=== PATIENT | female | born 1935 | race Caucasian/White ===

== ENCOUNTER 2018-12-25 14:14 | Emergency (ER) | payer MEDICARE, SELFPAY ==
[2018-12-25 14:16] VITALS: BP 167/70; PULSE 69; RESP 18; TEMP 36.6; O2SAT 95; BMI 28.2
--- NOTE | 2018-12-25 14:28 | ED.VISSUMM ---
- ER Visit Summary Date of Service: 12/25/18 Chief Complaint: [Laceration to left small finger] History of Present Illness: The patient is a 83 F [presents to the emergency department after lacerating her left small finger last evening using a damascener. Patient is right-hand dominant. Patient unsure of her last tetanus shot.] Physical Examination: [Left small finger-patient has superficial avulsion of the skin of the tip of the digit into the nail. Minimal blood oozing. Neurovascular intact.] Test Results: [None indicated] Emergency Department Course and Treatment: [Patient had a wound cleansed and Gelfoam was applied to the skin/nail avulsion. Good hemostasis was obtained and patient had a clean dressing applied.] Treatment Plan: [Patient to follow-up with primary care physician in 5 to 7 days for wound check] Disposition: [Discharged home stable condition] Impression: [Skin/nail avulsion of distal tip of left small finger] This note was generated with [employer] dictation software. It may contain incorrect words, spelling, and punctuation that were not noted in review of the chart prior to signing ED Disposition - Plan for ED Patient: Referrals: James Garcia [Primary Care Provider] -
--- NOTE | 2018-12-25 14:30 | ED.DEP ---
ED Disposition - Plan for ED Patient: Instructions: ED Laceration Small Superf No Sutr, ED Avulsion Dermal Referrals: James Garcia [Primary Care Provider] - 5-7 Days
[2018-12-25] MEDS: Diphth,Pertuss(Acell),Tet Vac 0.5 ML Vial IM (14:35)
== END 2018-12-25 14:57 | disposition home or self-care (01) ==
LOC: ED 14:44
PROVIDERS: Emergency Provider Emergency Medicine; Family Provider Family Medicine; PCP Family Medicine
DX: S61.307A Unspecified open wound of left little finger with damage to nail, initial encounter (principal); W27.4XXA Contact with kitchen utensil, initial encounter; Y93.9 Activity, unspecified; Y92.9 Unspecified place or not applicable; Y99.9 Unspecified external cause status; Z23 Encounter for immunization; I48.91 Unspecified atrial fibrillation; I25.10 Atherosclerotic heart disease of native coronary artery without angina pectoris; I10 Essential (primary) hypertension; Z79.899 Other long term (current) drug therapy; Z95.5 Presence of coronary angioplasty implant and graft
CPT/HCPCS: 90471; 90715; 99282

== ENCOUNTER 2019-11-27 12:31 | Emergency (ER) | payer MEDICARE, SELFPAY ==
[2019-11-27 12:33] VITALS: BP 160/68; PULSE 65; RESP 16; TEMP 36.7; O2SAT 96; BMI 24.4
--- NOTE | 2019-11-27 12:45 | CT_ITS ---
STUDY: CT BRAIN WITHOUT CONTRAST REASON FOR EXAM: Female, 84 years old. PT STATED HTN X 4 DAYS RADIATION DOSAGE (If Supplied By Facility): CTDIvol = ( 60.81 ) mGy, DLP = ( 998.67 ) mGycm TECHNIQUE: Transaxial CT imaging of the brain was performed without administration of intravenous contrast material. Individualized dose optimization techniques were used for this CT. COMPARISON: No relevant priors. FINDINGS: Normal soft tissue structures. Normal calvarium. There is mild cerebral atrophy with widening of the extra-axial spaces and ventricular dilatation. There are areas of decreased attenuation within the white matter tracts of the supratentorial brain, consistent with microvascular disease changes. Findings suggestive of a tiny old lacunar infarcts in the basal ganglia bilaterally. Normal brainstem. Normal cerebellum. There is no intracranial hemorrhage. There are no findings of an acute ischemic infarction. Normal visualized paranasal sinuses. CT/Brain/Head without Contrast IMPRESSION: Chronic involutional changes of the brain. Electronically Signed: Reymundo Mejia, at 13:25 EDT , Service support ,
--- NOTE | 2019-11-27 12:45 | EKG12_ITS ---
Test Reason : HIGH BP Blood Pressure : / mmHG Vent. Rate : 063 BPM Atrial Rate : 063 BPM P-R Int : 236 ms QRS Dur : 088 ms QT Int : 440 ms P-R-T Axes : 049 -25 037 degrees QTc Int : 450 ms Sinus rhythm with 1st degree A-V block consider voltage crieria for LVH (aVL) Abnormal ECG Confirmed by JORGE SALAZAR, GUILLERMO ([id number]), manuscript editor MILAGROS FRANCO ([id number]) on 11/28/2019 1:30:47 PM Referred By: BJORN Confirmed By:GUILLERMO PATEL MD
--- NOTE | 2019-11-27 12:51 | ED.VIS.GEN ---
History of Present Illness Chief Complaint: Hypertension Informant: Patient Onset: Days Context: Gradual Onset Timing: Continuous Current Severity: Moderate Maximum Severity: Moderate Narrative: The patient is an 85-year-old female with medical history significant for hypertension and paroxysmal atrial fibrillation who presents to the emergency department with elevated blood pressure. The patient states that she has been having blood pressures in the 200s systolic for the past few days. She called her primary care. She was restarted on her amlodipine and was referred to the emergency department. She states that she waited until today. She had called back and she was still having blood pressure of 200 systolic. She was told to come to the emergency department. She denies chest pain. She denies orthopnea or shortness of breath. She has had a mild headache, but denies any weakness, numbness, other systemic symptoms. She does follow with cardiology here. She states that she has been compliant with her medications. She is on clonidine and states that she has not missed any of her doses. Prior similar symptoms: Yes Recent Illness/Hospitalization: No Past Medical History - Allergies and Home Meds Allergies/Adverse Reactions: Allergies aspirin Adverse Reaction (Verified 11/27/19 12:33) Unknown clarithromycin [From Biaxin] Adverse Reaction (Verified 11/27/19 12:33) Unknown codeine Adverse Reaction (Verified 11/27/19 12:33) Unknown morphine Adverse Reaction (Verified 11/27/19 12:33) Unknown Penicillins Adverse Reaction (Verified 11/27/19 12:33) Unknown Sulfa (Sulfonamide Antibiotics) Adverse Reaction (Verified 11/27/19 12:33) Unknown Primary Care Physician: James Garcia [Primary Care Provider] - Prior records reviewed: Yes Past Medical History: - - Hypertension, hyperlipidemia, coronary vascular disease Smoking Status: Never smoker Review of Systems General: Denies: Chills, Fever, Sweats Eyes: Denies: Visual changes - bilaterally, Diplopia ENT: Denies: Rhinorrhea, Sore throat Cardiovascular: Denies: Chest pain, Palpitations Respiratory: Denies: Dyspnea, Cough, Dyspnea on exertion Gastrointestinal: Denies: Abdominal pain, Nausea, Vomiting, Diarrhea, Melena, Hematochezia Genitourinary: Denies: Dysuria, Hematuria, Frequency Musculoskeletal: Denies: Back pain, Extremity Pain Skin: Denies: Rash, Wounds Neurological: Denies: Headache, Weakness, Numbness Physical Exam Vital Signs/Narrative: Vital Signs Temp Pulse Resp BP Pulse Ox 11/27/19 12:33 98.0 F 65 16 160/68 H 96 Inital Vital Signs reviewed: Yes General: Well nourished, Well developed, No Acute Distress Head: Normocephalic, Atraumatic Eyes: Perrl, EOMI ENT: Moist mucous membranes, No rhinorrhea Neck: Supple, Nontender Cardiovascular: Regular rate, Regular rhythm, No murmurs Respiratory: No distress, CTA bilaterally, Chest nontender Abdomen: Soft, Nontender, Nondistended, Normal bowel sounds Back: Nontender, Normal Inspection Extremities: Nontender, No edema Skin: Normal color, No rash Neurological: Alert, Oriented x3, Cranial nerves II-XII grossly intact, Normal Strength, Normal Sensation Psychological: Normal affect, Normal Mood Diagnostic/Tx/Re-eval Clinical Impression(s) from Imaging Studies Brain CT 11/27/19 12:45 IMPRESSION: Chronic involutional changes of the brain. Electronically Signed: Reymundo Mejia, at 13:25 EDT , Service support , Abnormal Lab Results 11/27/19 11/27/19 13:00 13:00 WBC 8.0 RBC 4.06 L Hgb 12.6 Hct 37.8 MCV 93.1 MCH 31.0 MCHC 33.3 RDW Std Deviation 42.5 RDW Coeff of Deidra 12.4 Plt Count 277 MPV 9.4 Immature Gran % (Auto) 0.300 Neut % (Auto) 58.7 Lymph % (Auto) 29.8 [place] % (Auto) 7.8 Eos % (Auto) 2.4 Baso % (Auto) 1.0 Absolute Neuts (auto) 4.7 Absolute Lymphs (auto) 2.37 Nucleated RBC % 0 Sodium 134 L Potassium 3.6 Chloride 98 Carbon Dioxide 30.0 Anion Gap 6 BUN 21 H Creatinine 0.95 Estim Creat Clear Calc 37.12 Est GFR (MDRD) Af Amer 72 Est GFR (MDRD) Non-Af 59 L BUN/Creatinine Ratio 22.0 H Glucose 142 H Calcium 9.3 Total Bilirubin 0.50 AST 21 ALT 23 Alkaline Phosphatase 118 H Total Protein 8.1 Albumin 4.2 Globulin 3.9 Albumin/Globulin Ratio 1.1 - Rhythm Strip Rhythm Strip: Sinus Rhythm Rate: 70 Ectopy: None - EKG Initial EKG Interpretation: Sinus Rhythm, No Acute Injury Pattern Prior: Unchanged - Medical Decision Making The patient presents to the emergency department with asymptomatic hypertension. She denies chest pain, orthopnea, or any neurologic symptoms. She states that she is had a mild headache, but has for months. EKG was obtained which demonstrated sinus rhythm with LVH. There is no acute ischemia. Screening labs were obtained were unremarkable. The patient did have some mildly elevated blood pressures in the 160s, but she was never [address] shows no acute or normalities. Screening labs including renal function were unremarkable. The patient was just resumed on her amlodipine and her blood pressure has improved. I am hesitant to start her on more medication as she is had increased blood pressure control with her amlodipine. She is scheduled to follow-up with cardiology tomorrow. I do feel that she is safe for outpatient therapy. Impression 1. Hypertension ED Disposition - Plan for ED Patient: Instructions: ED Hypertension Established Referrals: James Garcia [Primary Care Provider] -
[2019-11-27 13:10] LABS: Absolute Lymphocyte Count 2.37 X10^3/uL (0.83-4.51); Absolute Neutrophil Count 4.7 X10^3/uL (2.0-7.7); Basophil# 0.08 X10^3/uL; Eosinophil# 0.19 X10^3/uL; Eosinophils% 2.4 % (0-5); Hematocrit 37.8 % (37-47); Hemoglobin 12.6 g/dL (12.0-15.0); Lymphocyte # 2.37 X10^3/ul (4.0); Lymphocyte % 29.8 % (19-41); Mean Corp Hgb Conc 33.3 g/dL (32-36); Mean Corpuscular Volume 93.1 fL (81-99); Mean Platelet Vol. 9.4 fl (6.2-12.0); Monocyte# 0.62 X10^3/uL; Monocyte% 7.8 % (0-10); NRBC Flagged by Analyzer 0 % (0-5); Neutrophil # 4.67 X10^3/uL (2.7-7.7); Neutrophil % 58.7 % (47-70); Platelet Count 277 K/mm3 (150-450); RBC Distribution Width CV 12.4 % (11.6-14.6); RBC Distribution Width SD 42.5 fl (35.1-43.9); Red Blood Count 4.06 M/mm3 (4.2-5.4)
--- NOTE | 2019-11-27 13:19 | RAD_ITS ---
STUDY: X-RAY CHEST REASON FOR EXAM: Female, 84 years old. SOB, CHEST DISCOMFORT X 3 DAYS; -- STENTS TECHNIQUE: Single AP portable view of the chest. COMPARISON: Comparison is made with prior examination dated August 06, 2010. FINDINGS: The lungs are clear and expanded. There is no demonstrated pleural abnormality. There is moderate cardiac enlargement. Calcified right hilar lymph nodes. Normal visualized pulmonary arteries. There is atherosclerotic calcification of the aortic arch with tortuosity. There is a dextroscoliosis of the thoracic spine. Normal visualized ribs, clavicles, and shoulders. There is no demonstrated abnormality of the visualized soft tissue structures of the upper abdomen. RAD/Chest 1 View (Portable) IMPRESSION: Cardiomegaly. No acute abnormality is seen. Electronically Signed: Reymundo Mejia, at 14:37 EDT , Service support ,
[2019-11-27 13:25] VITALS: BP 171/66; PULSE 63; RESP 16; O2SAT 97
[2019-11-27 13:25] LABS: ALB/GLOB Ratio 1.1 RATIO (0.9-2.4); AST(SGOT) 21 U/L (15-37); Alanine Aminotransfer ALT/SGPT 23 U/L (13-56); Albumin, Serum 4.2 g/dL (3.2-5.0); Alkaline Phosphatase 118 U/L (45-117); Anion Gap 6 (5-15); BUN 21 mg/dL (7-18); Calcium,Total 9.3 mg/dL (8.5-10.1); Chloride 98 mmol/L (98-107); Creatinine, Serum 0.95 mg/dL (0.55-1.02); EST Glomerular Filtration Rate 59 mL/min (>60); Est Glom Filt Rate - Afr Amer 72 mL/min (>60); Estimated Creatinine Clearance 37.12 ml/min; Globulin 3.9 g/dL (2.2-4.2); Glucose 142 mg/dL (74-106); Potassium 3.6 mmol/L (3.5-5.1); Protein, Total 8.1 g/dL (6.4-8.2); Sodium Level 134 mmol/L (136-145)
[2019-11-27 14:31] VITALS: BP 175/64; PULSE 62; RESP 16; O2SAT 94
== END 2019-11-27 14:52 | disposition home or self-care (01) ==
LOC: ED 12:54
PROVIDERS: Emergency Provider Emergency Medicine; PCP Family Medicine
DX: I10 Essential (primary) hypertension (principal); E78.5 Hyperlipidemia, unspecified; I25.10 Atherosclerotic heart disease of native coronary artery without angina pectoris; I48.0 Paroxysmal atrial fibrillation
CPT/HCPCS: 70450; 71045; 80053; 85025; 93005; 99284

== ENCOUNTER 2020-09-27 14:29 | Outpatient (RCR) | payer MEDICARE, SELFPAY ==
[2019-11-28 14:30] VITALS: BMI 24.4
== END 2020-09-27 23:59 ==
LOC: IMMUN 14:29
PROVIDERS: PCP Family Medicine; Referring Provider Family Medicine; Visit Provider Family Medicine
DX: Z23 Encounter for immunization (principal)
CPT/HCPCS: 0011A; 0012A

== ENCOUNTER 2020-11-28 14:41 | Inpatient (IN) | payer MEDICARE, SELFPAY ==
[2019-11-28 14:30] VITALS: BMI 24.4
[2020-11-28] VITALS (10 sets, daily range): BP systolic 114–154; BP diastolic 44–70; PULSE 58–77; RESP 14–18; TEMP 36.1–36.9; O2SAT 93–97; BMI 25.7; BMI 26.6
--- NOTE | 2020-11-28 14:40 | RAD_ITS ---
STUDY: X-RAY CHEST REASON FOR EXAM: Female, 85 years old. Weakness TECHNIQUE: Single AP portable view of the chest. COMPARISON: 11/27/2019 FINDINGS: The lungs are clear and expanded. There is no demonstrated pleural abnormality. There is moderate cardiac enlargement. Normal mediastinum and ashutosh. Normal visualized pulmonary arteries. Normal visualized aortic arch and descending thoracic aorta. There is a dextroscoliosis of the thoracic spine. Normal visualized ribs, clavicles, and shoulders. There is no demonstrated abnormality of the visualized soft tissue structures of the upper abdomen. RAD/Chest 1 View (Portable) IMPRESSION: No active disease. Electronically Signed: Martínez Flores MD at 15:52 EDT Tel , Service support ,
--- NOTE | 2020-11-28 15:04 | CT_ITS ---
STUDY: CT BRAIN WITHOUT CONTRAST REASON FOR EXAM: Female, 85 years old. Weakness RADIATION DOSAGE (If Supplied By Facility): CTDIvol = ( 38.43 ) mGy, DLP = ( 640.64 ) mGycm TECHNIQUE: Transaxial CT imaging of the brain was performed without administration of intravenous contrast material. Individualized dose optimization techniques were used for this CT. COMPARISON: 11/27/2019 FINDINGS: Normal soft tissue structures. Normal calvarium. There is mild cerebral atrophy with widening of the extra-axial spaces and ventricular dilatation. There are areas of decreased attenuation within the white matter tracts of the supratentorial brain, consistent with microvascular disease changes. Normal basal ganglia and thalami. Normal brainstem. Normal cerebellum. There is no intracranial hemorrhage. There are no findings of an acute ischemic infarction. Normal visualized paranasal sinuses. CT/Brain/Head without Contrast IMPRESSION: Chronic involutional changes of the brain. Electronically Signed: Martínez Flores MD at 15:43 EDT Tel , Service support ,
--- NOTE | 2020-11-28 15:05 | EKG12_ITS ---
Test Reason : DIZZINESS Blood Pressure : / mmHG Vent. Rate : 061 BPM Atrial Rate : 061 BPM P-R Int : 238 ms QRS Dur : 086 ms QT Int : 448 ms P-R-T Axes : 047 -29 035 degrees QTc Int : 450 ms Sinus rhythm with 1st degree A-V block Minimal voltage criteria for LVH, may be normal variant Septal infarct , age undetermined Abnormal ECG Confirmed by GIOVANNA SALAZAR, ALLEY ([id number]), avid editor TAY SCHROEDER ([id number]) on 12/02/2020 2:16:28 PM Referred By: JACQUELYN Confirmed By:ALLEY HEREDIA MD
--- NOTE | 2020-11-28 15:09 | ED.VISSUMM ---
- ER Visit Summary Date of Service: 11/28/20 Chief Complaint: Dizziness History of Present Illness: The patient is a 85 F who presents with dizziness and weakness that has been getting worse over the past week. Patient states she feels weak and lightheaded. Patient states it has been waxing and waning over the past week. Patient states she is actually starting to feel better. Patient saw her primary care physician yesterday who adjusted her blood pressure medications. Patient states she is being scheduled for an outpatient MRI but has not had this done yet. reports that the patient's blood pressure today at home were 103/53 and 113/62. is not sure if the patient is dehydrated so he wanted her evaluated for that. Physical Examination: Vital signs are stable. Patient is afebrile. Patient is in no acute distress. Pupils are equal, round, and reactive to light bilaterally. Extraocular muscles are intact. There is no nystagmus noted. Cranial nerves II through XII are intact. Strength is 5/5 bilateral in the upper and lower extremities. There are no sensory deficits noted. Iqsl-[id number] and [id number] are intact. Heart was regular rate and rhythm. Lungs are clear and equal bilaterally. Abdomen is soft. Bowel sounds are normal. There is no tenderness. Extremities are intact. There is no calf tenderness or edema. Test Results: EKG was obtained. On my interpretation, it showed a sinus rhythm with a first-degree AV block with a rate of 61. QRS interval, and QTc intervals were all normal. There is left axis deviation at -29. There are no acute ST or T wave changes. CBC was essentially within normal limits. Metabolic profile showed an elevated creatinine of 2.18. Troponin was slightly elevated at 0.161. Portable 1 view chest x-ray was obtained. On my interpretation, lung acharya are clear. There is normal cardiac silhouette. Bony thorax is normal. There is no acute process noted. Radiologist also interpreted the x-ray and agrees. CT scan of the brain was obtained. There is no acute intracranial abnormality. This was interpreted by the radiologist and reviewed by myself. Orthostatic vital signs were obtained were within normal limits. Urinalysis does not show any evidence of urinary tract infection. Emergency Department Course and Treatment: Patient was given IV fluids. Patient was not given aspirin due to her allergy. Patient is resting comfortably on reevaluation. Case was discussed with the hospitalist. She will admit the patient to her service. Patient and family understood and were agreeable with the plan. All questions were answered. Disposition: Admit to hospital Impression: 1. Acute kidney injury 2. Elevated troponin This note was generated with [employer] dictation software. It may contain incorrect words, spelling, and punctuation that were not noted in review of the chart prior to signing ED Disposition - Plan for ED Patient: Disposition: Acute Care Hospital [facility] Diagnosis: Acute kidney injury, Elevated troponin Referrals: James Garcia DO [Primary Care Provider] -
[2020-11-28 15:38] LABS: Basophil# 0.07 X10^3/uL; Basophil% 0.8 % (0-1); Eosinophil# 0.26 X10^3/uL; Eosinophils% 3.1 % (0-5); Hematocrit 34.7 % (37-47); Hemoglobin 11.3 g/dL (12.0-15.0); Lymphocyte % 28.3 % (19-41); Mean Corp Hgb Conc 32.6 g/dL (32-36); Mean Corpuscular Hgb 32.5 pg (27.0-32.0); Mean Corpuscular Volume 99.7 fL (81-99); Monocyte# 0.69 X10^3/uL; Monocyte% 8.1 % (0-10); NRBC Flagged by Analyzer 0 % (0-5); Neutrophil # 5.02 X10^3/uL (2.7-7.7); Neutrophil % 59.1 % (47-70); Platelet Count 257 K/mm3 (150-450); RBC Distribution Width CV 12.6 % (11.6-14.6); Red Blood Count 3.48 M/mm3 (4.2-5.4); White Blood Count 8.5 K/mm3 (4.4-11.0)
[2020-11-28 15:59] LABS: AST(SGOT) 28 U/L (15-37); Alanine Aminotransfer ALT/SGPT 21 U/L (13-56); Albumin, Serum 3.5 g/dL (3.2-5.0); Alkaline Phosphatase 92 U/L (45-117); Anion Gap 5 (5-15); BUN 37 mg/dL (7-18); Calcium,Total 8.6 mg/dL (8.5-10.1); Chloride 99 mmol/L (98-107); Creatinine, Serum 2.18 mg/dL (0.55-1.02); EST Glomerular Filtration Rate 23 mL/min (>60); Est Glom Filt Rate - Afr Amer 28 mL/min (>60); Globulin 3.5 g/dL (2.2-4.2); Glucose 96 mg/dL (74-106); Potassium 5.2 mmol/L (3.5-5.1); Sodium Level 133 mmol/L (136-145)
[2020-11-28 16:47] LABS: International Normalized Ratio 1.1; Partial Thromboplast Time 26.7 Seconds (24.1-36.2); Prothrombin Time (Protime)PT. 13.5 SECONDS (11.7-14.9)
[2020-11-28 17:11] LABS: Color, Urine Yellow (Yellow); Glucose, Dipstick Normal (Normal); Ketone-Dipstick Negative (Negative); Leukocyte Esterase-Dipstick 100 /ul (Negative); Nitrite-Dipstick Negative (Negative); Occult Blood-Urine Negative /ul (Negative); Protein-Dipstick Negative (Negative); Specific Gravity, Urine 1.005 (1.002-1.030); Urine Bilirubin Dipstick Negative (Negative); Urine Clarity Clear (Clear); Urine Urobilinogen Normal (Normal)
[2020-11-28 17:12] LABS: Mucous, Urine 0 SEEN /hpf (<or=2+); Red Blood Cells-Urine 0 SEEN /hpf (0-5); Squamous Epithelial Cells - UA 0 SEEN /hpf (5-10)
[2020-11-28 17:18] LABS: Bacteria RARE /hpf (None Seen); White Blood Cells 0-5 SEEN /hpf (0-5)
--- NOTE | 2020-11-28 17:43 | HP.PCM_ITS ---
Problem List (1) Acute kidney injury Status: Acute (2) Elevated troponin Status: Acute (3) Presence of stent in coronary artery Status: Chronic Comment: 11/05/2009 PTCA with stents to LAD and RCA (4) Pure hypercholesterolemia Status: Chronic (5) Essential hypertension Status: Chronic (6) Paroxysmal atrial fibrillation Status: Chronic (7) Atherosclerotic heart disease of [place] coronary artery without angina pectoris Status: Chronic Qualifiers: [place] vs. transplanted heart: [place] heart Qualified Code(s): I25.10 - Atherosclerotic heart disease of [place] coronary artery without angina pectoris Comment: 11/05/2009 PTCA with stents to LAD and RCA History of Present Illness Date of Admission: 11/28/20 Chief Complaint: Fatigue, malaise, lightheadedness and dizziness x 1 week, intermittent. The patient is a 85 y/o F w/ PMHx: HTN, HLD, PAF not anticoagulated chronically, CAD s/p PCI LAD and RCA, Anxiety and Depression, Allergic rhinitis, Chronic constipation who presents to the [facility] ED on 11/28/20 with history of ongoing dizziness, lightheadedness with no spinning sensation associated more so with activity, waxing and waning over the last week although she does feel as though she has slowly been improving. She notes having been very fatigued recently over this past week and occasionally having nausea without emesis. She does admit to poor oral water intake. She denies any recent fever, chills, emesis, abdominal pain, chest pain, dyspnea. She denies any recent ill contacts. She has r eceived both of her maternal vaccinations greater than 2 months prior to current presentation as well as her . In the ED work-up included T 98.4, heart rate 64, BP 133/55, respiratory rate 15, 97% on room air, negative orthostatic vital signs, CBC with WC 8.5, hemoglobin 11.3, platelet 257 that marked shift, unremarkable coags, CMP with sodium 133, potassium 5.2, BUN/creatinine 37/2.18, troponin 0 0.161, urinalysis not marked appearing, happy Covid antigen negative, test x-rays no acute cardiopulmonary findings, CT head with no acute intracranial findings. In the ED patient administered NS. Past Medical History Past Medical History (Chronic Problems): Chronic Problems (Last Reviewed 11/28/19 @ 14:40 by Andra Green) Presence of stent in coronary artery (Chronic ~11/05/09) 11/05/2009 PTCA with stents to LAD and RCA Pure hypercholesterolemia (Chronic) Essential hypertension (Chronic) Paroxysmal atrial fibrillation (Chronic) Edema (Chronic) Atherosclerotic heart disease of [place] coronary artery without angina pectoris (Chronic) 11/05/2009 PTCA with stents to LAD and RCA Medical History: Medical History (Last Reviewed 11/28/19 @ 14:40 by Andra Green) Presence of stent in coronary artery (Chronic) Onset Date: ~11/05/09 Z95.5 11/05/2009 PTCA with stents to LAD and RCA Pure hypercholesterolemia (Chronic) E78.00 Essential hypertension (Chronic) I10 Paroxysmal atrial fibrillation (Chronic) I48.0 Edema (Chronic) R60.9 Atherosclerotic heart disease of [place] coronary artery without angina pectoris (Chronic) I25.10 11/05/2009 PTCA with stents to LAD and RCA Allergies aspirin Adverse Reaction (Verified 11/28/20 14:42) Unknown clarithromycin [From Biaxin] Adverse Reaction (Verified 11/28/20 14:42) Unknown codeine Adverse Reaction (Verified 11/28/20 14:42) Unknown morphine Adverse Reaction (Verified 11/28/20 14:42) Unknown Penicillins Adverse Reaction (Verified 11/28/20 14:42) Unknown Sulfa (Sulfonamide Antibiotics) Adverse Reaction (Verified 11/28/20 14:42) Unknown Home Medications: Ambulatory Orders Medication Instructions Recorded ascorbic acid (vitamin C) 500 mg 500 mg PO QDAY 09/08/17 tablet citalopram 20 mg tablet 20 mg PO QDAY 09/08/17 magnesium oxide 400 mg PO QDAY cap 09/08/17 montelukast 10 mg tablet 10 mg PO QDAY tab 09/08/17 omeprazole 20 mg capsule,delayed 20 mg PO BID 09/08/17 release simvastatin 10 mg tablet 10 mg PO QDAY tab 09/08/17 clonidine HCl 0.2 mg tablet 0.1 mg PO QDAY tab 09/13/17 potassium chloride 20 mEq 20 meq PO QDAY 09/13/17 tablet,extended release albuterol sulfate 2.5 mg INHALATION Q4H PRN 06/13/18 ipratropium bromide 0.02 % 2.5 ml INHALATION Q4H PRN 06/13/18 solution for inhalation nitroglycerin 0.4 mg sublingual 0.4 mg SUBLINGUAL Q5-15M PRN 06/13/18 tablet hydrocodone 5 mg-acetaminophen 325 1 tab PO Q8H PRN tab 11/28/19 mg tablet metoprolol succinate 100 mg 100 mg PO BID tab 11/28/19 tablet,extended release 24 hr triamterene 37.5 1 tab PO DAILY tab 11/28/19 mg-hydrochlorothiazide 25 mg tablet amlodipine 10 mg tablet 2.5 mg PO QDAY tab 12/14/19 isosorbide dinitrate 30 mg tablet 30 mg PO BID tab 12/14/19 losartan 50 mg tablet 50 mg PO BID #180 tab 01/30/20 Fluticasone 0.05% [Flonase Nasal 1 spray NASAL DAILY 11/28/20 M[place]oll] Lactulose 10 gm PO DAILY 11/28/20 Surgical History: Surgical History (Last Updated 11/28/19 @ 14:40 by Andra Green) H/O arthroscopy of left knee Z98.890 H/O oophorectomy History of appendectomy Z98.890, Z90.49 History of partial hysterectomy Z98.890, Z90.711 History of right inguinal hernia repair Z98.890, Z87.19 Presence of coronary angioplasty implant and graft Onset Date: ~11/05/09 Z95.5 11/05/2009 PTCA with stents to LAD and RCA History of hernia repair Z98.890, Z87.19 History of coronary artery stent placement (Inactive) Onset Date: 11/05/09 Z95.5 11/05/2009 PTCA with stents to LAD and RCA Surgical History: - - PCI LAD and RCA, appendectomy, hysterectomy with oophorectomy, hernia repair, knee arthroscopic surgery. 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 Lives: Spouse/ Significant Other Smoking Status: Never smoker Tobacco Use: Non-smoker Alcohol: None Drugs: None - *Family History Maternal Family History: Family History (Last Reviewed 11/28/19 @ 14:40 by Andra Green) Mother Myocardial infarction CVA (cerebral vascular accident) CAD (coronary artery disease) Father Myocardial infarction CAD (coronary artery disease) Brother History of PTCA Hx of CABG Sister Hx of CABG History Items: High Cholesterol, Heart Disease, Hypertension, Stroke Paternal Family History: Family History (Last Reviewed 11/28/19 @ 14:40 by Andra Green) Mother Myocardial infarction CVA (cerebral vascular accident) CAD (coronary artery disease) Father Myocardial infarction CAD (coronary artery disease) Brother History of PTCA Hx of CABG Sister Hx of CABG History Items: High Cholesterol, Heart Disease, Hypertension Review of Systems Constitutional: Reports: Malaise, Weakness, Fatigue. Denies: Anorexia, Chills, Fever, Weight Change HEENT: Denies: Head Aches, Sinus Congestion, Sinus Drainage Cardiovascular: Reports: Light Headedness, - - Dizziness, no vertigo.. Denies: Chest Pain, Chest Pressure, Chest Tightness, Edema, Orthopnea, Palpitations, Syncope Respiratory: Reports: Shortness of breath upon exertion - Patient chronically short of breath if she tries to exert herself a lot but this has been stable for many years.. Denies: Cough, Shortness of Breath, Shortness of breath at rest, Sputum production Gastrointestinal: Reports: Constipation, Nausea. Denies: Abdominal Pain, Diarrhea, Vomiting Genitourinary: Denies: Dysuria Musculoskeletal: Reports: Joint Pain. Denies: Joint Tenderness Skin: Denies: Rash, Wounds Neurological: Denies: Numbness, Tingling, Focal weakness Psychiatric: Reports: Anxiety, Depression. Denies: Homicidal Ideations, Suicidal Ideations Hematologic/ Lymphatic: Reports: Anemia, Easy Bruising, Easy Bleeding VTE Information - Inpt Only VTE Present on Admission: No VTE Mechan Device Prophylaxis: SCD's VTE Pharm Prophylaxis ordered?: Yes Patient Problems: Active and Suspected Problems (Last Reviewed 11/28/19 @ 14:40 by Andra Green) Acute kidney injury (Acute) Elevated troponin (Acute) Subjective: Patient seated upright in ED bed, fatigued appearing otherwise no acute distress, denies any shortness of breath or chest pain. Objective: Physical Examination: General: awake, alert, oriented x 3 and cooperative, seated upright in the ED bed in no apparent distress. Skin: normal color, turgor, no icterus, cyanosis except occasional staged ecchymoses. HEENT: AT/NC, EOMI, PERRLA, moderately dry MM, no carotid bruits or JVD noted. Lungs: Diminished breath sounds, greater bases, appropriate effort, no rales, ronchi or wheezing. Heart: Regular rate and rhythm; no gallop, rub audible. Abdomen: soft, NTTP, ND, normal BS, no HSM. Extremities: no cyanosis, clubbing, or edema. Neurological: patient awake, alert, oriented as noted; cognitive function appears baseline intact; pupils equally reactive to light and accomodation; cranial nerves II-XII grossly normal, moving all 4 extremities, no focal deficits, strength moderately global decrease secondary to acute presentation. Psychiatric: affect appears fatigued, flat, denies any acute depression or anxiety, notes she has been very fatigued over this last week. - Physical Exam Vitals/I&O's: Vital Signs Temp Pulse Resp BP Pulse Ox 98.4 F 64 15 133/55 H 97 11/28/20 17:43 11/28/20 17:43 11/28/20 17:43 11/28/20 17:43 11/28/20 17:43 Oxygen Delivery Method Room Air Weight: 132 lb Body Mass Index (BMI) 25.7 Microbiology Past 72 Hours 11/28/20 16:32 Mucosa - Nose SARS-CoV-2 Antigen (Rapid) - Final Laboratory Results 11/28/20 15:20: WBC 8.5, RBC 3.48 L, Hgb 11.3 L, Hct 34.7 L, MCV 99.7 H, MCH 32.5 H, MCHC 32.6, RDW Std Deviation 46.0 H, RDW Coeff of [place] 12.6, Plt Count 257, MPV 11.0, Immature Gran % (Auto) 0.600, Neut % (Auto) 59.1, Lymph % (Auto) 28.3, [place] % (Auto) 8.1, Eos % (Auto) 3.1, Baso % (Auto) 0.8, Absolute Neuts (auto) 5.0, Absolute Lymphs (auto) 2.40, Nucleated RBC % 0 11/28/20 15:20: PT Cancelled, INR Cancelled, APTT Cancelled 11/28/20 15:20: Sodium 133 L, Potassium 5.2 H, Chloride 99, Carbon Dioxide 29.0, Anion Gap 5, BUN 37 H, Creatinine 2.18 H, Estim Creat Clear Calc 13.80, Est GFR (MDRD) Af Amer 28 L, Est GFR (MDRD) Non-Af 23 L, BUN/Creatinine Ratio 17.0, Glucose 96, Calcium 8.6, Total Bilirubin 0.30, AST 28, ALT 21, Alkaline Phosphatase 92, Troponin I 0.161 H, Total Protein 7.0, Albumin 3.5, Globulin 3.5, Albumin/Globulin Ratio 1.0 11/28/20 16:15: PT 13.5, INR 1.1, APTT 26.7 11/28/20 16:56: Urine Color Yellow, Urine Clarity Clear, Urine pH 7.0, Ur Specific [place] 1.005, Urine Protein Negative, Urine Glucose (UA) Normal, Urine Ketones Negative, Urine Occult Blood Negative, Urine Nitrite Negative, Urine Bilirubin Negative, Urine Urobilinogen Normal, Ur Leukocyte Esterase 100 H, Urine RBC 0 SEEN, Urine WBC 0-5 SEEN, Ur Squamous Epith Cells 0 SEEN, Urine Bacteria RARE, Urine Mucus 0 SEEN Current Medications Sodium Chloride () 1,000 mls @ 1,000 mls/hr IV .Q1H ONE Stop: 11/28/20 18:32 Assessment/Plan All Active Problems (Last Reviewed 11/28/19 @ 14:40 by Andra Green) Acute kidney injury (Acute) Elevated troponin (Acute) The patient is a 85 y/o F w/ PMHx: HTN, HLD, PAF not anticoagulated chronically, CAD s/p PCI LAD and RCA, Anxiety and Depression, Allergic rhinitis, Chronic constipation who presents to the [facility] ED on 11/28/20 with history of ongoing dizziness, lightheadedness with no spinning sensation associated more so with activity, waxing and waning over the last week although she does feel as though she has slowly been improving. 1. Lightheadedness, Dizziness suspected secondary to Indeterminate cardiac enzyme, unclear if trending up or down w/ CAD Hx s/p PCI x 2 and #2: EKG in ED with sinus rhythm with first-degree AV block with no acute evidence of ischemia, CXR w/ cardiopulmonary findings, CT head with no acute intracranial findings, initial trop 0.161. Will admit to PCU, place on a monitored bed to assure no acute myocardial infarction with serial cardiac enzymes and EKGs. Will obtain echocardiogram as not recently performed. Will maintain on chemoprophylactic heparin however if trend upward will transition to heparin drip given acute kidney injury. Magnesium level requested. If significant cardiac enzyme rise and evidence of NSTEMI will consult cardiology. Continue medical therapy with hold parameters on nephrotoxic medications as noted. Get of orthostatic vital signs. FLP in AM. ASA, NG, morphine. 2. Acute kidney injury: Secondary to #1 and poor oral intake per discussions as well as nephrotoxic medications. Admission BUN/Cr 37/2.18, prior baseline creatinine noted to be 0.8-0.9. Will hydrate, hold nephrotoxic medications and repeat chemistry in AM. Will obtain FeNa assessment. 3. Hyponatremia, mild, likely hypovolemic: Admission sodium 133, suspect hypovolemic in concordance with #2 acute kidney injury, will continue hydration, repeat CMP in AM. 4. Hyperkalemia: Admission potassium 5.2, likely secondary to iatrogenic ongoing supplementation, will hold, repeat CMP in a.m. given mild elevation. 5. Anemia, appears macrocytic: Prior hemoglobins 12 range, unclear if chronic component, admission hemoglobin 11.3 with MCV 99.7, iron panel, ferritin, vitamin B12 and folic acid pending. 6. CAD: Status post PCI LAD and RCA, noted allergy to aspirin however this is an adverse reaction therefore clarifying and if able will continue, continue metoprolol, holding losartan, continue statin therapy. 7. Hypertension: We will continue patient home amlodipine, clonidine, isosorbide, metoprolol with hold parameters, holding any nephrotoxic regimen with resumption once appropriate, as needed hydralazine. 8. Hyperlipidemia: Continue home statin regimen. AM FLP. 9. GERD: We will continue patient home PPI. 10. Chronic constipation: We will continue patient home lactulose regimen however if any concern for diarrhea will hold given FRANSISCO and hyponatremia. 11. Anxiety and depression: Clarifying if patient is currently on citalopram, will continue it verified however if worsening renal function would hold. 12. Allergic rhinitis: We will continue patient home Flonase regimen as well as Singulair. 13. PAF: Noted history, currently in sinus rhythm, not anticoagulated, will continue patient home metoprolol regimen. 14. DVT prophylaxis: SCDs, heparin. 15. CODE status: Patient does not have healthcare power of workers compensation attorney nor living will set up. Her is present and amenable to discussion of these items and interested in assistance from case management/social work in setting up. Discussed CODE status at length including difference between FULL code, DNR-CCA and DNR-CC status. Following discussions about the differences in these status, requested DNR-CCA, no intubation status.. Advanced Care Planning Face to Face Time: 16 minutes. Inpatient E&M: 22202 Init Hosp L3 Procedures: 00562 Advncd Care Plan 30 Min
[2020-11-28] MEDS: 0.9% Normal Saline 1,000 ML 1000 ML IV (17:46)
--- NOTE | 2020-11-28 19:20 | ECHOD_ITS ---
Reason For Study: CAD/ASHD Procedure This was a 2D Doppler, Color Flow transthoracic echocardiogram. Exam performed portable in patient room. Left Ventricle Normal LV size. Left ventricular systolic function is normal. The estimated ejection fraction is 70 %. There is evidence of diastolic dysfunction. No regional wall motion abnormalities noted. Right Ventricle Normal RV size. Normal systolic function. Atria The left atrium is moderately enlarged. Normal right atrium. No doppler evidence for ASD. Mitral Valve There is moderate to severe mitral annular calcification. Extension of the mitral annular calcification on the base of the posterior mitral valve leaflet. Mild (1+) mitral valve insufficiency. Tricuspid Valve Normal tricuspid valve. Mild (1+) tricuspid valve insufficiency. Right ventricular systolic pressure estimated to be 37 mmHg. Aortic Valve Trisinus/trileaflet aortic valve. Mild focal aortic valve thickening. Trivial aortic valve insufficiency. Pulmonic Valve The pulmonic valve is not well visualized. Great Vessels Normal sized aortic root. Pericardium/Pleural No pericardial effusion. MMode/2D Measurements & Calculations LVIDd: 4.2 cm IVSd: 0.97 cm Ao root diam: 3.1 cm LVIDs: 2.6 cm LVPWd: 1.00 cm RVDd: 3.4 cm FS: 39.2 % LAV(MOD-bp): 47.9 ml LVAd ap4: 23.5 cm2 SV(MOD-sp4): 52.1 ml LAV(MOD-bp) Indexed: 30.3 ml/m2 EDV(MOD-sp4): 70.9 ml LAV(MOD-sp2): 41.4 ml EDV(sp4-el): 74.8 ml LAV(MOD-sp4): 47.7 ml LVAs ap4: 10.6 cm2 ESV(MOD-sp4): 18.7 ml ESV(sp4-el): 19.3 ml EF(MOD-sp4): 73.6 % EF(sp4-el): 74.2 % SV(sp4-el): 55.5 ml LA A4 area: 18.7 cm2 LA dimension(2D): 3.6 cm RA A4 area: 13.8 cm2 Time Measurements MV dec time: 0.32 sec Doppler Measurements & Calculations MV E max ochoa: 96.7 cm/sec Lat Peak E' Ochoa: 8.7 cm/sec Med Peak E' Ochoa: 5.4 cm/sec MV A max ochoa: 100.1 cm/sec E/E' lat: 11.1 E/E' med: 18.0 MV E/A: 0.97 Ao V2 max: 129.3 cm/sec AI max ochoa: 388.1 cm/sec LV V1 max: 118.6 cm/sec Ao max P.7 mmHg AI max P.5 mmHg LV V1 max P.6 mmHg AI dec slope: 258.9 cm/sec2 AI P1/2t: 439.0 msec PA V2 max: 115.8 cm/sec TR max ochoa: 290.4 cm/sec TR max P.7 mmHg ECHO/Echo Complete Interpretation Summary The estimated ejection fraction is 70 %. Left ventricular systolic function is normal. The left atrium is moderately enlarged. There is moderate to severe mitral annular calcification. Extension of the mitral annular calcification on the base of the posterior mitr al valve leaflet. Mild (1+) mitral valve insufficiency. Mild (1+) tricuspid valve insufficiency. Mild focal aortic valve thickening. Trivial aortic valve insufficiency. Right ventricular systolic pressure estimated to be 37 mmHg. There is evidence of diastolic dysfunction. Ordering Physician: Teresa Platt Referring Physician: JAMES PURCELL Performed By: Ana Islas RDCS
--- NOTE | 2020-11-28 19:20 | EKG12_ITS ---
Test Reason : CHEST PAIN Blood Pressure : / mmHG Vent. Rate : 074 BPM Atrial Rate : 074 BPM P-R Int : 212 ms QRS Dur : 084 ms QT Int : 438 ms P-R-T Axes : 066 -22 079 degrees QTc Int : 486 ms Sinus rhythm with 1st degree A-V block Nonspecific ST and T wave abnormality Prolonged QT Abnormal ECG When compared with ECG of 29-NOV-2020 05:39, MANUAL COMPARISON REQUIRED, DATA IS UNCONFIRMED Confirmed by GIOVANNA SALAZAR, ALLEY ([id number]), technical writer and editor [employer]OLO [employer]LES ([id number]) on 12/04/2020 1:25:08 PM Referred By: DEMI Confirmed By:ALLEY HEREDIA MD
[2020-11-28 20:19] LABS: Urine Sodium 26 mmol/L (Not Establ.)
[2020-11-28 21:07] LABS: Magnesium 2.7 mg/dL (1.6-2.6)
[2020-11-28] MEDS: 0.9% Normal Saline 1,000 ML 100 ML IV (21:20)
[2020-11-28] MEDS: Metoprolol(XL)Succ 100 MG Tablet PO (21:26)
[2020-11-28] MEDS: Heparin Injection (Vial) 5,000 UNIT/ML VIAL 5000 UNIT SC (21:27)
[2020-11-28] MEDS: Isosorbide DN 30 MG Tablet PO (21:28)
[2020-11-28] MEDS: Pantoprazole Sodium 20 MG Tablet PO (21:35)
[2020-11-29] VITALS (16 sets, daily range): BP systolic 159–193; BP diastolic 46–77; PULSE 62–73; RESP 16–18; TEMP 36.3–36.7; O2SAT 90–97; BMI 26.4
--- NOTE | 2020-11-29 01:19 | NURSING ---
DR PANIAGUA WAS NOTIFIED OF ELEVATED TROPONINS, NO NEW ORDERS RECEIVED.
[2020-11-29 02:34] LABS: Absolute Lymphocyte Count 3.09 X10^3/uL (0.83-4.51); Absolute Neutrophil Count 5.8 X10^3/uL (2.0-7.7); Basophil# 0.08 X10^3/uL; Basophil% 0.8 % (0-1); Eosinophil# 0.51 X10^3/uL; Eosinophils% 4.9 % (0-5); Hematocrit 33.3 % (37-47); Hemoglobin 10.7 g/dL (12.0-15.0); Lymphocyte # 3.09 X10^3/ul (4.0); Lymphocyte % 29.9 % (19-41); Mean Corp Hgb Conc 32.1 g/dL (32-36); Mean Corpuscular Hgb 31.8 pg (27.0-32.0); Mean Corpuscular Volume 98.8 fL (81-99); Mean Platelet Vol. 10.6 fl (6.2-12.0); Monocyte# 0.82 X10^3/uL; Monocyte% 7.9 % (0-10); NRBC Flagged by Analyzer 0 % (0-5); Neutrophil # 5.82 X10^3/uL (2.7-7.7); Neutrophil % 56.2 % (47-70); Platelet Count 245 K/mm3 (150-450); RBC Distribution Width CV 12.3 % (11.6-14.6); RBC Distribution Width SD 44.7 fl (35.1-43.9); Red Blood Count 3.37 M/mm3 (4.2-5.4); White Blood Count 10.4 K/mm3 (4.4-11.0)
[2020-11-29 02:42] LABS: International Normalized Ratio 1.1; Prothrombin Time (Protime)PT. 13.3 SECONDS (11.7-14.9)
[2020-11-29 02:43] LABS: Partial Thromboplast Time 48.7 Seconds (24.1-36.2)
[2020-11-29 02:56] LABS: Vitamin B12 818 pg/mL (211-911)
[2020-11-29 03:48] LABS: ALB/GLOB Ratio 0.9 RATIO (0.9-2.4); AST(SGOT) 18 U/L (15-37); Alanine Aminotransfer ALT/SGPT 19 U/L (13-56); Albumin, Serum 3.2 g/dL (3.2-5.0); Alkaline Phosphatase 93 U/L (45-117); Anion Gap 3 (5-15); BUN 31 mg/dL (7-18); BUN/Creat Ratio 20.1 RATIO (10-20); Calcium,Total 8.7 mg/dL (8.5-10.1); Chloride 104 mmol/L (98-107); Cholesterol 128 mg/dL (200); Creatinine, Serum 1.54 mg/dL (0.55-1.02); EST Glomerular Filtration Rate 34 mL/min (>60); Est Glom Filt Rate - Afr Amer 41 mL/min (>60); Estimated Creatinine Clearance 19.53 ml/min; Ferritin 636 ng/mL (8-252); Globulin 3.5 g/dL (2.2-4.2); Glucose 137 mg/dL (74-106); High Density Lipoprotein 42 mg/dL; Iron 43 ug/dL (50-170); Iron Binding Capacity,Total 256 ug/dL (250-450); PERCENT IRON SATURATION 16.8 % (15.0-55.0); Potassium 4.6 mmol/L (3.5-5.1); Protein, Total 6.7 g/dL (6.4-8.2); Sodium Level 136 mmol/L (136-145); Triglycerides 173 mg/dL; Very Low Density Lipoprotein 35 mg/dL (5-40)
--- NOTE | 2020-11-29 05:20 | NURSING ---
Reviewed Aspirin allergy with patient, patient states her lips swell up, and she has wheezing and shortness of breath if she takes it. Pt had refused to take it last night due to the allergy.
--- NOTE | 2020-11-29 05:55 | EKG12_ITS ---
Test Reason : AM EKG Blood Pressure : / mmHG Vent. Rate : 065 BPM Atrial Rate : 065 BPM P-R Int : 220 ms QRS Dur : 086 ms QT Int : 432 ms P-R-T Axes : 052 -31 052 degrees QTc Int : 449 ms Sinus rhythm with 1st degree A-V block Left axis deviation Septal infarct , age undetermined Abnormal ECG When compared with ECG of 28-NOV-2020 20:36, MANUAL COMPARISON REQUIRED, DATA IS UNCONFIRMED Confirmed by GIOVANNA SALAZAR, ALLEY ([id number]), editor & co founder [employer]LES ([id number]) on 12/04/2020 1:10:47 PM Referred By: DR SMALL Confirmed By:ALLEY HEREDIA MD
[2020-11-29] MEDS: 0.9% Normal Saline 1,000 ML 100 ML IV ×2 (06:51→16:27)
[2020-11-29] MEDS: Fluticasone 0.05% 1 SPRAY NASAL.SRY NASAL (08:50)
[2020-11-29] MEDS: cloNIDine HCl 0.1 MG Tablet PO (08:50)
[2020-11-29] MEDS: Lactulose 20 GM/30 ML UDC 10 GM PO (08:50)
[2020-11-29] MEDS: Citalopram 20 MG Tablet PO (08:50)
[2020-11-29] MEDS: Isosorbide DN 30 MG Tablet PO ×2 (08:51→21:59)
[2020-11-29] MEDS: amLODIPine 2.5 MG Tablet PO (08:51)
[2020-11-29] MEDS: Magnesium Chloride 64 MG Delay Rel.Tablet 128 MG PO (08:51)
[2020-11-29] MEDS: Metoprolol(XL)Succ 100 MG Tablet PO ×2 (08:52→21:59)
[2020-11-29] MEDS: Ascorbic Acid 500 MG Tablet PO (08:52)
[2020-11-29] MEDS: Pantoprazole Sodium 20 MG Tablet PO ×2 (08:52→22:01)
[2020-11-29] MEDS: Montelukast 10 MG Tablet PO (08:52)
[2020-11-29] MEDS: Heparin Injection (Vial) 5,000 UNIT/ML VIAL 5000 UNIT SC ×2 (08:58→22:04)
--- NOTE | 2020-11-29 10:15 | CASEMGMT ---
RN MILADIS Face to Face with patient for initial transition planning/care coordination assessment. RN CM introduced self and role at [facility]. Patient lying in bed, alert and oriented. Patient willing to participate in assessment and is able to answer all questions appropriately. Care providers, pharmacy, and demographics verified. Patient wishes to discharge home, denies need for home health at this time. Patient states she has no further needs or concerns at this time. CM to follow for discharge planning needs that may arise. PCP: Jose Specialists: Morgan director of accounting Preferred Pharmacy: [facility] Insurance: [employer] Prescription Benefit: yes Living Will/HPOA: none LNOK: Living Arrangements: Patient lives with in a 1 story house with 4 steps and railing to enter the home. Patient states she is independent at home. Transportation: DME/HHC: Patient states has shower chair, raised toilet, cane, walker, grab bars, lift chair, nebulizer. Patient denies previous HHC. Will monitor therapy Disposition Plan: Patient to discharge home with family support and follow-up plans in place. Nurys VINSON, RN, CM
--- NOTE | 2020-11-29 12:06 | PCM.NTREPORT ---
Nutrition Therapy Report - History Nutrition Services has been consulted to:: Manage nutrient details of diet order Current diet / nutrition support order:: Cardiac diet. 120ml ensure enlive 4 times per day w/ medpass - Anthropometric Measurements Height:: 5 ft Weight:: 61.5 kg Body Mass Index (BMI):: 26.4 - Relevant Labs Relevant Labs:: RBC 3.37 M/mm3 (4.2-5.4) L 11/29/20 02:20 Hgb 10.7 g/dL (12.0-15.0) L 11/29/20 02:20 Hct 33.3 % (37-47) L 11/29/20 02:20 MCV 99.7 fL (81-99) H 11/28/20 15:20 MCH 32.5 pg (27.0-32.0) H 11/28/20 15:20 RDW Std Deviation 44.7 fl (35.1-43.9) H 11/29/20 02:20 APTT 48.7 Seconds (24.1-36.2) H 11/29/20 02:20 Sodium 133 mmol/L (136-145) L 11/28/20 15:20 Potassium 5.2 mmol/L (3.5-5.1) H 11/28/20 15:20 Anion Gap 3 (5-15) L 11/29/20 02:20 BUN 31 mg/dL (7-18) H 11/29/20 02:20 Creatinine 1.54 mg/dL (0.55-1.02) H 11/29/20 02:20 Est GFR (MDRD) Af Amer 41 mL/min (>60) L 11/29/20 02:20 Est GFR (MDRD) Non-Af 34 mL/min (>60) L 11/29/20 02:20 BUN/Creatinine Ratio 20.1 RATIO (10-20) H 11/29/20 02:20 Glucose 137 mg/dL (74-106) H 11/29/20 02:20 Magnesium 2.7 mg/dL (1.6-2.6) H 11/28/20 19:55 Iron 43 ug/dL (50-170) L 11/29/20 02:20 Ferritin 636 ng/mL (8-252) H 11/29/20 02:20 Troponin I 0.168 ng/mL (<0.045) H 11/29/20 02:20 - Assessment Food / Nutrition-Related History:: Pt reports wt loss~5-7 lbs x past 1-2 weeks due to ongoing poor intake and poor appetite; -NFPA. Pt denies difficulty chewing/swallowing but, did not take much for breakfast today just a few bites. Likes chocolate ensure enlive. Calculated wt loss~3-5% x past 1-2 weeks is significant for malnutrition especially in view of ongoing inadequate intake. PO/nan overall poor captain/airline pilot and has been ongoing x past 1-2 weeks. Did not take much of breakfast tray this morning and not too hungry for lunch but, pt did ask this RD to call lunch order to dietary and requested mor chocolate ensure enlive. Pt denies difficulty chewing/swallowing. - Nutrition Diagnosis Problem / Etiology / Signs & Symptoms (PES):: Severe pro/awa malnutrition in the context of acute illness related to ongoing poor appetite and suboptimal oral intake as evidenced by ~3-5% wt loss x past 1-2 weeks and and meeting less than 50% of nutriton needs x past 1-2 weeks. Evidence of Malnutrition Exists:: Yes Severe PCM:: Acute Illness - Nutrition Intervention Nutrition Prescription:: Estimated nutrition needs~1754-4842 kcal (25 kcal/Kg) and ~60-75 gm pro (1-1.2 gm pro/Kg) per day. Estimated fluid needs~0604-5202 ml/day (30 ml/Kg). - Food / Nutrient Delivery Interventions Summary of nutrition intervention:: Will liberalize diet to regular/no added salt to help optimize intake at meals. Will change ensure enlive from medpass to 240ml kalia ensure enlive BID w/ lunch and dinner per pt request. Nutrition education provided?: Yes - MNT Monitoring Further MNT monitoring and evaluation required?: Yes MNT Follow-up in:: 3-5 days
[2020-11-29] MEDS: hydrALAZINE 20 MG/ML Vial 10 MG IV (16:28)
[2020-11-29] MEDS: Ondansetron 4 MG/2 ML Vial IV (17:11)
--- NOTE | 2020-11-29 18:01 | PN_ITS ---
Patient Problems: Active and Suspected Problems (Last Reviewed 11/28/19 @ 14:40 by Andra Green) Acute kidney injury (Acute) Elevated troponin (Acute) Subjective: Patient was seen and examined today, her cardiac enzymes remain in the intermediate range, I do not think these are significant. Patient's echocardiogram today showed an EF of 70% with no significant mitral or aortic valve disease. Patient's creatinine was improved today at 1.54, patient's iron level was low at 43. - Physical Exam Vitals/I&O's: Vital Signs Temp Pulse Resp BP Pulse Ox 98.0 F 71 18 172/60 H 97 11/29/20 14:45 11/29/20 16:28 11/29/20 14:45 11/29/20 16:28 11/29/20 14:45 Oxygen Delivery Method Room Air Weight: 61.5 kg Body Mass Index (BMI) 26.4 Orthostatic Vital Signs Start: 11/29/20 04:45 Freq: Status: Active Protocol: Activity Type Activity Date Activity User E-Sign Co-Sign Detail Recorded Client Recorded Date Recorded By Document 11/29/20 04:45 AF [id number] 11/29/20 04:46 AF 11/29/20 04:45 Orthostatic Vitals Standing -Blood Pressure (90/60-120/80) 159/77 H -Extremity Use Left Arm -Pulse Rate (60-100) 73 Sitting -Blood Pressure (90/60-120/80) 169/77 H -Extremity Use Left Arm -Pulse Rate (60-100) 73 Lying -Blood Pressure (90/60-120/80) 193/72 H -Extremity Use Left Arm -Pulse Rate (60-100) 71 Intake and Output for Last 24 Hours 11/27/20 11/28/20 11/29/20 23:59 23:59 23:59 Intake Total 1300 / 1300 2571.67 / 2571.67 Output Total 400 / 400 Balance 900 / 900 2571.67 / 2571.67 General: Alert, Oriented x3, Cooperative, No apparent distress HEENT: Atraumatic, PERRLA, EOMI, Normocephalic Oral: Moist Mucosa Neck: Supple, No JVD, Trachea Midline, Thyroid Normal Size and Texture Lungs: Clear to auscultation, Normal air movement, No rhonchi, No wheeze, No rales Cardiovascular: Regular rate, Regular Rhythm, Normal S1, Normal S2, No murmurs, PMI Normal, No rub noted, No Gallop Abdomen: Bowel Sounds Present, Soft, Non Tender, Non-Distended Extremities: No clubbing, No cyanosis, No edema, Capillary Refill Less than 3 S econds Skin: No rashes, No breakdown Musculoskeletal: No Tenderness to Palpation of Joints or Extremities Neurological: Cranial nerves II-XII grossly intact, Neuro grossly intact, Sensory exam intact to light touch and pain, Coordination normal Psych/Mental Status: Normal Affect, Appropriate, Alert and oriented to time, place, person, mood and affect Microbiology Past 72 Hours 11/28/20 16:32 Mucosa - Nose SARS-CoV-2 Antigen (Rapid) - Final Laboratory Results 11/28/20 16:56: Ur Random Sodium 26, Urine Creatinine 30.80 11/28/20 19:55: Magnesium 2.7 H, Troponin I 0.172 H 11/28/20 23:02: Troponin I 0.165 H 11/29/20 02:20: WBC 10.4, RBC 3.37 L, Hgb 10.7 L, Hct 33.3 L, MCV 98.8, MCH 31.8, MCHC 32.1, RDW Std Deviation 44.7 H, RDW Coeff of Deidra 12.3, Plt Count 245, MPV 10.6, Immature Gran % (Auto) 0.300, Neut % (Auto) 56.2, Lymph % (Auto) 29.9, Nance % (Auto) 7.9, Eos % (Auto) 4.9, Baso % (Auto) 0.8, Absolute Neuts (auto) 5.8, Absolute Lymphs (auto) 3.09, Nucleated RBC % 0 11/29/20 02:20: Sodium 136, Potassium 4.6, Chloride 104, Carbon Dioxide 29.0, Anion Gap 3 L, BUN 31 H, Creatinine 1.54 H, Estim Creat Clear Calc 19.53, Est GFR (MDRD) Af Amer 41 L, Est GFR (MDRD) Non-Af 34 L, BUN/Creatinine Ratio 20.1 H , Glucose 137 H, Calcium 8.7, Iron 43 L, TIBC 256, Iron Saturation 16.8, Ferritin 636 H, Total Bilirubin 0.40, AST 18, ALT 19, Alkaline Phosphatase 93, Total Protein 6.7, Albumin 3.2, Globulin 3.5, Albumin/Globulin Ratio 0.9, T riglycerides 173, Cholesterol 128, LDL Cholesterol 51, VLDL Cholesterol 35, HDL Cholesterol 42, Folate 51.70 11/29/20 02:20: PT 13.3, INR 1.1, APTT 48.7 H 11/29/20 02:20: Vitamin B12 818 11/29/20 02:20: Troponin I 0.168 H Current Medications Acetaminophen (Acetaminophen 325 Mg Tablet) 650 mg PO Q6H PRN PRN PRN Reason: Pain Score 1-10/Temp > 100.7 F Hydrocodone Bitart/Acetaminophen (Hydrocodone Bitartrate/Apap 5/325 Tablet) 1 tablet PO Q8H PRN PRN Reason: pain, 4-10 Al Hydroxide/Mg Hydroxide (Mag Hydrox/Al Hydrox/Simeth 30 Ml Udc) 30 ml PO Q6H PRN PRN PRN Reason: Gastric Burning Albuterol Sulfate (Albuterol 2.5 Mg/3 Ml Vial.Neb.) 2.5 mg INHALATION Q2H PRN PRN PRN Reason: Dyspnea, wheezing Amlodipine Besylate (Amlodipine 2.5 Mg Tablet) 2.5 mg PO DAILY [facility] Last Admin: 11/29/20 08:51 Dose: 2.5 mg Documented by: Ascorbic Acid (Ascorbic Acid 500 Mg Tablet) 500 mg PO DAILY [facility] Last Admin: 11/29/20 08:52 Dose: 500 mg Documented by: Aspirin (Aspirin E.C. 81 Mg Tablet) 81 mg PO DAILY@0800 [facility] Last Admin: 11/29/20 08:58 Dose: Not Given Documented by: Atorvastatin Calcium (Atorvastatin Calcium 10 Mg Tablet) 5 mg PO QHS [facility] Citalopram Hydrobromide (Citalopram 20 Mg Tablet) 20 mg PO DAILY [facility] Last Admin: 11/29/20 08:50 Dose: 20 mg Documented by: Clonidine (Clonidine Hcl 0.1 Mg Tablet) 0.1 mg PO DAILY [facility] Last Admin: 11/29/20 08:50 Dose: 0.1 mg Documented by: Fluticasone Propionate (Fluticasone 0.05% 1 [place] Nasal.Sry) 1 spray NASAL DAILY [facility] Last Admin: 11/29/20 08:50 Dose: 1 spray Documented by: Guaifenesin (Guaifenesin 10 Ml Udc (200mg/10ml)) 20 ml PO Q4H PRN PRN PRN Reason: COUGH Heparin Sodium (Porcine) (Heparin Injection (Vial) 5,000 Unit/Ml Vial) 5,000 unit SC Q12 [facility] Last Admin: 11/29/20 08:58 Dose: 5,000 unit Documented by: Hydralazine HCl (Hydralazine 20 Mg/Ml Vial) 10 mg IV Q4H PRN PRN PRN Reason: SBP > 160 Last Admin: 11/29/20 16:28 Dose: 10 mg Documented by: Sodium Chloride () 1,000 mls @ 100 mls/hr IV .Q10H [facility] Last Admin: 11/29/20 16:27 Dose: 100 mls/hr Documented by: Isosorbide Dinitrate (Isosorbide Dn 30 Mg Tablet) 30 mg PO BID [facility] Last Admin: 11/29/20 08:51 Dose: 30 mg Documented by: Lactulose (Lactulose 20 Gm/30 Ml Udc) 10 gm PO DAILY [facility] Last Admin: 11/29/20 08:50 Dose: 10 gm Documented by: Magnesium Chloride (Magnesium Chloride 64 Mg Delay Rel.Tablet) 128 mg PO DAILY [facility] Last Admin: 11/29/20 08:51 Dose: 128 mg Documented by: Magnesium Hydroxide (Magnesium Hydroxide 30 Ml Udc) 30 ml PO DAILY PRN PRN PRN Reason: Constipation Melatonin (Melatonin 3 Mg Tablet) 3 mg PO QHS PRN PRN PRN Reason: INSOMNIA Metoprolol Succinate (Metoprolol(Xl)Succ 100 Mg Tablet) 100 mg PO BID [facility] Last Admin: 11/29/20 08:52 Dose: 100 mg Documented by: Montelukast Sodium (Montelukast 10 Mg Tablet) 10 mg PO DAILY [facility] Last Admin: 11/29/20 08:52 Dose: 10 mg Documented by: Nitroglycerin (Nitroglycerin (Inpatient Use) 0.4 Mg Tab.Subl) 0.4 mg SL Q5M PRN PRN Reason: CARDIAC/CHEST PAIN Ondansetron HCl (Ondansetron 4 Mg/2 Ml Vial) 4 mg IV Q8H PRN PRN PRN Reason: NAUSEA/VOMITING Last Admin: 11/29/20 17:11 Dose: 4 mg Documented by: Pantoprazole Sodium (Pantoprazole Sodium 20 Mg Tablet) 20 mg PO BID [facility] Last Admin: 11/29/20 08:52 Dose: 20 mg Documented by: Prochlorperazine Edisylate (Prochlorperazine 10 Mg/2 Ml Vial) 5 mg IV Q4H PRN PRN PRN Reason: Breakthrough Nausea/Vomiting Psyllium Hydrophilic Mucilloid (Psyllium 1 Packet) 1 packet PO DAILY PRN PRN PRN Reason: Constipation Senna/Docusate Sodium (Senna/Docusate Sodium 1 Tablet) 2 tablet PO BID PRN PRN PRN Reason: Constipation Sodium Chloride (0.9% Saline Lock 10 Ml Syringe) 10 - 40 ml IV UD PRN PRN Reason: SALINE FLUSH Throat Lozenges (Benzocaine/Menthol 1 Lozenge) 1 lozenge MUCOUS MEM Q2H PRN PRN PRN Reason: SORE THROAT Medical Necessity - Tobacco Use Smoking Status: Never smoker Tobacco Use: Non-smoker Assessment/Plan All Active Problems (Last Reviewed 11/28/19 @ 14:40 by Andra Green) Acute kidney injury (Acute) Elevated troponin (Acute) #1 acute kidney injury-improved, continue IV fluids #2 elevated troponin in the intermediate range-I do not think this is significant #3 coronary artery disease #4 iron deficiency anemia-I will give the patient an infusion of Venofer #5 essential hypertension #6 hyperlipidemia Inpatient E&M: 30737 Subs Hosp L2
[2020-11-29] MEDS: Atorvastatin Calcium 10 MG Tablet 5 MG PO (22:01)
[2020-11-29] MEDS: Losartan Potassium 100 MG Tablet PO (22:01)
[2020-11-30] VITALS (11 sets, daily range): BP systolic 150–185; BP diastolic 61–82; PULSE 68–77; RESP 16–18; TEMP 36.4–37.1; O2SAT 94–97
[2020-11-30] MEDS: Acetaminophen 325 MG Tablet 650 MG PO (02:23)
[2020-11-30] MEDS: hydrALAZINE 20 MG/ML Vial 10 MG IV (02:32)
[2020-11-30] MEDS: 0.9% Saline Lock 10 ML Syringe IV (02:32)
[2020-11-30] MEDS: HYDROcodone Bitartrate/Apap 5/325 Tablet PO (03:08)
--- NOTE | 2020-11-30 03:12 | EKG12_ITS ---
Test Reason : ELEVATED TROP Blood Pressure : / mmHG Vent. Rate : 064 BPM Atrial Rate : 064 BPM P-R Int : 228 ms QRS Dur : 084 ms QT Int : 446 ms P-R-T Axes : 052 -29 039 degrees QTc Int : 460 ms Sinus rhythm with 1st degree A-V block Septal infarct , age undetermined Abnormal ECG When compared with ECG of 28-NOV-2020 15:06, MANUAL COMPARISON REQUIRED, DATA IS UNCONFIRMED Confirmed by GIOVANNA SALAZAR, ALLEY ([id number]), field map editor BARTOLO STAPLES ([id number]) on 12/04/2020 1:28:08 PM Referred By: DR SMALL Confirmed By:ALLEY HEREDIA MD
[2020-11-30] MEDS: Nitroglycerin (INPATIENT USE) 0.4 MG TAB.SUBL SL ×2 (03:45→04:00)
--- NOTE | 2020-11-30 05:47 | NURSING ---
Nitro SL x2 given around 0345 and 0400 for chest pain 4/10 after EKG was obtained. After the 2nd nitro, CP was down to 2 or less per pt, resting comfortably. DUNG Oakes.
[2020-11-30] MEDS: 0.9% Normal Saline 1,000 ML 75 ML IV (06:49)
[2020-11-30 07:58] LABS: Anion Gap 7 (5-15); BUN 17 mg/dL (7-18); Calcium,Total 8.9 mg/dL (8.5-10.1); Chloride 106 mmol/L (98-107); Creatinine, Serum 1.06 mg/dL (0.55-1.02); EST Glomerular Filtration Rate 52 mL/min (>60); Est Glom Filt Rate - Afr Amer 63 mL/min (>60); Estimated Creatinine Clearance 28.38 ml/min; Glucose 132 mg/dL (74-106); Potassium 3.2 mmol/L (3.5-5.1); Sodium Level 138 mmol/L (136-145)
[2020-11-30] MEDS: Heparin Injection (Vial) 5,000 UNIT/ML VIAL 5000 UNIT SC (09:23)
[2020-11-30] MEDS: amLODIPine 2.5 MG Tablet PO (09:23)
[2020-11-30] MEDS: Pantoprazole Sodium 20 MG Tablet PO (09:23)
[2020-11-30] MEDS: Citalopram 20 MG Tablet PO (09:23)
[2020-11-30] MEDS: cloNIDine HCl 0.1 MG Tablet PO (09:24)
[2020-11-30] MEDS: Fluticasone 0.05% 1 SPRAY NASAL.SRY NASAL (09:24)
[2020-11-30] MEDS: Isosorbide DN 30 MG Tablet PO (09:24)
[2020-11-30] MEDS: Losartan Potassium 100 MG Tablet PO (09:24)
[2020-11-30] MEDS: Metoprolol(XL)Succ 100 MG Tablet PO (09:24)
[2020-11-30] MEDS: Montelukast 10 MG Tablet PO (09:24)
--- NOTE | 2020-11-30 10:34 | PCM.DC ---
- Discharge Diagnoses Current Active Problems: Current Active and Chronic Problems (Last Reviewed 11/28/19 @ 14:40 by Andra Green) Acute kidney injury (Acute) Elevated troponin (Acute) Presence of stent in coronary artery (Chronic ~11/05/09) 11/05/2009 PTCA with stents to LAD and RCA Pure hypercholesterolemia (Chronic) Essential hypertension (Chronic) Paroxysmal atrial fibrillation (Chronic) Atherosclerotic heart disease of [place] coronary artery without angina pectoris (Chronic) 11/05/2009 PTCA with stents to LAD and RCA You will use the following diet at home:: No restrictions Your food should be the consistency of: Regular Your liquids should be the consistency of: Regular/Thin Discharge Activity: Return to Normal Activity Weight Bearing Status: Full weight bearing Allergies/Adverse Reactions: Allergies aspirin Adverse Reaction (Verified 11/28/20 14:42) Unknown clarithromycin [From Biaxin] Adverse Reaction (Verified 11/28/20 14:42) Unknown codeine Adverse Reaction (Verified 11/28/20 14:42) Unknown morphine Adverse Reaction (Verified 11/28/20 14:42) Unknown Penicillins Adverse Reaction (Verified 11/28/20 14:42) Unknown Sulfa (Sulfonamide Antibiotics) Adverse Reaction (Verified 11/28/20 14:42) Unknown Medications to take at Discharge ascorbic acid (vitamin C) 500 mg tablet 500 mg PO QDAY 09/08/17 citalopram 20 mg tablet 20 mg PO QDAY 09/08/17 montelukast 10 mg tablet 10 mg PO QDAY tab 09/08/17 omeprazole 20 mg capsule,delayed release 20 mg PO BID 09/08/17 simvastatin 10 mg tablet 10 mg PO QDAY tab 09/08/17 clonidine HCl 0.2 mg tablet 0.1 mg PO QDAY tab 09/13/17 potassium chloride 20 mEq tablet,extended release 20 meq PO QDAY 09/13/17 albuterol sulfate 2.5 mg INHALATION Q4H PRN 06/13/18 ipratropium bromide 0.02 % solution for inhalation 2.5 ml INHALATION Q4H PRN 06/13/18 nitroglycerin 0.4 mg sublingual tablet 0.4 mg SUBLINGUAL Q5-15M PRN 06/13/18 hydrocodone 5 mg-acetaminophen 325 mg tablet 1 tab PO Q8H PRN tab 11/28/19 metoprolol succinate 100 mg tablet,extended release 24 hr 100 mg PO BID tab 11/28/19 isosorbide dinitrate 30 mg tablet 30 mg PO BID tab 12/14/19 losartan 50 mg tablet 50 mg PO BID #180 tab 01/30/20 Fluticasone 0.05% [Flonase Nasal [place]] 1 spray NASAL DAILY 11/28/20 Lactulose 10 gm PO DAILY 11/28/20 Amlodipine Besylate [Norvasc] 5 mg PO QDAY #1 tablet 11/30/20 The following prescriptions were given: Amlodipine Besylate [Norvasc] 5 mg PO QDAY #1 tablet Primary Care Physician: James Garcia DO [Primary Care Provider] - Please follow up with your Primary Care Physician in: this week get your kidney functions checked (BMP) Test Results: Test results from this visit will be discussed in further detail at your follow-up appointment, if applicable.
[2020-11-30] MEDS: Potassium Chloride Oral Tablet 20 MEQ PO (11:02)
--- NOTE | 2020-11-30 18:29 | DS.PCM_ITS ---
Discharge Date and Diagnosis - Problem List Patient Problems: Active and Suspected Problems (Last Reviewed 11/28/19 @ 14:40 by Andra Green) Acute kidney injury (Acute) Elevated troponin (Acute) Date of Admission: 11/28/20 Date of Discharge: 11/30/20 - Primary Discharge Diagnosis Acute Problems: Active Problems (Last Reviewed 11/28/19 @ 14:40 by Andra Green) #1 acute kidney injury secondary to diuretic usage #2 elevated troponin in the intermediate range-not significant #3 coronary artery disease #4 Chronic iron deficiency anemia-mild #5 essential hypertension #6 hyperlipidemia #7 hypokalemia secondary to diuretic usage #8 chronic anxiety and depression - Secondary Discharge Diagnosis Chronic Problems: Chronic Problems (Last Reviewed 11/28/19 @ 14:40 by Andra Green) Presence of stent in coronary artery (Chronic ~11/05/09) 11/05/2009 PTCA with stents to LAD and RCA Pure hypercholesterolemia (Chronic) Essential hypertension (Chronic) Paroxysmal atrial fibrillation (Chronic) Edema (Chronic) Atherosclerotic heart disease of [place] coronary artery without angina pectoris (Chronic) 11/05/2009 PTCA with stents to LAD and RCA Hospital Course and Treatment Operations: None Procedures: 2-D Echocardiogram Summary of Care Provided: The patient is a 85 year old F who was seen in the emergency room at [facility] with a chief complaint of dizziness and weakness. Work-up in the emergency room revealed an elevated creatinine at 2.18, EKG showed a sinus rhythm with a first-degree AV block, chest x-ray was unremarkable. Patient's troponin was slightly elevated at 0.161. Patient was given fluids in the emergency room and admitted to PCU, cardiac enzymes were cycled and these remained slightly elevated but they were all within the intermediate range. These were not felt to be significant. Patient's creatinine improved during her hospital stay, labs were obtained which showed an iron deficiency anemia. Patient was given an infusion of Venofer, according to the patient's , patient was taking [id number] iron pills at home once a day. On 11/30/2020, patient was seen and examined: On examination she appeared in good health and spirits, she does not appear to be in any distress. Vital signs as documented. Skin warm and dry and without overt rashes. Neck without JVD, thyroid appears normal, trachea is midline, neck is supple. Lungs clear, normal air movement was noted. Heart exam notable for regular rhythm, normal sounds and absence of murmurs, rubs or gallops. Abdomen unremarkable and without evidence of organomegaly, masses, or abdominal aortic enlargement, bowel sounds are present in all 4 quadrants, no abdominal tenderness was noted. Extremities nonedematous, no cyanosis was noted, no clubbing was noted. Neuro: Cranial nerves II through XII are grossly intact, no focal motor deficits were noted, sensation to light touch and pinprick is intact, motor exam 5/5 throughout. Psych: Patient is alert and oriented x3, she does not appear anxious or depressed, she does not appear agitated. Patient's echocardiogram was unremarkable, she was felt to be stable for discharge on 11/30/2020. She was instructed to increase her [id number] iron tablets to 1 twice a day and follow-up with her PCP. Patient Problems: Active and Suspected Problems (Last Reviewed 11/28/19 @ 14:40 by Andra Green) Acute kidney injury (Acute) Elevated troponin (Acute) - Physical Exam Vitals/I&O's: Vital Signs Temp Pulse Resp BP Pulse Ox 97.5 F L 77 18 162/61 H 97 11/30/20 09:21 11/30/20 09:24 11/30/20 09:21 11/30/20 09:21 11/30/20 09:21 Oxygen Delivery Method Room Air Weight: 60.3 kg Body Mass Index (BMI) 26.4 Intake and Output for Last 24 Hours 11/28/20 11/29/20 11/30/20 23:59 23:59 23:59 Intake Total 1300 / 1300 3779.59 / 3779.59 646.25 / 646.25 Output Total 400 / 400 Balance 900 / 900 3779.59 / 3779.59 646.25 / 646.25 Microbiology Past 72 Hours 11/28/20 16:32 Mucosa - Nose SARS-CoV-2 Antigen (Rapid) - Final Laboratory Results 11/30/20 05:33: Sodium 138, Potassium 3.2 L, Chloride 106, Carbon Dioxide 25.0, Anion Gap 7, BUN 17, Creatinine 1.06 H, Estim Creat Clear Calc 28.38, Est GFR (MDRD) Af Amer 63, Est GFR (MDRD) Non-Af 52 L, BUN/Creatinine Ratio 16.0, G lucose 132 H, Calcium 8.9 Discharge Activity: Return to Normal Activity Weight Bearing Status: Full weight bearing Home Medications: Medications to take at Discharge ascorbic acid (vitamin C) 500 mg tablet 500 mg PO QDAY 09/08/17 citalopram 20 mg tablet 20 mg PO QDAY 09/08/17 montelukast 10 mg tablet 10 mg PO QDAY tab 09/08/17 omeprazole 20 mg capsule,delayed release 20 mg PO BID 09/08/17 simvastatin 10 mg tablet 10 mg PO QDAY tab 09/08/17 clonidine HCl 0.2 mg tablet 0.1 mg PO QDAY tab 09/13/17 potassium chloride 20 mEq tablet,extended release 20 meq PO QDAY 09/13/17 albuterol sulfate 2.5 mg INHALATION Q4H PRN 06/13/18 ipratropium bromide 0.02 % solution for inhalation 2.5 ml INHALATION Q4H PRN 06/13/18 nitroglycerin 0.4 mg sublingual tablet 0.4 mg SUBLINGUAL Q5-15M PRN 06/13/18 hydrocodone 5 mg-acetaminophen 325 mg tablet 1 tab PO Q8H PRN tab 11/28/19 metoprolol succinate 100 mg tablet,extended release 24 hr 100 mg PO BID tab 11/28/19 isosorbide dinitrate 30 mg tablet 30 mg PO BID tab 12/14/19 losartan 50 mg tablet 50 mg PO BID #180 tab 01/30/20 Fluticasone 0.05% [Flonase Nasal [place]] 1 spray NASAL DAILY 11/28/20 Lactulose 10 gm PO DAILY 11/28/20 Amlodipine Besylate [Norvasc] 5 mg PO QDAY #1 tablet 11/30/20 Following Prescriptions Were Given to Patient: Amlodipine Besylate [Norvasc] 5 mg PO QDAY #1 tablet Primary Care Physician: James Garcia DO [Primary Care Provider] - Please follow up with your Primary Care Physician in: this week get your kidney functions checked (BMP) Disposition: Home Minutes spent on discharge:: 31 Patient Condition:: Stable Medical Necessity - Tobacco Use Smoking Status: Never smoker Tobacco Use: Non-smoker Meaningful Use Info Meaningful Use Diagnoses (Choose all that apply): None applicable Inpatient E&M: 82872 [facility] Hosp
--- NOTE | 2020-12-02 16:10 | CASEMGMT ---
DUNG REDDING Discharge F/U Phone Call LACE: 10 Strata: 3 Discharge date: 11/30/20 Call date: 12/02/20 Call time: [id number] Admission dx: FRANSISCO, indeterminate troponin Pt states has been 'feeling tired and weak' since home. Pt states no questions regarding discharge instructions/medications. Pt states saw [facility] at PCP office today. Pt states no suggestions for [facility]. Pt states has been eating/drinking. Pt voices no further questions/concerns/needs. [place] DUNG REDDING
== END 2020-11-30 11:31 | disposition home or self-care (01) | DRG 683 ==
LOC: ED 17:33 → PCU 17:52
PROVIDERS: Admitting Provider Family Medicine; Emergency Provider Emergency Medicine; PCP Family Medicine; Visit Provider Internal Medicine
DX: N17.9 Acute kidney failure, unspecified (principal); E87.1 Hypo-osmolality and hyponatremia; E87.6 Hypokalemia; T50.2X5A Adverse effect of carbonic-anhydrase inhibitors, benzothiadiazides and other diuretics, initial encounter; R74.8 Abnormal levels of other serum enzymes; D50.9 Iron deficiency anemia, unspecified; I25.10 Atherosclerotic heart disease of native coronary artery without angina pectoris; I10 Essential (primary) hypertension; I44.0 Atrioventricular block, first degree; E87.5 Hyperkalemia; F32.9 Major depressive disorder, single episode, unspecified; F41.9 Anxiety disorder, unspecified; E78.00 Pure hypercholesterolemia, unspecified; I48.0 Paroxysmal atrial fibrillation; K21.9 Gastro-esophageal reflux disease without esophagitis; K59.09 Other constipation; J30.9 Allergic rhinitis, unspecified; Z66 Do not resuscitate; Z95.5 Presence of coronary angioplasty implant and graft; Z79.899 Other long term (current) drug therapy
CPT/HCPCS: 36415; 70450; 71045; 80048; 80053; 80061; 81001; 82570; 82607; 82728; 82746; 83540; 83550; 83735; 84300; 84484; 85025; 85610; 85730; 87426; 93005; 93306; 97110; 97162; 97165; 97530; 97802; 99251; 99285; J7030; J7050; A4216; G0463; J2405; J2916

== ENCOUNTER 2021-12-03 09:50 | Inpatient (IN) | payer MEDICARE, SELFPAY ==
[2021-12-03] VITALS (16 sets, daily range): BP systolic 162–196; BP diastolic 56–70; PULSE 60–74; RESP 16–18; TEMP 36.5–36.9; O2SAT 88–100; BMI 29.2; BMI 27.9
--- NOTE | 2021-12-03 10:04 | EKG12_ITS ---
Test Reason : SOB Blood Pressure : / mmHG Vent. Rate : 061 BPM Atrial Rate : 061 BPM P-R Int : 230 ms QRS Dur : 090 ms QT Int : 448 ms P-R-T Axes : 088 -31 054 degrees QTc Int : 450 ms Sinus rhythm with 1st degree A-V block Left axis deviation Septal infarct , age undetermined Abnormal ECG Confirmed by DERRICK SALAZAR, KIRBY ([id number]), science editor BARTOLO STAPLES ([id number]) on 12/05/2021 12:55:33 P M Referred By: BENJAMÍN/JOANNA Confirmed By:MARCIO MZEA MD
--- NOTE | 2021-12-03 10:04 | RAD_ITS ---
STUDY: X-RAY CHEST REASON FOR EXAM: Female, 86 years old. Sob TECHNIQUE: Single AP portable view of the chest. COMPARISON: Comparison is made with prior study 11/28/2020. FINDINGS: EKG electrodes are seen. The lungs are clear and expanded. There is no demonstrated pleural abnormality. There is mild cardiac enlargement. Normal mediastinum and [place]. Normal visualized pulmonary arteries. There is atherosclerotic calcification of the aortic arch with tortuosity. There are diffuse degenerative changes of the visualized thoracic spine. Dextroscoliosis. Normal visualized ribs, clavicles, and shoulders. There is no demonstrated abnormality of the visualized soft tissue structures of the upper abdomen. RAD/Chest 1 View (Portable) IMPRESSION: Mild cardiomegaly. The lungs are clear. Electronically Signed: Reymundo Mejia MD at 11:03 EDT ,
--- NOTE | 2021-12-03 10:08 | EDS_ITS ---
HPI History of Present Illness Chief Complaint: Shortness of Breath Informant: patient Narrative Narrative: Patient brought in by EMS for progressive dyspnea over the past 2 days. Reports history of asthma. Denies cough or wheeze. Denies COPD history. She does admit to CHF history states increasing leg swelling recently and worsening symptoms when she lies flat. Denies chest pains. Reports history of coronary disease with stents. She is followed by Dr. Mora. She is not on a diuretic. Denies recent travel, surgeries, or immobilizations. No history of PE or DVT. No home oxygen. EMS had patient pulse ox in the high 90s throughout transport. However during my evaluation at rest she was 85 to 86% on room air with good waveforms. Patient does note have a history of paroxysmal atrial fibrillation on her records, she states she is currently not on an anticoagulant. Later evaluation records no had an echocardiogram November 2020 EF was 70% there was reported diastolic dysfunction 1+ mitral valve and tricuspid valve regurgitation. Prior similar symptoms: Yes PFSH PFSH Medical History (Reviewed 12/03/21 @ 13:47 by Amanda Ulloa ASSISTANT MANAGER OF OPERATIONS, ASSISTANT MANAGER OF OPERATIONS-C) Atherosclerotic heart disease of [place] coronary artery without angina pectoris Edema Essential hypertension Paroxysmal atrial fibrillation Presence of stent in coronary artery (~11/05/09) Pure hypercholesterolemia Home Medications ascorbic acid (vitamin C) 500 mg tablet 500 mg PO QDAY 09/08/17 [History Last Taken Unknown] citalopram 20 mg tablet 20 mg PO QDAY 09/08/17 [History Last Taken Unknown] montelukast 10 mg tablet 10 mg PO QDAY tab 09/08/17 [History Last Taken Unknown] omeprazole 20 mg capsule,delayed release 20 mg PO BID 09/08/17 [History Last Taken Unknown] simvastatin 10 mg tablet 10 mg PO QDAY tab 09/08/17 [History Last Taken Unknown] clonidine HCl 0.2 mg tablet 0.1 mg PO QDAY tab 09/13/17 [History Last Taken Unknown] potassium chloride 20 mEq tablet,extended release 20 meq PO QDAY 09/13/17 [History Last Taken Unknown] albuterol sulfate 2.5 mg INHALATION Q4H PRN 06/13/18 [History Last Taken Unknown] ipratropium bromide 0.02 % solution for inhalation 2.5 ml INHALATION Q4H PRN 06/13/18 [History Last Taken Unknown] nitroglycerin 0.4 mg sublingual tablet 0.4 mg SUBLINGUAL Q5-15M PRN 06/13/18 [History Last Taken Unknown] hydrocodone-acetaminophen 5-325mg 5mg-325mg 1 tab PO Q8H PRN tab 11/28/19 [History Last Taken Unknown] metoprolol succinate 100 mg tablet,extended release 24 hr 100 mg PO BID tab 11/28/19 [History Last Taken Unknown] isosorbide dinitrate 30 mg tablet 30 mg PO BID tab 12/14/19 [History Last Taken Unknown] losartan 50 mg tablet 50 mg PO BID #180 tab 01/30/20 [Rx Last Taken Unknown] fluticasone propionate 1 spray NASAL DAILY 11/28/20 [History Last Taken Unknown] lactulose 10 gm PO DAILY 11/28/20 [History Last Taken Unknown] amlodipine 5 mg PO QDAY #1 tablet 11/30/20 [Rx Last Taken Unknown] Allergy/AdvReac Type Severity Reaction Status Date / Time aspirin AdvReac Unknown Verified 12/03/21 10:12 clarithromycin [From Biaxin] AdvReac Unknown Verified 12/03/21 10:12 codeine AdvReac Unknown Verified 12/03/21 10:12 morphine AdvReac Unknown Verified 12/03/21 10:12 Penicillins AdvReac Unknown Verified 12/03/21 10:12 Sulfa (Sulfonamide AdvReac Unknown Verified 12/03/21 10:12 Antibiotics) Family History Mother Myocardial infarction CVA (cerebral vascular accident) CAD (coronary artery disease) Father Myocardial infarction CAD (coronary artery disease) Brother History of PTCA Hx of CABG Sister Hx of CABG Surgical History H/O arthroscopy of left knee H/O oophorectomy History of appendectomy History of coronary artery stent placement (11/05/09) History of hernia repair History of partial hysterectomy History of right inguinal hernia repair Presence of coronary angioplasty implant and graft (~11/05/09) Social History Smoking Status: Never smoker alcohol intake: never substance use type: does not use caffeine: Yes Type: carbonated beverages what type of physical activity do you participate in: none seatbelt use: always do you feel safe at home: Yes ROS ROS ED Constitutional Constitutional ED: Denies chills, fever(s) or sweats Eyes Eyes: Denies change in vision ENT ENT ED: Denies dysphagia or sore throat Cardiovascular Cardiovascular: Denies chest pain, leg edema, palpitations or racing heartbeat Respiratory/Chest Respiratory/Chest: Reports dyspnea; Denies cough or dyspnea on exertion Gastrointestinal Gastrointestinal: Denies abdominal pain, diarrhea, nausea or vomiting Genitourinary Genitourinary ED: Denies dysuria, hematuria or urinary frequency Musculoskeletal Musculoskeletal: Denies back pain, extremity pain or neck pain Integumentary Denies rash or wounds Neurologic Neurologic: Denies headache(s), paresthesias or weakness EXAM Physical Exam Const Vital Signs: 12/03/21 09:53 12/03/21 09:55 12/03/21 10:09 Temperature 98.4 F 98.4 F Temperature Source Oral Oral Pulse Rate 69 69 Respiratory Rate 18 18 Respiratory Effort Blood Pressure 185/57 H 185/57 H Blood Pressure Mean 99 99 Pulse Ox 97 88 88 Oxygen Delivery Method Room Air Nasal Cannula Nasal Cannula Oxygen Flow Rate (L/min) 2 2 12/03/21 10:13 12/03/21 11:52 12/03/21 13:31 Temperature 97.9 F Temperature Source Temporal Pulse Rate 60 60 Respiratory Rate 18 16 Respiratory Effort Normal Blood Pressure 165/70 H 172/60 H Blood Pressure Mean 101 97 Pulse Ox 96 96 Oxygen Delivery Method Room Air Nasal Cannula Nasal Cannula Oxygen Flow Rate (L/min) 2 12/03/21 13:34 Temperature Temperature Source Pulse Rate 60 Respiratory Rate 16 Respiratory Effort Blood Pressure 172/60 H Blood Pressure Mean 97 Pulse Ox 96 Oxygen Delivery Method Nasal Cannula Oxygen Flow Rate (L/min) Positive well nourished and well developed General Appearance ED: well developed and NAD HEENT Reports moist mucous membranes normocephalic and atraumatic Eyes PERRL, EOMs intact bilaterally and conjunctivae normal General Eye ED: Yes normal appearance of both eyes Neck no lymphadenopathy and supple General: Negative for tenderness Chest Wall Chest: Negative for tenderness Resp normal respiratory effort and normal air movement Effort and Inspection: symmetric chest movement; Negative for respiratory distress Cardio regular rate, regular rhythm and no murmurs Peripheral Pulses: pulses 2+ throughout GI normal to inspection, nondistended, normoactive bowel sounds and non-tender Palpation: Negative for guarding or rebound tenderness present Back/Spine no CVA tenderness and no thoracic nor lumbar tenderness Extremity normal to inspection Extremity Narrative: 1+ bilateral lower extremity edema. General Extremety ED: Yes edema; Negative for tenderness General Extremity: edema Neuro oriented x3 and no sensory deficits noted Sensorium / Orientation: awake and alert Skin no rashes or lesions noted and no wounds MDM MDM MDM Narrative Medical decision making narrative: Patient hypoxic 85 to 86% with good waveforms on my evaluation. She is placed on 2 L of oxygen. O2 improved with this. Work-up initiated. EKG sinus rhythm. Chest x-ray 1 view reviewed myself read by radiology normal lungs with no edema. Mild cardiomegaly. Labs white count 7.2 hemoglobin 12.2 creatinine 0.99. Troponin however did return at 252. She was reporting exertional dyspnea however no chest tightness with this. With her hypoxemia and elevated troponin, discussed with patient sent for CT scan to rule out PE. She was given Lovenox prior to this. CT scan negative for PE negative for effusions. She is allergic to aspirin. Discussed with patient finding concerns. She states she did not want cardiac cathing as intervention this point she prefer medical management. I did review records there was copied cardiac cath from 2010 noting patent stents at that time of the proximal LAD and the mid right coronary. She had mid LAD lesion of 30%, circumflex lesion of 25 to 30%, ostial RCA lesion of 50%. I did discuss with toe stapler Dr. Haney who will be on consult. I spoke with hospitalist, Dr. Cantrell for admission to PCU. Lab Data Attestation: I reviewed the patient's lab results. Labs: Laboratory Results - last 24 hr 12/03/21 12/03/21 12/03/21 10:30 10:30 10:30 WBC 7.2 RBC 3.90 L Hgb 12.2 Hct 35.7 L MCV 91.5 MCH 31.3 MCHC 34.2 RDW Std Deviation 42.9 RDW Coeff of Deidra 12.8 Plt Count 302 MPV 10.4 Immature Gran % (Auto) 0.300 Neut % (Auto) 48.9 Lymph % (Auto) 36.1 [place] % (Auto) 7.3 Eos % (Auto) 6.3 H Baso % (Auto) 1.1 H Absolute Neuts (auto) 3.5 Absolute Lymphs (auto) 2.58 Nucleated RBC % 0 PT 13.2 INR 1.0 APTT 29.4 Sodium 136 Potassium 3.8 Chloride 101 Carbon Dioxide 28.0 Anion Gap 7 BUN 19 H Creatinine 0.99 Estim Creat Clear Calc 41.71 Est GFR (MDRD) Af Amer 68 Est GFR (MDRD) Non-Af 56 L BUN/Creatinine Ratio 19.1 Glucose 145 H Calcium 10.0 Total Bilirubin 0.90 AST 20 ALT 20 Alkaline Phosphatase 134 H Troponin I High Sens 252 H* B-Natriuretic Peptide Total Protein 8.2 Albumin 4.0 Globulin 4.2 Albumin/Globulin Ratio 1.0 12/03/21 12/03/21 10:30 12:50 WBC RBC Hgb Hct MCV MCH MCHC RDW Std Deviation RDW Coeff of Deidra Plt Count MPV Immature Gran % (Auto) Neut % (Auto) Lymph % (Auto) [place] % (Auto) Eos % (Auto) Baso % (Auto) Absolute Neuts (auto) Absolute Lymphs (auto) Nucleated RBC % PT INR APTT Sodium Potassium Chloride Carbon Dioxide Anion Gap BUN Creatinine Estim Creat Clear Calc Est GFR (MDRD) Af Amer Est GFR (MDRD) Non-Af BUN/Creatinine Ratio Glucose Calcium Total Bilirubin AST ALT Alkaline Phosphatase Troponin I High Sens 214 H* B-Natriuretic Peptide 174.0 H Total Protein Albumin Globulin Albumin/Globulin Ratio Radiography Chest X-Ray - ED: 1 View, Read by ED Physician and Read by Radiologist Diagnostic Testing: Clinical Impression(s) from Imaging Studies Chest X-Ray 12/03/21 10:04 IMPRESSION: Mild cardiomegaly. The lungs are clear. Electronically Signed: Reymundo Mejia MD at 11:03 EDT , Chest CTA 12/03/21 11:34 IMPRESSION: Scattered calcified granulomas. No evidence of pulmonary embolism. Findings suggestive of mild scarring or atelectasis at the lung bases. Electronically Signed: Reymundo Mejia MD at 12:24 EDT , EKG Initial EKG: Attestation: I personally reviewed and interpreted this EKG as follows: Comments: Sinus rate of 61, no ST or T wave changes. First-degree AV block. Similar to November 2020. Critical Care Time Critical Care Time: Yes Critical care time (excluding procedures): 30-74 minutes, Discussing w/Patient &/or Family/[employer] Solder Stripper, Discussing w/Consultants, Arranging Admission or Transfer, Performing Direct Patient Care at Bedside and - (45 minutes) Discharge Plan Dx/Rx/DC Orders Clinical Impression: Non-ST elevation [place] (NSTEMI), Hypoxemia, Shortness of breath Disposition Disposition: Acute Care Hospital [facility] Discharge Date/Time: 12/03/21 13:41
[2021-12-03 10:50] LABS: Absolute Lymphocyte Count 2.58 X10^3/uL (0.83-4.51); Absolute Neutrophil Count 3.5 X10^3/uL (2.0-7.7); Basophil# 0.08 X10^3/uL; Basophil% 1.1 % (0-1); Eosinophil# 0.45 X10^3/uL; Eosinophils% 6.3 % (0-5); Hematocrit 35.7 % (37-47); Hemoglobin 12.2 g/dL (12.0-15.0); Lymphocyte # 2.58 X10^3/ul (0.83-4.51); Lymphocyte % 36.1 % (19-41); Mean Corp Hgb Conc 34.2 g/dL (32-36); Mean Corpuscular Hgb 31.3 pg (27.0-32.0); Mean Corpuscular Volume 91.5 fL (81-99); Mean Platelet Vol. 10.4 fl (6.2-12.0); Monocyte# 0.52 X10^3/uL; Monocyte% 7.3 % (0-10); NRBC Flagged by Analyzer 0 % (0-5); Neutrophil % 48.9 % (47-70); Platelet Count 302 K/mm3 (150-450); RBC Distribution Width CV 12.8 % (11.6-14.6); RBC Distribution Width SD 42.9 fl (35.1-43.9); White Blood Count 7.2 K/mm3 (4.4-11.0)
[2021-12-03 10:56] LABS: Prothrombin Time (Protime)PT. 13.2 SECONDS (11.7-14.9)
[2021-12-03 10:57] LABS: Partial Thromboplast Time 29.4 Seconds (24.1-36.2)
[2021-12-03 11:23] LABS: AST(SGOT) 20 U/L (15-37); Alanine Aminotransfer ALT/SGPT 20 U/L (13-56); Alkaline Phosphatase 134 U/L (45-117); Anion Gap 7 (5-15); BUN 19 mg/dL (7-18); BUN/Creat Ratio 19.1 RATIO (10-20); Chloride 101 mmol/L (98-107); Creatinine, Serum 0.99 mg/dL (0.55-1.02); EST Glomerular Filtration Rate 56 mL/min (>60); Est Glom Filt Rate - Afr Amer 68 mL/min (>60); Estimated Creatinine Clearance 41.71 ml/min; Globulin 4.2 g/dL (2.2-4.2); Glucose 145 mg/dL (74-106); Potassium 3.8 mmol/L (3.5-5.1); Protein, Total 8.2 g/dL (6.4-8.2); Sodium Level 136 mmol/L (136-145); Troponin-I HS 252 pg/mL (3.0-54.0)
--- NOTE | 2021-12-03 11:34 | CT_ITS ---
STUDY: CTA CHEST REASON FOR EXAM: Female, 86 years old. Hypoxia RADIATION DOSAGE (If Supplied By Facility): CTDIvol = ( 7.32 ) mGy, DLP = ( 238.61 ) mGycm TECHNIQUE: The examination was performed with the intravenous administration of IV 100mL [id number]-370. Post-processing of the angiographic images was performed, with multiplanar reformation and 3D reconstruction. Individualized dose optimization techniques were used for this CT. COMPARISON: Comparison is made with prior chest radiograph done earlier today. FINDINGS: Normal enhancement of the main pulmonary artery and right and left pulmonary arteries. Normal enhancement of the bilateral peripheral pulmonary arteries. There is no demonstrated pulmonary embolism. There is atherosclerotic calcification of the aortic arch with tortuosity. There is no demonstrated aortic dissection. There are calcifications of the coronary arteries. Calcified subcarinal lymph nodes. Calcified right hilar lymph nodes. Normal visualized trachea and bronchi. The lungs are well expanded. Scattered calcified granulomas in the lower lobes. Mild degree of increased linear markings at the lung bases suggestive of a mild scarring. Normal pleura. Normal chest wall structures. There are degenerative changes of thoracic spine. Dextroscoliosis. Calcified splenic granulomas. CT/CTA Chest W/WO Contrast IMPRESSION: Scattered calcified granulomas. No evidence of pulmonary embolism. Findings suggestive of mild scarring or atelectasis at the lung bases. Electronically Signed: Reymundo Mejia MD at 12:24 EDT ,
[2021-12-03] MEDS: Enoxaparin 80 MG/0.8 ML Syringe 70 MG SC (12:53)
[2021-12-03 13:19] LABS: Troponin-I HS 214 pg/mL (3.0-54.0)
--- NOTE | 2021-12-03 13:38 | NURSING ---
114 nstemi, hypoxia sebas
--- NOTE | 2021-12-03 13:42 | PCM.HP.STD ---
Documented by User: Amanda Ulloa NP, [employer] 12/03/21 14:12 HPI - General HPI Narrative ANIYA AGUILAR, is a 86 F who presents to the emergency room due to shortness of breath. Patient states she has had shortness of breath for the past few days. Denies cough, fever, chills. Denies chest pressure or chest pain. Denies aggravating or alleviating factors. She does note some mild increased swelling of her lower extremities. Denies notable weight gain. Patient reports a history of asthma. She went to use her inhaler and found that it was . She states not having an inhaler to use made her anxious and breathing worse. She is not on home oxygen. She reports a past medical history of CAD with history of stents, hypertension, hyperlipidemia, paroxysmal atrial fibrillation, asthma, anxiety, depression. [facility] Medical History Atherosclerotic heart disease of [place] coronary artery without angina pectoris Edema Essential hypertension Paroxysmal atrial fibrillation Presence of stent in coronary artery (~11/05/09) Pure hypercholesterolemia Home Medications ascorbic acid (vitamin C) 500 mg tablet 500 mg PO QDAY 09/08/17 [History Last Taken Unknown] citalopram 20 mg tablet 20 mg PO QDAY 09/08/17 [History Last Taken Unknown] montelukast 10 mg tablet 10 mg PO QDAY tab 09/08/17 [History Last Taken Unknown] omeprazole 20 mg capsule,delayed release 20 mg PO BID 09/08/17 [History Last Taken Unknown] simvastatin 10 mg tablet 10 mg PO QDAY tab 09/08/17 [History Last Taken Unknown] clonidine HCl 0.2 mg tablet 0.1 mg PO QDAY tab 09/13/17 [History Last Taken Unknown] potassium chloride 20 mEq tablet,extended release 20 meq PO QDAY 09/13/17 [History Last Taken Unknown] albuterol sulfate 2.5 mg INHALATION Q4H PRN 06/13/18 [History Last Taken Unknown] ipratropium bromide 0.02 % solution for inhalation 2.5 ml INHALATION Q4H PRN 06/13/18 [History Last Taken Unknown] nitroglycerin 0.4 mg sublingual tablet 0.4 mg SUBLINGUAL Q5-15M PRN 06/13/18 [History Last Taken Unknown] hydrocodone-acetaminophen 5-325mg 5mg-325mg 1 tab PO Q8H PRN tab 11/28/19 [History Last Taken Unknown] metoprolol succinate 100 mg tablet,extended release 24 hr 100 mg PO BID tab 11/28/19 [History Last Taken Unknown] isosorbide dinitrate 30 mg tablet 30 mg PO BID tab 12/14/19 [History Last Taken Unknown] losartan 50 mg tablet 50 mg PO BID #180 tab 01/30/20 [Rx Last Taken Unknown] fluticasone propionate 1 spray NASAL DAILY 11/28/20 [History Last Taken Unknown] lactulose 10 gm PO DAILY 11/28/20 [History Last Taken Unknown] amlodipine 5 mg PO QDAY #1 tablet 11/30/20 [Rx Last Taken Unknown] Allergy/AdvReac Type Severity Reaction Status Date / Time aspirin AdvReac Unknown Verified 12/03/21 10:12 clarithromycin [From Biaxin] AdvReac Unknown Verified 12/03/21 10:12 codeine AdvReac Unknown Verified 12/03/21 10:12 morphine AdvReac Unknown Verified 12/03/21 10:12 Penicillins AdvReac Unknown Verified 12/03/21 10:12 Sulfa (Sulfonamide AdvReac Unknown Verified 12/03/21 10:12 Antibiotics) Family History Mother Myocardial infarction CVA (cerebral vascular accident) CAD (coronary artery disease) Father Myocardial infarction CAD (coronary artery disease) Brother History of PTCA Hx of CABG Sister Hx of CABG Surgical History H/O arthroscopy of left knee H/O oophorectomy History of appendectomy History of coronary artery stent placement (11/05/09) History of hernia repair History of partial hysterectomy History of right inguinal hernia repair Presence of coronary angioplasty implant and graft (~11/05/09) Social History Smoking Status: Never smoker alcohol intake: never substance use type: does not use caffeine: Yes Type: carbonated beverages what type of physical activity do you participate in: none seatbelt use: always do you feel safe at home: Yes ROS Constitutional Constitutional: Denies change in weight, chills, fatigue, fever(s) or weakness Cardiovascular Cardiovascular: Reports edema; Denies chest pain, lightheadedness, palpitations or syncope Respiratory/Chest Respiratory/Chest: Reports dyspnea; Denies cough, productive cough or wheezing Gastrointestinal Gastrointestinal: Denies abdominal pain, constipation, diarrhea, nausea or vomiting Genitourinary Genitourinary: Denies burning urination, difficulty urinating, dysuria, hematuria, urinary frequency, urinary incontinence or urinary urgency Musculoskeletal Musculoskeletal: Denies back pain, joint pain or muscle weakness Integumentary Integumentary: Denies erythema, lesions, rash or wounds Neurologic Neurologic: Denies abnormal speech, confusion, dizziness, focal weakness, numbness, paresthesias, seizure-like activity or syncope Psychiatric Psychiatric: Denies anxiety or depression Hematologic/Lymphatic Hematologic/Lymphatic: Denies anemia, easy bleeding or easy bruising Allergic/Immunologic Allergic/Immunologic: Denies hives or asthma Vital Signs Vital Signs Vital Signs: 12/03/21 09:53 12/03/21 09:55 12/03/21 10:09 Temperature 98.4 F 98.4 F Temperature Source Oral Oral Pulse Rate 69 69 Respiratory Rate 18 18 Respiratory Effort Blood Pressure 185/57 H 185/57 H Blood Pressure Mean 99 99 Pulse Ox 97 88 88 Oxygen Delivery Method Room Air Nasal Cannula Nasal Cannula Oxygen Flow Rate (L/min) 2 2 12/03/21 10:13 12/03/21 11:52 12/03/21 13:31 Temperature 97.9 F Temperature Source Temporal Pulse Rate 60 60 Respiratory Rate 18 16 Respiratory Effort Normal Blood Pressure 165/70 H 172/60 H Blood Pressure Mean 101 97 Pulse Ox 96 96 Oxygen Delivery Method Room Air Nasal Cannula Nasal Cannula Oxygen Flow Rate (L/min) 2 12/03/21 13:34 Temperature Temperature Source Pulse Rate 60 Respiratory Rate 16 Respiratory Effort Blood Pressure 172/60 H Blood Pressure Mean 97 Pulse Ox 96 Oxygen Delivery Method Nasal Cannula Oxygen Flow Rate (L/min) Weight Weight: 140 lb 3.424 oz Body Mass Index (BMI) 29.2 Physical Exam Const alert and oriented x3 Orientation / Consciousness: awake, oriented to person, oriented to place and oriented to time HEENT normocephalic and moist oral mucous membranes Eyes PERRL, EOMs intact bilaterally and conjunctivae normal Neck no lymphadenopathy Resp clear to auscultation bilaterally Cardio regular rate, regular rhythm and no murmurs Peripheral Pulses: pulses 2+ throughout GI normal to inspection, nondistended, normoactive bowel sounds, non-tender and non-distended Extremity normal to inspection General Extremity: edema bilateral lower extremity Details: mild Skin no rashes or lesions noted Lesions: no lesions Rashes: no rashes Trauma: no lacerations or abrasions Neuro CN's II-XII intact bilaterally, no focal motor deficits, no sensory deficits noted and deep tendon reflexes 2+ bilaterally Psych mental status grossly normal and affect normal Results Lab / Micro Data Result Diagrams: 12/03/21 10:30 12/03/21 10:30 Labs: Laboratory Results - last 24 hr 12/03/21 10:30: WBC 7.2, RBC 3.90 L, Hgb 12.2, Hct 35.7 L, MCV 91.5, MCH 31.3, MCHC 34.2, RDW Std Deviation 42.9, RDW Coeff of Deidra 12.8, Plt Count 302, MPV 10.4, Immature Gran % (Auto) 0.300, Neut % (Auto) 48.9, Lymph % (Auto) 36.1, Waldo % (Auto) 7.3, Eos % (Auto) 6.3 H, Baso % (Auto) 1.1 H, Absolute Neuts (auto) 3.5, Absolute Lymphs (auto) 2.58, Nucleated RBC % 0 12/03/21 10:30: PT 13.2, INR 1.0, APTT 29.4 12/03/21 10:30: Sodium 136, Potassium 3.8, Chloride 101, Carbon Dioxide 28.0, Anion Gap 7, BUN 19 H, Creatinine 0.99, Estim Creat Clear Calc 41.71, Est GFR (MDRD) Af Amer 68, Est GFR (MDRD) Non-Af 56 L, BUN/Creatinine Ratio 19.1, Glucose 145 H, Calcium 10.0, Total Bilirubin 0.90, AST 20, ALT 20, Alkaline Phosphatase 134 H, Troponin I High Sens 252 H*, Total Protein 8.2, Albumin 4.0, Globulin 4.2, Albumin/Globulin Ratio 1.0 12/03/21 10:30: B-Natriuretic Peptide 174.0 H 12/03/21 12:50: Troponin I High Sens 214 H* Micro: Microbiology 12/03/21 10:50 Nasal Secretion SARS-CoV-2 Antigen (Rapid) - Final Radiology Impression Chest X-Ray 12/03/21 10:04 IMPRESSION: Mild cardiomegaly. The lungs are clear. Electronically Signed: Reymundo Mejia MD at 11:03 EDT , Chest CTA 12/03/21 11:34 IMPRESSION: Scattered calcified granulomas. No evidence of pulmonary embolism. Findings suggestive of mild scarring or atelectasis at the lung bases. Electronically Signed: Reymundo Mejia MD at 12:24 EDT , Assessment & Plan Assessment/Plan (1) Elevated troponin: PLAN: 1. NSTEMI-CTA without PE. EKG without acute ST-T changes. Aspirin, statin. Obtain echo. Cardiology consult. 2. Acute hypoxic respiratory insufficiency, dyspnea-documented to be 85 to 86% on room air in the emergency room. Placed on 2 L nasal cannula. CTA with atelectasis, otherwise unremarkable. No evidence of CHF or pneumonia. No wheezing on exam. IS. Continue supplement oxygen to maintain O2 at above 90%. Walking pulse ox prior to discharge. 3. Elevated glucose-check hemoglobin A1c. 4. CAD with history of stents-continue statin, beta-melanie. Not on aspirin. Per prior cardiology note, no longer on antiplatelet therapy secondary to GI issues. Patient follows with Dr. Mora, per records appears most recent follow up was in 2019. 5. Paroxysmal atrial fibrillation- continue metoprolol. Not on anticoagulation. 6. Hypertension-continue metoprolol, losartan, isosorbide, amlodipine, clonidine. 7. Hyperlipidemia-continue statin. 8. Chronic asthma- no exacerbation. PRN albuterol aerosols. 9. Anxiety/depression 10. GERD-continue PPI. DVT prophylaxis-Lovenox subcu This patient was seen by DELORIS Law under the supervision of Dr. Cantrell. Time spent examining patient, reviewing data and subsequent management of care: 17 Minutes Documented by User: Dr. Michael Cantrell MD 12/03/21 15:16 HPI - General General Date of Admission: 12/03/21 [facility] Medical History Atherosclerotic heart disease of [place] coronary artery without angina pectoris Edema Essential hypertension Paroxysmal atrial fibrillation Presence of stent in coronary artery (~11/05/09) Pure hypercholesterolemia Home Medications ascorbic acid (vitamin C) 500 mg tablet 500 mg PO QDAY 09/08/17 [History Last Taken Unknown] citalopram 20 mg tablet 20 mg PO QDAY 09/08/17 [History Last Taken Unknown] montelukast 10 mg tablet 10 mg PO QDAY tab 09/08/17 [History Last Taken Unknown] omeprazole 20 mg capsule,delayed release 20 mg PO BID 09/08/17 [History Last Taken Unknown] simvastatin 10 mg tablet 10 mg PO QDAY tab 09/08/17 [History Last Taken Unknown] clonidine HCl 0.2 mg tablet 0.1 mg PO QDAY tab 09/13/17 [History Last Taken Unknown] potassium chloride 20 mEq tablet,extended release 20 meq PO QDAY 09/13/17 [History Last Taken Unknown] albuterol sulfate 2.5 mg INHALATION Q4H PRN 06/13/18 [History Last Taken Unknown] ipratropium bromide 0.02 % solution for inhalation 2.5 ml INHALATION Q4H PRN 06/13/18 [History Last Taken Unknown] nitroglycerin 0.4 mg sublingual tablet 0.4 mg SUBLINGUAL Q5-15M PRN 06/13/18 [History Last Taken Unknown] hydrocodone-acetaminophen 5-325mg 5mg-325mg 1 tab PO Q8H PRN tab 11/28/19 [History Last Taken Unknown] metoprolol succinate 100 mg tablet,extended release 24 hr 100 mg PO BID tab 11/28/19 [History Last Taken Unknown] isosorbide dinitrate 30 mg tablet 30 mg PO BID tab 12/14/19 [History Last Taken Unknown] losartan 50 mg tablet 50 mg PO BID #180 tab 01/30/20 [Rx Last Taken Unknown] fluticasone propionate 1 spray NASAL DAILY 11/28/20 [History Last Taken Unknown] lactulose 10 gm PO DAILY 11/28/20 [History Last Taken Unknown] amlodipine 5 mg PO QDAY #1 tablet 11/30/20 [Rx Last Taken Unknown] Allergy/AdvReac Type Severity Reaction Status Date / Time aspirin AdvReac Unknown Verified 12/03/21 10:12 clarithromycin [From Biaxin] AdvReac Unknown Verified 12/03/21 10:12 codeine AdvReac Unknown Verified 12/03/21 10:12 morphine AdvReac Unknown Verified 12/03/21 10:12 Penicillins AdvReac Unknown Verified 12/03/21 10:12 Sulfa (Sulfonamide AdvReac Unknown Verified 12/03/21 10:12 Antibiotics) Family History Mother Myocardial infarction CVA (cerebral vascular accident) CAD (coronary artery disease) Father Myocardial infarction CAD (coronary artery disease) Brother History of PTCA Hx of CABG Sister Hx of CABG Surgical History H/O arthroscopy of left knee H/O oophorectomy History of appendectomy History of coronary artery stent placement (11/05/09) History of hernia repair History of partial hysterectomy History of right inguinal hernia repair Presence of coronary angioplasty implant and graft (~11/05/09) Social History Smoking Status: Never smoker alcohol intake: never substance use type: does not use caffeine: Yes Type: carbonated beverages what type of physical activity do you participate in: none seatbelt use: always do you feel safe at home: Yes Results Lab / Micro Data Result Diagrams: 12/03/21 10:30 12/03/21 10:30 Charges/Coding Addendum Addendum: Dr. Cantrell: I personally reviewed the chart and examined the patient, and agree with the above findings. 86-year-old female presented to the hospital with 3 days of shortness of breath, she does have a history of CAD with stents. ED physician notes that she was 85% on room air so he put her on 2 L. He did a CTA of the chest which was negative for PE, troponin initially was 214 on admission and BNP was elevated to 174. She has noticed some increased swelling in her lower extremities and she does have some mild pitting edema bilaterally. Will consult cardiology however the patient does not want a heart cath so we will try to manage her medically. She did receive a dose of therapeutic Lovenox in the ER which we will continue at daily dosing given her creatinine clearance. Clinical time spent in all aspects of patient care: 40 minutes Visit Charges Inpatient E&M: 52998 Init Hosp L2
--- NOTE | 2021-12-03 13:54 | EKG12_ITS ---
Test Reason : CP Blood Pressure : / mmHG Vent. Rate : 058 BPM Atrial Rate : 058 BPM P-R Int : 238 ms QRS Dur : 082 ms QT Int : 454 ms P-R-T Axes : 090 -26 059 degrees QTc Int : 445 ms Sinus bradycardia with 1st degree A-V block Otherwise normal ECG When compared with ECG of 03-DEC-2021 10:18, MANUAL COMPARISON REQUIRED, DATA IS UNCONFIRMED Confirmed by DERRICK SALAZAR, KIRBY ([id number]), purchasing expeditor [employer] ([id number]) on 12/05/2021 1:25:20 PM Referred By: ARCELIA Confirmed By:MARCIO MEZA MD
[2021-12-03] MEDS: hydrALAZINE 20 MG/ML Vial 5 MG IV (17:04)
[2021-12-03] MEDS: 0.9% Saline Lock 10 ML Syringe IV (17:05)
[2021-12-03 18:14] LABS: Hemoglobin A1c 6.2 % (3.8-5.6)
--- NOTE | 2021-12-03 18:19 | CON.PCM.CA_ITS ---
Assessment & Plan Assessment/Plan (1) Non-ST elevation MT (NSTEMI): PLAN: She has mildly elevated cardiac enzymes. It is not clear whether the above is secondary to demand ischemia. Her blood pressure was rather eleva vitor when she was admitted. * I would recommend that we reinstitute her beta-melanie as well as a aspirin * Serial cardiac enzymes * Echocardiogram to assess her ventricular function * Her EKG is normal but depending on the further enzyme pattern further recommendations will be made. I would however likely recommend a pharmacologic myocardial perfusion stress test and depending on the findings further recommendations made. (2) Shortness of breath: PLAN: She does have shortness of breath with mild evidence of heart failure with likely preserved ejection fraction. Her last echocardiogram had demonstrated an ejection fraction of 70% with mitral calcification from 2020. * Will recommend repeating the above. (3) Presence of stent in coronary artery: PLAN: Her previous coronary artery stents were noted to be patent at her last catheterization. (4) Essential hypertension: PLAN: Her blood pressure is rather elevated. I will reevaluate her medication and consider increasing the amlodipine to 10 mg a day. She is on clonidine which is prone to rebound hypertension. This can be adjusted after later date. (5) Paroxysmal atrial fibrillation: PLAN: She apparently previously had a history of paroxysmal atrial fibrillation. I do not see any evidence of the above at this time. I would not favor anticoagulation at this particular time. Thank you for allowing me to participate in the care of your patient. Please don't hesitate to call if any issues arise. HPI Consult Data Date of Consult: 12/03/21 HPI Narrative HPI Narrative: ANIYA AGUILAR, is a 86 F who presents to the emergency room with complaints of shortness of breath. She is a lady with a history of hypertensi on, coronary artery disease status post previous angioplasty and stenting remotely to the left anterior descending artery and right coronary artery as well as a history of paroxysmal atrial fibrillation. She was in her usual state of health until this morning when she felt that she was getting more short of breath and so presented to the emergency room. She was noted to be hypertensive with mildly elevated natruretic peptide level and I was called to triage her because of her previous history of coronary artery disease and the fact that she was a patient of Dr. James Mora. She apparently has been compliant with her medications. However she has not been seen in the office recently. She denies any chest pain or paroxysmal nocturnal dyspnea or pedal edema. She was admitted to the telemetry care unit and cardiology consulted for further evaluation and management. [facility] Medical History Atherosclerotic heart disease of [place] coronary artery without angina pectoris Edema Essential hypertension Paroxysmal atrial fibrillation Presence of stent in coronary artery (~11/05/09) Pure hypercholesterolemia Home Medications ascorbic acid (vitamin C) 500 mg tablet 500 mg PO QDAY 09/08/17 [History Last Taken Unknown] citalopram 20 mg tablet 20 mg PO QDAY 09/08/17 [History Last Taken Unknown] montelukast 10 mg tablet 10 mg PO QDAY tab 09/08/17 [History Last Taken Unknown] omeprazole 20 mg capsule,delayed release 20 mg PO BID 09/08/17 [History Last Taken Unknown] simvastatin 10 mg tablet 10 mg PO QDAY tab 09/08/17 [History Last Taken Unknown] clonidine HCl 0.2 mg tablet 0.1 mg PO QDAY tab 09/13/17 [History Last Taken Unknown] potassium chloride 20 mEq tablet,extended release 20 meq PO QDAY 09/13/17 [History Last Taken Unknown] albuterol sulfate 2.5 mg INHALATION Q4H PRN 06/13/18 [History Last Taken Unknown] ipratropium bromide 0.02 % solution for inhalation 2.5 ml INHALATION Q4H PRN 06/13/18 [History Last Taken Unknown] nitroglycerin 0.4 mg sublingual tablet 0.4 mg SUBLINGUAL Q5-15M PRN 06/13/18 [History Last Taken Unknown] hydrocodone-acetaminophen 5-325mg 5mg-325mg 1 tab PO Q8H PRN tab 11/28/19 [History Last Taken Unknown] metoprolol succinate 100 mg tablet,extended release 24 hr 100 mg PO BID tab 11/28/19 [History Last Taken Unknown] isosorbide dinitrate 30 mg tablet 30 mg PO BID tab 12/14/19 [History Last Taken Unknown] losartan 50 mg tablet 50 mg PO BID #180 tab 01/30/20 [Rx Last Taken Unknown] fluticasone propionate 1 spray NASAL DAILY 11/28/20 [History Last Taken Unknown] lactulose 10 gm PO DAILY 11/28/20 [History Last Taken Unknown] amlodipine 5 mg PO QDAY #1 tablet 11/30/20 [Rx Last Taken Unknown] Allergy/AdvReac Type Severity Reaction Status Date / Time aspirin AdvReac Unknown Verified 12/03/21 10:12 clarithromycin [From Biaxin] AdvReac Unknown Verified 12/03/21 10:12 codeine AdvReac Unknown Verified 12/03/21 10:12 morphine AdvReac Unknown Verified 12/03/21 10:12 Penicillins AdvReac Unknown Verified 12/03/21 10:12 Sulfa (Sulfonamide AdvReac Unknown Verified 12/03/21 10:12 Antibiotics) Family History Mother Myocardial infarction CVA (cerebral vascular accident) CAD (coronary artery disease) Father Myocardial infarction CAD (coronary artery disease) Brother History of PTCA Hx of CABG Sister Hx of CABG Surgical History H/O arthroscopy of left knee H/O oophorectomy History of appendectomy History of coronary artery stent placement (11/05/09) History of hernia repair History of partial hysterectomy History of right inguinal hernia repair Presence of coronary angioplasty implant and graft (~11/05/09) Social History Smoking Status: Never smoker alcohol intake: never substance use type: does not use caffeine: Yes Type: carbonated beverages what type of physical activity do you participate in: none seatbelt use: always do you feel safe at home: Yes ROS Constitutional Constitutional: Denies fever(s) or weight loss Eyes Eyes: Reports systems reviewed and no addt'l complaints, except as documented ENT HEENT: Reports systems reviewed and no addt'l complaints, except as documented Cardiovascular Cardiovascular: Denies chest pain at rest, chest pain with activity, dyspnea at rest, dyspnea on exertion, edema, palpitations or paroxysmal nocturnal dyspnea Respiratory/Chest Respiratory/Chest: Reports dyspnea on exertion and shortness of breath at rest; Denies productive cough or shortness of breath with exertion Gastrointestinal Gastrointestinal: Denies change in bowel habits, nausea, vomiting or weight changes Genitourinary Genitourinary: Denies difficulty urinating Musculoskeletal Musculoskeletal: Denies joint stiffness or muscle weakness Integumentary Integumentary: Denies lesions Neurologic Neurologic: Denies dizziness or syncope Psychiatric Psychiatric: Denies anxiety Endocrine Endocrinology: Denies excessive sweating or fatigue Hematologic/Lymphatic Hematologic/Lymphatic: Denies anemia Allergic/Immunologic Allergic/Immunologic: Denies seasonal rhinorrhea Physical Exam Const alert, oriented x3 and no apparent distress General Appearance: cooperative HEENT hearing grossly normal bilaterally Head and Scalp: atraumatic Eyes EOMs intact bilaterally Neck General: normal visual inspection Chest inspection of chest normal and palpation of chest normal Resp normal respiratory effort Auscultation: clear to auscultation bilaterally Cardio regular rate, regular rhythm, S1 normal heart sound and S2 normal heart sound Jugular Venous Distention: JVD GI normal to inspection, nondistended, normoactive bowel sounds Extremity normal capillary refill and no pedal edema Peripheral Pulses: Yes pulses 2+ throughout and femoral pulses present Skin no rashes or lesions noted Neuro oriented x3 and CN's II-XII intact bilaterally Psych Appearance: grossly normal and appropriate Risk Stratification Risk Stratification Applicable: No Objective Data Vital Signs: Vital Signs Temp Pulse Resp BP Pulse Ox 98.2 F 64 18 196/64 H 100 12/03/21 17:02 12/03/21 17:04 12/03/21 17:02 12/03/21 17:04 12/03/21 17:02 Oxygen Flow Rate (L/min) 2 Oxygen Delivery Method Nasal Cannula Weight: 133 lb 9.6 oz Body Mass Index (BMI) 27.9 Lab / Micro Data Result Diagrams: 12/03/21 10:30 12/03/21 10:30 Labs: Laboratory Results - last 24 hr 12/03/21 10:30: WBC 7.2, RBC 3.90 L, Hgb 12.2, Hct 35.7 L, MCV 91.5, MCH 31.3, MCHC 34.2, RDW Std Deviation 42.9, RDW Coeff of Deidra 12.8, Plt Count 302, MPV 10.4, Immature Gran % (Auto) 0.300, Neut % (Auto) 48.9, Lymph % (Auto) 36.1, [place] % (Auto) 7.3, Eos % (Auto) 6.3 H, Baso % (Auto) 1.1 H, Absolute Neuts (auto) 3.5, Absolute Lymphs (auto) 2.58, Nucleated RBC % 0 12/03/21 10:30: PT 13.2, INR 1.0, APTT 29.4 12/03/21 10:30: Sodium 136, Potassium 3.8, Chloride 101, Carbon Dioxide 28.0, Anion Gap 7, BUN 19 H, Creatinine 0.99, Estim Creat Clear Calc 41.71, Est GFR (MDRD) Af Amer 68, Est GFR (MDRD) Non-Af 56 L, BUN/Creatinine Ratio 19.1, Glucose 145 H, Calcium 10.0, Total Bilirubin 0.90, AST 20, ALT 20, Alkaline Phosphatase 134 H, Troponin I High Sens 252 H*, Total Protein 8.2, Albumin 4.0, Globulin 4.2, Albumin/Globulin Ratio 1.0 12/03/21 10:30: B-Natriuretic Peptide 174.0 H 12/03/21 12:50: Troponin I High Sens 214 H* 12/03/21 17:30: Hemoglobin A1c 6.2 H Micro: Microbiology 12/03/21 10:50 Nasal Secretion SARS-CoV-2 Antigen (Rapid) - Final Cardiology Labs/Tests 12/03/21 10:30: WBC 7.2, RBC 3.90 L, Hgb 12.2, Hct 35.7 L, MCV 91.5, MCH 31.3, MCHC 34.2, Plt Count 302, MPV 10.4, Immature Gran % (Auto) 0.300, Neut % (Auto) 48.9, Lymph % (Auto) 36.1, [place] % (Auto) 7.3, Eos % (Auto) 6.3 H, Baso % (Auto) 1.1 H, Absolute Neuts (auto) 3.5, Nucleated RBC % 0 12/03/21 10:30: PT 13.2, INR 1.0, APTT 29.4 12/03/21 10:30: Sodium 136, Potassium 3.8, Chloride 101, Carbon Dioxide 28.0, Anion Gap 7, BUN 19 H, Creatinine 0.99, Est GFR (MDRD) Af Amer 68, Est GFR (MDRD) Non-Af 56 L, BUN/Creatinine Ratio 19.1, Glucose 145 H, Calcium 10.0, To cristobal Bilirubin 0.90 12/03/21 10:30: B-Natriuretic Peptide 174.0 H 12/03/21 17:30: Hemoglobin A1c 6.2 H Rhythm: EKG: ECHO: Stress Test: Cardiac Cath: PCI: CT Surgery: Holter monitor: EPS: PPM: CXR: Chest CT Scan: Radiography Diagnostic Testing: Radiology Impression Chest X-Ray 12/03/21 10:04 IMPRESSION: Mild cardiomegaly. The lungs are clear. Electronically Signed: Reymundo Mejia MD at 11:03 EDT , Chest CTA 12/03/21 11:34 IMPRESSION: Scattered calcified granulomas. No evidence of pulmonary embolism. Findings suggestive of mild scarring or atelectasis at the lung bases. Electronically Signed: Reymundo Mejia MD at 12:24 EDT ,
[2021-12-03 18:33] LABS: Troponin-I HS 253 pg/mL (3.0-54.0)
[2021-12-03] MEDS: Losartan Potassium 50 MG Tablet PO (21:23)
[2021-12-03] MEDS: Atorvastatin Calcium 10 MG Tablet 5 MG PO (21:23)
[2021-12-03] MEDS: Isosorbide DN 30 MG Tablet PO (21:23)
[2021-12-03] MEDS: Pantoprazole Sodium 20 MG Tablet PO (21:24)
[2021-12-03] MEDS: Metoprolol(XL)Succ 100 MG Tablet PO (21:24)
[2021-12-04] VITALS (16 sets, daily range): BP systolic 144–206; BP diastolic 53–71; PULSE 64–72; RESP 16–18; TEMP 36.5–37; O2SAT 95–100
--- NOTE | 2021-12-04 02:38 | EKG12_ITS ---
Test Reason : CHEST PAIN Blood Pressure : / mmHG Vent. Rate : 069 BPM Atrial Rate : 069 BPM P-R Int : 230 ms QRS Dur : 086 ms QT Int : 436 ms P-R-T Axes : 094 -21 073 degrees QTc Int : 467 ms Sinus rhythm with 1st degree A-V block Septal infarct , age undetermined Abnormal ECG When compared with ECG of 03-DEC-2021 13:54, MANUAL COMPARISON REQUIRED, DATA IS UNCONFIRMED Confirmed by DERRICK SALAZAR, KIRYB ([id number]), commissioning editor BARTOLO STAPLES ([id number]) on 12/05/2021 1:21:02 PM Referred By: ARCELIA Confirmed By:MARCIO MEZA MD
[2021-12-04] MEDS: hydrALAZINE 20 MG/ML Vial 5 MG IV (02:51)
[2021-12-04] MEDS: 0.9% Saline Lock 10 ML Syringe IV ×2 (02:53→23:26)
[2021-12-04] MEDS: HYDROcodone Bitartrate/Apap 5/325 Tablet PO (02:54)
[2021-12-04 04:40] LABS: Troponin-I HS 261 pg/mL (3.0-54.0)
--- NOTE | 2021-12-04 05:55 | ECHOD_ITS ---
Reason For Study: NSTEMI Procedure This was a 2D Doppler, Color Flow transthoracic echocardiogram. The exam was of adequate technical quality. Exam performed in department. Left Ventricle Normal LV size. Left ventricular systolic function is normal. The estimated ejection fraction is 65 %. There is evidence of diastolic dysfunction. No regional wall motion abnormalities noted. Right Ventricle Normal RV size. Normal systolic function. Atria The left atrium is moderately enlarged. Normal right atrium. No doppler evidence for ASD. Mitral Valve There is moderate to severe mitral annular calcification. Extension of the mitral annular calcification onto the base of the posterior mitral valve leaflet. Mild (1+) mitral valve insufficiency. Tricuspid Valve Mild diffuse thickening of the tricuspid valve. Mild tricuspid valve insufficiency. Right ventricular systolic pressure estimated to be 42 mmHg. Aortic Valve Trisinus/trileaflet aortic valve. Mild diffuse aortic valve thickening. Mild focal aortic valve calcification. Trivial aortic valve insufficiency. Pulmonic Valve The pulmonic valve is not well visualized. Great Vessels Normal sized aortic root. Pericardium/Pleural No pericardial effusion. MMode/2D Measurements & Calculations LVIDd: 3.9 cm IVSd: 0.93 cm Ao root diam: 3.0 cm LVIDs: 2.6 cm LVPWd: 0.90 cm RVDd: 3.6 cm FS: 32.8 % LAV(MOD-bp): 57.8 ml LVAd ap4: 20.9 cm2 SV(MOD-sp4): 36.1 ml LAV(MOD-bp) Indexed: 37.8 ml/m2 LVLd ap4: 6.3 cm LAV(MOD-sp2): 55.2 ml EDV(MOD-sp4): 57.0 ml LAV(MOD-sp4): 57.4 ml EDV(sp4-el): 58.4 ml LVAs ap4: 11.4 cm2 LVLs ap4: 5.3 cm ESV(MOD-sp4): 20.8 ml ESV(sp4-el): 20.7 ml EF(MOD-sp4): 63.4 % EF(sp4-el): 64.5 % SV(sp4-el): 37.7 ml LA A4 area: 20.3 cm2 RA A4 area: 15.6 cm2 Time Measurements MV dec time: 0.31 sec Doppler Measurements & Calculations MV E max ochoa: 92.8 cm/sec Lat Peak E' Ochoa: 8.0 cm/sec Med Peak E' Ochoa: 5.6 cm/sec MV A max ochoa: 102.3 cm/sec E/E' lat: 11.7 E/E' med: 16.5 MV E/A: 0.91 MV V2 max: 118.3 cm/sec Ao V2 max: 136.8 cm/sec AI max ochoa: 410.2 cm/sec MV max P.6 mmHg Ao max P.5 mmHg AI max P.3 mmHg MV V2 mean: 76.9 cm/sec MV mean P.6 mmHg AI dec slope: 258.7 cm/sec2 MV V2 VTI: 39.0 cm AI P1/2t: 464.5 msec LV V1 max: 111.0 cm/sec PA V2 max: 124.1 cm/sec TR max ochoa: 312.3 cm/sec LV V1 max P.9 mmHg TR max P.0 mmHg ECHO/Echo Complete Interpretation Summary Left ventricular systolic function is normal. The estimated ejection fraction is 65 %. The left atrium is moderately enlarged. There is moderate to severe mitral annular calcification. Extension of the mitral annular calcification onto the base of the posterior mi tral valve leaflet. Mild (1+) mitral valve insufficiency. Mild diffuse thickening of the tricuspid valve. Mild tricuspid valve insufficiency. Mild diffuse aortic valve thickening. Mild focal aortic valve calcification. Right ventricular systolic pressure estimated to be 42 mmHg. There is evidence of diastolic dysfunction. Ordering Physician: Michael Cantrell Referring Physician: JAMES PURCELL Performed By: Ana Islas RDCS
[2021-12-04 05:58] LABS: Absolute Lymphocyte Count 2.16 X10^3/uL (0.83-4.51); Basophil# 0.09 X10^3/uL; Basophil% 1.4 % (0-1); Eosinophil# 0.46 X10^3/uL; Eosinophils% 7.1 % (0-5); Hematocrit 33.3 % (37-47); Hemoglobin 11.4 g/dL (12.0-15.0); Lymphocyte # 2.16 X10^3/ul (0.83-4.51); Lymphocyte % 33.3 % (19-41); Mean Corp Hgb Conc 34.2 g/dL (32-36); Mean Corpuscular Hgb 31.6 pg (27.0-32.0); Mean Corpuscular Volume 92.2 fL (81-99); Mean Platelet Vol. 9.8 fl (6.2-12.0); Monocyte# 0.77 X10^3/uL; Monocyte% 11.9 % (0-10); NRBC Flagged by Analyzer 0 % (0-5); Neutrophil # 2.99 X10^3/uL (2.7-7.7); Platelet Count 276 K/mm3 (150-450); RBC Distribution Width CV 12.5 % (11.6-14.6); RBC Distribution Width SD 42.7 fl (35.1-43.9); Red Blood Count 3.61 M/mm3 (4.2-5.4); White Blood Count 6.5 K/mm3 (4.4-11.0)
[2021-12-04] MEDS: Losartan Potassium 50 MG Tablet PO ×2 (06:26→20:49)
[2021-12-04] MEDS: cloNIDine HCl 0.1 MG Tablet PO (06:28)
[2021-12-04 06:42] LABS: Anion Gap 7 (5-15); BUN 15 mg/dL (7-18); BUN/Creat Ratio 15.7 RATIO (10-20); Calcium,Total 8.9 mg/dL (8.5-10.1); Chloride 102 mmol/L (98-107); Cholesterol 141 mg/dL (200); Creatinine, Serum 0.96 mg/dL (0.55-1.02); EST Glomerular Filtration Rate 59 mL/min (>60); Est Glom Filt Rate - Afr Amer 71 mL/min (>60); Estimated Creatinine Clearance 40.99 ml/min; Glucose 129 mg/dL (74-106); High Density Lipoprotein 45 mg/dL; Potassium 2.9 mmol/L (3.5-5.1); Sodium Level 137 mmol/L (136-145); Triglycerides 127 mg/dL; Very Low Density Lipoprotein 25 mg/dL (5-40)
[2021-12-04 07:02] LABS: Troponin-I HS 242 pg/mL (3.0-54.0)
--- NOTE | 2021-12-04 07:52 | PN.CARD_ITS ---
Subjective Subjective The patient is awake and alert at this time. She denies ongoing chest discomfort. She states her main concern has been shortness of breath more so with exertion. Objective Data Vital Signs: Vital Signs Temp Pulse Resp BP Pulse Ox 97.7 F L 67 18 168/53 H 99 12/04/21 06:22 12/04/21 06:55 12/04/21 06:22 12/04/21 06:22 12/04/21 06:22 Oxygen Flow Rate (L/min) 2 Oxygen Delivery Method Room Air Weight: 133 lb 9.6 oz Body Mass Index (BMI) 27.9 Intake & Output: Intake and Output for Last 24 Hours 12/02/21 12/03/21 12/04/21 23:59 23:59 23:59 Intake Total 360 / 660 400 / 400 Balance 360 / 660 400 / 400 Lab / Micro Data Result Diagrams: 12/04/21 05:40 12/04/21 05:40 Labs: Laboratory Results - last 24 hr 12/03/21 10:30: WBC 7.2, RBC 3.90 L, Hgb 12.2, Hct 35.7 L, MCV 91.5, MCH 31.3, MCHC 34.2, RDW Std Deviation 42.9, RDW Coeff of Deidra 12.8, Plt Count 302, MPV 10.4, Immature Gran % (Auto) 0.300, Neut % (Auto) 48.9, Lymph % (Auto) 36.1, [place] % (Auto) 7.3, Eos % (Auto) 6.3 H, Baso % (Auto) 1.1 H, Absolute Neuts (auto) 3.5, Absolute Lymphs (auto) 2.58, Nucleated RBC % 0 12/03/21 10:30: PT 13.2, INR 1.0, APTT 29.4 12/03/21 10:30: Sodium 136, Potassium 3.8, Chloride 101, Carbon Dioxide 28.0, Anion Gap 7, BUN 19 H, Creatinine 0.99, Estim Creat Clear Calc 41.71, Est GFR (MDRD) Af Amer 68, Est GFR (MDRD) Non-Af 56 L, BUN/Creatinine Ratio 19.1, Glucose 145 H, Calcium 10.0, Total Bilirubin 0.90, AST 20, ALT 20, Alkaline Phosphatase 134 H, Troponin I High Sens 252 H*, Total Protein 8.2, Albumin 4.0, Globulin 4.2, Albumin/Globulin Ratio 1.0 12/03/21 10:30: B-Natriuretic Peptide 174.0 H 12/03/21 12:50: Troponin I High Sens 214 H* 12/03/21 17:13: Troponin I High Sens 253 H* 12/03/21 17:30: Hemoglobin A1c 6.2 H 12/04/21 04:10: Troponin I High Sens 261 H* 12/04/21 05:40: Sodium 137, Potassium 2.9 L, Chloride 102, Carbon Dioxide 28.0, Anion Gap 7, BUN 15, Creatinine 0.96, Estim Creat Clear Calc 40.99, Est GFR (MDRD) Af Amer 71, Est GFR (MDRD) Non-Af 59 L, BUN/Creatinine Ratio 15.7, Glucose 129 H, Calcium 8.9, Triglycerides 127, Cholesterol 141, LDL Cholesterol 71, VLDL Cholesterol 25, HDL Cholesterol 45 12/04/21 05:40: WBC 6.5, RBC 3.61 L, Hgb 11.4 L, Hct 33.3 L, MCV 92.2, MCH 31.6, MCHC 34.2, RDW Std Deviation 42.7, RDW Coeff of Deidra 12.5, Plt Count 276, MPV 9.8, Immature Gran % (Auto) 0.300, Neut % (Auto) 46.0 L, Lymph % (Auto) 33.3, [place] % (Auto) 11.9 H, Eos % (Auto) 7.1 H, Baso % (Auto) 1.4 H, Absolute Neuts (auto) 3.0, Absolute Lymphs (auto) 2.16, Nucleated RBC % 0 12/04/21 05:40: Troponin I High Sens 242 H* Micro: Microbiology 12/03/21 10:50 Nasal Secretion SARS-CoV-2 Antigen (Rapid) - Final Cardiology Labs/Tests 12/03/21 10:30: WBC 7.2, RBC 3.90 L, Hgb 12.2, Hct 35.7 L, MCV 91.5, MCH 31.3, MCHC 34.2, Plt Count 302, MPV 10.4, Immature Gran % (Auto) 0.300, Neut % (Auto) 48.9, Lymph % (Auto) 36.1, [place] % (Auto) 7.3, Eos % (Auto) 6.3 H, Baso % (Auto) 1.1 H, Absolute Neuts (auto) 3.5, Nucleated RBC % 0 12/03/21 10:30: PT 13.2, INR 1.0, APTT 29.4 12/03/21 10:30: Sodium 136, Potassium 3.8, Chloride 101, Carbon Dioxide 28.0, Anion Gap 7, BUN 19 H, Creatinine 0.99, Est GFR (MDRD) Af Amer 68, Est GFR (MDRD) Non-Af 56 L, BUN/Creatinine Ratio 19.1, Glucose 145 H, Calcium 10.0, Total Bilirubin 0.90 12/03/21 10:30: B-Natriuretic Peptide 174.0 H 12/03/21 17:30: Hemoglobin A1c 6.2 H 12/04/21 05:40: Sodium 137, Potassium 2.9 L, Chloride 102, Carbon Dioxide 28.0, Anion Gap 7, BUN 15, Creatinine 0.96, Est GFR (MDRD) Af Amer 71, Est GFR (MDRD) Non-Af 59 L, BUN/Creatinine Ratio 15.7, Glucose 129 H, Calcium 8.9, Triglycerides 127, Cholesterol 141, LDL Cholesterol 71, VLDL Cholesterol 25, HDL Cholesterol 45 12/04/21 05:40: WBC 6.5, RBC 3.61 L, Hgb 11.4 L, Hct 33.3 L, MCV 92.2, MCH 31.6, MCHC 34.2, Plt Count 276, MPV 9.8, Immature Gran % (Auto) 0.300, Neut % (Auto) 46.0 L, Lymph % (Auto) 33.3, [place] % (Auto) 11.9 H, Eos % (Auto) 7.1 H, Baso % (Auto) 1.4 H, Absolute Neuts (auto) 3.0, Nucleated RBC % 0 Rhythm: Sinus rhythm; PVC EKG: Sinus rhythm; first-degree AV block ECHO: 11-28-2020 Interpretation Summary The estimated ejection fraction is 70 %. Left ventricular systolic function is normal. The left atrium is moderately enlarged. There is moderate to severe mitral annular calcification. Extension of the mitral annular calcification on the base of the posterior mitral valve leaflet. Mild (1+) mitral valve insufficiency. Mild (1+) tricuspid valve insufficiency. Mild focal aortic valve thickening. Trivial aortic valve insufficiency. Right ventricular systolic pressure estimated to be 37 mmHg. There is evidence of diastolic dysfunction. Stress Test: DATE OF SERVICE: 01/10/2015 EXERCISE TOLERANCE TEST: The patient underwent pharmacologic (regadenoson) evaluation with a peak heart rate of 92 beats per minute (64% predicted maximum heart rate) and a peak blood pressure of 184/76 mmHg. The baseline ECG demonstrated normal sinus rhythm. The peak pharmacologic ECG demonstrated no obvious ECG changes. There was a rare PAC and PVC during pharmacologic infusion. There was a rare to occasional PVC in recovery. There was no report of chest discomfort during pharmacologic infusion or recovery. The examination was discontinued secondary to completion of protocol. IMPRESSION: 1. Pharmacologic (regadenoson) evaluation. 2. Peak pharmacologic ECG with no obvious ECG changes. 3. Rare PAC/PVC during pharmacologic infusion and rare to occasional PVC during recovery. 4. Nuclear images pending. MYOCARDIAL PERFUSION IMAGING STUDY: TECHNIQUE: The patient was injected with 11.2 mCi of Tc99m Cardiolite and subsequently rest SPECT Cardiolite nuclear imaging was obtained in the horizontal long, vertical long, and short axes views. The patient underwent pharmacologic (regadenoson) evaluation with a peak heart rate of 92 beats per minute (64% predicted maximum heart rate) and a peak blood pressure of 184/76 mmHg. The patient was injected with 33.1 mCi of Tc99m Cardiolite and subsequently stress SPECT Cardiolite nuclear imaging was obtained in the horizontal long, vertical long, and short axes views. A gated Cardiolite study at peak stress was obtained. INTERPRETATION: Rest and stress SPECT Cardiolite nuclear imaging, status post realignment and normalization, both demonstrate an area of diminished tracer uptake in portions of the mid to distal anteroseptal segments without significant change. There was notation of end systolic thickening and brightening. The gated Cardiolite study demonstrates myocardial thickening and inward wall motion. The reported LVEF was 80%. The aforem entioned findings appear compatible with the effects of soft tissue attenuation/artifact with no myocardial perfusion changes considered diagnostic for stress induced myocardial ischemia or previous myocardial injury/infarction. IMPRESSION: 1. Rest and stress SPECT Cardiolite nuclear imaging demonstrate myocardial perfusion changes appearing compatible with the effects of soft tissue attenuation /artifact with no myocardial perfusion changes considered diagnostic for stress induced myocardial ischemia or previous myocardial injury/infarction. 2. The gated Cardiolite study reports an LVEF of 80%. Cardiac Cath: 11-11-2009: [facility] Left ventricle: Normal Left main: Distal 35% stenosis LAD: Proximal 95% stenosis followed by 55% stenosis followed by 45% stenosis LCx: Nondominant: 25 to 30% stenosis RCA: Dominant: Mid luminal narrowing of 99% stenosis Cardiac cath: 09-15-2010: [facility] Left ventricle: Normal with an LVEF of 70% Left main coronary artery: 30% stenosis LAD: Stents patent LAD mid: 20% stenosis LCx: 25 to 30% stenosis RCA: Stent patent RCA: Ostial: Approximately 50% stenosis with dampening of pressures RCA: Mid: 25 to 30% stenosis PCI: 11-05-2009: [facility] LAD: Mid: Promus ANDRZEJ 3.5x23 and Promus ANDRZEJ 3.0x28 Diagonal branch #2: Ostial: PTCA/cutting balloon RCA: Mid: Promus ANDRZEJ 2.5x23 Radiography Diagnostic Testing: Radiology Impression Chest X-Ray 12/03/21 10:04 IMPRESSION: Mild cardiomegaly. The lungs are clear. Electronically Signed: Reymundo Mejia MD at 11:03 EDT , Chest CTA 12/03/21 11:34 IMPRESSION: Scattered calcified granulomas. No evidence of pulmonary embolism. Findings suggestive of mild scarring or atelectasis at the lung bases. Electronically Signed: Reymundo Mejia MD at 12:24 EDT , Physical Exam Const alert, oriented x3 and no apparent distress Orientation / Consciousness: awake HEENT normocephalic, head/scalp atraumatic and hearing grossly normal bilaterally Eyes PERRL, EOMs intact bilaterally and conjunctivae normal Neck full ROM, supple and no JVD Resp clear to auscultation bilaterally Cardio regular rate, regular rhythm, S1 normal heart sound and S2 normal heart sound Heart Sounds: murmur systolic III/ harsh mid left sternal border, LVOT and sternal notch GI normal to inspection, nondistended, normoactive bowel sounds Skin no rashes or lesions noted Neuro Neuro Narrative: Moves all extremities Psych mental status grossly normal Assessment & Plan Assessment/Plan (1) Non-ST elevation NV (NSTEMI): PLAN: The patient has abnormal cardiac enzymes. They have not significantly changed. A question has been raised as to whether this represents a type II event brought out by her hypertension. Her ECG demonstrates no new acute ECG changes. She is pending further noninvasive evaluation with a transthoracic echocardiogram to reassess her left ventricular wall motion and systolic function as well as a pharmacologic stress nuclear imaging study to assess for any significant myocardial ischemia. Depending upon her findings she may or may not need further cardiac evaluation. (2) Atherosclerotic heart disease of [place] coronary artery without angina pectoris: QUALIFIERS: [place] vs. transplanted heart: [place] heart Qualified Code(s): I25.10 - Atherosclerotic heart disease of [place] coronary artery without angina pectoris PLAN: She does have a history of CAD. Her previous noninvasive and invasive studies were reviewed. She will continue medical management. She will continue with her noninvasive studies at this time. (3) Presence of stent in coronary artery: PLAN: The patient underwent PCI of her LAD and RCA systems in 2009 as noted. She will continue her noninvasive evaluation. Prior depending on the findings she may or may not need repeat evaluation in the cardiac catheterization laboratory. (4) Paroxysmal atrial fibrillation: PLAN: The patient appears to be remaining in sinus rhythm at this time. She will continue her current medical therapy. (5) Cardiac murmur: PLAN: The patient does have a cardiac murmur. She will be reassessed with a transthoracic echocardiogram. (6) Pure hypercholesterolemia: PLAN: The patient will continue lipid-lowering therapy. (7) Essential hypertension: PLAN: The patient's blood pressure appears to remain elevated. Hopefully adjusting her medications will help bring her blood pressure under better control. (8) Shortness of breath: PLAN: The patient states her main concern has been shortness of breath and not chest discomfort. She will continue her cardiovascular evaluation at this time as noted above. Depending upon the findings she may or may not need additional cardiac versus noncardiac evaluation of her shortness of breath. Addt'l Comments The patient's case has been discussed and reviewed with the patient and Dr. Haney who performed her cardiovascular consultation. This note was generated using a voice recognition system and there may be incorrect words, spelling or punctuation that were not noted when reviewing the office note prior to saving. Procedure Criteria Type of Procedure Procedure Type: Elective Elective Risks - COVID COVID Risk Discussion: The surgeon/proceduralist and patient have discussed in detail the risk of exposure to and/or potential harm posed by the COVID-19 virus with having a surgery/procedure at this time versus the risk of delaying the surgery/procedure. It is not possible to know either the risk of delaying the surgery or procedure or chance of getting an infection with perfect accuracy, but a joint decision was made between the patient and the surgeon/proceduralist to proceed at this time with the scheduled surgery/procedure as indicated on the consent form.
[2021-12-04] MEDS: Potassium Chloride Oral Tablet 20 MEQ PO (07:53)
[2021-12-04] MEDS: Pantoprazole Sodium 20 MG Tablet PO ×2 (07:54→20:50)
[2021-12-04] MEDS: Fluticasone 0.05% 1 SPRAY NASAL.SRY NASAL (07:54)
[2021-12-04] MEDS: Ascorbic Acid 500 MG Tablet PO (07:54)
[2021-12-04] MEDS: Citalopram 20 MG Tablet PO (07:54)
--- NOTE | 2021-12-04 08:21 | CASEMGMT ---
[facility], the following are in-network tertiary facilities: [facility], [place], [place], [facility], [facility], [facility], and . Analia RAZO CM
--- NOTE | 2021-12-04 10:05 | STRESSREP ---
Stress Test Report Date: Procedure: Pharmacologic stress nuclear imaging study Indications: Shortness of breath/dyspnea; CAD; PCI; non-ST segment elevation CT; abnormal cardiac enzymes Consent: Per the patient Procedure: The patient underwent pharmacologic (Regadenoson 0.4mg ) evaluation with a peak heart rate of 90 beats per minute (66%predicted maximal heart rate) and a peak blood pressure of 164/60 mmHg. The baseline ECG demonstrated normal sinus rhythm. The peak pharmacologic ECG demonstrated no obvious ECG changes. There was a rare PVC during recovery. There was no complaint of chest discomfort during pharmacologic infusion or recovery. The examination was discontinued secondary to completion of protocol. Impression: 1. Pharmacologic (Regadenoson) evaluation 2. Peak pharmacologic ECG with no obvious ECG changes. 3. There was a rare PVC during recovery. 4. Nuclear images pending Myocardial perfusion imaging study: Technique: The patient was injected with 12.0 millicuries of technetium 99m Cardiolite and subsequently rest SPECT Cardiolite nuclear imaging was obtained in the horizontal long, vertical long, and short axis views. The patient underwent pharmacologic (Regadenoson) evaluation with a peak heart rate of 90 beats per minute (66% percent predicted maximal heart rate) and a peak blood pressure of 164/60 mmHg. The patient was injected with 34.8 millicuries of technetium 99m Cardiolite and subsequently stress SPECT Cardiolite nuclear imaging was obtained in the horizontal long, vertical long, and short axis views. A gated Cardiolite study at peak stress was obtained. Interpretation: Rest and stress SPECT Cardiolite nuclear imaging status post realignment, normalization, and attenuation correction demonstrate relative uniform tracer uptake and myocardial perfusion appearing within normal limits. There is end systolic thickening and brightening. The gated Cardiolite study demonstrates myocardial thickening and inward wall motion. The reported LVEF is 81%. Impression: 1. Relative uniform tracer uptake and myocardial perfusion appearing within normal limits. 2. The gated Cardiolite study reports an LVEF of 81%. This note was generated with [employer] software. It may contain incorrect words, spelling, and punctuation that were not noted in checking the note before signing.
--- NOTE | 2021-12-04 10:24 | CASEMGMT ---
DUNG REDDING assessment: Face to Face with patient for initial transition planning/care coordination assessment. DUNG REDDING introduced self and role at [facility], pt voices understanding and consents to assessment. Pt is sitting up in bed in no distress on room air. Pt is A/Ox4 and answers all questions appropriately. Care providers, pharmacy, and demographics verified. Presentation: Pt c/o SOB/back pain w/ hx asthma, albuterol ran out Admitting dx: NSTEMI PCP: Jose Specialists: Morgan, cardio; Jae, mortgage or loan underwriter in [place] Preferred [facility]cription Benefit[facility] Living Will/HPOA: Pt states no LW/HPOA and declines AD info. LNOK: Dioni White, ; Michelle Wynne, daughter Living Arrangements: Pt lives with in 1 story home with ramp entrance and states no concerns at home. Pt is independent with ADL's. Transportation: Pt states drives and states no transportation concerns. DME/HHC: Pt has the following DME: canes, walker, shower chair, grab bars, lift chair, and nebulizer. Pt states no need for any further DME. Pt states may have HHC in the past but unsure of name and states no hx of SNF. Pt states no concerns with going home at time of discharge. Pt is retired. Pt states does not smoke cigarettes of drink ETOH. Pt states no further concerns/needs. CM to follow for therapy notes and any further discharge planning/needs. Advised pt to ask for CM if any further questions/concerns/needs arise, voices understanding. Pt Goal: Home Plan[place]
[2021-12-04] MEDS: Isosorbide DN 30 MG Tablet PO ×2 (11:04→20:49)
[2021-12-04] MEDS: Metoprolol(XL)Succ 100 MG Tablet PO ×2 (11:04→20:50)
[2021-12-04] MEDS: amLODIPine 10 MG Tablet PO (11:04)
[2021-12-04] MEDS: Enoxaparin 60 MG/0.6 ML Syringe SC (11:05)
[2021-12-04] MEDS: Ondansetron 4 MG/2 ML Vial IV (11:05)
[2021-12-04] MEDS: Lactulose 20 GM/30 ML UDC 10 GM PO (11:05)
[2021-12-04] MEDS: Montelukast 10 MG Tablet PO (11:15)
--- NOTE | 2021-12-04 13:41 | PCM.PN.HOSP ---
Subjective Subjective Follow-up on Acute NSTEMI/hypoxia/hypertensive urgency: Patient was seen and examined. She denied any new complaints. She denied chest pain or dizziness or palpitation. Stress test was negative. Objective Data Objective Data Vital Signs: Vital Signs Temp Pulse Resp BP Pulse Ox 97.8 F 67 18 166/58 H 95 12/04/21 11:02 12/04/21 11:04 12/04/21 11:02 12/04/21 11:04 12/04/21 11:02 Oxygen Flow Rate (L/min) 2 Oxygen Delivery Method Room Air Weight: 60.6 kg Body Mass Index (BMI) 27.9 Intake & Output: Intake and Output for Last 24 Hours 12/02/21 12/03/21 12/04/21 23:59 23:59 23:59 Intake Total 360 / 660 760 / 760 Balance 360 / 660 760 / 760 Lab / Micro Data Result Diagrams: 12/04/21 05:40 12/04/21 05:40 Labs: Laboratory Results - last 24 hr 12/03/21 17:13: Troponin I High Sens 253 H* 12/03/21 17:30: Hemoglobin A1c 6.2 H 12/04/21 04:10: Troponin I High Sens 261 H* 12/04/21 05:40: Sodium 137, Potassium 2.9 L, Chloride 102, Carbon Dioxide 28.0, Anion Gap 7, BUN 15, Creatinine 0.96, Estim Creat Clear Calc 40.99, Est GFR (MDRD) Af Amer 71, Est GFR (MDRD) Non-Af 59 L, BUN/Creatinine Ratio 15.7, Glucose 129 H, Calcium 8.9, Triglycerides 127, Cholesterol 141, LDL Cholesterol 71, VLDL Cholesterol 25, HDL Cholesterol 45 12/04/21 05:40: WBC 6.5, RBC 3.61 L, Hgb 11.4 L, Hct 33.3 L, MCV 92.2, MCH 31.6, MCHC 34.2, RDW Std Deviation 42.7, RDW Coeff of Deidra 12.5, Plt Count 276, MPV 9.8, Immature Gran % (Auto) 0.300, Neut % (Auto) 46.0 L, Lymph % (Auto) 33.3, [place] % (Auto) 11.9 H, Eos % (Auto) 7.1 H, Baso % (Auto) 1.4 H, Absolute Neuts (auto) 3.0, Absolute Lymphs (auto) 2.16, Nucleated RBC % 0 12/04/21 05:40: Troponin I High Sens 242 H* Micro: Microbiology 12/03/21 10:50 Nasal Secretion SARS-CoV-2 Antigen (Rapid) - Final Radiography Diagnostic Testing: Radiology Impression Echocardiogram 12/04/21 05:55 Interpretation Summary Left ventricular systolic function is normal. The estimated ejection fraction is 65 %. The left atrium is moderately enlarged. There is moderate to severe mitral annular calcification. Extension of the mitral annular calcification onto the base of the posterior mitral valve leaflet. Mild (1+) mitral valve insufficiency. Mild diffuse thickening of the tricuspid valve. Mild tricuspid valve insufficiency. Mild diffuse aortic valve thickening. Mild focal aortic valve calcification. Right ventricular systolic pressure estimated to be 42 mmHg. There is evidence of diastolic dysfunction. Ordering Physician: Michael Cantrell Referring Physician: JAMES PURCELL Performed By: Ana Islas RDCS Physical Exam Narrative Physical exam: General: Alert, Oriented x3, Cooperative, appears frail HEENT: Atraumatic Oral: Moist Mucosa Neck: Supple Lungs: Diminished to auscultation Cardiovascular: HS I+II, regular, no murmurs Abdomen: Bowel Sounds Present, Soft, Non Tender Extremities: No edema Assessment & Plan Assessment/Plan (1) Elevated troponin: PLAN: 1. Acute NSTEMI, no acute ST-T changes on EKG, CTA of the chest was negative for acute PE Patient with underlying CAD status post stents; that were patent in the last cardiac catheterization Stress test this morning was negative 2D echo shows EF of 65%, evidence of diastolic dysfunction, RVSP 42 Cardiology consulted; CTA without PE. Continue aspirin, statin 2. Hypokalemia, replaced, Check magnesium level, recheck in a.m. 3. Acute hypoxic respiratory insufficiency, appears resolved Chest x-ray and CTA of the chest were unremarkable for acute cardiopulmonary process 3. Prediabetes, HbA1c 6.2, below the goal for her age less than 8 4. Accelerated hypertension, improved, continue on clonidine, metoprolol, amlodipine 5. Rest of her chronic medical condition-CAD status post stent/paroxysmal atrial fibrillation/hypertension/hyperlipidemia/asthma/GERD/anxiety/depression-remains stable. Continue on aspirin, statin 6. DVT prophylaxis-Lovenox SC Charges/Coding Visit Charges Inpatient E&M: 68194 Subs Hosp L2
[2021-12-04 14:09] LABS: Magnesium 1.7 mg/dL (1.6-2.6)
[2021-12-04] MEDS: Potassium Chloride Oral Tablet 20 MEQ 60 MEQ PO (15:26)
--- NOTE | 2021-12-04 15:52 | CHAPLAIN ---
Type of Pastoral Visit ___ Initial Visit ___ Follow-up Visit ___ On-call Visit ___ General Patient Visit ___ Spiritual Assessment ___ Family Conference ___ Bereavement ___ Rapid Response ___ Code Blue ___ Other (describe below) Pastoral Care Referral From ___ Patient ___ Family ___ Nurse ___ Physician ___ Baler Operator ___ Hammer Shop Supervisor ___ Other (describe below) Sacrament/Intervention ___ Active listening ___ Anointing ___ Taoism ___ Bereavement ___ Communion ___ Dee Dee exploration ___ ___ Life review ___ Prayer ___ Reconciliation ___ Sacrament of Sick ___ Supportive presence ___ Wedding ___ Other (describe below) Pastoral Comments three attempts made to visit with patient today and each time she was unavailable or sleeping
[2021-12-04] MEDS: Atorvastatin Calcium 10 MG Tablet 5 MG PO (20:49)
[2021-12-04] MEDS: hydrALAZINE 20 MG/ML Vial 10 MG IV (23:25)
[2021-12-05] VITALS (15 sets, daily range): BP systolic 138–191; BP diastolic 55–75; PULSE 64–83; RESP 18; TEMP 36.6–36.8; O2SAT 92–93
[2021-12-05] MEDS: HYDROcodone Bitartrate/Apap 5/325 Tablet PO ×2 (00:18→08:44)
[2021-12-05] MEDS: hydrALAZINE 20 MG/ML Vial 10 MG IV ×2 (04:25→16:32)
[2021-12-05] MEDS: 0.9% Saline Lock 10 ML Syringe IV ×3 (04:26→14:07)
[2021-12-05 05:55] LABS: Absolute Lymphocyte Count 3.16 X10^3/uL (0.83-4.51); Absolute Neutrophil Count 6.2 X10^3/uL (2.0-7.7); Basophil# 0.09 X10^3/uL; Basophil% 0.8 % (0-1); Eosinophil# 0.49 X10^3/uL; Eosinophils% 4.4 % (0-5); Hematocrit 36.7 % (37-47); Hemoglobin 12.4 g/dL (12.0-15.0); Lymphocyte # 3.16 X10^3/ul (0.83-4.51); Lymphocyte % 28.5 % (19-41); Mean Corp Hgb Conc 33.8 g/dL (32-36); Mean Corpuscular Hgb 31.5 pg (27.0-32.0); Mean Corpuscular Volume 93.1 fL (81-99); Mean Platelet Vol. 9.5 fl (6.2-12.0); Monocyte# 1.11 X10^3/uL; NRBC Flagged by Analyzer 0 % (0-5); Neutrophil # 6.19 X10^3/uL (2.7-7.7); Platelet Count 297 K/mm3 (150-450); RBC Distribution Width SD 44.2 fl (35.1-43.9); Red Blood Count 3.94 M/mm3 (4.2-5.4); White Blood Count 11.1 K/mm3 (4.4-11.0)
[2021-12-05 06:24] LABS: ALB/GLOB Ratio 0.9 RATIO (0.9-2.4); AST(SGOT) 20 U/L (15-37); Alanine Aminotransfer ALT/SGPT 16 U/L (13-56); Albumin, Serum 3.7 g/dL (3.2-5.0); Alkaline Phosphatase 113 U/L (45-117); Anion Gap 4 (5-15); BUN 15 mg/dL (7-18); BUN/Creat Ratio 13.6 RATIO (10-20); Calcium,Total 9.4 mg/dL (8.5-10.1); Chloride 105 mmol/L (98-107); EST Glomerular Filtration Rate 50 mL/min (>60); Est Glom Filt Rate - Afr Amer 61 mL/min (>60); Estimated Creatinine Clearance 35.77 ml/min; Glucose 133 mg/dL (74-106); Magnesium 1.8 mg/dL (1.6-2.6); Potassium 4.5 mmol/L (3.5-5.1); Protein, Total 7.7 g/dL (6.4-8.2); Sodium Level 135 mmol/L (136-145)
--- NOTE | 2021-12-05 08:28 | PN.CARD_ITS ---
Subjective Subjective She is awake and alert. She denies ongoing chest discomfort or difficulty breathing. She states her main concern continues to be her chronic nausea. She states she does not feel like she can eat. Objective Data Vital Signs: Vital Signs Temp Pulse Resp BP Pulse Ox 97.9 F 83 18 177/64 H 93 12/05/21 04:15 12/05/21 07:00 12/05/21 04:15 12/05/21 05:55 12/05/21 06:58 Oxygen Flow Rate (L/min) 2 Oxygen Delivery Method Room Air Weight: 133 lb 9.6 oz Body Mass Index (BMI) 27.9 Intake & Output: Intake and Output for Last 24 Hours 12/03/21 12/04/21 12/05/21 23:59 23:59 23:59 Intake Total 360 / 660 1310 / 1770 580 / 580 Balance 360 / 660 1310 / 1770 580 / 580 Lab / Micro Data Result Diagrams: 12/05/21 05:46 12/05/21 05:46 Labs: Laboratory Results - last 24 hr 12/04/21 05:40: Magnesium 1.7 12/05/21 05:46: WBC 11.1 H, RBC 3.94 L, Hgb 12.4, Hct 36.7 L, MCV 93.1, MCH 31.5, MCHC 33.8, RDW Std Deviation 44.2 H, RDW Coeff of Deidra 13.0, Plt Count 297, MPV 9.5, Immature Gran % (Auto) 0.300, Neut % (Auto) 56.0, Lymph % (Auto) 28.5, [place] % (Auto) 10.0, Eos % (Auto) 4.4, Baso % (Auto) 0.8, Absolute Neuts (auto) 6.2, Absolute Lymphs (auto) 3.16, Nucleated RBC % 0 12/05/21 05:46: Sodium 135 L, Potassium 4.5, Chloride 105, Carbon Dioxide 26.0, Anion Gap 4 L, BUN 15, Creatinine 1.10 H, Estim Creat Clear Calc 35.77, Est GFR (MDRD) Af Amer 61, Est GFR (MDRD) Non-Af 50 L, BUN/Creatinine Ratio 13.6, Glucose 133 H, Calcium 9.4, Magnesium 1.8, Total Bilirubin 0.60, AST 20, ALT 16, Alkaline Phosphatase 113, Total Protein 7.7, Albumin 3.7, Globulin 4.0, Albumin/Globulin Ratio 0.9 Cardiology Labs/Tests 12/04/21 05:40: Magnesium 1.7 12/05/21 05:46: WBC 11.1 H, RBC 3.94 L, Hgb 12.4, Hct 36.7 L, MCV 93.1, MCH 31.5, MCHC 33.8, Plt Count 297, MPV 9.5, Immature Gran % (Auto) 0.300, Neut % (Auto) 56.0, Lymph % (Auto) 28.5, [place] % (Auto) 10.0, Eos % (Auto) 4.4, Baso % (Auto) 0.8, Absolute Neuts (auto) 6.2, Nucleated RBC % 0 12/05/21 05:46: Sodium 135 L, Potassium 4.5, Chloride 105, Carbon Dioxide 26.0, Anion Gap 4 L, BUN 15, Creatinine 1.10 H, Est GFR (MDRD) Af Amer 61, Est GFR (MDRD) Non-Af 50 L, BUN/Creatinine Ratio 13.6, Glucose 133 H, Calcium 9.4, Magnesium 1.8, Total Bilirubin 0.60 Rhythm: Sinus rhythm; PVCs Stress Test Report Date: Procedure: Pharmacologic stress nuclear imaging study Indications: Shortness of breath/dyspnea; CAD; PCI; non-ST segment elevation OR; abnormal cardiac enzymes Consent: Per the patient Procedure: The patient underwent pharmacologic (Regadenoson 0.4mg ) evaluation with a peak heart rate of 90 beats per minute (66%predicted maximal heart rate) and a peak blood pressure of 164/60 mmHg. The baseline ECG demonstrated normal sinus rhythm. The peak pharmacologic ECG demonstrated no obvious ECG changes. There was a rare PVC during recovery. There was no complaint of chest discomfort during pharmacologic infusion or recovery. The examination was discontinued secondary to completion of protocol. Impression: 1. Pharmacologic (Regadenoson) evaluation 2. Peak pharmacologic ECG with no obvious ECG changes. 3. There was a rare PVC during recovery. 4. Nuclear images pending Myocardial perfusion imaging study: Technique: The patient was injected with 12.0 millicuries of technetium 99m Cardiolite and subsequently rest SPECT Cardiolite nuclear imaging was obtained in the horizontal long, vertical long, and short axis views. The patient underwent pharmacologic (Regadenoson) evaluation with a peak heart rate of 90 beats per m inute (66% percent predicted maximal heart rate) and a peak blood pressure of 164/60 mmHg. The patient was injected with 34.8 millicuries of technetium 99m Cardiolite and subsequently stress SPECT Cardiolite nuclear imaging was obtained in the horizontal long, vertical long, and short axis views. A gated Cardiolite study at peak stress was obtained. Interpretation: Rest and stress SPECT Cardiolite nuclear imaging status post realignment, normalization, and attenuation correction demonstrate relative uniform tracer uptake and myocardial perfusion appearing within normal limits. There is end systolic thickening and brightening. The gated Cardiolite study demonstrates myocardial thickening and inward wall motion. The reported LVEF is 81%. Impression: 1. Relative uniform tracer uptake and myocardial perfusion appearing within normal limits. 2. The gated Cardiolite study reports an LVEF of 81%. Radiography Diagnostic Testing: Radiology Impression Echocardiogram 12/04/21 05:55 Interpretation Summary Left ventricular systolic function is normal. The estimated ejection fraction is 65 %. The left atrium is moderately enlarged. There is moderate to severe mitral annular calcification. Extension of the mitral annular calcification onto the base of the posterior mitral valve leaflet. Mild (1+) mitral valve insufficiency. Mild diffuse thickening of the tricuspid valve. Mild tricuspid valve insufficiency. Mild diffuse aortic valve thickening. Mild focal aortic valve calcification. Right ventricular systolic pressure estimated to be 42 mmHg. There is evidence of diastolic dysfunction. Ordering Physician: Michael Cantrell Referring Physician: JAMES PURCELL Performed By: Ana Islas RDCS Physical Exam Const alert, oriented x3 and no apparent distress General Appearance: cooperative Orientation / Consciousness: awake HEENT normocephalic, head/scalp atraumatic and hearing grossly normal bilaterally Eyes PERRL, EOMs intact bilaterally and conjunctivae normal Neck full ROM, supple and no JVD General: normal visual inspection Chest inspection of chest normal and palpation of chest normal Resp normal respiratory effort and clear to auscultation bilaterally Auscultation: clear to auscultation bilaterally Cardio regular rate, regular rhythm, S1 normal heart sound and S2 normal heart sound Jugular Venous Distention: JVD Heart Sounds: murmur systolic III/ harsh mid left sternal border, LVOT and sternal notch GI normal to inspection, nondistended, normoactive bowel sounds Extremity normal capillary refill and no pedal edema Skin no rashes or lesions noted Neuro oriented x3 and CN's II-XII intact bilaterally Neuro Narrative: Moves all extremities Psych mental status grossly normal Appearance: grossly normal and appropriate Assessment & Plan Assessment/Plan (1) Non-ST elevation OR (NSTEMI): PLAN: The patient has abnormal cardiac enzymes. They have not significantly changed. Her ECG demonstrates no new acute ECG changes. She has undergone further evaluation with a transthoracic echocardiogram and a pharmacologic stress nuclear imaging study. Her LV systolic wall motion and systolic function appears to be preserved. Her pharmacologic stress nuclear imaging study did not appear to demonstrate any evidence of previous myocardial injury/infarction or stress-induced myocardial ischemia. Thus, there are no plans for further evaluation with diagnostic cardiac cat heterization. Her cardiac enzyme profile appears compatible with a type II event thought secondary to her hypertension exacerbation. (2) Atherosclerotic heart disease of [place] coronary artery without angina pectoris: QUALIFIERS: [place] vs. transplanted heart: [place] heart Qualified Code(s): I25.10 - Atherosclerotic heart disease of [place] coronary artery without angina pectoris PLAN: She does have a history of CAD. Her previous noninvasive and invasive studies were reviewed. She will continue medical management. (3) Presence of stent in coronary artery: PLAN: The patient underwent PCI of her LAD and RCA systems in 2009 as noted. As noted above, there are no additional plans at this time, based upon the results of her noninvasive studies, for repeat evaluation in the cardiac catheterization laboratory. (4) Paroxysmal atrial fibrillation: PLAN: The patient appears to be remaining in sinus rhythm at this time. She will continue her current medical therapy. (5) Cardiac murmur: PLAN: The patient does have a cardiac murmur. Her echocardiographic findings are noted. At the moment she will continue follow-up. (6) Pure hypercholesterolemia: PLAN: The patient will continue lipid-lowering therapy. (7) Essential hypertension: PLAN: The patient's blood pressure appears to remain elevated. Her medications were reviewed. It was noted at the time of her last outpatient cardiovascular visit in 2018 that she had been on a diuretic and her clonidine/Catapres dose was higher than the current dose. At the present time she will be placed back on a hydrochlorothiazide diuretic and her clonidine/Catapres dose will be increased. Hopefully these changes along with her other antihypertensive regimen will help bring her blood pressure under better control. (8) Shortness of breath: PLAN: The patient does not appear to be complaining of ongoing shortness of breath or dyspnea at this time. (9) Nausea: PLAN: The patient continues to complain of ongoing nausea. She states she does not feel that she can eat the breakfast that was brought to her today. The etiology of her nausea is unclear at this time. It appears she continues to require ongoing evaluation by internal medicine and/or other subspecialties such as gastroenterology, etc., as needed. Addt'l Comments This note was generated using a voice recognition system and there may be incorrect words, spelling or punctuation that were not noted when reviewing the office note prior to saving.
[2021-12-05] MEDS: Potassium Chloride Oral Tablet 20 MEQ PO (08:43)
[2021-12-05] MEDS: amLODIPine 10 MG Tablet PO (08:44)
[2021-12-05] MEDS: cloNIDine HCl 0.1 MG Tablet PO ×2 (08:44→22:47)
[2021-12-05] MEDS: Metoprolol(XL)Succ 100 MG Tablet PO ×2 (08:44→22:50)
[2021-12-05] MEDS: Losartan Potassium 50 MG Tablet PO ×2 (08:44→22:48)
[2021-12-05] MEDS: Ondansetron 4 MG/2 ML Vial IV (09:34)
--- NOTE | 2021-12-05 09:35 | PCM.PN.HOSP ---
Subjective Subjective Follow-up on Acute NSTEMI/hypoxia/hypertensive urgency: Patient was seen and examined. Patient complains of abdominal discomfort. She admits to nausea but no vomiting. Objective Data Objective Data Vital Signs: Vital Signs Temp Pulse Resp BP Pulse Ox 97.9 F 75 18 184/55 H 93 12/05/21 04:15 12/05/21 08:44 12/05/21 04:15 12/05/21 08:44 12/05/21 06:58 Oxygen Flow Rate (L/min) 2 Oxygen Delivery Method Room Air Weight: 60.6 kg Body Mass Index (BMI) 27.9 Intake & Output: Intake and Output for Last 24 Hours 12/03/21 12/04/21 12/05/21 23:59 23:59 23:59 Intake Total 360 / 660 1310 / 1770 580 / 580 Balance 360 / 660 1310 / 1770 580 / 580 Lab / Micro Data Result Diagrams: 12/05/21 05:46 12/05/21 05:46 Labs: Laboratory Results - last 24 hr 12/04/21 05:40: Magnesium 1.7 12/05/21 05:46: WBC 11.1 H, RBC 3.94 L, Hgb 12.4, Hct 36.7 L, MCV 93.1, MCH 31.5, MCHC 33.8, RDW Std Deviation 44.2 H, RDW Coeff of Deidra 13.0, Plt Count 297, MPV 9.5, Immature Gran % (Auto) 0.300, Neut % (Auto) 56.0, Lymph % (Auto) 28.5, [place] % (Auto) 10.0, Eos % (Auto) 4.4, Baso % (Auto) 0.8, Absolute Neuts (auto) 6.2, Absolute Lymphs (auto) 3.16, Nucleated RBC % 0 12/05/21 05:46: Sodium 135 L, Potassium 4.5, Chloride 105, Carbon Dioxide 26.0, Anion Gap 4 L, BUN 15, Creatinine 1.10 H, Estim Creat Clear Calc 35.77, Est GFR (MDRD) Af Amer 61, Est GFR (MDRD) Non-Af 50 L, BUN/Creatinine Ratio 13.6, Glucose 133 H, Calcium 9.4, Magnesium 1.8, Total Bilirubin 0.60, AST 20, ALT 16, Alkaline Phosphatase 113, Total Protein 7.7, Albumin 3.7, Globulin 4.0, Albumin/Globulin Ratio 0.9 Micro: Microbiology 12/03/21 10:50 Nasal Secretion SARS-CoV-2 Antigen (Rapid) - Final Physical Exam Narrative Physical exam: General: Alert, Oriented x3, Cooperative, appears frail HEENT: Atraumatic Oral: Moist Mucosa Neck: Supple Lungs: Diminished to auscultation Cardiovascular: HS I+II, regular, no murmurs Abdomen: Bowel Sounds Present, Soft, Non Tender Extremities: No edema Assessment & Plan Assessment/Plan (1) Elevated troponin: PLAN: 1. Acute NSTEMI, no acute ST-T changes on EKG, CTA of the chest was negative for acute PE Patient with underlying CAD status post stents; that were patent in the last cardiac catheterization Stress test this morning was negative 2D echo shows EF of 65%, evidence of diastolic dysfunction, RVSP 42 Cardiology consulted; CTA without PE. Continue aspirin, statin 2. Hypokalemia, replaced, Check magnesium level, recheck in a.m. 3. Acute hypoxic respiratory insufficiency, appears resolved Chest x-ray and CTA of the chest were unremarkable for acute cardiopulmonary process 4. Prediabetes, HbA1c 6.2, below the goal for her age less than 8 5. Accelerated hypertension, BP is resolved, Continue on clonidine, metoprolol, amlodipine 6. Rest of her chronic medical condition-CAD status post stent/paroxysmal atrial fibrillation/hypertension/hyperlipidemia/asthma/GERD/anxiety/depression-remains stable. Continue on aspirin, statin 7. DVT prophylaxis-Lovenox SC Charges/Coding Visit Charges Inpatient E&M: 12592 Subs Hosp L2
[2021-12-05] MEDS: Fluticasone 0.05% 1 SPRAY NASAL.SRY NASAL (10:25)
[2021-12-05] MEDS: Enoxaparin 60 MG/0.6 ML Syringe SC (10:26)
[2021-12-05] MEDS: Montelukast 10 MG Tablet PO (10:26)
[2021-12-05] MEDS: Ascorbic Acid 500 MG Tablet PO (10:26)
[2021-12-05] MEDS: Lactulose 20 GM/30 ML UDC 10 GM PO (10:26)
[2021-12-05] MEDS: Citalopram 20 MG Tablet PO (10:26)
[2021-12-05] MEDS: Pantoprazole Sodium 20 MG Tablet PO ×2 (10:26→22:49)
[2021-12-05] MEDS: Isosorbide DN 30 MG Tablet PO ×2 (10:26→22:46)
[2021-12-05] MEDS: hydroCHLOROthiazide 25 MG Tablet PO (10:28)
[2021-12-05] MEDS: 0.9% Normal Saline 1,000 ML 75 ML IV (14:07)
[2021-12-05] MEDS: Atorvastatin Calcium 10 MG Tablet 5 MG PO (22:46)
[2021-12-06] VITALS (9 sets, daily range): BP systolic 153–191; BP diastolic 52–72; PULSE 71–80; RESP 15–16; TEMP 36.6–37.1; O2SAT 92–95
[2021-12-06] MEDS: 0.9% Normal Saline 1,000 ML 75 ML IV (02:28)
[2021-12-06] MEDS: hydrALAZINE 20 MG/ML Vial 10 MG IV (02:51)
[2021-12-06] MEDS: 0.9% Saline Lock 10 ML Syringe IV (02:57)
--- NOTE | 2021-12-06 03:03 | NURSING ---
PRN Hydralazine given by RN for BP of 191/67. This MEDICAL DETAILIST to recheck BP to monitor effectiveness.
[2021-12-06 08:21] LABS: Absolute Lymphocyte Count 2.58 X10^3/uL (0.83-4.51); Absolute Neutrophil Count 5.7 X10^3/uL (2.0-7.7); Basophil# 0.06 X10^3/uL; Basophil% 0.6 % (0-1); Eosinophil# 0.13 X10^3/uL; Eosinophils% 1.4 % (0-5); Hematocrit 36.6 % (37-47); Hemoglobin 12.3 g/dL (12.0-15.0); Lymphocyte # 2.58 X10^3/ul (0.83-4.51); Lymphocyte % 27.7 % (19-41); Mean Corp Hgb Conc 33.6 g/dL (32-36); Mean Corpuscular Hgb 31.9 pg (27.0-32.0); Mean Corpuscular Volume 94.8 fL (81-99); Mean Platelet Vol. 9.8 fl (6.2-12.0); Monocyte# 0.79 X10^3/uL; Monocyte% 8.5 % (0-10); NRBC Flagged by Analyzer 0 % (0-5); Neutrophil % 61.3 % (47-70); Platelet Count 300 K/mm3 (150-450); RBC Distribution Width CV 13.3 % (11.6-14.6); RBC Distribution Width SD 46.3 fl (35.1-43.9); Red Blood Count 3.86 M/mm3 (4.2-5.4); White Blood Count 9.3 K/mm3 (4.4-11.0)
[2021-12-06 08:41] LABS: ALB/GLOB Ratio 0.9 RATIO (0.9-2.4); AST(SGOT) 25 U/L (15-37); Alanine Aminotransfer ALT/SGPT 19 U/L (13-56); Albumin, Serum 3.6 g/dL (3.2-5.0); Alkaline Phosphatase 104 U/L (45-117); Anion Gap 8 (5-15); BUN 16 mg/dL (7-18); BUN/Creat Ratio 14.5 RATIO (10-20); Calcium,Total 8.8 mg/dL (8.5-10.1); Chloride 104 mmol/L (98-107); EST Glomerular Filtration Rate 50 mL/min (>60); Est Glom Filt Rate - Afr Amer 61 mL/min (>60); Estimated Creatinine Clearance 35.77 ml/min; Globulin 4.1 g/dL (2.2-4.2); Glucose 146 mg/dL (74-106); Potassium 3.9 mmol/L (3.5-5.1); Protein, Total 7.7 g/dL (6.4-8.2); Sodium Level 135 mmol/L (136-145)
[2021-12-06] MEDS: Potassium Chloride Oral Tablet 20 MEQ PO (08:56)
[2021-12-06] MEDS: Losartan Potassium 50 MG Tablet PO (09:01)
[2021-12-06] MEDS: Lactulose 20 GM/30 ML UDC 10 GM PO (09:01)
[2021-12-06] MEDS: Citalopram 20 MG Tablet PO (09:02)
[2021-12-06] MEDS: Fluticasone 0.05% 1 SPRAY NASAL.SRY NASAL (09:02)
[2021-12-06] MEDS: Enoxaparin 60 MG/0.6 ML Syringe SC (09:02)
[2021-12-06] MEDS: Isosorbide DN 30 MG Tablet PO (09:03)
[2021-12-06] MEDS: Ascorbic Acid 500 MG Tablet PO (09:03)
[2021-12-06] MEDS: cloNIDine HCl 0.1 MG Tablet PO (09:03)
[2021-12-06] MEDS: Pantoprazole Sodium 20 MG Tablet PO (09:03)
[2021-12-06] MEDS: amLODIPine 10 MG Tablet PO (09:04)
[2021-12-06] MEDS: Montelukast 10 MG Tablet PO (09:04)
[2021-12-06] MEDS: Metoprolol(XL)Succ 100 MG Tablet PO (09:04)
[2021-12-06] MEDS: hydroCHLOROthiazide 25 MG Tablet PO (09:05)
[2021-12-06] MEDS: HYDROcodone Bitartrate/Apap 5/325 Tablet PO (09:17)
--- NOTE | 2021-12-06 09:37 | CASEMGMT ---
DUNG REDDING in to discuss discharge plans. DUNG REDDING review therapy notes and patient walking contact guard 40 feet. Patient states she is at baseline and declines therapy at discharge. DUNG REDDING instructed patient to follow-up with PCP if she would reconsider needing C or outpatient therapy. Patient voiced understanding, no further questions or concerns.
--- NOTE | 2021-12-06 09:38 | DS.PCM_ITS ---
Providers Date of Admission: 12/03/21 Date of Discharge: 12/06/21 Primary Care Physician: Dr. James Garcia, Consultations 12/03/21 13:54 Consult: Cardiology Routine Consulting Provider: Andrez Haney Reason for Consult: NSTEMI EMERGENT Consult: No MD Notified: Yes Date Notified: 12/03/21 Time Notified: 13:40 Method of Notification: Verbal Reason For Visit: NSTEMI Diagnosis Discharge Diagnosis (1) Elevated troponin: Status: Acute Code(s): R77.8 - Other specified abnormalities of plasma proteins (2) Non-ST elevation [place] (NSTEMI): Status: Acute Code(s): I21.4 - Non-ST elevation (NSTEMI) myocardial infarction (3) Hypokalemia: Status: Resolved Code(s): E87.6 - Hypokalemia (4) Hypoxia: Status: Resolved Code(s): R09.02 - Hypoxemia (5) Accelerated hypertension: Status: Resolved Code(s): I10 - Essential (primary) hypertension (6) Severe protein-calorie malnutrition: Status: Acute Code(s): E43 - Unspecified severe protein-calorie malnutrition Medications at Discharge Home Medications ascorbic acid (vitamin C) 500 mg tablet 500 mg PO QDAY 09/08/17 citalopram 20 mg tablet 20 mg PO QDAY 09/08/17 montelukast 10 mg tablet 10 mg PO QDAY tab 09/08/17 omeprazole 20 mg capsule,delayed release 20 mg PO BID 09/08/17 simvastatin 10 mg tablet 10 mg PO QDAY tab 09/08/17 potassium chloride 20 mEq tablet,extended release 20 meq PO QDAY 09/13/17 albuterol sulfate 2.5 mg INHALATION Q4H PRN 06/13/18 ipratropium bromide 0.02 % solution for inhalation 2.5 ml INHALATION Q4H PRN 06/13/18 nitroglycerin 0.4 mg sublingual tablet 0.4 mg SUBLINGUAL Q5-15M PRN 06/13/18 hydrocodone-acetaminophen 5-325mg 5mg-325mg 1 tab PO Q8H PRN tab 11/28/19 metoprolol succinate 100 mg tablet,extended release 24 hr 100 mg PO BID tab 11/28/19 isosorbide dinitrate 30 mg tablet 30 mg PO BID tab 12/14/19 losartan 50 mg tablet 50 mg PO BID #180 tab 01/30/20 fluticasone propionate 1 spray NASAL DAILY 11/28/20 lactulose 10 gm PO DAILY 11/28/20 amlodipine 10 mg PO DAILY 30 Days #30 tab 12/06/21 clonidine HCl 0.1 mg PO BID 30 Days #60 tab 12/06/21 hydrochlorothiazide 25 mg PO DAILY 30 Days #30 tab 12/06/21 Hospital Course Operations None Procedures 2-D Echocardiogram and Stress test Summary of Care Provided Minutes Spent on Discharge: 35 Hospital Course: 86-year-old female with past medical history of CAD status post stent, paroxysmal atrial fibrillation who presented with progressive shortness of breath ongoing for a 3 days. Patient had noticed some swelling in lower extremities and weight gain. In the emergency department, patient was noted to be saturating 85% on room air; this improved to 2 L. Work-up in the ED elevated troponin. CTA of the chest was negative for acute PE. BNP was 174. Patient was admitted to the progressive care unit and managed medically. Cardiology was consulted and blood pressure medication changes were made. She was started on hydrochlorothiazide. Clonidine dose was increased to twice daily. Amlodipine was also increased to 10 mg from 5 mg. Patient had nausea that resolved with Zofran during hospital stay. She had normal bowel movements. She denied any complaints at time of discharge. Patient was seen by the concrete mixer operator helper and started on nutritional supplements. Physical Exam Narrative Physical exam: General: Alert, Oriented x3, Cooperative, appears frail HEENT: Atraumatic Oral: Moist Mucosa Neck: Supple Lungs: Diminished to auscultation Cardiovascular: HS I+II, regular, no murmurs Abdomen: Bowel Sounds Present, Soft, Non Tender Extremities: No edema Medical Records Data Medical Nutrition Assessment Dietitian: Malnutrition Criteria Met Start: 12/05/21 10:56 Freq: Status: Active Protocol: Document 12/05/21 10:56 AG (Rec: 12/05/21 10:57 AG [id number]) Nutrition Malnutrition Evidence of Malnutrition Exists Yes Malnutrition (moderate): Acute Illness/Injury Evidenced By Suboptimal Energy Intake ( Moderate),Weight Loss (Severe) Clinical Problem Acute Disease or Injury Related Malnutrition Etiology moderate, acute malnutrition r /t recent hospitalizations, acute illness Signs/Symptoms as evidenced by estimated energy intake meeting <75% of estimated energy needs > 1 week, unintentional wt loss of 2.6#/1.9% wt loss <1 week, 10 .4#/7.2% wt loss x ~1 month Status Active Problem Recommendation Dietitian Recommendations/Changes continue cardiac diet as tolerated; will add 120mL ensure enlive 4x/day w/ medpass d/t acute malnutrition . Weight / BMI Weight Weight: 60.6 kg Body Mass Index (BMI) 27.9 ABG / Lab / Microbiology Data Result Diagrams: 12/06/21 08:08 12/06/21 08:08 Laboratory: Laboratory Results - last 24 hr 12/06/21 08:08: Sodium 135 L, Potassium 3.9, Chloride 104, Carbon Dioxide 23.0, Anion Gap 8, BUN 16, Creatinine 1.10 H, Estim Creat Clear Calc 35.77, Est GFR (MDRD) Af Amer 61, Est GFR (MDRD) Non-Af 50 L, BUN/Creatinine Ratio 14.5, Glucose 146 H, Calcium 8.8, Total Bilirubin 0.90, AST 25, ALT 19, Alkaline Phosphatase 104, Total Protein 7.7, Albumin 3.6, Globulin 4.1, Albumin/Globulin Ratio 0.9 12/06/21 08:08: WBC 9.3, RBC 3.86 L, Hgb 12.3, Hct 36.6 L, MCV 94.8, MCH 31.9, M CHC 33.6, RDW Std Deviation 46.3 H, RDW Coeff of [place]idra 13.3, Plt Count 300, MPV 9.8, Immature Gran % (Auto) 0.500, Neut % (Auto) 61.3, Lymph % (Auto) 27.7, [place] % (Auto) 8.5, Eos % (Auto) 1.4, Baso % (Auto) 0.6, Absolute Neuts (auto) 5.7, Absolute Lymphs (auto) 2.58, Nucleated RBC % 0 Microbiology: Microbiology 12/03/21 10:50 Nasal Secretion SARS-CoV-2 Antigen (Rapid) - Final D/C Instructions Discharge Diet: Low fat / Low cholesterol and 2000 mg Sodium Diet Meaningful Use Info Meaningful Use Diagnoses (Choose all that apply): AMI AMI/Post PCI/Angioplasty Aspirin given w/in 24hrs of arrival?: Yes ASA at discharge?: Yes Statins at discharge?: Yes [place]/ARB at discharge?: Yes Beta Tin at discharge?: No Reason Beta Tin not ordered:: Drug Interaction Done w/ Acute [place] measure.: Yes Documented LVEF (%): 65 Discharge Plan Admission Admit Date/Time: 12/03/21 13:36 Primary Reason for Your Visit: Acute NSTEMI Attending Provider: Elinor Ramirez Primary Care Provider: James Garcia Consulting Providers: Andrez Haney Instructions Additional Instructions / Restrictions: Take note of changes to your medications. Continue to take all your medications as prescribed. Follow-up with Dr. Mora and your primary care doctor within 1 week Continue to drink your nutritional supplements -Ensure. Discharge Orders/Prescriptions Prescriptions: New clonidine HCl 0.1 mg Tablet 0.1 mg PO BID 30 Days Qty: 60 RF: 0 amlodipine 10 mg Tablet 10 mg PO DAILY 30 Days Qty: 30 RF: 0 hydrochlorothiazide 25 mg Tablet 25 mg PO DAILY 30 Days Qty: 30 RF: 0 Continued ascorbic acid (vitamin C) 500 mg tablet 500 mg PO QDAY RF: 0 citalopram 20 mg tablet 20 mg PO QDAY RF: 0 montelukast 10 mg tablet 10 mg PO QDAY RF: 0 simvastatin 10 mg tablet 10 mg PO QDAY RF: 0 omeprazole 20 mg capsule,delayed release(DR/EC) 20 mg PO BID RF: 0 potassium chloride 20 mEq tablet extended release 20 meq PO QDAY RF: 0 hydrocodone-acetaminophen [[place]] 5-325 mg tablet 1 tab PO Q8H PRN (Reason: pain) RF: 0 metoprolol succinate 100 mg tablet extended release 24 hr 100 mg PO BID RF: 0 albuterol sulfate 2.5 mg /3 mL (0.083 %) solution for nebulization 2.5 mg INHALATION Q4H PRN (Reason: Shortness Of Breath) RF: 0 ipratropium bromide 0.02 % solution 2.5 ml INHALATION Q4H PRN (Reason: Shortness Of Breath) RF: 0 nitroglycerin 0.4 mg tablet, sublingual 0.4 mg SUBLINGUAL Q5-15M PRN (Reason: chest pain) RF: 0 fluticasone propionate 1 SPRAY spray,suspension 1 spray NASAL DAILY RF: 0 lactulose 10 GM/15 ML solution 10 gm PO DAILY RF: 0 isosorbide dinitrate 30 mg tablet 30 mg PO BID RF: 0 losartan 50 mg tablet 50 mg PO BID Qty: 180 RF: 3 Discontinued clonidine HCl 0.2 mg tablet 0.1 mg PO QDAY RF: 0 amlodipine 10 mg tablet 5 mg PO QDAY Qty: 1 RF: 0 Referrals / Follow Up: Andrez Haney MD [STAFF PHYSICIAN] - Within 1 Week James Garcia DO [Primary Care Provider] - In 1 Week Disposition Disposition (needs filled in before D/C Order can be placed): Home, Self Care Charges/Coding Visit Charges Inpatient E&M: 84629 Disch Hosp
== END 2021-12-06 11:09 | disposition home or self-care (01) | DRG 282 ==
LOC: ED 13:28 → PCU 13:47
PROVIDERS: Nurse Practitioner Family; Admitting Provider Family Medicine; Emergency Provider Emergency Medicine; PCP Family Medicine; Visit Provider Internal Medicine
DX: I21.4 Non-ST elevation (NSTEMI) myocardial infarction (principal); E78.00 Pure hypercholesterolemia, unspecified; I48.0 Paroxysmal atrial fibrillation; I10 Essential (primary) hypertension; K21.9 Gastro-esophageal reflux disease without esophagitis; J45.909 Unspecified asthma, uncomplicated; I25.10 Atherosclerotic heart disease of native coronary artery without angina pectoris; I16.0 Hypertensive urgency; E87.6 Hypokalemia; F41.9 Anxiety disorder, unspecified; R11.0 Nausea; R09.02 Hypoxemia; R06.89 Other abnormalities of breathing; R73.03 Prediabetes; F32.A Depression, unspecified; R01.1 Cardiac murmur, unspecified; Z68.27 Body mass index [BMI] 27.0-27.9, adult; Z95.5 Presence of coronary angioplasty implant and graft; Z79.899 Other long term (current) drug therapy
CPT/HCPCS: 36415; 71045; 71275; 78452; 80048; 80053; 80061; 83036; 83735; 83880; 84484; 85025; 85610; 85730; 87811; 93005; 93017; 93306; 97162; 97166; 97530; 97535; 99285; A9500; J7030; Q9967; A4216; J2405; J2785

== ENCOUNTER 2022-03-09 14:54 | Observation (INO) | payer MEDICARE, SELFPAY ==
[2022-03-09] VITALS (20 sets, daily range): BP systolic 156–218; BP diastolic 53–94; PULSE 69–86; RESP 14–18; TEMP 36.4–36.8; O2SAT 96–100; BMI 29.0; BMI 26.4
--- NOTE | 2022-03-09 15:18 | EKG12_ITS ---
Test Reason : SOB Blood Pressure : / mmHG Vent. Rate : 069 BPM Atrial Rate : 069 BPM P-R Int : 208 ms QRS Dur : 086 ms QT Int : 430 ms P-R-T Axes : 092 -28 053 degrees QTc Int : 460 ms Normal sinus rhythm Moderate voltage criteria for LVH, may be normal variant ( R in aVL , [place] product ) Abnormal ECG Confirmed by JORGE SALAZAR, GUILLERMO ([id number]), city editor MILAGROS FRANCO ([id number]) on 03/10/2022 10:41:05 AM Referred By: Magali Confirmed By:GUILLERMO PATEL MD
[2022-03-09 15:32] LABS: Absolute Neutrophil Count 5.4 X10^3/uL (2.0-7.7); Basophil# 0.11 X10^3/uL; Basophil% 1.2 % (0-1); Eosinophil# 0.11 X10^3/uL; Eosinophils% 1.2 % (0-5); Hematocrit 36.5 % (37-47); Hemoglobin 12.6 g/dL (12.0-15.0); Lymphocyte % 31.7 % (19-41); Mean Corp Hgb Conc 34.5 g/dL (32-36); Mean Corpuscular Hgb 32.4 pg (27.0-32.0); Mean Corpuscular Volume 93.8 fL (81-99); Mean Platelet Vol. 11.2 fl (6.2-12.0); Monocyte# 0.64 X10^3/uL; NRBC Flagged by Analyzer 0 % (0-5); Neutrophil # 5.37 X10^3/uL (2.7-7.7); Neutrophil % 58.7 % (47-70); Platelet Count 299 K/mm3 (150-450); RBC Distribution Width CV 12.3 % (11.6-14.6); RBC Distribution Width SD 42.1 fl (35.1-43.9); Red Blood Count 3.89 M/mm3 (4.2-5.4); White Blood Count 9.2 K/mm3 (4.4-11.0)
[2022-03-09] MEDS: MethylPREDNISolone 125 MG/2 ML Vial IV (15:45)
--- NOTE | 2022-03-09 15:46 | EDS_ITS ---
HPI History of Present Illness Chief Complaint: Shortness of Breath Informant: patient Narrative Narrative: Brought in by EMS for increasing dyspnea for the past few days. She has mild intermittent cough that reports productive. No fevers. No headache. Reports chest tightness and wheezing. History of COPD does not wear home O2. She used her nebulizer x2 today prior to calling EMS. EMS report noted additional albuterol treatment was given. She reports this helped her symptoms including the chest tightness. COVID vaccinated with no infections in the past. History of coronary disease with stent in the past. She was brought in on 4 L nasal cannula from home. Review EMS report there was no documented low pulse ox prior to oxygenation. Records reviewed noted admitted back in November for NSTEMI with hypertension. There is no catheterizations. Blood pressure medicines were adjusted. Clonidine up to twice a day, amlodipine up to 10 mg and hydrochlorothiazide was added. She has been taking her medications. Currently symptoms are improved. She has chronic lower leg swelling. Her echocardiogram from November known EF of 65%. Prior similar symptoms: Yes PFSH PFS Medical History (Updated 03/10/22 @ 01:[address] Jesus De Los Santos DO) Atherosclerotic heart disease of [place] coronary artery without angina pectoris Cardiac murmur Edema Essential hypertension Nausea Paroxysmal atrial fibrillation Presence of stent in coronary artery (~11/05/09) Pure hypercholesterolemia Stage 3b chronic kidney disease (CKD) Home Medications montelukast 10 mg tablet 10 mg PO QDAY allergies 09/08/17 [History Last Taken 03/08/22] omeprazole 20 mg capsule,delayed release 20 mg PO DAILY reflux 09/08/17 [History Last Taken 03/09/22] simvastatin 10 mg tablet 10 mg PO QDAY cholesterol 09/08/17 [History Last Taken 03/08/22] potassium chloride 20 mEq tablet,extended release 20 meq PO QDAY supplement 09/13/17 [History Last Taken 03/09/22] albuterol sulfate 2.5 mg/3 mL (0.083 %) solution for nebulization 2.5 mg inhalation Q4H PRN Shortness Of Breath 06/13/18 [History Last Taken 03/09/22] ipratropium bromide 0.02 % solution for inhalation 2.5 ml inhalation Q4H PRN Shortness Of Breath 06/13/18 [History Last Taken 03/09/22] nitroglycerin 0.4 mg sublingual tablet 0.4 mg SUBLINGUAL Q5-15M PRN chest pain 06/13/18 [History Last Taken Unknown] metoprolol succinate 100 mg tablet,extended release 24 hr 100 mg PO BID blood pressure 11/28/19 [History Last Taken 03/09/22] isosorbide dinitrate 30 mg tablet 30 mg PO BID heart 12/14/19 [History Last Taken 03/09/22] losartan 50 mg tablet 50 mg PO BID ##180 01/30/20 [Rx Last Taken 03/09/22] fluticasone propionate 50 mcg/actuation nasal spray,suspension 1 spray NASAL DA AMILCAR allergies 11/28/20 [History Last Taken 03/09/22] lactulose 10 gram/15 mL oral solution 10 gm PO QHS 11/28/20 [History Last Taken 03/08/22] clonidine HCl 0.1 mg tablet 0.1 mg PO BID 30 days #60 tabs 12/06/21 [Rx Last Taken 03/09/22] amlodipine 10 mg tablet 2.5 mg PO DAILY bp 03/09/22 [History Last Taken 03/09/22] ascorbic acid (vitamin C) 500 mg tablet (Vitamin C) 500 mg PO DAILY supplement 03/09/22 [History Last Taken 03/09/22] ferrous sulfate 325 mg (65 mg iron) tablet 325 mg PO BID supplement 03/09/22 [History Last Taken 03/09/22] Allergy/AdvReac Type Severity Reaction Status Date / Time aspirin AdvReac Severe Swelling Verified 01/28/22 15:13 clarithromycin [From Biaxin] AdvReac Unknown Verified 01/28/22 15:13 codeine AdvReac Unknown Verified 01/28/22 15:13 morphine AdvReac Unknown Verified 01/28/22 15:13 Penicillins AdvReac Unknown Verified 01/28/22 15:13 Sulfa (Sulfonamide AdvReac Unknown Verified 01/28/22 15:13 Antibiotics) Family History Mother Myocardial infarction CVA (cerebral vascular accident) CAD (coronary artery disease) Father Myocardial infarction CAD (coronary artery disease) Brother History of PTCA Hx of CABG Sister Hx of CABG Surgical History H/O arthroscopy of left knee H/O oophorectomy History of appendectomy History of coronary artery stent placement (11/05/09) History of hernia repair History of partial hysterectomy History of right inguinal hernia repair Presence of coronary angioplasty implant and graft (~11/05/09) Social History Smoking Status: Never smoker alcohol intake: never substance use type: does not use caffeine: Yes Type: carbonated beverages what type of physical activity do you participate in: none seatbelt use: always do you feel safe at home: Yes ROS ROS ED Constitutional Constitutional ED: Denies chills, fever(s) or sweats Eyes Eyes: Denies change in vision ENT ENT ED: Denies dysphagia or sore throat Cardiovascular Cardiovascular: Reports chest pain; Denies leg edema, palpitations or racing heartbeat Respiratory/Chest Respiratory/Chest: Reports cough and dyspnea; Denies dyspnea on exertion Gastrointestinal Gastrointestinal: Denies abdominal pain, diarrhea, nausea or vomiting Genitourinary Genitourinary ED: Denies dysuria, hematuria or urinary frequency Musculoskeletal Musculoskeletal: Denies back pain, extremity pain or neck pain Integumentary Denies rash or wounds Neurologic Neurologic: Denies headache(s), paresthesias or weakness EXAM Physical Exam Const Vital Signs: 03/09/22 14:55 03/09/22 15:11 03/09/22 15:12 Temperature 98.1 F Temperature Source Oral Pulse Rate 76 Respiratory Rate 16 Respiratory Effort Respiratory Depth Respiratory Pattern Blood Pressure 209/83 H Blood Pressure Mean 125 Pulse Ox 97 100 97 Oxygen Delivery Method Nasal Cannula Nasal Cannula Nasal Cannula Oxygen Flow Rate (L/min) 4 4 2 03/09/22 15:38 03/09/22 15:47 03/09/22 14:58 Temperature 98.1 F Temperature Source Oral Pulse Rate 76 Respiratory Rate 16 Respiratory Effort Short of Breath Respiratory Depth Normal Respiratory Pattern Tachypnea Blood Pressure 209/83 H Blood Pressure Mean Pulse Ox 96 96 Oxygen Delivery Method Nasal Cannula Room Air Room Air Oxygen Flow Rate (L/min) 2 2 03/09/22 16:00 03/09/22 16:30 03/09/22 15:58 Temperature 98 F Temperature Source Oral Pulse Rate 71 69 69 Respiratory Rate 16 17 Respiratory Effort Respiratory Depth Respiratory Pattern Blood Pressure 200/94 H 218/81 H 218/81 H Blood Pressure Mean 129 126 Pulse Ox 100 100 Oxygen Delivery Method Room Air Room Air Oxygen Flow Rate (L/min) 03/09/22 16:57 Temperature 98.2 F Temperature Source Temporal Pulse Rate 72 Respiratory Rate 16 Respiratory Effort Respiratory Depth Respiratory Pattern Blood Pressure 190/68 H Blood Pressure Mean 108 Pulse Ox 98 Oxygen Delivery Method Room Air Oxygen Flow Rate (L/min) Positive well nourished and well developed General Appearance ED: well developed and NAD HEENT Reports moist mucous membranes normocephalic and atraumatic Eyes PERRL, EOMs intact bilaterally and conjunctivae normal General Eye ED: Yes normal appearance of both eyes Neck no lymphadenopathy and supple General: Negative for tenderness Chest Wall Chest: Negative for tenderness Resp normal respiratory effort and normal air movement Effort and Inspection: symmetric chest movement; Negative for respiratory distress Cardio regular rate, regular rhythm and no murmurs Peripheral Pulses: pulses 2+ throughout GI normal to inspection, nondistended, normoactive bowel sounds and non-tender Palpation: Negative for guarding or rebound tenderness present Back/Spine no CVA tenderness and no thoracic nor lumbar tenderness Extremity normal to inspection Extremity Narrative: 1+ lower extremity edema. General Extremety ED: Yes edema; Negative for tenderness General Extremity: edema Neuro oriented x3 and no sensory deficits noted Sensorium / Orientation: awake and alert Skin no rashes or lesions noted and no wounds MDM MDM MDM Narrative Medical decision making narrative: Patient during my evaluation was on 2 L of oxygen maintaining at 96%. She is in no respiratory distress this was turned off by myself and monitored and she is maintaining. EKG sinus rhythm. With her COPD I did add steroids with reported wheezing. She is not a diabetic. Will check chest x-ray labs and will reevaluate. Chest x-ray reviewed by myself and read by radiology shows no acute process. ?I did review records there was cardiac cath from 2010 noting patent stents at that time of the proximal LAD and the mid right coronary.? She had mid LAD lesion of 30%, circumflex lesion of 25 to 30%, ostial RCA lesion of 50%.? 1640: Spoke with tyson Chapman type II from HTN. Control BP. admit to medicine, No anticoagulants. Patient ordered for hydralazine IV. I discussed with hospitalist Dr. Hess for admission.? Lab Data Attestation: I reviewed the patient's lab results. Labs: Laboratory Results - last 24 hr 03/09/22 03/09/22 03/09/22 15:00 15:00 15:00 WBC 9.2 RBC 3.89 L Hgb 12.6 Hct 36.5 L MCV 93.8 MCH 32.4 H MCHC 34.5 RDW Std Deviation 42.1 RDW Coeff of [place] 12.3 Plt Count 299 MPV 11.2 Immature Gran % (Auto) 0.200 Neut % (Auto) 58.7 Lymph % (Auto) 31.7 [place] % (Auto) 7.0 Eos % (Auto) 1.2 Baso % (Auto) 1.2 H Absolute Neuts (auto) 5.4 Absolute Lymphs (auto) 2.90 Nucleated RBC % 0 Sodium 134 L Potassium 3.8 Chloride 98 Carbon Dioxide 26.0 Anion Gap 10 BUN 16 Creatinine 1.26 H Estim Creat Clear Calc 23.02 Est GFR (MDRD) Af Amer 52 L Est GFR (MDRD) Non-Af 43 L BUN/Creatinine Ratio 12.7 Glucose 131 H Calcium 9.9 Troponin I High Sens 195 H* B-Natriuretic Peptide 157.8 H Radiography Diagnostic Testing: Clinical Impression(s) from Imaging Studies Chest X-Ray 03/09/22 15:50 IMPRESSION: No acute cardiopulmonary pathology. Stable chest radiograph. Electronically Signed: Kenny Barbosa MD at 16:51 EDT Reading Location ID and State: [facility] / [place] Tel , Service support , EKG Initial EKG: Attestation: I personally reviewed and interpreted this EKG as follows: Comments: Sinus rate of 69, no ST or T wave changes. Critical Care Time Critical Care Time: Yes Critical care time (excluding procedures): 30-74 minutes, Discussing w/Patient &/or Family/Investment Professional, Discussing w/Consultants, Arranging Admission or Transfer, Performing Direct Patient Care at Bedside and - (40 minutes) Discharge Plan Dx/Rx/DC Orders Clinical Impression: Hypertensive emergency, Chest pain, Elevated troponin, COPD (chronic obstructive pulmonary disease) Disposition Disposition: Acute Care Hospital [facility] Discharge Date/Time: 03/09/22 17:17
--- NOTE | 2022-03-09 15:50 | RAD_ITS ---
STUDY: X-RAY CHEST REASON FOR EXAM: Female, 87 years old. cough TECHNIQUE: Single view of the chest was obtained COMPARISON: . 12/03/2021 FINDINGS: There is a convex thoracic curvature. Subsegmental atelectasis in the lung bases. Osteopenia. Apical lung scarring. RAD/Chest 1 View (Portable) IMPRESSION: No acute cardiopulmonary pathology. Stable chest radiograph. Electronically Signed: Kenny Barbosa MD at 16:51 EDT ,
[2022-03-09 16:10] LABS: Anion Gap 10 (5-15); BUN 16 mg/dL (7-18); BUN/Creat Ratio 12.7 RATIO (10-20); Calcium,Total 9.9 mg/dL (8.5-10.1); Chloride 98 mmol/L (98-107); Creatinine, Serum 1.26 mg/dL (0.55-1.02); EST Glomerular Filtration Rate 43 mL/min (>60); Est Glom Filt Rate - Afr Amer 52 mL/min (>60); Estimated Creatinine Clearance 23.02 ml/min; Glucose 131 mg/dL (74-106); Potassium 3.8 mmol/L (3.5-5.1); Sodium Level 134 mmol/L (136-145); Troponin-I HS (w/2H Reflex) 195 pg/mL (3.0-54.0)
[2022-03-09] MEDS: hydrALAZINE 20 MG/ML Vial 10 MG IV (16:50)
--- NOTE | 2022-03-09 16:52 | NURSING ---
DR KAIDEN BUTTS
--- NOTE | 2022-03-09 17:03 | NURSING ---
PCU OBS KAIDEN HTN EMERGENCY, ELEVATED TROP, COPD
--- NOTE | 2022-03-09 17:13 | PCM.HP.STD ---
Documented by User: Amanda Ulloa NP, DOOR AND ARRIVAL ATTENDANT-C 03/09/22 17:38 HPI - General General Date of Admission: 03/09/22 Date of Service: 03/09/22 Chief Complaint: Shortness of breath HPI Narrative ANIYA AGUILAR, is a 87 F who presents to the emergency room due to shortness of breath. Patient reports increased shortness of breath for the past 3 to 4 days. States she is short of breath both at rest and with ambulation. Denies chest pain. Reports increased lower extremity swelling. She denies cough, wheezing, fever, chills. Denies other associated symptoms or complaints. Patient is not aware of any significant weight gain.? Patient states she has had difficulty controlling her blood pressure in the past. She reports a past medical history of CAD with history of stents, hypertension, hyperlipidemia, paroxysmal atrial fibrillation, asthma, anxiety, depression. [facility] Medical History (Updated 03/09/22 @ 18:[address] 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 Cardiac murmur Edema Essential hypertension Nausea Paroxysmal atrial fibrillation Presence of stent in coronary artery (~11/05/09) Pure hypercholesterolemia Stage 3b chronic kidney disease (CKD) Home Medications montelukast 10 mg tablet 10 mg PO QDAY allergies 09/08/17 [History Last Taken 03/08/22] omeprazole 20 mg capsule,delayed release 20 mg PO DAILY reflux 09/08/17 [History Last Taken 03/09/22] simvastatin 10 mg tablet 10 mg PO QDAY cholesterol 09/08/17 [History Last Taken 03/08/22] potassium chloride 20 mEq tablet,extended release 20 meq PO QDAY supplement 09/13/17 [History Last Taken 03/09/22] albuterol sulfate 2.5 mg/3 mL (0.083 %) solution for nebulization 2.5 mg inhalation Q4H PRN Shortness Of Breath 06/13/18 [History Last Taken 03/09/22] ipratropium bromide 0.02 % solution for inhalation 2.5 ml inhalation Q4H PRN Shortness Of Breath 06/13/18 [History Last Taken 03/09/22] nitroglycerin 0.4 mg sublingual tablet 0.4 mg SUBLINGUAL Q5-15M PRN chest pain 06/13/18 [History Last Taken Unknown] metoprolol succinate 100 mg tablet,extended release 24 hr 100 mg PO BID blood pressure 11/28/19 [History Last Taken 03/09/22] isosorbide dinitrate 30 mg tablet 30 mg PO BID heart 12/14/19 [History Last Taken 03/09/22] losartan 50 mg tablet 50 mg PO BID ##180 01/30/20 [Rx Last Taken 03/09/22] fluticasone propionate 50 mcg/actuation nasal spray,suspension 1 spray NASAL DAILY allergies 11/28/20 [History Last Taken 03/09/22] lactulose 10 gram/15 mL oral solution 10 gm PO QHS 11/28/20 [History Last Taken 03/08/22] clonidine HCl 0.1 mg tablet 0.1 mg PO BID 30 days #60 tabs 12/06/21 [Rx Last Taken 03/09/22] amlodipine 10 mg tablet 2.5 mg PO DAILY bp 03/09/22 [History Last Taken 03/09/22] ascorbic acid (vitamin C) 500 mg tablet (Vitamin C) 500 mg PO DAILY supplement 03/09/22 [History Last Taken 03/09/22] ferrous sulfate 325 mg (65 mg iron) tablet 325 mg PO BID supplement 03/09/22 [History Last Taken 03/09/22] Allergy/AdvReac Type Severity Reaction Status Date / Time aspirin AdvReac Severe Swelling Verified 01/28/22 15:13 clarithromycin [From Biaxin] AdvReac Unknown Verified 01/28/22 15:13 codeine AdvReac Unknown Verified 01/28/22 15:13 morphine AdvReac Unknown Verified 01/28/22 15:13 Penicillins AdvReac Unknown Verified 01/28/22 15:13 Sulfa (Sulfonamide AdvReac Unknown Verified 01/28/22 15:13 Antibiotics) Family History Mother Myocardial infarction CVA (cerebral vascular accident) CAD (coronary artery disease) Father Myocardial infarction CAD (coronary artery disease) Brother History of PTCA Hx of CABG Sister Hx of CABG Surgical History H/O arthroscopy of left knee H/O oophorectomy History of appendectomy History of coronary artery stent placement (03/16/10) History of hernia repair History of partial hysterectomy History of right inguinal hernia repair Presence of coronary angioplasty implant and graft (~11/05/09) Social History Smoking Status: Never smoker alcohol intake: never substance use type: does not use caffeine: Yes Type: carbonated beverages what type of physical activity do you participate in: none seatbelt use: always do you feel safe at home: Yes Vital Signs Vital Signs Vital Signs: 03/09/22 14:55 03/09/22 15:11 03/09/22 15:12 Temperature 98.1 F Temperature Source Oral Pulse Rate 76 Respiratory Rate 16 Respiratory Effort Respiratory Depth Respiratory Pattern Blood Pressure 209/83 H Blood Pressure Mean 125 Pulse Ox 97 100 97 Oxygen Delivery Method Nasal Cannula Nasal Cannula Nasal Cannula Oxygen Flow Rate (L/min) 4 4 2 03/09/22 15:38 03/09/22 15:47 03/09/22 14:58 Temperature 98.1 F Temperature Source Oral Pulse Rate 76 Respiratory Rate 16 Respiratory Effort Short of Breath Respiratory Depth Normal Respiratory Pattern Tachypnea Blood Pressure 209/83 H Blood Pressure Mean Pulse Ox 96 96 Oxygen Delivery Method Nasal Cannula Room Air Room Air Oxygen Flow Rate (L/min) 2 2 03/09/22 16:00 03/09/22 16:30 03/09/22 15:58 Temperature 98 F Temperature Source Oral Pulse Rate 71 69 69 Respiratory Rate 16 17 Respiratory Effort Respiratory Depth Respiratory Pattern Blood Pressure 200/94 H 218/81 H 218/81 H Blood Pressure Mean 129 126 Pulse Ox 100 100 Oxygen Delivery Method Room Air Room Air Oxygen Flow Rate (L/min) 03/09/22 16:57 Temperature 98.2 F Temperature Source Temporal Pulse Rate 72 Respiratory Rate 16 Respiratory Effort Respiratory Depth Respiratory Pattern Blood Pressure 190/68 H Blood Pressure Mean 108 Pulse Ox 98 Oxygen Delivery Method Room Air Oxygen Flow Rate (L/min) Weight Weight: 148 lb 9.465 oz Body Mass Index (BMI) 29.0 Physical Exam Const alert and oriented x3 Constitutional Narrative: Appears dyspneic Orientation / Consciousness: awake, oriented to person, oriented to place and oriented to time HEENT normocephalic and moist oral mucous membranes Eyes PERRL, EOMs intact bilaterally and conjunctivae normal Neck no lymphadenopathy Resp Auscultation: wheezes right lower (Faint expiratory wheeze right base) and diminished lung sounds Cardio regular rate, regular rhythm and no murmurs Peripheral Pulses: pulses 2+ throughout GI normal to inspection, nondistended, normoactive bowel sounds, non-tender and non-distended Extremity normal to inspection General Extremity: edema bilateral lower extremity Skin no rashes or lesions noted Lesions: no lesions Rashes: no rashes Trauma: no lacerations or abrasions Neuro CN's II-XII intact bilaterally, no focal motor deficits, no sensory deficits noted and deep tendon reflexes 2+ bilaterally Psych mental status grossly normal and affect normal Results Lab / Micro Data Result Diagrams: 03/09/22 15:00 03/09/22 15:00 Labs: Laboratory Results - last 24 hr 03/09/22 15:00: WBC 9.2, RBC 3.89 L, Hgb 12.6, Hct 36.5 L, MCV 93.8, MCH 32.4 H, MCHC 34.5, RDW Std Deviation 42.1, RDW Coeff of Deidra 12.3, Plt Count 299, MPV 11.2, Immature Gran % (Auto) 0.200, Neut % (Auto) 58.7, Lymph % (Auto) 31.7, Chambers % (Auto) 7.0, Eos % (Auto) 1.2, Baso % (Auto) 1.2 H, Absolute Neuts (auto) 5.4, Absolute Lymphs (auto) 2.90, Nucleated RBC % 0 03/09/22 15:00: Sodium 134 L, Potassium 3.8, Chloride 98, Carbon Dioxide 26.0, Anion Gap 10, BUN 16, Creatinine 1.26 H, Estim Creat Clear Calc 23.02, Est GFR (MDRD) Af Amer 52 L, Est GFR (MDRD) Non-Af 43 L, BUN/Creatinine Ratio 12.7, Glucose 131 H, Calcium 9.9, Troponin I High Sens 195 H* Micro: Microbiology 03/09/22 15:41 Nasal Secretion SARS-CoV-2 Antigen (Rapid) - Final Radiology Impression Chest X-Ray 03/09/22 15:50 IMPRESSION: No acute cardiopulmonary pathology. Stable chest radiograph. Electronically Signed: Kenny Barbosa MD at 16:51 EDT Reading Location ID and State: [facility] / [place] Tel , Service support , Assessment & Plan Assessment/Plan (1) Hypertensive emergency: (2) Lower extremity edema: (3) Shortness of breath: (4) Elevated troponin I level: (5) Hyponatremia: PLAN: Plan ?1. Hypertensive emergency-increase home amlodipine to 5 mg daily. Continue home clonidine, isosorbide, losartan, metoprolol. IV hydralazine and IV labetalol x1 in ED. Monitor response. As needed hydralazine and labetalol ordered. Echocardiogram November 2021 demonstrated an EF of 65%, mild mitral valve insufficiency, RVSP estimated to be 42 mmHg. 2. Elevated troponin- demand ischemia secondary to #1. Chronically elevated. 3. Paroxysmal atrial fibrillation- continue metoprolol. Not on anticoagulation. 4. Hyperlipidemia-continue statin. 5. Chronic asthma- no exacerbation. PRN albuterol aerosol. 6. GERD-continue PPI. 7. CAD with history of stents-continue statin, beta-melanie.? Not on aspirin.? Per prior cardiology note, no longer on antiplatelet therapy secondary to GI issues. Patient follows with Dr. Mora, per records appears most recent follow up was in 2020 as outpatient. DVT prophylaxis-Lovenox subcu This patient was seen by [facility] under the supervision of Dr. Hess. Documented by User: Dr. Evy Hess DO 03/09/22 18:03 HPI - General General Date of Admission: 03/09/22 HPI Narrative This patient was seen in conjunction with Amanda Ulloa NP. The following represents my independent history and examination. Please see below for addendum the above. Mrs. Aguilar is an 87-year-old white female who presented to emergency department at [facility] on 03/09/2022 complaining of shortness of breath. The patient reports that she has had increased shortness of breath for approximately the last week that has progressively get been getting worse. She reports some chest pressure but no chest pain. She denies any headache, tingling, numbness, or focal weakness. She does note increased lower extremity edema. She had a similar presentation in November of this past year at which time she had an echocardiogram that showed an EF of 65% with a moderately enlarged left atrium, moderate to severe mitral valve annular calcification with 1+ insufficiency, and a right ventricular systolic pressure 42 mmHg. Her stress test was unremarkable for inducible ischemia. She had troponin elevation at that time resulting in the above work-up and it was felt her troponin elevation was related to her hypertension. The patient reports has been compliant with all her home medications and reports no significant changes. Vital signs on arrival showed a temperature of 98.1, blood pressure of 209/83, respiratory rate of 16, pulse ox of 96% on room air. Her CBC was unremarkable. Her BMP shows mild hyponatremia with a sodium of 134 and elevated creatinine 1.26 however this appears to be her baseline. Serum glucose was 131 and her troponin was 195 however this is the lowest troponin she had since her previous admission. Her chest x-ray showed no acute cardiopulmonary pathology and was stable when compared to previous. Her EKG shows normal sinus rhythm without any ST-T wave changes consistent with ischemia however does show LVH. In the emergency department she was given 10 of hydralazine and placed on supplemental oxygen as well as given Solu-Medrol as there was report of her wheezing on initial presentation however no wheezing was noted on exam. [facility] Medical History (Updated 03/09/22 @ 18:[address] Evy Hess, ) Atherosclerotic heart disease of [place]daag[place] coronary artery without angina pectoris Cardiac murmur Edema Essential hypertension Nausea Paroxysmal atrial fibrillation Presence of stent in coronary artery (~11/05/09) Pure hypercholesterolemia Stage 3b chronic kidney disease (CKD) Home Medications montelukast 10 mg tablet 10 mg PO QDAY allergies 09/08/17 [History Last Taken 03/08/22] omeprazole 20 mg capsule,delayed release 20 mg PO DAILY reflux 09/08/17 [History Last Taken 03/09/22] simvastatin 10 mg tablet 10 mg PO QDAY cholesterol 09/08/17 [History Last Taken 03/08/22] potassium chloride 20 mEq tablet,extended release 20 meq PO QDAY supplement 09/13/17 [History Last Taken 03/09/22] albuterol sulfate 2.5 mg/3 mL (0.083 %) solution for nebulization 2.5 mg inhalation Q4H PRN Shortness Of Breath 06/13/18 [History Last Taken 03/09/22] ipratropium bromide 0.02 % solution for inhalation 2.5 ml inhalation Q4H PRN Shortness Of Breath 06/13/18 [History Last Taken 03/09/22] nitroglycerin 0.4 mg sublingual tablet 0.4 mg SUBLINGUAL Q5-15M PRN chest pain 06/13/18 [History Last Taken Unknown] metoprolol succinate 100 mg tablet,extended release 24 hr 100 mg PO BID blood pressure 11/28/19 [History Last Taken 03/09/22] isosorbide dinitrate 30 mg tablet 30 mg PO BID heart 12/14/19 [History Last Taken 03/09/22] losartan 50 mg tablet 50 mg PO BID ##180 01/30/20 [Rx Last Taken 03/09/22] fluticasone propionate 50 mcg/actuation nasal spray,suspension 1 spray NASAL DAILY allergies 11/28/20 [History Last Taken 03/09/22] lactulose 10 gram/15 mL oral solution 10 gm PO QHS 11/28/20 [History Last Taken 03/08/22] clonidine HCl 0.1 mg tablet 0.1 mg PO BID 30 days #60 tabs 12/06/21 [Rx Last Taken 03/09/22] amlodipine 10 mg tablet 2.5 mg PO DAILY bp 03/09/22 [History Last Taken 03/09/22] ascorbic acid (vitamin C) 500 mg tablet (Vitamin C) 500 mg PO DAILY supplement 03/09/22 [History Last Taken 03/09/22] ferrous sulfate 325 mg (65 mg iron) tablet 325 mg PO BID supplement 03/09/22 [History Last Taken 03/09/22] Allergy/AdvReac Type Severity Reaction Status Date / Time aspirin AdvReac Severe Swelling Verified 01/28/22 15:13 clarithromycin [From Biaxin] AdvReac Unknown Verified 01/28/22 15:13 codeine AdvReac Unknown Verified 01/28/22 15:13 morphine AdvReac Unknown Verified 01/28/22 15:13 Penicillins AdvReac Unknown Verified 01/28/22 15:13 Sulfa (Sulfonamide AdvReac Unknown Verified 01/28/22 15:13 Antibiotics) Family History Mother Myocardial infarction CVA (cerebral vascular accident) CAD (coronary artery disease) Father Myocardial infarction CAD (coronary artery disease) Brother History of PTCA Hx of CABG Sister Hx of CABG Surgical History H/O arthroscopy of left knee H/O oophorectomy History of appendectomy History of coronary artery stent placement (11/05/09) History of hernia repair History of partial hysterectomy History of right inguinal hernia repair Presence of coronary angioplasty implant and graft (~11/05/09) Social History Smoking Status: Never smoker alcohol intake: never substance use type: does not use caffeine: Yes Type: carbonated beverages what type of physical activity do you participate in: none seatbelt use: always do you feel safe at home: Yes Physical Exam Const alert, oriented x3 and no apparent distress Constitutional Narrative: Somewhat anxious appearing, older white female lying in bed, states she is cold, nontoxic HEENT normocephalic, head/scalp atraumatic, hearing grossly normal bilaterally and moist oral mucous membranes HEENT Narrative: Mallampati is 2, dentition is poor, no thrush Eyes PERRL, EOMs intact bilaterally and conjunctivae normal Neck no lymphadenopathy, supple, no JVD and no carotid bruits Neck Narrative: Trachea midline, no thyroid enlargement Resp normal respiratory effort, no retractions, no use of accessory muscles and clear to auscultation bilaterally Auscultation: Negative for crackles, rales, rhonchi or wheezes Cardio regular rate, regular rhythm, S1 normal heart sound, S2 normal heart sound, no murmurs, no rub, no clicks and no JVD Cardio Narrative: S4 gallop noted on exam GI normal to inspection, nondistended, normoactive bowel sounds, soft to palpation, non-tender and non-distended Extremity Extremity Narrative: Bilateral lower extremity 1+ pitting edema, no cyanosis or clubbing, significant toe deformities Skin no rashes or lesions noted, no wounds, skin turgor normal, no jaundice, no petechiae and no mottling Neuro oriented x3, CN's II-XII intact bilaterally, moves all extremities and no focal motor deficits Neuro Narrative: Reflexes are normal, mild generalized weakness Speech: speech normal Psych Psych Narrative: Appears mildly anxious but affect was normal Results Lab / Micro Data Result Diagrams: 03/09/22 15:00 03/09/22 15:00 Assessment & Plan Assessment/Plan (1) Hypertensive emergency: (2) Lower extremity edema: (3) Shortness of breath: (4) Elevated troponin I level: (5) Hyponatremia: PLAN: Plan Assessment: Hypertensive emergency given elevated troponin, chest pain, shortness of breath and marked elevated blood pressure Troponin elevation Lower extremity edema Mild hyponatremia PAF Hyperlipidemia Asthma GERD History of CAD with previous PCI CKD stage IIIb Plan: -Patient states she is compliant with her home medications and it appears per medication review that she is refilling them -Absolutely needs close follow-up with cardiology after discharge -Troponin is elevated however lower than it had been previously -Negative stress test and echocardiogram was performed in November 2021 -No need to repeat at this time unless clinical picture changes -Suspect elevation is related to demand ischemia with previous negative work-up -Continue home medications and add as needed labetalol and hydralazine for systolic pressures greater than 180 -Check TSH -May need more aggressive work-up for hypertension if blood pressure does not improve with taking her home medications -BNP pending with lower extremity edema -Increase home amlodipine to 5 mg from 2.5 mg -Continue home clonidine -Continue home isosorbide dinitrate -Continue home losartan 50 mg p.o. twice daily -Continue home metoprolol 100 mg every 24 hours twice daily -May need up titration of her home medications if pressures do not improve with above -Monitor sodium levels Charges/Coding Visit Charges Inpatient E&M: 89976 Init Hosp L3
--- NOTE | 2022-03-09 17:14 | ED.RN ---
updated on admission per pt request.
[2022-03-09 17:28] LABS: Reflex Troponin-HS? (from REC) Y
[2022-03-09] MEDS: Furosemide 40 MG/4 ML Vial IV (17:55)
[2022-03-09] MEDS: 0.9% Saline Lock 10 ML Syringe IV ×3 (17:55→21:24)
[2022-03-09] MEDS: Labetalol (Prefilled) 20 MG/4 ML 40 MG IV (18:04)
[2022-03-09 19:42] LABS: Troponin-I HS 214 pg/mL (3.0-54.0)
[2022-03-09] MEDS: Lactulose 20 GM/30 ML UDC 10 GM PO (21:23)
[2022-03-09] MEDS: Atorvastatin Calcium 10 MG Tablet 5 MG PO (21:23)
[2022-03-09] MEDS: cloNIDine HCl 0.1 MG Tablet PO (21:24)
[2022-03-09] MEDS: Losartan Potassium 50 MG Tablet PO (21:24)
[2022-03-09] MEDS: Ferrous Sulfate 325 MG Tablet PO (21:24)
[2022-03-09] MEDS: Metoprolol(XL)Succ 100 MG Tablet PO (21:24)
[2022-03-09] MEDS: Isosorbide DN 30 MG Tablet PO (21:24)
[2022-03-09 22:33] LABS: BNP,B-Type NATRIURETIC PEPTIDE 157.8 pg/mL (0-100)
[2022-03-10] VITALS (11 sets, daily range): BP systolic 161–172; BP diastolic 57–70; PULSE 71–79; RESP 16; TEMP 36.4–36.7; O2SAT 93–97
[2022-03-10] MEDS: 0.9% Saline Lock 10 ML Syringe IV ×2 (03:53→21:00)
[2022-03-10 06:57] LABS: Thyroid Stim Hormone (TSH) 0.38 uIU/mL (0.358-3.74)
--- NOTE | 2022-03-10 10:15 | CASEMGMT ---
RN CM Face to Face with patient for initial transition planning/care coordination assessment. RN CM introduced self and role at [facility]. Patient sitting in chair, alert and oriented, son and daughter in law at bedside. Patient willing to participate in assessment and is able to answer all questions appropriately. Care providers, pharmacy, and demographics verified. Patient wishes to discharge home, denies need for home health at this time. Patient states she has no further needs or concerns at this time. CM to follow for discharge planning needs that may arise. PCP: Jose Specialists: Morgan virtual recruiter; Eveline extrusion die repairer Preferred [facility]acy: [facility] Insurance: [employer] Prescription Benefit: yes Living Will/HPOA: none LNOK: , son, DIL Living Arrangements: Patient lives with in a 1 story with 4 steps railing or ramp in garage to enter the home. Patient states she is independent at home. Son and DIL live across the street from patient. Transportation: , DIL DME/HHC: Patient has cane, rollator, raised toilet, grab bars, built in shower chair, and nebulize at home. Patient states she has had HHC previously but could not recall agency. No previous HHC Disposition Plan: Patient to discharge home with family support and follow-up plans in place. Nurys VINSON, RN, CM
[2022-03-10] MEDS: Ferrous Sulfate 325 MG Tablet PO ×2 (10:45→17:31)
[2022-03-10] MEDS: Pantoprazole Sodium 20 MG Tablet PO (10:45)
[2022-03-10] MEDS: Ascorbic Acid 500 MG Tablet PO (10:45)
[2022-03-10] MEDS: amLODIPine 10 MG Tablet PO (10:45)
[2022-03-10] MEDS: Metoprolol(XL)Succ 100 MG Tablet PO ×2 (10:45→20:59)
[2022-03-10] MEDS: Losartan Potassium 50 MG Tablet PO ×2 (10:46→21:00)
[2022-03-10] MEDS: Potassium Chloride Oral Tablet 20 MEQ PO (10:46)
[2022-03-10] MEDS: cloNIDine HCl 0.1 MG Tablet PO ×2 (10:46→21:00)
[2022-03-10] MEDS: Isosorbide DN 30 MG Tablet PO ×2 (10:46→20:59)
[2022-03-10] MEDS: Enoxaparin 30 MG/0.3 ML Syringe SC (10:46)
[2022-03-10] MEDS: Montelukast 10 MG Tablet PO (10:46)
--- NOTE | 2022-03-10 11:12 | PN.HOSP_ITS ---
Documented by User: Amanda Ulloa NP, SECOND BAKER-C 03/10/22 11:36 Subjective Subjective Patient seen and examined. Denies further shortness of breath. Denies chest pressure/pain. Blood pressure fluctuating, remains above goal. Objective Data Objective Data Vital Signs: Vital Signs Temp Pulse Resp BP Pulse Ox O2 Del Method O2 Flow Rate 97.6 F L 76 16 172/63 H 97 Room Air 2 03/10/22 10:41 03/10/22 10:45 03/10/22 10:41 03/10/22 10:41 03/10/22 10:41 03/10/22 10:41 03/09/22 15:38 Oxygen Flow Rate (L/min) 2 Oxygen Delivery Method Room Air Weight: 135 lb 2.294 oz Body Mass Index (BMI) 26.4 Intake & Output: Intake and Output for Last 24 Hours 03/08/22 03/09/22 03/10/22 23:59 23:59 23:59 Intake Total 150 / 150 Output Total 1100 / 1100 600 / 600 Balance -1100 / -1100 -450 / -450 Lab / Micro Data Result Diagrams: 03/09/22 15:00 03/09/22 15:00 Labs: Laboratory Results - last 24 hr 03/09/22 15:00: WBC 9.2, RBC 3.89 L, Hgb 12.6, Hct 36.5 L, MCV 93.8, MCH 32.4 H, MCHC 34.5, RDW Std Deviation 42.1, RDW Coeff of Deidra 12.3, Plt Count 299, MPV 11.2, Immature Gran % (Auto) 0.200, Neut % (Auto) 58.7, Lymph % (Auto) 31.7, [place] % (Auto) 7.0, Eos % (Auto) 1.2, Baso % (Auto) 1.2 H, Absolute Neuts (auto) 5.4, Absolute Lymphs (auto) 2.90, Nucleated RBC % 0 03/09/22 15:00: Sodium 134 L, Potassium 3.8, Chloride 98, Carbon Dioxide 26.0, Anion Gap 10, BUN 16, Creatinine 1.26 H, Estim Creat Clear Calc 23.02, Est GFR (MDRD) Af Amer 52 L, Est GFR (MDRD) Non-Af 43 L, BUN/Creatinine Ratio 12.7, Glucose 131 H, Calcium 9.9, Troponin I High Sens 195 H* 03/09/22 15:00: B-Natriuretic Peptide 157.8 H 03/09/22 18:26: Troponin I High Sens 214 H* 03/10/22 05:48: TSH 0.38 Micro: Microbiology 03/09/22 15:41 Nasal Secretion SARS-CoV-2 Antigen (Rapid) - Final Radiography Diagnostic Testing: Radiology Impression Chest X-Ray 03/09/22 15:50 IMPRESSION: No acute cardiopulmonary pathology. Stable chest radiograph. Electronically Signed: Kenny Barbosa MD at 16:51 EDT , Physical Exam Const alert, oriented x3 and no apparent distress Orientation / Consciousness: awake, oriented to person, oriented to place and oriented to time HEENT normocephalic and moist oral mucous membranes Eyes PERRL, EOMs intact bilaterally and conjunctivae normal Neck no lymphadenopathy Resp normal respiratory effort and clear to auscultation bilaterally Cardio regular rate, regular rhythm and no murmurs Peripheral Pulses: pulses 2+ throughout GI normal to inspection, nondistended, normoactive bowel sounds, non-tender and non-distended Extremity normal to inspection General Extremity: edema bilateral lower extremity Skin no rashes or lesions noted Lesions: no lesions Rashes: no rashes Trauma: no lacerations or abrasions Neuro CN's II-XII intact bilaterally, no focal motor deficits, no sensory deficits noted and deep tendon reflexes 2+ bilaterally Psych mental status grossly normal and affect normal Assessment & Plan Assessment/Plan (1) Hypertensive emergency: PLAN: Plan 1.? Hypertensive emergency-Continue home clonidine, isosorbide, losartan, metoprolol.? Increase amlodipine to 10 mg daily. Echocardiogram November 2021 demonstrated an EF of 65%, mild mitral valve insufficiency, RVSP estimated to be 42 mmHg. TSH normal. BMP mildly elevated. BP still fluctuating. Patient is on maximum dose of losartan, metoprolol, isosorbide and now amlodipine. We will add low-dose HCTZ and monitor BMP. Will initiate work-up for secondary hypertension including renal duplex ultrasound. 2. Elevated troponin- demand ischemia secondary to #1. Chronically elevated. 3. Paroxysmal atrial fibrillation- continue metoprolol. Not on anticoagulation. 4. Hyperlipidemia-continue statin. 5. Chronic asthma- no exacerbation. PRN albuterol aerosol. 6. GERD-continue PPI. 7. CAD with history of stents-continue statin, beta-melanie.? Not on aspirin.? Per prior cardiology note, no longer on antiplatelet therapy secondary to GI issues. Patient follows with Dr. Mora. 8. Chronic kidney disease stage IIIb-appears at baseline. DVT prophylaxis-Lovenox subcu This patient was seen by Amanda Ulloa NP-C under the supervision of Dr. Ramirez. Time spent examining patient, reviewing data and subsequent management of care: 14 minutes Documented by User: Dr. Elinor Ramirez MD 03/10/22 14:57 Objective Data Lab / Micro Data Result Diagrams: 03/09/22 15:00 03/09/22 15:00 Assessment & Plan Assessment/Plan (1) Hypertensive emergency: Charges/Coding Addendum Addendum: This patient was seen in conjunction with Amanda Ulloa NP. I have independently interviewed and examined the patient and reviewed pertinent historical, laboratory, and other data. I have reviewed her note and concur with her documentation Patient was seen and examined. She feels improved. Blood pressure remains elevated. Denies any chest pain or dizziness. Physical Exam: Gen: Comfortable, not pale, not jaundiced, appears frail CVS:HS I +II, regular, 4/6 holosystolic murmur RESP: Diminished at lung bases GI: BS present and normal, soft, nontender, no palpable organs EXT:No edema ASSESSMENT: 1. Hypertensive emergency 2. Elevated troponin, non-cardiac secondary to #1 3. Paroxysmal atrial fibrillation 4. Hyperlipidemia 5. Asthma 6. GERD 7. CAD s/p stents 8. CKD stage IIIb Plan: Increase amlodipine to 10 mg daily, continue on clonidine 0.1mg twice daily, start hydrochlorothiazide Repeat blood work in a.m. Time spent coordinating all aspects of patient's care, discussing with nursin minutes Visit Charges OBSV E&M: 92346 Subsequent observation care L3
--- NOTE | 2022-03-10 11:25 | RDU_ITS ---
Reason For Study: htn Right Renal Artery Left Renal Artery Right renal artery ostium Left renal artery ostium 227.7/29.2 205.0/24.5 RSV/EDV. PSV/EDV. Right renal artery proximal Left renal artery proximal PSV/EDV 273.1/37.7 PSV/EDV. 250.7/34.9 . Right renal artery mid 170/22.3 Left renal artery mid 180.1/23.2 PSV/EDV. PSV/EDV . Right renal artery distal 64.6/12.7 Left renal artery distal 92.0/19.5 PSV/EDV. PSV/EDV. Right RAR 2.8. Left RAR 2.6. Right Renal Parenchyma Left Renal Parenchyma Upper Pole Medula 36.5/11.5 Left upper pole medulla 12.8/5.5 PSV/EDV. PSV/EDV . Right upper pole medulla EDR .32 . Left upper pole medulla EDR .43 . Right upper pole medulla R.I. .68 . Left upper pole medulla R.I. .57 . Right lower Pole medulla 25.4/7.3 UP Cortex 11.0/6.1 PSV/EDV. PSV/EDV . Left upper pole cortex EDR .55 . Right lower pole medulla EDR .29 . Left upper pole cortex R.I. .45 . Right lower pole medulla R.I. .71 . Left lower Pole medulla 10.4/6.1 Upper [place] Cortx 22.8/3.4 PSV/EDV. PSV/EDV . Right upper pole cortex EDR .15 . Left lower pole medulla EDR .59 . Right upper pole cortex R.I. .85 . Left lower pole medulla R.I. .41 . Lower Pole Cortex 23.0/5.9 PSV/EDV. Lower Pole Cortx 11.6/4.9 PSV/EDV. Right lower pole cortex EDR .26 . Left lower pole cortex EDR .42 . Right lower pole cortex R.I. .74 . Left lower pole cortex R.I. .58 . Right Renal Hilar Left Renal Hilar Right Hilar avg 72.0/9.4 PSV/EDV. LT Hilar avg 40.9/5.9 PSV/EDV . Right hilar acceleration time 80 Left hilar acceleration time 50 m/sec. m/sec. Right Renal Dimensions Left Renal Dimensions Right kidney size 10.36 cm . Left kidney size 7.71 cm . Right cortical dimension 1.59 cm . Left cortical dimension 1.2 cm . Aorta Proximal abdominal aorta 1.5 cm . Proximal abdominal aorta peak systolic velocity is 97.7 cm/sec . Distal abdominal aorta 1.0 cm . Distal abdominal aorta peak systolic velocity is 131.3 cm/sec . Normal renal veins bilat. VL/Renal Artery Duplex Ultrasound Interpretation Summary Maximal aortic diameter approximate 1.5 cm which is normal Greater than 60% stenosis right proximal renal artery based upon velocity yasir sis although the renal artery to aortic ratio of 2.8 does not meet criteria. Right renal length maintained at 10.36 cm which is normal Greater than 60% stenosis left proximal renal artery based upon velocity analys is although again the left renal artery to aortic ratio is 2.6 which does not meet criteria Left renal length small at 7.71 cm which is abnormal Findings would suggest approaching 60% stenosis bilateral renal arteries. Clini awa correlation would be appropriate. Ordering Physician: Amanda Ulloa Performed By: Deon Molina
[2022-03-10] MEDS: hydroCHLOROthiazide 12.5mg 12.5 MG PO (13:02)
[2022-03-10] MEDS: Ondansetron 4 MG/2 ML Vial IV (14:49)
--- NOTE | 2022-03-10 15:51 | CASEMGMT ---
DUNG CM in to complete [employer] form with patient. RN MILADIS explained [employer] form to patient, patient voiced understanding. Patient signed [employer] form and filed in chart. Patient provided with copy of signed [employer] form. Patient had no further questions or concerns at this time.
[2022-03-10] MEDS: Lactulose 20 GM/30 ML UDC 10 GM PO (20:59)
[2022-03-10] MEDS: Atorvastatin Calcium 10 MG Tablet 5 MG PO (21:00)
[2022-03-11] VITALS (14 sets, daily range): BP systolic 149–202; BP diastolic 57–77; PULSE 54–79; RESP 15–18; TEMP 36.5–36.9; O2SAT 94–98
[2022-03-11 06:00] LABS: Absolute Neutrophil Count 8.5 X10^3/uL (2.0-7.7); Basophil# 0.03 X10^3/uL; Basophil% 0.2 % (0-1); Eosinophil# 0.03 X10^3/uL; Eosinophils% 0.2 % (0-5); Hematocrit 34.7 % (37-47); Hemoglobin 11.7 g/dL (12.0-15.0); Lymphocyte % 23.8 % (19-41); Mean Corp Hgb Conc 33.7 g/dL (32-36); Mean Corpuscular Hgb 32.2 pg (27.0-32.0); Mean Corpuscular Volume 95.6 fL (81-99); Mean Platelet Vol. 10.8 fl (6.2-12.0); Monocyte# 0.96 X10^3/uL; Monocyte% 7.6 % (0-10); NRBC Flagged by Analyzer 0 % (0-5); Neutrophil # 8.53 X10^3/uL (2.7-7.7); Neutrophil % 67.9 % (47-70); Platelet Count 268 K/mm3 (150-450); RBC Distribution Width CV 12.7 % (11.6-14.6); RBC Distribution Width SD 44.2 fl (35.1-43.9); Red Blood Count 3.63 M/mm3 (4.2-5.4); White Blood Count 12.6 K/mm3 (4.4-11.0)
[2022-03-11 06:30] LABS: Anion Gap 8 (5-15); BUN 32 mg/dL (7-18); BUN/Creat Ratio 27.1 RATIO (10-20); Calcium,Total 9.4 mg/dL (8.5-10.1); Chloride 99 mmol/L (98-107); Creatinine, Serum 1.18 mg/dL (0.55-1.02); EST Glomerular Filtration Rate 46 mL/min (>60); Est Glom Filt Rate - Afr Amer 56 mL/min (>60); Estimated Creatinine Clearance 24.58 ml/min; Glucose 131 mg/dL (74-106); Potassium 3.5 mmol/L (3.5-5.1); Sodium Level 137 mmol/L (136-145)
[2022-03-11] MEDS: Metoprolol(XL)Succ 100 MG Tablet PO ×2 (09:41→22:53)
[2022-03-11] MEDS: hydroCHLOROthiazide 12.5mg 12.5 MG PO ×2 (09:41→12:34)
[2022-03-11] MEDS: Losartan Potassium 50 MG Tablet PO ×2 (09:41→22:52)
[2022-03-11] MEDS: Montelukast 10 MG Tablet PO (09:41)
[2022-03-11] MEDS: Pantoprazole Sodium 20 MG Tablet PO (09:41)
[2022-03-11] MEDS: cloNIDine HCl 0.1 MG Tablet PO ×2 (09:41→22:53)
[2022-03-11] MEDS: Isosorbide DN 30 MG Tablet PO ×2 (09:41→22:52)
[2022-03-11] MEDS: Potassium Chloride Oral Tablet 20 MEQ PO (09:41)
[2022-03-11] MEDS: Ferrous Sulfate 325 MG Tablet PO ×2 (09:42→16:39)
[2022-03-11] MEDS: amLODIPine 10 MG Tablet PO (09:42)
[2022-03-11] MEDS: Enoxaparin 30 MG/0.3 ML Syringe SC (09:42)
[2022-03-11] MEDS: Ascorbic Acid 500 MG Tablet PO (09:42)
[2022-03-11] MEDS: Fluticasone 0.05% 1 SPRAY NASAL.SRY NASAL (10:51)
--- NOTE | 2022-03-11 11:39 | PN.HOSP_ITS ---
Documented by User: Amanda Ulloa NP, COMMUNICATIONS MAINTAINER-C 03/11/22 11:47 Subjective Subjective Patient seen and examined. Reports return of shortness of breath this morning while undergoing duplex ultrasound. Denies chest pain/pressure. Blood pressure remains elevated Objective Data Objective Data Vital Signs: Vital Signs Temp Pulse Resp BP Pulse Ox O2 Del Method O2 Flow Rate 97.7 F L 75 16 178/72 H 94 Room Air 2 03/11/22 09:33 03/11/22 10:49 03/11/22 09:33 03/11/22 10:49 03/11/22 09:33 03/11/22 09:33 03/09/22 15:38 Oxygen Flow Rate (L/min) 2 Oxygen Delivery Method Room Air Weight: 135 lb 2.294 oz Body Mass Index (BMI) 26.4 Intake & Output: Intake and Output for Last 24 Hours 03/09/22 03/10/22 03/11/22 23:59 23:59 23:59 Intake Total 550 / 550 Output Total 1100 / 1100 700 / 700 Balance -1100 / -1100 -150 / -150 Lab / Micro Data Result Diagrams: 03/11/22 05:10 03/11/22 05:10 Labs: Laboratory Results - last 24 hr 03/11/22 05:10: WBC 12.6 H, RBC 3.63 L, Hgb 11.7 L, Hct 34.7 L, MCV 95.6, MCH 32.2 H, MCHC 33.7, RDW Std Deviation 44.2 H, RDW Coeff of Deidra 12.7, Plt Count 268, MPV 10.8, Immature Gran % (Auto) 0.300, Neut % (Auto) 67.9, Lymph % (Auto) 23.8, [place] % (Auto) 7.6, Eos % (Auto) 0.2, Baso % (Auto) 0.2, Absolute Neuts (auto) 8.5 H, Absolute Lymphs (auto) 3.00, Nucleated RBC % 0 03/11/22 05:10: Sodium 137, Potassium 3.5, Chloride 99, Carbon Dioxide 30.0, Anion Gap 8, BUN 32 H, Creatinine 1.18 H, Estim Creat Clear Calc 24.58, Est GFR (MDRD) Af Amer 56 L, Est GFR (MDRD) Non-Af 46 L, BUN/Creatinine Ratio 27.1 H, Glucose 131 H, Calcium 9.4 Micro: Microbiology 03/09/22 15:41 Nasal Secretion SARS-CoV-2 Antigen (Rapid) - Final Physical Exam Const alert, oriented x3 and no apparent distress Orientation / Consciousness: awake, oriented to person, oriented to place and oriented to time HEENT normocephalic and moist oral mucous membranes Eyes PERRL, EOMs intact bilaterally and conjunctivae normal Neck no lymphadenopathy Resp normal respiratory effort and clear to auscultation bilaterally Cardio regular rate, regular rhythm and no murmurs Peripheral Pulses: pulses 2+ throughout GI normal to inspection, nondistended, normoactive bowel sounds, non-tender and non-distended Extremity normal to inspection Skin no rashes or lesions noted Lesions: no lesions Rashes: no rashes Trauma: no lacerations or abrasions Neuro CN's II-XII intact bilaterally, no focal motor deficits, no sensory deficits noted and deep tendon reflexes 2+ bilaterally Psych mental status grossly normal and affect normal Assessment & Plan Assessment/Plan (1) Hypertensive emergency: PLAN: Plan 1.? Hypertensive emergency, resistant hypertension-Continue home clonidine, isos orbide, losartan, metoprolol.?Echocardiogram November 2021 demonstrated an EF of 65%, mild mitral valve insufficiency, RVSP estimated to be 42 mmHg. TSH normal. BMP mildly elevated.?Patient is on maximum dose of losartan, metoprolol, isosorbide and now amlodipine.? Initiated on HCTZ 25 mg daily 03/10/2022.? 03/11/2022 initiated on hydralazine 10 mg 3 times daily. Work-up initiated for secondary hypertension. Underwent renal duplex ultrasound, results pending. Will consult nephrology for secondary workup as well. 2. Elevated troponin- demand ischemia secondary to #1. Chronically elevated. 3. Paroxysmal atrial fibrillation- continue metoprolol. Not on anticoagulation. 4. Hyperlipidemia-continue statin. 5. Chronic asthma- no exacerbation. PRN albuterol aerosol. 6. GERD-continue PPI. 7. CAD with history of stents-continue statin, beta-melanie.? Not on aspirin.? Per prior cardiology note, no longer on antiplatelet therapy secondary to GI issues. Patient follows with Dr. Mora. 8.? Chronic kidney disease stage IIIb-appears at baseline. DVT prophylaxis-Lovenox subcu This patient was seen by Amanda Ulloa NP-C under the supervision of Dr. Ramirez. Time spent examining patient, reviewing data and subsequent management of care: 14 minutes Documented by User: Dr. Elinor Ramirez MD 03/11/22 14:50 Objective Data Lab / Micro Data Result Diagrams: 03/11/22 05:10 03/11/22 05:10 Assessment & Plan Assessment/Plan (1) Hypertensive emergency: Charges/Coding Addendum Addendum: This patient was seen in conjunction with Amanda Ulloa NP.? I have independently interviewed and examined the patient and reviewed pertinent historical, laboratory, and other data. I have reviewed her note and concur with her documentation Patient was seen and examined. She complains of mild shortness of breath. Blood pressure remains elevated this morning. Renal ultrasound shows 60% stenosis in bilateral renal arteries. Physical Exam: Gen: Comfortable, not pale, not jaundiced, appears frail CVS:HS I +II, regular, 4/6 holosystolic murmur RESP: Diminished at lung bases GI: BS present and normal, soft, nontender, no palpable organs EXT:No edema ASSESSMENT: 1. Hypertensive emergency 2. Elevated troponin, non-cardiac secondary to #1 3. Paroxysmal atrial fibrillation 4. Hyperlipidemia 5. Asthma 6. GERD 7. CAD s/p stents 8. CKD stage IIIb 9. Bilateral renal artery stenoses Plan: Increase hydrochlorothiazide to 25 mg daily Would consider hydralazine if blood pressure remains uncontrolled Continue amlodipine to 10 mg daily, clonidine 0.1mg twice daily Nephrology consult Vascular consult Repeat blood work in a.m. Visit Charges Inpatient E&M: 54050 Subs Hosp L2
[2022-03-11] MEDS: Albuterol 2.5 MG/3 ML VIAL.NEB. INHALATION (12:19)
[2022-03-11] MEDS: Lactulose 20 GM/30 ML UDC 10 GM PO (22:48)
[2022-03-11] MEDS: Atorvastatin Calcium 10 MG Tablet 5 MG PO (22:50)
[2022-03-12] VITALS (7 sets, daily range): BP systolic 160–164; BP diastolic 54–72; PULSE 64–74; RESP 16–18; TEMP 36.2–37; O2SAT 92–95
[2022-03-12] MEDS: Enoxaparin 30 MG/0.3 ML Syringe SC (09:15)
[2022-03-12] MEDS: Ascorbic Acid 500 MG Tablet PO (09:15)
[2022-03-12] MEDS: Fluticasone 0.05% 1 SPRAY NASAL.SRY NASAL (09:15)
[2022-03-12] MEDS: Metoprolol(XL)Succ 100 MG Tablet PO (09:15)
[2022-03-12] MEDS: amLODIPine 10 MG Tablet PO (09:16)
[2022-03-12] MEDS: Montelukast 10 MG Tablet PO (09:16)
[2022-03-12] MEDS: Isosorbide DN 30 MG Tablet PO (09:16)
[2022-03-12] MEDS: Pantoprazole Sodium 20 MG Tablet PO (09:16)
[2022-03-12] MEDS: hydroCHLOROthiazide 25 MG Tablet PO (09:17)
[2022-03-12] MEDS: Potassium Chloride Oral Tablet 20 MEQ PO (09:17)
[2022-03-12] MEDS: Ferrous Sulfate 325 MG Tablet PO (09:17)
[2022-03-12] MEDS: cloNIDine HCl 0.1 MG Tablet PO (09:17)
--- NOTE | 2022-03-12 10:37 | PCM.CONS.R ---
Assessment & Plan Assessment/Plan (1) Hypertensive emergency: (2) Shortness of breath: PLAN: Plan We were consulted for hypertensive emergency. Patient's blood pressure on presentation to the hospital . Blood pressures have somewhat improved with systolic in the 150s and 160s. Patient was continued on home medications which included clonidine 0.1 mg twice daily, isosorbide 30 mg twice daily, losartan 50 mg twice and metoprolol succinate 100 mg twice daily. Hydrochlorothiazide 25mg was added yesterday, amlodipine dose was increased from 2.5 mg to 10 mg. Blood pressure still remains slightly elevated, therefore we will increase clonidine to 0.2 mg 3 times daily. Chest x-ray on admission did not show any acute cardiopulmonary pathology. Renin and aldosterone levels pending. TSH normal at 0.38. Echo from November 2021 showed normal LV size, left ventricular systolic function is normal, EF 65%, evidence of diastolic dysfunction. Patient did have a renal artery duplex which showed right kidney size 10.36 cm, left kidney size 7.71 cm, and greater than 60% stenosis in the right and left proximal renal arteries. Vascular has been consulted. Overall renal function is stable, baseline creatinine is around 1 mg/dL. On admission, 03/09 creatinine was 1.26 mg/dL and last labs from March 11 creatinine 1.18 mg/dL. Discussed with primary team and vascular. If bps improve today patient may be discharged to home and follow up as outpatient with us and vascular. Further orders forthcoming as hospitalization evolves, thank you for allowing us to participate in the care of Ms. Aguilar. HPI Consult Data Date of Consult: 03/12/22 HPI Narrative HPI Narrative: ANIYA AGUILAR, is a 87 F who presented to the emergency room with complaints of shortness of breath, admitted for hypertensive emergency; blood pressure in the emergency room . We were consulted for uncontrolled hypertension. Patient reports that she was diagnosed with hypertension in her late 40s. Reports compliancy with her medications and states that her sets up her medications for her. No history of tobacco abuse. Does not take NSAIDs. Patient denies any recent headaches or vision changes. Reports she monitors blood pressure at home but not on a daily basis. [facility] Medical History (Updated 03/10/22 @ 01:[address] Jesus De Los Santos DO) Atherosclerotic heart disease of [place] coronary artery without angina pectoris Cardiac murmur Edema Essential hypertension Nausea Paroxysmal atrial fibrillation Presence of stent in coronary artery (~11/05/09) Pure hypercholesterolemia Stage 3b chronic kidney disease (CKD) Home Medications montelukast 10 mg tablet 10 mg PO QDAY allergies 09/08/17 [History Last Taken 03/08/22] omeprazole 20 mg capsule,delayed release 20 mg PO DAILY reflux 09/08/17 [History Last Taken 03/09/22] simvastatin 10 mg tablet 10 mg PO QDAY cholesterol 09/08/17 [History Last Taken 03/08/22] potassium chloride 20 mEq tablet,extended release 20 meq PO QDAY supplement 09/13/17 [History Last Taken 03/09/22] albuterol sulfate 2.5 mg/3 mL (0.083 %) solution for nebulization 2.5 mg inhalation Q4H PRN Shortness Of Breath 06/13/18 [History Last Taken 03/09/22] ipratropium bromide 0.02 % solution for inhalation 2.5 ml inhalation Q4H PRN Shortness Of Breath 06/13/18 [History Last Taken 03/09/22] nitroglycerin 0.4 mg sublingual tablet 0.4 mg SUBLINGUAL Q5-15M PRN chest pain 06/13/18 [History Last Taken Unknown] metoprolol succinate 100 mg tablet,extended release 24 hr 100 mg PO BID blood pressure 11/28/19 [History Last Taken 03/09/22] isosorbide dinitrate 30 mg tablet 30 mg PO BID heart 12/14/19 [History Last Taken 03/09/22] losartan 50 mg tablet 50 mg PO BID ##180 01/30/20 [Rx Last Taken 03/09/22] fluticasone propionate 50 mcg/actuation nasal spray,suspension 1 spray NASAL DAILY allergies 11/28/20 [History Last Taken 03/09/22] lactulose 10 gram/15 mL oral solution 10 gm PO QHS 11/28/20 [History Last Taken 03/08/22] clonidine HCl 0.1 mg tablet 0.1 mg PO BID 30 days #60 tabs 12/06/21 [Rx Last Taken 03/09/22] amlodipine 10 mg tablet 2.5 mg PO DAILY bp 03/09/22 [History Last Taken 03/09/22] ascorbic acid (vitamin C) 500 mg tablet (Vitamin C) 500 mg PO DAILY supplement 03/09/22 [History Last Taken 03/09/22] ferrous sulfate 325 mg (65 mg iron) tablet 325 mg PO BID supplement 03/09/22 [History Last Taken 03/09/22] Allergy/AdvReac Type Severity Reaction Status Date / Time aspirin AdvReac Severe Swelling Verified 01/28/22 15:13 clarithromycin [From Biaxin] AdvReac Unknown Verified 01/28/22 15:13 codeine AdvReac Unknown Verified 01/28/22 15:13 morphine AdvReac Unknown Verified 01/28/22 15:13 Penicillins AdvReac Unknown Verified 01/28/22 15:13 Sulfa (Sulfonamide AdvReac Unknown Verified 01/28/22 15:13 Antibiotics) Family History Mother Myocardial infarction CVA (cerebral vascular accident) CAD (coronary artery disease) Father Myocardial infarction CAD (coronary artery disease) Brother History of PTCA Hx of CABG Sister Hx of CABG Surgical History H/O arthroscopy of left knee H/O oophorectomy History of appendectomy History of coronary artery stent placement (11/05/09) History of hernia repair History of partial hysterectomy History of right inguinal hernia repair Presence of coronary angioplasty implant and graft (~11/05/09) Social History Smoking Status: Never smoker alcohol intake: never substance use type: does not use caffeine: Yes Type: carbonated beverages what type of physical activity do you participate in: none seatbelt use: always do you feel safe at home: Yes ROS ROS Narrative As per HPI and past medical history Physical Exam Narrative Const: Alert and oriented x3, no apparent distress HEENT: Head is normocephalic, atraumatic. Pupils equal round reactive to light accommodation. Oral mucosa moist Cardio: S1, S2 no murmurs rubs or gallops Respiratory: Lung sounds clear anteriorly and posteriorly, no wheezes, rhonchi or rales noted Abdomen: Soft, nontender, nondistended, positive bowel sounds x4 quadrants Extremities: No pitting edema Lab / Micro Data Result Diagrams: 03/11/22 05:10 03/11/22 05:10 Labs: Laboratory Results - last 24 hr 03/11/22 05:10: Cortisol 2.10 L Radiology Impression Renal Artery Duplex 03/10/22 11:25 Interpretation Summary Maximal aortic diameter approximate 1.5 cm which is normal Greater than 60% stenosis right proximal renal artery based upon velocity analysis although the renal artery to aortic ratio of 2.8 does not meet criteria. Right renal length maintained at 10.36 cm which is normal Greater than 60% stenosis left proximal renal artery based upon velocity analysis although again the left renal artery to aortic ratio is 2.6 which does not meet criteria Left renal length small at 7.71 cm which is abnormal Findings would suggest approaching 60% stenosis bilateral renal arteries. Clinical correlation would be appropriate. Ordering Physician: Amanda Ulloa Performed By: Deon Molina
--- NOTE | 2022-03-12 11:56 | DCINST_ITS ---
Discharge Instructions Diet Discharge Diet: Low fat / Low cholesterol Activity Discharge Activity: Return to Normal Activity Additional Activity Instructions:: Take BP twice daily prior to taking medication. Keep log to take to primary care providers office at follow up Dressing / Incision Call your doctor if you observe: Shortness of breath, Chest pain and Increased palpitations (irregular heartbeat) Follow Up Care Test Results: Test results from this visit will be discussed in further detail at your follow- up appointment, if applicable. Discharge Plan Admission Admit Date/Time: 03/09/22 16:58 Primary Reason for Your Visit: Hypertensive Urgency Attending Provider: Elinor Ramirez Primary Care Provider: James Garcia Consulting Providers: Evy Hess ; Stephy Moscoso ; Sergo Manriquez ; Cristian Pierre ; Carri Lincoln ; Danny Bernal ; Olga Griffiths ; Felipe Rebollar ; Zane Marie ; Jeyson Kilpatrick ; Mckenna Almanza ; Duke August Discharge Orders/Prescriptions Prescriptions: New clonidine HCl 0.2 mg Tablet 0.2 mg PO TID 30 Days Qty: 90 0RF amlodipine 10 mg Tablet 10 mg PO DAILY 30 Days Qty: 30 0RF hydrochlorothiazide 25 mg Tablet 25 mg PO DAILY 30 Days Qty: 30 0RF Continued montelukast 10 mg tablet 10 mg PO QDAY simvastatin 10 mg tablet 10 mg PO QDAY omeprazole 20 mg capsule,delayed release(DR/EC) 20 mg PO DAILY potassium chloride 20 mEq tablet extended release 20 meq PO QDAY metoprolol succinate 100 mg tablet extended release 24 hr 100 mg PO BID albuterol sulfate 2.5 mg /3 mL (0.083 %) solution for nebulization 2.5 mg INHALATION Q4H PRN (Reason: Shortness Of Breath) ipratropium bromide 0.02 % solution 2.5 ml INHALATION Q4H PRN (Reason: Shortness Of Breath) nitroglycerin 0.4 mg tablet, sublingual 0.4 mg SUBLINGUAL Q5-15M PRN (Reason: chest pain) fluticasone propionate 1 SPRAY spray,suspension 1 spray NASAL DAILY lactulose 10 GM/15 ML solution 10 gm PO QHS ferrous sulfate 325 mg (65 mg iron) Tablet 325 mg PO BID ascorbic acid (vitamin C) [Vitamin C] 500 mg Tablet 500 mg PO DAILY isosorbide dinitrate 30 mg tablet 30 mg PO BID losartan 50 mg tablet 50 mg PO BID Qty: 180 3RF Discontinued clonidine HCl 0.1 mg Tablet 0.1 mg PO BID 30 Days Qty: 60 0RF amlodipine 10 mg tablet 2.5 mg PO DAILY Referrals / Follow Up: James Garcia DO [Primary Care Provider] - Disposition Disposition (needs filled in before D/C Order can be placed): Home, Self Care
--- NOTE | 2022-03-12 12:01 | PCM.DC.SUM ---
Documented by User: DELORIS Bush 03/12/22 12:10 Providers Date of Admission: 03/09/22 Date of Discharge: 03/12/22 Primary Care Physician: Dr. James Garcia, Consultations 03/11/22 11:46 Consult: Nephrology Routine Consulting Provider: [facility] Reason for Consult: Resistant hypertension EMERGENT Consult: No MD Notified: Yes Date Notified: 03/11/22 Time Notified: 11:53 Method of Notification: Answering Service 03/11/22 16:47 Consult: Vascular Surgery Routine Consulting Provider: [facility] August Reason for Consult: Renal stenosis and resistant HTN EMERGENT Consult: No MD Notified: Yes Date Notified: 03/11/22 Time Notified: 16:44 Method of Notification: Text Reason For Visit: HTN EMERGENCY Diagnosis Discharge Diagnosis (1) Hypertensive emergency: Status: Acute Code(s): I16.1 - Hypertensive emergency (2) Shortness of breath: Status: Acute Code(s): R06.02 - Shortness of breath Medications at Discharge Home Medications montelukast 10 mg tablet 10 mg PO QDAY allergies 09/08/17 omeprazole 20 mg capsule,delayed release 20 mg PO DAILY reflux 09/08/17 simvastatin 10 mg tablet 10 mg PO QDAY cholesterol 09/08/17 potassium chloride 20 mEq tablet,extended release 20 meq PO QDAY supplement 09/13/17 albuterol sulfate 2.5 mg/3 mL (0.083 %) solution for nebulization 2.5 mg inhalation Q4H PRN Shortness Of Breath 06/13/18 ipratropium bromide 0.02 % solution for inhalation 2.5 ml inhalation Q4H PRN Shortness Of Breath 06/13/18 nitroglycerin 0.4 mg sublingual tablet 0.4 mg SUBLINGUAL Q5-15M PRN chest pain 06/13/18 metoprolol succinate 100 mg tablet,extended release 24 hr 100 mg PO BID blood pressure 11/28/19 isosorbide dinitrate 30 mg tablet 30 mg PO BID heart 12/14/19 losartan 50 mg tablet 50 mg PO BID ##180 01/30/20 fluticasone propionate 50 mcg/actuation nasal spray,suspension 1 spray NASAL DAILY allergies 11/28/20 lactulose 10 gram/15 mL oral solution 10 gm PO QHS 11/28/20 ascorbic acid (vitamin C) 500 mg tablet (Vitamin C) 500 mg PO DAILY supplement 03/09/22 ferrous sulfate 325 mg (65 mg iron) tablet 325 mg PO BID supplement 03/09/22 amlodipine 10 mg tablet 10 mg PO DAILY 30 days #30 tabs 03/12/22 clonidine HCl 0.2 mg tablet 0.2 mg PO TID 30 days #90 tabs 03/12/22 hydrochlorothiazide 25 mg tablet 25 mg PO DAILY 30 days #30 tabs 03/12/22 Hospital Course Operations None Procedures - (Renal artery duplex) Summary of Care Provided Minutes Spent on Discharge: 35 Hospital Course: Patient is an 87-year-old female who originally presented to the ER with complaints of shortness of breath for the past 3 to 4 days. Patient states that she does not have any chest pain and reported to the ER that she had difficulty controlling her blood pressure in the past. Patient was noted to be severely hypertensive. Patient's amlodipine was increased initially to 5 mg daily and then to 10 mg daily per cardiology. Patient's clonidine also increased from 0.1 to 0.2 three times daily per nephrology. Patient was evaluated by nephrology due to renal duplex shows renal artery stenosis. Patient also evaluated by Dr. August of vascular surgery for renal artery stenosis. Patient was agreeable to intervention but wanted to do it as an outpatient because she does not want to stay in the hospital any longer. Patient will be discharged home with follow-up for Dr. August outpatient for evaluation for angiogram. Physical Exam Const alert, oriented x3 and no apparent distress Orientation / Consciousness: awake HEENT normocephalic, head/scalp atraumatic, hearing grossly normal bilaterally and moist oral mucous membranes Eyes conjunctivae normal Neck no lymphadenopathy and supple Neck Narrative: Trachea midline, no thyroid enlargement Resp normal respiratory effort and clear to auscultation bilaterally Auscultation: diminished lung sounds Cardio regular rate, regular rhythm, S1 normal heart sound and S2 normal heart sound Cardio Narrative: S4 gallop noted on exam Peripheral Pulses: pulses 2+ throughout GI normal to inspection, nondistended, normoactive bowel sounds, soft to palpation and non-tender Extremity normal to inspection General Extremity: edema bilateral lower extremity Skin no rashes or lesions noted, no wounds, skin turgor normal and no jaundice Lesions: no lesions Rashes: no rashes Trauma: no lacerations or abrasions Neuro oriented x3, moves all extremities, no focal motor deficits and no sensory deficits noted Neuro Narrative: Reflexes are normal, mild generalized weakness Speech: speech normal Psych mental status grossly normal and affect normal Psych Narrative: Appears mildly anxious but affect was normal Weight / BMI Weight Weight: 135 lb 2.294 oz Body Mass Index (BMI) 26.4 ABG / Lab / Microbiology Data Result Diagrams: 03/11/22 05:10 03/11/22 05:10 Laboratory: Laboratory Results - last 24 hr 03/11/22 05:10: Cortisol 2.10 L Microbiology: Microbiology 03/09/22 15:41 Nasal Secretion SARS-CoV-2 Antigen (Rapid) - Final Radiography Diagnostic Testing: Radiology Impression Renal Artery Duplex 03/10/22 11:25 Interpretation Summary Maximal aortic diameter approximate 1.5 cm which is normal Greater than 60% stenosis right proximal renal artery based upon velocity analysis although the renal artery to aortic ratio of 2.8 does not meet criteria. Right renal length maintained at 10.36 cm which is normal Greater than 60% stenosis left proximal renal artery based upon velocity analysis although again the left renal artery to aortic ratio is 2.6 which does not meet criteria Left renal length small at 7.71 cm which is abnormal Findings would suggest approaching 60% stenosis bilateral renal arteries. Clinical correlation would be appropriate. Ordering Physician: Amanda Ulloa Performed By: Deon Molina D/C Instructions Discharge Diet: Low fat / Low cholesterol Additional Activity Instructions: Take BP twice daily prior to taking medication. Keep log to take to primary care providers office at follow up Call your doctor if you observe: Shortness of breath, Chest pain and Increased palpitations (irregular heartbeat) Meaningful Use Info Meaningful Use Diagnoses (Choose all that apply): None applicable Discharge Plan Admission Admit Date/Time: 03/09/22 16:58 Primary Reason for Your Visit: Hypertensive Urgency Attending Provider: Elinor Ramirez Primary Care Provider: James Garcia Consulting Providers: Evy Hess ; Stephy Moscoso ; Sergo Manriquez ; Cristian Pierre ; Carri Lincoln ; Danny Bernal ; Olga Griffiths ; Felipe Rebollar ; Zane Marie ; Jeyson Kilpatrick ; Mckenna Almanza ; Duke August Discharge Orders/Prescriptions Prescriptions: New clonidine HCl 0.2 mg Tablet 0.2 mg PO TID 30 Days Qty: 90 0RF amlodipine 10 mg Tablet 10 mg PO DAILY 30 Days Qty: 30 0RF hydrochlorothiazide 25 mg Tablet 25 mg PO DAILY 30 Days Qty: 30 0RF Continued montelukast 10 mg tablet 10 mg PO QDAY simvastatin 10 mg tablet 10 mg PO QDAY omeprazole 20 mg capsule,delayed release(DR/EC) 20 mg PO DAILY potassium chloride 20 mEq tablet extended release 20 meq PO QDAY metoprolol succinate 100 mg tablet extended release 24 hr 100 mg PO BID albuterol sulfate 2.5 mg /3 mL (0.083 %) solution for nebulization 2.5 mg INHALATION Q4H PRN (Reason: Shortness Of Breath) ipratropium bromide 0.02 % solution 2.5 ml INHALATION Q4H PRN (Reason: Shortness Of Breath) nitroglycerin 0.4 mg tablet, sublingual 0.4 mg SUBLINGUAL Q5-15M PRN (Reason: chest pain) fluticasone propionate 1 SPRAY spray,suspension 1 spray NASAL DAILY lactulose 10 GM/15 ML solution 10 gm PO QHS ferrous sulfate 325 mg (65 mg iron) Tablet 325 mg PO BID ascorbic acid (vitamin C) [Vitamin C] 500 mg Tablet 500 mg PO DAILY isosorbide dinitrate 30 mg tablet 30 mg PO BID losartan 50 mg tablet 50 mg PO BID Qty: 180 3RF Discontinued clonidine HCl 0.1 mg Tablet 0.1 mg PO BID 30 Days Qty: 60 0RF amlodipine 10 mg tablet 2.5 mg PO DAILY Referrals / Follow Up: James Garcia DO [Primary Care Provider] - Disposition Disposition (needs filled in before D/C Order can be placed): Home, Self Care Documented by User: Dr. Elinor Ramirez MD 03/12/22 15:38 Providers Date of Admission: 03/09/22 Reason For Visit: HTN EMERGENCY Diagnosis Discharge Diagnosis (1) Hypertensive emergency: Status: Acute Code(s): I16.1 - Hypertensive emergency (2) Shortness of breath: Status: Acute Code(s): R06.02 - Shortness of breath Medications at Discharge Home Medications montelukast 10 mg tablet 10 mg PO QDAY allergies 09/08/17 omeprazole 20 mg capsule,delayed release 20 mg PO DAILY reflux 09/08/17 simvastatin 10 mg tablet 10 mg PO QDAY cholesterol 09/08/17 potassium chloride 20 mEq tablet,extended release 20 meq PO QDAY supplement 09/13/17 albuterol sulfate 2.5 mg/3 mL (0.083 %) solution for nebulization 2.5 mg inhalation Q4H PRN Shortness Of Breath 06/13/18 ipratropium bromide 0.02 % solution for inhalation 2.5 ml inhalation Q4H PRN Shortness Of Breath 06/13/18 nitroglycerin 0.4 mg sublingual tablet 0.4 mg SUBLINGUAL Q5-15M PRN chest pain 06/13/18 metoprolol succinate 100 mg tablet,extended release 24 hr 100 mg PO BID blood pressure 11/28/19 isosorbide dinitrate 30 mg tablet 30 mg PO BID heart 12/14/19 losartan 50 mg tablet 50 mg PO BID ##180 01/30/20 fluticasone propionate 50 mcg/actuation nasal spray,suspension 1 spray NASAL DAILY allergies 11/28/20 lactulose 10 gram/15 mL oral solution 10 gm PO QHS 11/28/20 ascorbic acid (vitamin C) 500 mg tablet (Vitamin C) 500 mg PO DAILY supplement 03/09/22 ferrous sulfate 325 mg (65 mg iron) tablet 325 mg PO BID supplement 03/09/22 amlodipine 10 mg tablet 10 mg PO DAILY 30 days #30 tabs 03/12/22 clonidine HCl 0.2 mg tablet 0.2 mg PO TID 30 days #90 tabs 03/12/22 hydrochlorothiazide 25 mg tablet 25 mg PO DAILY 30 days #30 tabs 03/12/22 ABG / Lab / Microbiology Data Result Diagrams: 03/11/22 05:10 03/11/22 05:10 Discharge Plan Admission Admit Date/Time: 03/09/22 16:58 Primary Reason for Your Visit: Hypertensive Urgency Attending Provider: Elinor Ramirez Primary Care Provider: James Garcia Consulting Providers: Evy Hess ; Stephy Moscoso ; Sergo Manriquez ; Cristian Pierre ; Carri Lincoln ; Danny Bernal ; Olga Griffiths ; Felipe Rebollar ; Zane Marie ; Jeyson Kilpatrick ; Mckenna Almanza ; Duke August Discharge Orders/Prescriptions Prescriptions: New clonidine HCl 0.2 mg Tablet 0.2 mg PO TID 30 Days Qty: 90 0RF amlodipine 10 mg Tablet 10 mg PO DAILY 30 Days Qty: 30 0RF hydrochlorothiazide 25 mg Tablet 25 mg PO DAILY 30 Days Qty: 30 0RF Continued montelukast 10 mg tablet 10 mg PO QDAY simvastatin 10 mg tablet 10 mg PO QDAY omeprazole 20 mg capsule,delayed release(DR/EC) 20 mg PO DAILY potassium chloride 20 mEq tablet extended release 20 meq PO QDAY metoprolol succinate 100 mg tablet extended release 24 hr 100 mg PO BID albuterol sulfate 2.5 mg /3 mL (0.083 %) solution for nebulization 2.5 mg INHALATION Q4H PRN (Reason: Shortness Of Breath) ipratropium bromide 0.02 % solution 2.5 ml INHALATION Q4H PRN (Reason: Shortness Of Breath) nitroglycerin 0.4 mg tablet, sublingual 0.4 mg SUBLINGUAL Q5-15M PRN (Reason: chest pain) fluticasone propionate 1 SPRAY spray,suspension 1 spray NASAL DAILY lactulose 10 GM/15 ML solution 10 gm PO QHS ferrous sulfate 325 mg (65 mg iron) Tablet 325 mg PO BID ascorbic acid (vitamin C) [Vitamin C] 500 mg Tablet 500 mg PO DAILY isosorbide dinitrate 30 mg tablet 30 mg PO BID losartan 50 mg tablet 50 mg PO BID Qty: 180 3RF Discontinued clonidine HCl 0.1 mg Tablet 0.1 mg PO BID 30 Days Qty: 60 0RF amlodipine 10 mg tablet 2.5 mg PO DAILY Referrals / Follow Up: James Garcia DO [Primary Care Provider] - Disposition Disposition (needs filled in before D/C Order can be placed): Home, Self Care Charges/Coding Addendum Addendum: This patient was seen in conjunction with Amanda Ulloa NP.? I have independently interviewed and examined the patient and reviewed pertinent historical, laboratory, and other data. I have reviewed her note and concur with her documentation 87-year-old female with past medical history of hypertension, paroxysmal atrial fibrillation, CAD status post stent, CKD stage III who developed progressive shortness of breath and was found to have severe elevated blood pressure. Her troponins were also elevated. She had complained of chest pain. Patient was admitted to the progressive care unit, resumed on her home blood pressure medication, titrations made to her medications. Blood pressure continues to be elevated. Work-up for possible secondary causes of hypertension showed bilateral renal artery stenosis of 60%. Nephrology and vascular surgery were consulted. Patient preferred discussing treatment for renal artery stenosis further in clinic. Angioplasty plus or minus intervention planned. She was discharged on amlodipine 10, clonidine 0.2 mg twice daily, hydrochlorothiazide 25, losartan 50 twice daily, metoprolol 100 mg twice daily. Patient to follow-up with her primary care doctor within a week. On the day of discharge, patient was seen and examined. She was eager to be discharged. Denied any new complaints. Physical Exam: Gen: Comfortable, not pale, not jaundiced, appears frail CVS:HS I +II, regular, 4/6 holosystolic murmur RESP: Diminished at lung bases GI: BS present and normal, soft, nontender, no palpable organs EXT:No edema Visit Charges Inpatient E&M: 12735 Disch Hosp
--- NOTE | 2022-03-12 12:06 | CON.PCM.SX_ITS ---
Assessment & Plan Assessment/Plan (1) Renal artery stenosis: PLAN: -refractory hypertension despite compliance with 5 agents -stage 3 CKD -renal duplex with elevated velocities bilateral consistent with >60% stenosis but with preserved RAR ratio -D/W nephrology, hospitalist teams -given clinical situation of both CKD and poor control on 5 agents i think further imaging warranted -patient would prefer to discuss further in clinic when is present -potential for angio +/- intervention pending severity of stenosis; outpatient -ok to dc, plan follow up in clinic next week HPI Consult Data Date of Consult: 03/12/22 HPI Narrative HPI Narrative: ANIYA AGUILAR, is a 87 F who presents with recurrent poorly controlled hypertension on multiple medications. Patient has remained compliant on outpatient regimen and continues to have difficulty with adequate control. Has some mild CKD. Currently on 5 agents. [facility] Medical History (Updated 03/12/22 @ 12:[address] Duke August MD) Atherosclerotic heart disease of [place] coronary artery without angina pectoris Cardiac murmur Edema Essential hypertension Nausea Paroxysmal atrial fibrillation Presence of stent in coronary artery (~11/05/09) Pure hypercholesterolemia Stage 3b chronic kidney disease (CKD) Home Medications montelukast 10 mg tablet 10 mg PO QDAY allergies 09/08/17 [History Last Taken 03/08/22] omeprazole 20 mg capsule,delayed release 20 mg PO DAILY reflux 09/08/17 [History Last Taken 03/09/22] simvastatin 10 mg tablet 10 mg PO QDAY cholesterol 09/08/17 [History Last Taken 03/08/22] potassium chloride 20 mEq tablet,extended release 20 meq PO QDAY supplement 09/13/17 [History Last Taken 03/09/22] albuterol sulfate 2.5 mg/3 mL (0.083 %) solution for nebulization 2.5 mg inhalation Q4H PRN Shortness Of Breath 06/13/18 [History Last Taken 03/09/22] ipratropium bromide 0.02 % solution for inhalation 2.5 ml inhalation Q4H PRN Shortness Of Breath 06/13/18 [History Last Taken 03/09/22] nitroglycerin 0.4 mg sublingual tablet 0.4 mg SUBLINGUAL Q5-15M PRN chest pain 06/13/18 [History Last Taken Unknown] metoprolol succinate 100 mg tablet,extended release 24 hr 100 mg PO BID blood pressure 11/28/19 [History Last Taken 03/09/22] isosorbide dinitrate 30 mg tablet 30 mg PO BID heart 12/14/19 [History Last Taken 03/09/22] losartan 50 mg tablet 50 mg PO BID ##180 01/30/20 [Rx Last Taken 03/09/22] fluticasone propionate 50 mcg/actuation nasal spray,suspension 1 spray NASAL DAILY allergies 11/28/20 [History Last Taken 03/09/22] lactulose 10 gram/15 mL oral solution 10 gm PO QHS 11/28/20 [History Last Taken 03/08/22] ascorbic acid (vitamin C) 500 mg tablet (Vitamin C) 500 mg PO DAILY supplement 03/09/22 [History Last Taken 03/09/22] ferrous sulfate 325 mg (65 mg iron) tablet 325 mg PO BID supplement 03/09/22 [History Last Taken 03/09/22] amlodipine 10 mg tablet 10 mg PO DAILY 30 days #30 tabs 03/12/22 [Rx Last Taken Unknown] clonidine HCl 0.2 mg tablet 0.2 mg PO TID 30 days #90 tabs 03/12/22 [Rx Last Taken Unknown] hydrochlorothiazide 25 mg tablet 25 mg PO DAILY 30 days #30 tabs 03/12/22 [Rx Last Taken Unknown] Allergy/AdvReac Type Severity Reaction Status Date / Time aspirin AdvReac Severe Swelling Verified 01/28/22 15:13 clarithromycin [From Biaxin] AdvReac Unknown Verified 01/28/22 15:13 codeine AdvReac Unknown Verified 01/28/22 15:13 morphine AdvReac Unknown Verified 01/28/22 15:13 Penicillins AdvReac Unknown Verified 01/28/22 15:13 Sulfa (Sulfonamide AdvReac Unknown Verified 01/28/22 15:13 Antibiotics) Family History Mother Myocardial infarction CVA (cerebral vascular accident) CAD (coronary artery disease) Father Myocardial infarction CAD (coronary artery disease) Brother History of PTCA Hx of CABG Sister Hx of CABG Surgical History H/O arthroscopy of left knee H/O oophorectomy History of appendectomy History of coronary artery stent placement (11/05/09) History of hernia repair History of partial hysterectomy History of right inguinal hernia repair Presence of coronary angioplasty implant and graft (~11/05/09) Social History Smoking Status: Never smoker alcohol intake: never substance use type: does not use caffeine: Yes Type: carbonated beverages what type of physical activity do you participate in: none seatbelt use: always do you feel safe at home: Yes Physical Exam Const alert, oriented x3, no apparent distress and healthy appearing General Appearance: cooperative; Negative for combative or lethargic Orientation / Consciousness: awake Exam Limitations: no limitations HEENT Head and Scalp: normocephalic and atraumatic Eyes EOMs intact bilaterally General Eye: normal appearance of both eyes Neck full ROM, no lymphadenopathy and thyroid normal General: trachea midline; Negative for lymphadenopathy Thyroid: thyroid normal Resp normal respiratory effort and no use of accessory muscles Effort and Inspection: Negative for labored, stridor or audible wheezes Cardio regular rate and regular rhythm Peripheral Pulses: brachial pulses present, radial pulses present and femoral pulses present Extremity full ROM, normal capillary refill and no clubbing, cyanosis or edema Skin no rashes or lesions noted and no wounds Neuro oriented x3, CN's II-XII intact bilaterally, no focal motor deficits and no sensory deficits noted Psych thought process normal, cooperative, affect normal, speech normal and activity/motor behavior normal Lab / Micro Data Result Diagrams: 03/11/22 05:10 03/11/22 05:10 Labs: Laboratory Results - last 24 hr 03/11/22 05:10: Cortisol 2.10 L Radiology Impression Renal Artery Duplex 03/10/22 11:25 Interpretation Summary Maximal aortic diameter approximate 1.5 cm which is normal Greater than 60% stenosis right proximal renal artery based upon velocity analysis although the renal artery to aortic ratio of 2.8 does not meet criteria. Right renal length maintained at 10.36 cm which is normal Greater than 60% stenosis left proximal renal artery based upon velocity analysis although again the left renal artery to aortic ratio is 2.6 which does not meet criteria Left renal length small at 7.71 cm which is abnormal Findings would suggest approaching 60% stenosis bilateral renal arteries. Clinical correlation would be appropriate. Ordering Physician: Amanda Ulloa Performed By: Deon Molina
[2022-03-12] MEDS: Losartan Potassium 50 MG Tablet PO (12:24)
--- NOTE | 2022-03-12 13:06 | CASEMGMT ---
DUNG REDDING NOTE: Pt being discharged home. DUNG REDDING to room. Introduced self and role. Pt states she feels safe discharging home and states her can assist her, if needed. Pt denies having any discharge planning needs or concerns. She declines wanting HHC or OP therapy. Pt made aware if she changes her mind about either, to discuss options w/her PCP. She voices understanding. Aury VINSON RN, CM
--- NOTE | 2022-03-12 14:31 | PHA.DC.MR ---
Addendum entered and electronically signed by Nila Willard 03/12/22 14:32: Correction: patient was counseled on hydrochlorothiazide 25mg PO daily. All questions answered. Original Note: Pharmacy Service has performed discharge medication reconciliation for this patient. The patient's discharge medication list was reviewed for discrepancies and discrepancies were resolved. Home Medications montelukast 10 mg tablet 10 mg PO QDAY allergies 09/08/17 omeprazole 20 mg capsule,delayed release 20 mg PO DAILY reflux 09/08/17 simvastatin 10 mg tablet 10 mg PO QDAY cholesterol 09/08/17 potassium chloride 20 mEq tablet,extended release 20 meq PO QDAY supplement 09/13/17 albuterol sulfate 2.5 mg/3 mL (0.083 %) solution for nebulization 2.5 mg inhalation Q4H PRN Shortness Of Breath 06/13/18 ipratropium bromide 0.02 % solution for inhalation 2.5 ml inhalation Q4H PRN Shortness Of Breath 06/13/18 nitroglycerin 0.4 mg sublingual tablet 0.4 mg SUBLINGUAL Q5-15M PRN chest pain 06/13/18 metoprolol succinate 100 mg tablet,extended release 24 hr 100 mg PO BID blood pressure 11/28/19 isosorbide dinitrate 30 mg tablet 30 mg PO BID heart 12/14/19 losartan 50 mg tablet 50 mg PO BID ##180 01/30/20 fluticasone propionate 50 mcg/actuation nasal spray,suspension 1 spray NASAL DAILY allergies 11/28/20 lactulose 10 gram/15 mL oral solution 10 gm PO QHS 11/28/20 ascorbic acid (vitamin C) 500 mg tablet (Vitamin C) 500 mg PO DAILY supplement 03/09/22 ferrous sulfate 325 mg (65 mg iron) tablet 325 mg PO BID supplement 03/09/22 amlodipine 10 mg tablet 10 mg PO DAILY 30 days #30 tabs 03/12/22 clonidine HCl 0.2 mg tablet 0.2 mg PO TID 30 days #90 tabs 03/12/22 hydrochlorothiazide 25 mg tablet 25 mg PO DAILY 30 days #30 tabs 03/12/22
--- NOTE | 2022-03-12 15:24 | NURSING ---
Reviewed charting with Nenita Santoyo RN
[2022-03-17 15:07] LABS: Aldosterone, Serum 1.7 ng/dL (0.0-30.0)
[2022-03-18 12:48] LABS: Renin, Plasma 0.567 ng/mL/hr (0.167-5.380)
== END 2022-03-12 12:00 | disposition home or self-care (01) ==
LOC: ED 17:04 → PCU 17:09
PROVIDERS: Nurse Practitioner Family; Admitting Provider Internal Medicine; Emergency Provider Emergency Medicine; PCP Family Medicine; Visit Provider Internal Medicine
DX: I16.1 Hypertensive emergency (principal); J44.9 Chronic obstructive pulmonary disease, unspecified; I70.1 Atherosclerosis of renal artery; I48.0 Paroxysmal atrial fibrillation; N18.32 Chronic kidney disease, stage 3b; I12.9 Hypertensive chronic kidney disease with stage 1 through stage 4 chronic kidney disease, or unspecified chronic kidney disease; E78.00 Pure hypercholesterolemia, unspecified; I25.10 Atherosclerotic heart disease of native coronary artery without angina pectoris; E87.1 Hypo-osmolality and hyponatremia; K21.9 Gastro-esophageal reflux disease without esophagitis; R60.0 Localized edema; R06.02 Shortness of breath; Z95.5 Presence of coronary angioplasty implant and graft; Z79.899 Other long term (current) drug therapy
CPT/HCPCS: 36415; 71045; 80048; 82088; 82533; 83880; 84244; 84443; 84484; 85025; 87811; 93005; 93975; 94640; 96372; 96374; 96375; 97162; 99218; 99251; 99285; A4216; G0378; G0463; J1940; J2405

== ENCOUNTER 2022-03-15 08:45 | Emergency (ER) | payer MEDICARE, SELFPAY ==
[2022-03-15 08:46] VITALS: BP 170/51; PULSE 54; RESP 14; TEMP 36.2; O2SAT 97; BMI 25.4
--- NOTE | 2022-03-15 09:11 | EX.ED.DYSGE1 ---
HPI History of Present Illness Chief Complaint: Neuro S/Sx Informant: patient Onset/Context/Timing Onset: Yesterday Context: Gradual Onset Timing: Continuous (Improving) Quality: Weakness Location: Right face Worsened by: Nothing Relieved by: Nothing Narrative Narrative: Patient presents with facial weakness that began last night. Patient states that she started feeling the right side of her face get weak last night. Patient states it came on gradually. Patient states she still has some weakness on the right side of her face but this is improved. Family does not notice any weakness or asymmetry of her face. Patient admits to some paresthesias on both sides of her face last night. Patient denies any difficulty swallowing or difficulty talking. Patient denies any visual changes. Patient states she did have some chest pain last night when this began. Patient denies any weakness of her extremities. [facility] Medical History Atherosclerotic heart disease of [place] coronary artery without angina pectoris Cardiac murmur Edema Essential hypertension Nausea Paroxysmal atrial fibrillation Presence of stent in coronary artery (~11/05/09) Pure hypercholesterolemia Stage 3b chronic kidney disease (CKD) Home Medications montelukast 10 mg tablet 10 mg PO QDAY allergies 09/08/17 [History Last Taken 03/08/22] omeprazole 20 mg capsule,delayed release 20 mg PO DAILY reflux 09/08/17 [History Last Taken 03/09/22] simvastatin 10 mg tablet 10 mg PO QDAY cholesterol 09/08/17 [History Last Taken 03/08/22] potassium chloride 20 mEq tablet,extended release 20 meq PO QDAY supplement 09/13/17 [History Last Taken 03/09/22] albuterol sulfate 2.5 mg/3 mL (0.083 %) solution for nebulization 2.5 mg inhalation Q4H PRN Shortness Of Breath 06/13/18 [History Last Taken 03/09/22] ipratropium bromide 0.02 % solution for inhalation 2.5 ml inhalation Q4H PRN Shortness Of Breath 06/13/18 [History Last Taken 03/09/22] nitroglycerin 0.4 mg sublingual tablet 0.4 mg SUBLINGUAL Q5-15M PRN chest pain 06/13/18 [History Last Taken Unknown] metoprolol succinate 100 mg tablet,extended release 24 hr 100 mg PO BID blood pressure 11/28/19 [History Last Taken 03/09/22] isosorbide dinitrate 30 mg tablet 30 mg PO BID heart 12/14/19 [History Last Taken 03/09/22] losartan 50 mg tablet 50 mg PO BID ##180 01/30/20 [Rx Last Taken 03/09/22] fluticasone propionate 50 mcg/actuation nasal spray,suspension 1 spray NASAL DAILY allergies 11/28/20 [History Last Taken 03/09/22] lactulose 10 gram/15 mL oral solution 10 gm PO QHS 11/28/20 [History Last Taken 03/08/22] ascorbic acid (vitamin C) 500 mg tablet (Vitamin C) 500 mg PO DAILY supplement 03/09/22 [History Last Taken 03/09/22] ferrous sulfate 325 mg (65 mg iron) tablet 325 mg PO BID supplement 03/09/22 [History Last Taken 03/09/22] amlodipine 10 mg tablet 10 mg PO DAILY 30 days #30 tabs 03/12/22 [Rx Last Taken Unknown] clonidine HCl 0.2 mg tablet 0.2 mg PO TID 30 days #90 tabs 03/12/22 [Rx Last Taken Unknown] hydrochlorothiazide 25 mg tablet 25 mg PO DAILY 30 days #30 tabs 03/12/22 [Rx Last Taken Unknown] Allergy/AdvReac Type Severity Reaction Status Date / Time aspirin AdvReac Severe Swelling Verified 03/15/22 08:48 clarithromycin [From Biaxin] AdvReac Unknown Verified 03/15/22 08:48 codeine AdvReac Unknown Verified 03/15/22 08:48 morphine AdvReac Unknown Verified 03/15/22 08:48 Penicillins AdvReac Unknown Verified 03/15/22 08:48 Sulfa (Sulfonamide AdvReac Unknown Verified 03/15/22 08:48 Antibiotics) Family History Mother Myocardial infarction CVA (cerebral vascular accident) CAD (coronary artery disease) Father Myocardial infarction CAD (coronary artery disease) Brother History of PTCA Hx of CABG Sister Hx of CABG Surgical History H/O arthroscopy of left knee H/O oophorectomy History of appendectomy History of coronary artery stent placement (11/05/09) History of hernia repair History of partial hysterectomy History of right inguinal hernia repair Presence of coronary angioplasty implant and graft (~11/05/09) Social History Smoking Status: Never smoker alcohol intake: never substance use type: does not use caffeine: Yes Type: carbonated beverages what type of physical activity do you participate in: none seatbelt use: always do you feel safe at home: Yes ROS ROS ED Constitutional Constitutional ED: Denies chills or fever(s) Eyes Eyes: Denies blurry vision or change in vision ENT ENT ED: Denies rhinorrhea or sore throat Cardiovascular Cardiovascular: Reports chest pain; Denies palpitations Respiratory/Chest Respiratory/Chest: Denies cough or dyspnea Gastrointestinal Gastrointestinal: Denies nausea or vomiting Genitourinary Genitourinary ED: Denies dysuria or hematuria Musculoskeletal Musculoskeletal: Denies back pain or neck pain Integumentary Denies abscess or rash Neurologic Neurologic: Reports weakness; Denies headache(s) Allergic/Immunologic Allergic/Immunologic ED: Denies mouth swelling or urticaria EXAM Physical Exam Const Vital Signs: 03/15/22 08:46 Temperature 97.2 F L Temperature Source Temporal Pulse Rate 54 L Respiratory Rate 14 Blood Pressure 170/51 H Blood Pressure Mean 90 Pulse Ox 97 Oxygen Delivery Method Room Air Positive well nourished and well developed General Appearance ED: well developed and NAD HEENT Reports moist mucous membranes Neck supple and no JVD Resp normal respiratory effort and clear to auscultation bilaterally Cardio regular rate and regular rhythm GI normal to inspection, nondistended, normoactive bowel sounds and non-tender Palpation: soft Extremity normal to inspection General Extremety ED: Negative for edema or tenderness General Extremity: Negative for edema Neuro oriented x3, CN's II-XII intact bilaterally and no sensory deficits noted Sensorium / Orientation: alert Motor Exam: strength 5/5 throughout Psych mental status grossly normal Skin no rashes or lesions noted MDM MDM MDM Narrative Medical decision making narrative: Initially, patient did not want a head CT or EKG. Later, patient was agreeable to having head CT obtained. Patient still did not want the EKG performed. CBC was within normal limits. Comprehensive metabolic profile showed a mild hyponatremia of 130 and chloride of 94. Troponin was slightly elevated at 123. This was improved from previous results, most recent 1 was 6 days ago. PT with INR and PTT were within normal limits. CT scan of the brain was obtained. There is no acute intracranial abnormality. This was interpreted by the radiologist and reviewed by myself. Patient was advised of her findings. Patient is feeling better on reevaluation. Patient was instructed to continue her medications as prescribed. Patient was instructed to follow-up with her primary care physician in 5 to 7 days. Patient understood and was agreeable with the plan. All questions were answered. Lab Data Attestation: I reviewed the patient's lab results. Labs: Laboratory Results - last 24 hr 03/15/22 03/15/22 03/15/22 10:38 10:38 10:38 WBC 6.6 RBC 3.80 L Hgb 12.5 Hct 35.4 L MCV 93.2 MCH 32.9 H MCHC 35.3 RDW Std Deviation 41.1 RDW Coeff of Deidra 11.9 Plt Count 277 MPV 10.4 Immature Gran % (Auto) 0.300 Neut % (Auto) 61.9 Lymph % (Auto) 23.3 [place] % (Auto) 10.5 H Eos % (Auto) 3.2 Baso % (Auto) 0.8 Absolute Neuts (auto) 4.1 Absolute Lymphs (auto) 1.54 Nucleated RBC % 0 PT Cancelled INR Cancelled APTT Cancelled Sodium 130 L Potassium 4.2 Chloride 94 L Carbon Dioxide 29.0 Anion Gap 7 BUN 21 H Creatinine 1.03 H Estim Creat Clear Calc 28.16 Est GFR (MDRD) Af Amer 65 Est GFR (MDRD) Non-Af 54 L BUN/Creatinine Ratio 20.4 H Glucose 116 H Calcium 9.1 Total Bilirubin 0.40 AST 22 ALT 21 Alkaline Phosphatase 121 H Troponin I High Sens 123 H* Total Protein 7.1 Albumin 3.4 Globulin 3.7 Albumin/Globulin Ratio 0.9 03/15/22 11:20 WBC RBC Hgb Hct MCV MCH MCHC RDW Std Deviation RDW Coeff of Deidra Plt Count MPV Immature Gran % (Auto) Neut % (Auto) Lymph % (Auto) [place] % (Auto) Eos % (Auto) Baso % (Auto) Absolute Neuts (auto) Absolute Lymphs (auto) Nucleated RBC % PT 12.7 INR 1.0 APTT 28.9 Sodium Potassium Chloride Carbon Dioxide Anion Gap BUN Creatinine Estim Creat Clear Calc Est GFR (MDRD) Af Amer Est GFR (MDRD) Non-Af BUN/Creatinine Ratio Glucose Calcium Total Bilirubin AST ALT Alkaline Phosphatase Troponin I High Sens Total Protein Albumin Globulin Albumin/Globulin Ratio Radiography Diagnostic Testing: Clinical Impression(s) from Imaging Studies Brain CT 03/15/22 09:14 IMPRESSION: 1. No acute intracranial abnormality. 2. Stable chronic microvascular changes Electronically Signed: Anjel Jean MD at 12:42 EDT , Discharge Plan Triage Chief Complaint: Neuro S/Sx ED Provider: Duke Montejo Dx/Rx/DC Orders Clinical Impression: TIA (transient ischemic attack), Facial paresthesia, Essential hypertension, Elevated troponin I level Instructions: ED TIA: Transient Ischemic Attack Prescriptions: No Action montelukast 10 mg tablet 10 mg PO QDAY simvastatin 10 mg tablet 10 mg PO QDAY omeprazole 20 mg capsule,delayed release(DR/EC) 20 mg PO DAILY potassium chloride 20 mEq tablet extended release 20 meq PO QDAY metoprolol succinate 100 mg tablet extended release 24 hr 100 mg PO BID albuterol sulfate 2.5 mg /3 mL (0.083 %) solution for nebulization 2.5 mg INHALATION Q4H PRN (Reason: Shortness Of Breath) ipratropium bromide 0.02 % solution 2.5 ml INHALATION Q4H PRN (Reason: Shortness Of Breath) nitroglycerin 0.4 mg tablet, sublingual 0.4 mg SUBLINGUAL Q5-15M PRN (Reason: chest pain) fluticasone propionate 1 SPRAY spray,suspension 1 spray NASAL DAILY lactulose 10 GM/15 ML solution 10 gm PO QHS ferrous sulfate 325 mg (65 mg iron) Tablet 325 mg PO BID ascorbic acid (vitamin C) [Vitamin C] 500 mg Tablet 500 mg PO DAILY clonidine HCl 0.2 mg Tablet 0.2 mg PO TID 30 Days Qty: 90 0RF amlodipine 10 mg Tablet 10 mg PO DAILY 30 Days Qty: 30 0RF hydrochlorothiazide 25 mg Tablet 25 mg PO DAILY 30 Days Qty: 30 0RF isosorbide dinitrate 30 mg tablet 30 mg PO BID losartan 50 mg tablet 50 mg PO BID Qty: 180 3RF Primary Care Provider: James Garcia Referrals: James Garcia DO [Primary Care Provider] - 3-5 Days Disposition Disposition: Home, Self Care
[2022-03-15 09:13] VITALS: BMI 25.3
--- NOTE | 2022-03-15 09:14 | CT_ITS ---
EXAM: CT HEAD WITHOUT INTRAVENOUS CONTRAST CLINICAL INDICATION: Facial weakness TECHNIQUE: Multiple axial images were obtained of the head without intravenous contrast. This CT exam was performed using one or more of the following dose reduction techniques: automated exposure control, adjustment of the mA and/or kV according to patient size, and/or use of iterative reconstruction technique. This report was created using [employer] report generation technology. COMPARISON: CT Head dated 11/28/2020 FINDINGS: BRAIN AND EXTRA-AXIAL SPACES: Areas of diminished white matter density noted within both cerebral hemispheres suggestive of chronic microvascular change. No intra- or extra-axial hemorrhage. No evidence of acute infarct. No intracranial mass or mass effect. There is preservation of the [place]/white matter interface. Posterior fossa structures are unremarkable. Ventricles are appropriate for age. No hydrocephalus. Basal cisterns are patent. BONES/JOINTS: Normal. No discrete lytic or blastic abnormalities. SINUSES: Unremarkable as visualized. Clear. MASTOID AIR CELLS: Normal. Clear. ORBITS: Visualized globes, extraocular muscles, optic nerves and retrobulbar fat appear unremarkable. CT/Brain/Head without Contrast IMPRESSION: 1. No acute intracranial abnormality. 2. Stable chronic microvascular changes Electronically Signed: Anjel Jean MD at 12:42 EDT ,
--- NOTE | 2022-03-15 09:27 | ED.RN ---
THIS RN WENT IN TO START AN IV ON PATIENT AND BEGIN TREATMENT FROM ORDERS GIVEN. THE PATIENT STATES CAT SCANS ARE EXPENSIVE MY WILL HAVE A FIT AND DECLINES BLOODWORK AND TREATMENT. THIS RN EXPLAINED THE REASONING BEHIND THE TESTING ORDERED IN DEPTH AND THE PATIENT REQUESTS TO SPEAK TO THE PHYSICIAN AGAIN. THIS RN SPOKE WITH AND VERBALIZED THAT THE PATIENT WOULD LIKE TO SPEAK TO HIM AGAIN BEFORE ANY TESTING. HE HAS MULTIPLE OTHER NEW PATIENTS TO EXAMINE AND STATES HE WILL BE IN WHEN HE IS ABLE TO TALK TO HER. THIS INFORMATION WAS TOLD TO THE PATIENT WHO STATES AGAIN SHE WOULD LIKE TO WAIT FOR ANY TREATMENT HOWEVER LONG IT TAKES.
[2022-03-15 10:44] LABS: Absolute Lymphocyte Count 1.54 X10^3/uL (0.83-4.51); Absolute Neutrophil Count 4.1 X10^3/uL (2.0-7.7); Basophil# 0.05 X10^3/uL; Basophil% 0.8 % (0-1); Eosinophil# 0.21 X10^3/uL; Eosinophils% 3.2 % (0-5); Hematocrit 35.4 % (37-47); Hemoglobin 12.5 g/dL (12.0-15.0); Lymphocyte # 1.54 X10^3/ul (0.83-4.51); Lymphocyte % 23.3 % (19-41); Mean Corp Hgb Conc 35.3 g/dL (32-36); Mean Corpuscular Hgb 32.9 pg (27.0-32.0); Mean Corpuscular Volume 93.2 fL (81-99); Mean Platelet Vol. 10.4 fl (6.2-12.0); Monocyte# 0.69 X10^3/uL; Monocyte% 10.5 % (0-10); NRBC Flagged by Analyzer 0 % (0-5); Neutrophil # 4.09 X10^3/uL (2.7-7.7); Neutrophil % 61.9 % (47-70); Platelet Count 277 K/mm3 (150-450); RBC Distribution Width CV 11.9 % (11.6-14.6); RBC Distribution Width SD 41.1 fl (35.1-43.9); White Blood Count 6.6 K/mm3 (4.4-11.0)
[2022-03-15 10:46] VITALS: RESP 16
[2022-03-15 11:19] LABS: ALB/GLOB Ratio 0.9 RATIO (0.9-2.4); AST(SGOT) 22 U/L (15-37); Alanine Aminotransfer ALT/SGPT 21 U/L (13-56); Albumin, Serum 3.4 g/dL (3.2-5.0); Alkaline Phosphatase 121 U/L (45-117); Anion Gap 7 (5-15); BUN 21 mg/dL (7-18); BUN/Creat Ratio 20.4 RATIO (10-20); Calcium,Total 9.1 mg/dL (8.5-10.1); Chloride 94 mmol/L (98-107); Creatinine, Serum 1.03 mg/dL (0.55-1.02); EST Glomerular Filtration Rate 54 mL/min (>60); Est Glom Filt Rate - Afr Amer 65 mL/min (>60); Estimated Creatinine Clearance 28.16 ml/min; Globulin 3.7 g/dL (2.2-4.2); Glucose 116 mg/dL (74-106); Potassium 4.2 mmol/L (3.5-5.1); Protein, Total 7.1 g/dL (6.4-8.2); Sodium Level 130 mmol/L (136-145); Troponin-I HS 123 pg/mL (3.0-54.0)
--- NOTE | 2022-03-15 11:22 | NURSING ---
call from lab troponin 123, dr. pollard made aware
[2022-03-15 11:35] LABS: Prothrombin Time (Protime)PT. 12.7 SECONDS (11.7-14.9)
[2022-03-15 11:36] LABS: Partial Thromboplast Time 28.9 Seconds (24.1-36.2)
[2022-03-15 12:46] VITALS: RESP 16
[2022-03-15 13:15] VITALS: RESP 16
== END 2022-03-15 13:35 | disposition home or self-care (01) ==
PROVIDERS: Emergency Provider Emergency Medicine; PCP Family Medicine; Visit Provider Emergency Medicine
DX: G45.9 Transient cerebral ischemic attack, unspecified (principal); I48.0 Paroxysmal atrial fibrillation; N18.32 Chronic kidney disease, stage 3b; R29.810 Facial weakness; I12.9 Hypertensive chronic kidney disease with stage 1 through stage 4 chronic kidney disease, or unspecified chronic kidney disease; E78.00 Pure hypercholesterolemia, unspecified; I25.10 Atherosclerotic heart disease of native coronary artery without angina pectoris; Z95.5 Presence of coronary angioplasty implant and graft; Z79.899 Other long term (current) drug therapy
CPT/HCPCS: 70450; 80053; 84484; 85025; 85610; 85730; 93005; 99284; A4216

== ENCOUNTER 2022-08-09 22:36 | Inpatient (IN) | payer MEDICARE, SELFPAY ==
--- NOTE | 2022-08-09 00:15 | RAD_ITS ---
STUDY: X-RAY CHEST REASON FOR EXAM: Female, 87 years old patient with dyspnea. TECHNIQUE: Single AP portable view of the chest. COMPARISON: March 09, 2022. FINDINGS: Lungs are expanded. There are prominent bronchovascular markings in both lungs. There appear to be small pleural effusions. There is mild cardiac enlargement. There are calcified mediastinal and hilar lymph nodes. There is prominence of the pulmonary hilar arteries with peripheral pulmonary vascular congestion. There is atherosclerotic calcification of the aortic arch with tortuosity. There are diffuse degenerative changes of the visualized thoracic spine. There are degenerative changes of the shoulders. The bones appear osteopenic. There may be a thoracic scoliosis with convexity towards the right. There is no demonstrated abnormality of the visualized soft tissue structures of the upper abdomen. RAD/Chest 1 View (Portable) IMPRESSION: Findings suggest pulmonary edema with pleural effusions. Electronically Signed: Sandra Dejesus MD at 0:57 EST ,
[2022-08-09 22:37] VITALS: BP 197/63; PULSE 67; RESP 16; TEMP 36.7; O2SAT 97; BMI 26.7
--- NOTE | 2022-08-09 23:02 | ED.VIS.DYS ---
HPI History of Present Illness Chief Complaint: Shortness of Breath Narrative Narrative: 87-year-old female presenting with shortness of breath. She states she has home breathing treatments and has been doing them but is not feeling any better. She states that started this morning. She states he does not have chest pain. She is not nauseous or vomiting. She is been eating and drinking normally. She is making normal urine and stool. Denies dysuria or urinary frequency. Denies headache. Denies fever, chills, body aches. She does admit to feeling a little bit weak. She states she has been ambulatory. She was able to walk into the emergency room with her family. She thinks she needs a breathing treatment here. She states she has a chronic cough which is unchanged. She does admit to going to a green party last night where she states she felt cold there. She does not states she has a chills however. [facility] Medical History Atherosclerotic heart disease of [place] coronary artery without angina pectoris Cardiac murmur Edema Essential hypertension Nausea Paroxysmal atrial fibrillation Presence of stent in coronary artery (~11/05/09) Pure hypercholesterolemia Stage 3b chronic kidney disease (CKD) Home Medications montelukast 10 mg tablet 10 mg PO QDAY allergies 09/08/17 [History Last Taken 03/08/22] omeprazole 20 mg capsule,delayed release 20 mg PO DAILY reflux 09/08/17 [History Last Taken 03/09/22] simvastatin 10 mg tablet 10 mg PO QDAY cholesterol 09/08/17 [History Last Taken 03/08/22] potassium chloride 20 mEq tablet,extended release 20 meq PO QDAY supplement 09/13/17 [History Last Taken 03/09/22] albuterol sulfate 2.5 mg/3 mL (0.083 %) solution for nebulization 2.5 mg inhalation Q4H PRN Shortness Of Breath 06/13/18 [History Last Taken 03/09/22] ipratropium bromide 0.02 % solution for inhalation 2.5 ml inhalation Q4H PRN Shortness Of Breath 06/13/18 [History Last Taken 03/09/22] nitroglycerin 0.4 mg sublingual tablet 0.4 mg sublingual Q5-15M PRN chest pain 06/13/18 [History Last Taken Unknown] metoprolol succinate 100 mg tablet,extended release 24 hr 100 mg PO BID blood pressure 11/28/19 [History Last Taken 03/09/22] isosorbide dinitrate 30 mg tablet 30 mg PO BID heart 12/14/19 [History Last Taken 03/09/22] losartan 50 mg tablet 50 mg PO BID #180 tabs 01/30/20 [Rx Last Taken 03/09/22] fluticasone propionate 50 mcg/actuation nasal spray,suspension 1 spray NASAL DAILY allergies 11/28/20 [History Last Taken 03/09/22] ascorbic acid (vitamin C) 500 mg tablet (Vitamin C) 500 mg PO DAILY supplement 03/09/22 [History Last Taken 03/09/22] ferrous sulfate 325 mg (65 mg iron) tablet 325 mg PO BID supplement 03/09/22 [History Last Taken 03/09/22] hydrochlorothiazide 25 mg tablet 25 mg PO DAILY 30 days #30 tabs 03/12/22 [Rx Last Taken Unknown] amlodipine 2.5 mg tablet 2.5 mg PO BID 05/12/22 [History Last Taken Unknown] lactulose 10 gram/15 mL oral solution 30 g PO Q OTHER DAY 05/12/22 [History Last Taken Unknown] citalopram 20 mg tablet 20 mg PO DAILY 08/10/22 [History Last Taken Unknown] clonidine HCl 0.2 mg tablet 0.1 mg PO TID 08/10/22 [History Last Taken Unknown] hydrocodone-acetaminophen 5-325mg 5mg-325mg 1 tab PO BID 08/10/22 [History Last Taken Unknown] Allergy/AdvReac Type Severity Reaction Status Date / Time aspirin AdvReac Severe Swelling Verified 08/10/22 02:27 clarithromycin [From Biaxin] AdvReac Unknown Verified 08/10/22 02:27 codeine AdvReac Unknown Verified 08/10/22 02:27 morphine AdvReac Unknown Verified 08/10/22 02:27 Penicillins AdvReac Unknown Verified 08/10/22 02:27 Sulfa (Sulfonamide AdvReac Unknown Verified 08/10/22 02:27 Antibiotics) Family History Mother Myocardial infarction CVA (cerebral vascular accident) CAD (coronary artery disease) Father Myocardial infarction CAD (coronary artery disease) Brother History of PTCA Hx of CABG Sister Hx of CABG Surgical History H/O arthroscopy of left knee H/O oophorectomy History of appendectomy History of coronary artery stent placement (11/05/09) History of hernia repair History of partial hysterectomy History of right inguinal hernia repair Presence of coronary angioplasty implant and graft (~11/05/09) Social History Smoking Status: Never smoker alcohol intake: never substance use type: does not use caffeine: Yes Type: carbonated beverages what type of physical activity do you participate in: none seatbelt use: always do you feel safe at home: Yes ROS ROS ED Constitutional Constitutional ED: Denies chills, fever(s) or sweats Eyes Eyes: Denies blurry vision or change in vision ENT ENT ED: Denies ear pain or sore throat Cardiovascular Cardiovascular: Denies chest pain, palpitations or racing heartbeat Respiratory/Chest Respiratory/Chest: Reports dyspnea and dyspnea on exertion; Denies cough or sputum Gastrointestinal Gastrointestinal: Denies abdominal pain, constipation, diarrhea, nausea or vomiting Genitourinary Genitourinary ED: Denies dysuria, hematuria or urinary frequency Musculoskeletal Musculoskeletal: Denies arthralgias, myalgias or neck pain Integumentary Denies abscess, Abrasions or rash Neurologic Neurologic: Denies headache(s), paresthesias or weakness Psychiatric Psychiatric: Denies anxiety, depression, suicidal ideation or suicidal thoughts Endocrine Endocrinology: Denies polydipsia or polyuria EXAM Physical Exam Const Vital Signs: 08/09/22 22:37 08/09/22 22:37 08/10/22 01:36 Temperature 98.0 F 98.0 F Temperature Source Temporal Temporal Pulse Rate 67 67 Respiratory Rate 16 16 Respiratory Effort Respiratory Depth Respiratory Pattern Blood Pressure 197/63 H 197/63 H Blood Pressure Mean 107 107 Pulse Ox 97 97 Oxygen Delivery Method Room Air Room Air Room Air Fraction of Inspired Oxygen (FIO2) 08/10/22 01:36 08/10/22 01:39 08/10/22 02:02 Temperature Temperature Source Pulse Rate 63 61 Respiratory Rate 13 14 Respiratory Effort Short of Breath Respiratory Depth Shallow Respiratory Pattern Normal Blood Pressure 206/67 H 183/70 H Blood Pressure Mean 113 107 Pulse Ox 94 90 Oxygen Delivery Method Room Air Room Air Room Air Fraction of Inspired Oxygen (FIO2) 08/10/22 02:35 08/10/22 03:28 08/10/22 03:31 Temperature Temperature Source Pulse Rate 64 80 83 Respiratory Rate 13 21 H 26 H Respiratory Effort Respiratory Depth Respiratory Pattern Normal Blood Pressure 211/75 H 257/89 H Blood Pressure Mean 120 145 Pulse Ox 92 93 94 Oxygen Delivery Method Room Air Bi-pap Fraction of Inspired Oxygen (FIO2) 25 25 08/10/22 04:04 08/10/22 04:06 08/10/22 04:27 Temperature 98.1 F Temperature Source Temporal Pulse Rate 63 57 L 64 Respiratory Rate 17 22 H 21 H Respiratory Effort Respiratory Depth Respiratory Pattern Normal Blood Pressure 227/72 H 180/63 H Blood Pressure Mean 123 102 Pulse Ox 94 96 96 Oxygen Delivery Method Bi-pap Bi-pap Fraction of Inspired Oxygen (FIO2) 40 40 40 Positive well nourished General Appearance ED: Negative for pallor HEENT Reports normocephalic, head/scalp atraumatic and moist mucous membranes Eyes PERRL and EOMs intact bilaterally Neck no lymphadenopathy and supple Chest Wall inspection of chest normal and palpation of chest normal Resp normal respiratory effort and clear to auscultation bilaterally Auscultation: Negative for rales, rhonchi or wheezes Cardio regular rate and regular rhythm GI normal to inspection, nondistended, normoactive bowel sounds and non-distended Auscultation: normoactive bowel sounds Palpation: soft Narrative: Deferred Back/Spine Cervical Spine: Negative for cervical spine tenderness Extremity normal to inspection General Extremety ED: Yes edema and tenderness General Extremity: edema Neuro oriented x3 and CN's II-XII intact bilaterally Sensorium / Orientation: alert Motor Exam: strength 5/5 throughout Psych mental status grossly normal Attitude: No agitated Skin no rashes or lesions noted and no wounds General Skin Exam: Negative for jaundice or pallor MDM MDM MDM Narrative Medical decision making narrative: Well-appearing 87-year-old female presenting with dyspnea. Her lungs are clear to auscultation. No accessory muscle use. She is not tachypneic. She requests a breathing treatment. She is willing to let me test her for COVID and influenza. She refuses blood work initially. I obtained a chest x-ray and on my interpretation that shows pulmonary edema with pleural effusions bilaterally. Given this I spoke with the patient and recommended checking some blood work. Because her blood pressure was elevated she was given some hydralazine which only controlled her blood pressure for short time CBC does not show an elevated white blood cell count. Patient's hemoglobin today is 10.9. Platelets 249. Renal function and electrolytes within normal limits. Glucose is elevated at 165 without anion gap. High-sensitivity troponin today is 148. BNP was 505. Patient ambulated to the bathroom and on her way back she became very short of breath. She dropped her O2 saturations to 86% on room air. She was placed on oxygen for short time and still complained she was having trouble breathing. She was placed on BiPAP to help her and this does seem to be controlling her symptoms. She was given 40 mg of Lasix IV her blood pressure has come up again and she was given 20 of labetalol. I spoke with Dr. Fay who recommended starting a heparin drip. He states that the labetalol does not help her pressure she can be started on a nitro drip. Patient was discussed with the hospitalist for admission. Impression: 1. CHF 2. Hypoxic respiratory failure 3. NSTEMI Lab Data Attestation: I reviewed the patient's lab results. Labs: Laboratory Results - last 24 hr 08/10/22 08/10/22 08/10/22 01:35 01:35 01:35 WBC 7.9 RBC 3.44 L Hgb 10.9 L Hct 32.9 L MCV 95.6 MCH 31.7 MCHC 33.1 RDW Std Deviation 44.4 H RDW Coeff of Deidra 12.7 Plt Count 249 MPV 10.1 Immature Gran % (Auto) 0.400 Neut % (Auto) 67.2 Lymph % (Auto) 21.0 [place] % (Auto) 9.2 Eos % (Auto) 1.4 Baso % (Auto) 0.8 Absolute Neuts (auto) 5.3 Absolute Lymphs (auto) 1.67 Nucleated RBC % 0 D-Dimer Quant (PE/DVT) Sodium 133 L Potassium 4.1 Chloride 99 Carbon Dioxide 29.0 Anion Gap 5 BUN 13 Creatinine 0.98 Estim Creat Clear Calc 29.60 Est GFR (MDRD) Af Amer 69 Est GFR (MDRD) Non-Af 57 L BUN/Creatinine Ratio 13.3 Glucose 165 H Calcium 9.0 Troponin I High Sens 148 H* B-Natriuretic Peptide 505.1 H 08/10/22 08/10/22 03:15 04:00 WBC RBC Hgb Hct MCV MCH MCHC RDW Std Deviation RDW Coeff of Deidra Plt Count MPV Immature Gran % (Auto) Neut % (Auto) Lymph % (Auto) [place] % (Auto) Eos % (Auto) Baso % (Auto) Absolute Neuts (auto) Absolute Lymphs (auto) Nucleated RBC % D-Dimer Quant (PE/DVT) 1.45 H* Sodium Potassium Chloride Carbon Dioxide Anion Gap BUN Creatinine Estim Creat Clear Calc Est GFR (MDRD) Af Amer Est GFR (MDRD) Non-Af BUN/Creatinine Ratio Glucose Calcium Troponin I High Sens 156 H* B-Natriuretic Peptide Radiography Diagnostic Testing: Clinical Impression(s) from Imaging Studies Chest X-Ray 08/09/22 00:15 IMPRESSION: Findings suggest pulmonary edema with pleural effusions. Electronically Signed: Sandra Dejesus MD at 0:57 EST Reading Location ID and State: [facility] / MD , Service support , Discharge Plan Triage Chief Complaint: Shortness of Breath ED Provider: Gerardo Blount Dx/Rx/DC Orders Prescriptions: No Action montelukast 10 mg tablet 10 mg PO QDAY simvastatin 10 mg tablet 10 mg PO QDAY omeprazole 20 mg capsule,delayed release(DR/EC) 20 mg PO DAILY potassium chloride 20 mEq tablet extended release 20 meq PO QDAY metoprolol succinate 100 mg tablet extended release 24 hr 100 mg PO BID albuterol sulfate 2.5 mg /3 mL (0.083 %) solution for nebulization 2.5 mg INHALATION Q4H PRN (Reason: Shortness Of Breath) ipratropium bromide 0.02 % solution 2.5 ml INHALATION Q4H PRN (Reason: Shortness Of Breath) nitroglycerin 0.4 mg tablet, sublingual 0.4 mg sublingual Q5-15M PRN (Reason: chest pain) amlodipine 2.5 mg tablet 2.5 mg PO BID fluticasone propionate 1 SPRAY spray,suspension 1 spray NASAL DAILY lactulose 10 gram/15 mL solution 30 g PO Q OTHER DAY ferrous sulfate 325 mg (65 mg iron) Tablet 325 mg PO BID ascorbic acid (vitamin C) [Vitamin C] 500 mg Tablet 500 mg PO DAILY hydrochlorothiazide 25 mg Tablet 25 mg PO DAILY 30 Days Qty: 30 0RF hydrocodone-acetaminophen 5-325 mg tablet 1 tab PO BID citalopram 20 mg tablet 20 mg PO DAILY clonidine HCl 0.2 mg tablet 0.1 mg PO TID isosorbide dinitrate 30 mg tablet 30 mg PO BID losartan 50 mg tablet 50 mg PO BID Qty: 180 3RF Primary Care Provider: James Garcia Referrals: James Garcia DO [Primary Care Provider] -
[2022-08-09] MEDS: Ipratropium/Albuterol Sulfate 3 ML AMPUL.NEB INHALATION (23:11)
[2022-08-10] VITALS (60 sets, daily range): BP systolic 89–257; BP diastolic 50–139; PULSE 50–88; RESP 12–26; TEMP 36.2–36.7; O2SAT 90–100; BMI 26.7
--- NOTE | 2022-08-10 01:10 | EKG12_ITS ---
Test Reason : SOB Blood Pressure : / mmHG Vent. Rate : 058 BPM Atrial Rate : 058 BPM P-R Int : 216 ms QRS Dur : 092 ms QT Int : 452 ms P-R-T Axes : 093 -13 069 degrees QTc Int : 443 ms Sinus bradycardia with sinus arrhythmia with 1st degree A-V block Otherwise normal ECG Confirmed by JORGE SALAZAR, GUILLERMO ([id number]), sports editor [employer] ([id number]) on 08/12/2022 10:11:38 AM Referred By: Confirmed By:GUILLERMO PATEL MD
[2022-08-10 01:43] LABS: Absolute Lymphocyte Count 1.67 X10^3/uL (0.83-4.51); Absolute Neutrophil Count 5.3 X10^3/uL (2.0-7.7); Basophil# 0.06 X10^3/uL; Basophil% 0.8 % (0-1); Eosinophil# 0.11 X10^3/uL; Eosinophils% 1.4 % (0-5); Hematocrit 32.9 % (37-47); Hemoglobin 10.9 g/dL (12.0-15.0); Lymphocyte # 1.67 X10^3/ul (0.83-4.51); Mean Corp Hgb Conc 33.1 g/dL (32-36); Mean Corpuscular Hgb 31.7 pg (27.0-32.0); Mean Corpuscular Volume 95.6 fL (81-99); Mean Platelet Vol. 10.1 fl (6.2-12.0); Monocyte# 0.73 X10^3/uL; Monocyte% 9.2 % (0-10); NRBC Flagged by Analyzer 0 % (0-5); Neutrophil # 5.34 X10^3/uL (2.7-7.7); Neutrophil % 67.2 % (47-70); Platelet Count 249 K/mm3 (150-450); RBC Distribution Width CV 12.7 % (11.6-14.6); RBC Distribution Width SD 44.4 fl (35.1-43.9); Red Blood Count 3.44 M/mm3 (4.2-5.4); White Blood Count 7.9 K/mm3 (4.4-11.0)
[2022-08-10] MEDS: predniSONE 20 MG Tablet 60 MG PO (01:52)
--- NOTE | 2022-08-10 01:55 | ED.RN ---
Pt BP 206/67. Dr. Blount aware.
[2022-08-10 01:58] LABS: BNP,B-Type NATRIURETIC PEPTIDE 505.1 pg/mL (0-100)
[2022-08-10] MEDS: hydrALAZINE 20 MG/ML Vial 5 MG IV (02:03)
[2022-08-10 02:23] LABS: Anion Gap 5 (5-15); BUN 13 mg/dL (7-18); BUN/Creat Ratio 13.3 RATIO (10-20); Chloride 99 mmol/L (98-107); Creatinine, Serum 0.98 mg/dL (0.55-1.02); EST Glomerular Filtration Rate 57 mL/min (>60); Est Glom Filt Rate - Afr Amer 69 mL/min (>60); Glucose 165 mg/dL (74-106); Potassium 4.1 mmol/L (3.5-5.1); Sodium Level 133 mmol/L (136-145); Troponin-I HS (w/2H Reflex) 148 pg/mL (3.0-54.0)
--- NOTE | 2022-08-10 03:23 | ED.RN ---
Pt ambulated to bathroom with walker, pt dropped from 9% to 86% on RA. Pt placed on 2L NC and gradually increased to 6L NC. Pt tripoding and trying to climb out of bed stating, I cant breathe, I need to sit up. Dr. Blount notified of pt current vitals, and respiratory called for BIPAP mask. Pt in high fowlers position with BIPAP at 94%.
[2022-08-10 03:40] LABS: Reflex Troponin-HS? (from REC) Y
[2022-08-10 04:04] LABS: D-Dimer Quantitative (DVT/PE) 1.45 FEU/ug/m (0.27-0.49)
[2022-08-10] MEDS: Labetalol (Prefilled) 20 MG/4 ML IV (04:06)
[2022-08-10] MEDS: Furosemide 40 MG/4 ML Vial IV ×3 (04:06→17:40)
--- NOTE | 2022-08-10 04:06 | CT_ITS ---
STUDY: CTA CHEST REASON FOR EXAM: Female, 87 years old patient with hypoxic respiratory failure RADIATION DOSAGE (If Supplied By Facility): CTDIvol = ( 12.77 ) mGy, DLP = ( 385.55 ) mGycm TECHNIQUE: The examination was performed with the intravenous administration of 100 mL of Isovue-370. Post-processing of the angiographic images was performed, with multiplanar reformation and 3D reconstruction. Individualized dose optimization techniques were used for this CT. COMPARISON: CT of the chest dated December 03, 2021. FINDINGS: Cardiac monitoring leads are present. Normal enhancement of the main pulmonary artery and right and left pulmonary arteries. Normal enhancement of the bilateral peripheral pulmonary arteries. There is no demonstrated pulmonary embolism. There is prominence of the main pulmonary arteries and peripheral pulmonary arteries, consistent with pulmonary edema. There is atherosclerotic calcification of the aortic arch with tortuosity. There is no demonstrated aortic dissection. There is cardiomegaly. There are calcifications of the coronary arteries. There appear to be calcified subcarinal mabel mass. This is unchanged since the previous study. There are calcified right-sided hilar lymph nodes. Normal visualized trachea and bronchi. The lungs are hyper expanded, with flattening of the hemidiaphragms. There is left upper lobe groundglass attenuation in addition to airspace consolidation suggesting pneumonia. There is interstitial thickening present in both upper lobes probably secondary to pulmonary fibrosis. There is a what appears be bilateral lower lobe dependent posterior located airspace disease and probably dependent atelectasis. There is also right lower lobe subsegmental atelectasis. There are bilateral pleural effusions, right larger than left. Normal chest wall structures. The bones are osteopenic. There appears to be a thoracic scoliosis with convexity towards the right. Estimated amount of angulation of the scoliosis is 36 degrees. There are multiple calcified hepatic and splenic granulomas. The upper abdominal anatomy is otherwise within normal limits. CT/CTA Chest W/WO Contrast IMPRESSION: 1. No CTA demonstrated pulmonary embolism or arterial dissection. 2. Findings suggest bilateral multifocal pneumonia. 3. Cardiomegaly and pulmonary edema. Electronically Signed: Sandra Dejesus MD at 6:22 EST ,
[2022-08-10 04:34] LABS: Troponin-I HS 156 pg/mL (3.0-54.0)
--- NOTE | 2022-08-10 04:48 | PCM.HP.STD ---
[facility] - General General Date of Admission: 08/10/22 Date of Service: 08/10/22 Chief Complaint: Shortness of breath HPI Narrative ANIYA AGUILAR, is a 87 F with a significant history of paroxysmal A. fib; hypertension and CKD who presents to the emergency department with progressively worsening shortness of breath that started on the same day of presentation. Associated with symptoms is occasional productive cough of yellow sputum. She reports fatigue, and anorexia. She denies any fever. Also she complains of sharp pain 6 out of 10 at the lower sternum that started 3 days before presentation. She reports abdominal bloating. She reports of swelling of bilateral legs that been going on for about 4 months. She denies orthopnea. She denies paroxysmal tunnel dyspnea. At the emergency department patient walked to the bathroom and she was huffing and puffing. Her oxygen saturation dropped to 86%. Her troponin was found to be elevated but actually lower than previous troponin. Her blood pressure was severely elevated with systolic blood pressures in the 200s. Emergency department doctor discussed the case with commutator inspector who recommended heparin drip. [facility] Medical History (Updated 08/10/22 @ 05:[address] Ace Ugalde MD) Atherosclerotic heart disease of [place] coronary artery without angina pectoris Cardiac murmur Edema Essential hypertension Hypertensive emergency Nausea Paroxysmal atrial fibrillation Presence of stent in coronary artery (~11/05/09) Pure hypercholesterolemia Stage 3b chronic kidney disease (CKD) Home Medications montelukast 10 mg tablet 10 mg PO QDAY allergies 09/08/17 [History Last Taken 03/08/22] omeprazole 20 mg capsule,delayed release 20 mg PO DAILY reflux 09/08/17 [History Last Taken 03/09/22] simvastatin 10 mg tablet 10 mg PO QDAY cholesterol 09/08/17 [History Last Taken 03/08/22] potassium chloride 20 mEq tablet,extended release 20 meq PO QDAY supplement 09/13/17 [History Last Taken 03/09/22] albuterol sulfate 2.5 mg/3 mL (0.083 %) solution for nebulization 2.5 mg inhalation Q4H PRN Shortness Of Breath 06/13/18 [History Last Taken 03/09/22] ipratropium bromide 0.02 % solution for inhalation 2.5 ml inhalation Q4H PRN Shortness Of Breath 06/13/18 [History Last Taken 03/09/22] nitroglycerin 0.4 mg sublingual tablet 0.4 mg sublingual Q5-15M PRN chest pain 06/13/18 [History Last Taken Unknown] metoprolol succinate 100 mg tablet,extended release 24 hr 100 mg PO BID blood pressure 11/28/19 [History Last Taken 03/09/22] isosorbide dinitrate 30 mg tablet 30 mg PO BID heart 12/14/19 [History Last Taken 03/09/22] losartan 50 mg tablet 50 mg PO BID #180 tabs 01/30/20 [Rx Last Taken 03/09/22] fluticasone propionate 50 mcg/actuation nasal spray,suspension 1 spray NASAL DAILY allergies 11/28/20 [History Last Taken 03/09/22] ascorbic acid (vitamin C) 500 mg tablet (Vitamin C) 500 mg PO DAILY supplement 03/09/22 [History Last Taken 03/09/22] ferrous sulfate 325 mg (65 mg iron) tablet 325 mg PO BID supplement 03/09/22 [History Last Taken 03/09/22] hydrochlorothiazide 25 mg tablet 25 mg PO DAILY 30 days #30 tabs 03/12/22 [Rx Last Taken Unknown] amlodipine 2.5 mg tablet 2.5 mg PO BID 05/12/22 [History Last Taken Unknown] lactulose 10 gram/15 mL oral solution 30 g PO Q OTHER DAY 05/12/22 [History Last Taken Unknown] citalopram 20 mg tablet 20 mg PO DAILY 08/10/22 [History Last Taken Unknown] clonidine HCl 0.2 mg tablet 0.1 mg PO TID 08/10/22 [History Last Taken Unknown] hydrocodone-acetaminophen 5-325mg 5mg-325mg 1 tab PO BID 08/10/22 [History Last Taken Unknown] Allergy/AdvReac Type Severity Reaction Status Date / Time aspirin AdvReac Severe Swelling Verified 08/10/22 02:27 clarithromycin [From Biaxin] AdvReac Unknown Verified 08/10/22 02:27 codeine AdvReac Unknown Verified 08/10/22 02:27 morphine AdvReac Unknown Verified 08/10/22 02:27 Penicillins AdvReac Unknown Verified 08/10/22 02:27 Sulfa (Sulfonamide AdvReac Unknown Verified 08/10/22 02:27 Antibiotics) Family History Mother Myocardial infarction CVA (cerebral vascular accident) CAD (coronary artery disease) Father Myocardial infarction CAD (coronary artery disease) Brother History of PTCA Hx of CABG Sister Hx of CABG Surgical History H/O arthroscopy of left knee H/O oophorectomy History of appendectomy History of coronary artery stent placement (11/05/09) History of hernia repair History of partial hysterectomy History of right inguinal hernia repair Presence of coronary angioplasty implant and graft (~11/05/09) Social History Smoking Status: Never smoker alcohol intake: never substance use type: does not use caffeine: Yes Type: carbonated beverages what type of physical activity do you participate in: none seatbelt use: always do you feel safe at home: Yes ROS ROS Narrative Pertinent positives and pertinent negatives as noted in HPI. All other systems were reviewed and are negative Vital Signs Vital Signs Vital Signs: 08/09/22 22:37 08/09/22 22:37 08/10/22 01:36 Temperature 98.0 F 98.0 F Temperature Source Temporal Temporal Pulse Rate 67 67 Respiratory Rate 16 16 Respiratory Effort Respiratory Depth Respiratory Pattern Blood Pressure 197/63 H 197/63 H Blood Pressure Mean 107 107 Pulse Ox 97 97 Oxygen Delivery Method Room Air Room Air Room Air Fraction of Inspired Oxygen (FIO2) 08/10/22 01:36 08/10/22 01:39 08/10/22 02:02 Temperature Temperature Source Pulse Rate 63 61 Respiratory Rate 13 14 Respiratory Effort Short of Breath Respiratory Depth Shallow Respiratory Pattern Normal Blood Pressure 206/67 H 183/70 H Blood Pressure Mean 113 107 Pulse Ox 94 90 Oxygen Delivery Method Room Air Room Air Room Air Fraction of Inspired Oxygen (FIO2) 08/10/22 02:35 08/10/22 03:28 08/10/22 03:31 Temperature Temperature Source Pulse Rate 64 80 83 Respiratory Rate 13 21 H 26 H Respiratory Effort Respiratory Depth Respiratory Pattern Normal Blood Pressure 211/75 H 257/89 H Blood Pressure Mean 120 145 Pulse Ox 92 93 94 Oxygen Delivery Method Room Air Bi-pap Fraction of Inspired Oxygen (FIO2) 25 25 08/10/22 04:04 08/10/22 04:06 08/10/22 04:27 Temperature 98.1 F Temperature Source Temporal Pulse Rate 63 57 L 64 Respiratory Rate 17 22 H 21 H Respiratory Effort Respiratory Depth Respiratory Pattern Normal Blood Pressure 227/72 H 180/63 H Blood Pressure Mean 123 102 Pulse Ox 94 96 96 Oxygen Delivery Method Bi-pap Bi-pap Fraction of Inspired Oxygen (FIO2) 40 40 40 Weight Weight: 62.157 kg Body Mass Index (BMI) 26.7 Physical Exam Narrative Physical exam: General: Well-nourished, well-developed. Head: Normocephalic, atraumatic, no tenderness Eyes: Vision is grossly intact. EOMI ENT, no trauma, moist mucous membranes, no rhinorrhea Neck: Nontender, No thyromegaly. CVS: Regular rate and rhythm. S1-S2 present. No murmur, gallop or rub. Respiratory : On BiPAP. Rales. No wheezing Abdomen: Soft, nontender, nondistended, normal bowel sounds, no masses : Deferred Back: Nontender, no CVA tenderness Extremities: Nontender full range of motion, no trauma. Bilateral lower legs edema Skin: Normal color, no trauma, abrasions Neuro: Alert, oriented, cranial nerves II through XII grossly intact. Psychiatry: Normal mood. Normal affect. Not depressed. Not anxious. Results Lab / Micro Data Result Diagrams: 08/10/22 01:35 08/10/22 01:35 Labs: Laboratory Results - last 24 hr 08/10/22 01:35: WBC 7.9, RBC 3.44 L, Hgb 10.9 L, Hct 32.9 L, MCV 95.6, MCH 31.7, MCHC 33.1, RDW Std Deviation 44.4 H, RDW Coeff of [place] 12.7, Plt Count 249, MPV 10.1, Immature Gran % (Auto) 0.400, Neut % (Auto) 67.2, Lymph % (Auto) 21.0, [place] % (Auto) 9.2, Eos % (Auto) 1.4, Baso % (Auto) 0.8, Absolute Neuts (auto) 5.3, Absolute Lymphs (auto) 1.67, Nucleated RBC % 0 08/10/22 01:35: Sodium 133 L, Potassium 4.1, Chloride 99, Carbon Dioxide 29.0, Anion Gap 5, BUN 13, Creatinine 0.98, Estim Creat Clear Calc 29.60, Est GFR (MDRD) Af Amer 69, Est GFR (MDRD) Non-Af 57 L, BUN/Creatinine Ratio 13.3, Glucose 165 H, Calcium 9.0, Troponin I High Sens 148 H* 08/10/22 01:35: B-Natriuretic Peptide 505.1 H 08/10/22 03:15: D-Dimer Quant (PE/DVT) 1.45 H* 08/10/22 04:00: Troponin I High Sens 156 H* Micro: Microbiology 08/09/22 23:45 Nasal Secretion SARS-CoV-2 & FLU Antigen (Rapid) - Final Radiology Impression Chest X-Ray 08/09/22 00:15 IMPRESSION: Findings suggest pulmonary edema with pleural effusions. Electronically Signed: Sandra Dejesus MD at 0:57 EST Reading Location ID and State: [address] [place] [address] , Service support , Assessment & Plan Assessment/Plan (1) Hypertensive emergency: (2) Heart failure: (3) Hypoxemia: PLAN: Plan Hypertensive emergency Systolic blood pressure of 257. Received hydralazine and labetalol in the emergency department. Emergent department doctor discussed the case with commutator inspector who recommended labetalol and if blood pressure not controlled consider nitroglycerin drip. Nitroglycerin drip ordered. Resume home blood pressure medications. Trend blood pressures. Acute Exacerbation of heart failure with preserved ejection fraction/Hypoxemia Per Radiologist chest x-ray suggest pulmonary edema with pleural effusions. Chest x-ray was visualized and independent interpreted. I agree with pulm edema. Pleural effusions compared to previous chest x-rays appears chronic. Echocardiogram on 12/04/2021 showed estimated ejection fraction of 55%. Evidence of diastolic dysfunction. Weight on admission to the floor; and then daily Strict I&O's EKG independently reviewed confirms first-degree AV block. BNP of 505.1. Her BNP on 03/09/2022 was 157.8 and 12/03/21 was 174. Diuresis with Lasix 40 mg IV twice daily. Sodium was mildly low at 133. Monitor electrolytes and renal function Trend blood pressure Sancho wrap to bilateral lower extremities Fluid restriction of 1500 mls daily Cardiac diet NSTEMI Initial high sensitive troponin was 148. Repeat was 156. Emergency Department doctor discussed the case with commutator inspector who recommended starting patient on heparin drip. Heparin drip continued. Given Plavix 75 mg x 1 dose at the emergency department. Plavix 75 mg daily ordered. Patient is allergic to aspirin. Cardiology consult. Hyponatremia Sodium presentation was 133. Review of records in the past patient has had some valleys of mild hyponatremia. Trend. CKD stage IV Stable. DVT prophylaxis Not indicated. On heparin drip. Charges/Coding Visit Charges Inpatient E&M: 30249 Init Hosp L3
[2022-08-10 04:50] LABS: Prothrombin Time (Protime)PT. 13.2 SECONDS (11.7-14.9)
[2022-08-10 04:51] LABS: Partial Thromboplast Time 36.3 Seconds (24.1-36.2)
[2022-08-10] MEDS: HEPARIN/D5w 25,000 UNITS 25,000 UNITS/250 ML IV.SOLN. 10 UNITS CONT INF (04:56)
[2022-08-10] MEDS: Clopidogrel Bisulfate 75 MG Tablet PO (04:59)
--- NOTE | 2022-08-10 05:20 | NURSING ---
called and notified of admit to ICU 10.
[2022-08-10] MEDS: cloNIDine HCl 0.1 MG Tablet PO ×3 (06:29→20:32)
[2022-08-10] MEDS: 0.9% Saline Lock 10 ML Syringe IV (06:31)
[2022-08-10 07:05] LABS: Troponin-I HS 175 pg/mL (3.0-54.0)
--- NOTE | 2022-08-10 07:23 | CON.PCM.CA_ITS ---
Assessment & Plan Assessment/Plan (1) Hypertensive emergency: PLAN: The patient presents with a hypertensive emergency with blood pressures over 200 mmHg systolic. It is not clear whether this is due to medication noncompliance. She does have a history of renal artery stenosis for which she is seeing the vascular surgeon and medical therapy has been recommended thus far. It is also likely that she missed some of her clonidine doses. I would recommend after her blood pressure improved to increase amlodipine to 10 mg a day and see whether she can be weaned off her clonidine. She can continue with the losartan Continue with the beta-melanie (2) Heart failure: PLAN: Would recommend starting intravenous nitroglycerin for blood pressure titration and intravenous Lasix. In addition I would like to obtain an echocardiogram to reassess her ventricular function and exclude any Tak[place]ubo cardiomyopathy that may have developed in the interim. (3) Elevated troponin: PLAN: She does have mildly elevated troponin which appears to be flat and is likely secondary to demand ischemia. I doubt that this is from coronary occlusion. Will DC heparin for now (4) Presence of stent in coronary artery: PLAN: She is status post previous PCI and stenting of 2 vessels as noted above. She has minimal troponin elevation. Stress test within the last 9 months did not demonstrate any obvious ischemia. (5) Paroxysmal atrial fibrillation: PLAN: She does have a history of paroxysmal atrial fibrillation. She is maintaining sinus rhythm for now. She will continue on the beta-melanie. As you know she has declined anticoagulation HPI Consult Data Date of Consult: 08/10/22 HPI Narrative HPI Narrative: ANIYA AGUILAR, is a 87 F who presents to the emergency with complaints of shortness of breath which she says has been going on for the last 2 to 3 days. She also had complained of some sharp chest discomfort. In the emergency room she was noted to be markedly hypertensive and short of breath and was treated initially with hydralazine and then heparin due to abnormal D-dimer and troponin. She underwent a CT scan of her chest which did not demonstrate any evidence of pulmonary embolism. She denies any dizziness or diaphoresis near syncope or syncope. She has had some pedal edema. Her EKG demonstrated sinus rhythm with no acute changes. She does have a history of coronary artery disease with stenting to her LAD and RCA in 2009, hypertension, hyperlipidemia and paroxysmal atrial fibrillation.? She was hospitalized 12/03/2021 for a non-STEMI. During that hospitalization she underwent an echocardiographic evaluation which demonstrated preserved left ventricular systolic function and mitral annular calcification. She also underwent a pharmacologic myocardial perfusion stress test which demonstrated no evidence of ischemia. She was seen in the office in April of this year with no complaints. As you know she has preferred not to be anticoagulated for her paroxysmal atrial fibrillation though she has had an elevated [id number] score. At this particular time she appears to be stable on BiPAP and tolerating it well. [facility] Medical History Atherosclerotic heart disease of [place] coronary artery without angina pectoris Cardiac murmur Edema Essential hypertension Hypertensive emergency Nausea Paroxysmal atrial fibrillation Presence of stent in coronary artery (~11/05/09) Pure hypercholesterolemia Stage 3b chronic kidney disease (CKD) Home Medications montelukast 10 mg tablet 10 mg PO QDAY allergies 09/08/17 [History Last Taken 03/08/22] omeprazole 20 mg capsule,delayed release 20 mg PO DAILY reflux 09/08/17 [History Last Taken 03/09/22] simvastatin 10 mg tablet 10 mg PO QDAY cholesterol 09/08/17 [History Last Taken 03/08/22] potassium chloride 20 mEq tablet,extended release 20 meq PO QDAY supplement 09/13/17 [History Last Taken 03/09/22] albuterol sulfate 2.5 mg/3 mL (0.083 %) solution for nebulization 2.5 mg inhalation Q4H PRN Shortness Of Breath 06/13/18 [History Last Taken 03/09/22] ipratropium bromide 0.02 % solution for inhalation 2.5 ml inhalation Q4H PRN Shortness Of Breath 06/13/18 [History Last Taken 03/09/22] nitroglycerin 0.4 mg sublingual tablet 0.4 mg sublingual Q5-15M PRN chest pain 06/13/18 [History Last Taken Unknown] metoprolol succinate 100 mg tablet,extended release 24 hr 100 mg PO BID blood pressure 11/28/19 [History Last Taken 03/09/22] isosorbide dinitrate 30 mg tablet 30 mg PO BID heart 12/14/19 [History Last Taken 03/09/22] losartan 50 mg tablet 50 mg PO BID #180 tabs 01/30/20 [Rx Last Taken 03/09/22] fluticasone propionate 50 mcg/actuation nasal spray,suspension 1 spray NASAL DAILY allergies 11/28/20 [History Last Taken 03/09/22] ascorbic acid (vitamin C) 500 mg tablet (Vitamin C) 500 mg PO DAILY supplement 03/09/22 [History Last Taken 03/09/22] ferrous sulfate 325 mg (65 mg iron) tablet 325 mg PO BID supplement 03/09/22 [History Last Taken 03/09/22] amlodipine 2.5 mg tablet 2.5 mg PO BID 05/12/22 [History Last Taken Unknown] lactulose 10 gram/15 mL oral solution 30 g PO Q OTHER DAY ammonia 05/12/22 [History Last Taken Unknown] citalopram 20 mg tablet 20 mg PO DAILY 08/10/22 [History Last Taken Unknown] clonidine HCl 0.2 mg tablet 0.1 mg PO TID 08/10/22 [History Last Taken Unknown] hydrochlorothiazide 25 mg tablet 25 mg PO DAILY blood pressure 08/10/22 [History Last Taken Unknown] hydrocodone-acetaminophen 5-325mg 5mg-325mg 1 tab PO BID 08/10/22 [History Last Taken Unknown] Allergy/AdvReac Type Severity Reaction Status Date / Time aspirin AdvReac Severe Swelling Verified 08/10/22 02:27 clarithromycin [From Biaxin] AdvReac Unknown Verified 08/10/22 02:27 codeine AdvReac Unknown Verified 08/10/22 02:27 morphine AdvReac Unknown Verified 08/10/22 02:27 Penicillins AdvReac Unknown Verified 08/10/22 02:27 Sulfa (Sulfonamide AdvReac Unknown Verified 08/10/22 02:27 Antibiotics) Family History Mother Myocardial infarction CVA (cerebral vascular accident) CAD (coronary artery disease) Father Myocardial infarction CAD (coronary artery disease) Brother History of PTCA Hx of CABG Sister Hx of CABG Surgical History H/O arthroscopy of left knee H/O oophorectomy History of appendectomy History of coronary artery stent placement (11/05/09) History of hernia repair History of partial hysterectomy History of right inguinal hernia repair Presence of coronary angioplasty implant and graft (~11/05/09) Social History Smoking Status: Never smoker alcohol intake: never substance use type: does not use caffeine: Yes Type: carbonated beverages what type of physical activity do you participate in: none seatbelt use: always do you feel safe at home: Yes ROS Constitutional Constitutional: Denies fever(s) or weight loss Eyes Eyes: Reports systems reviewed and no addt'l complaints, except as documented ENT HEENT: Reports systems reviewed and no addt'l complaints, except as documented Cardiovascular Cardiovascular: Reports chest pain at rest, dyspnea at rest, dyspnea on exertion and edema; Denies chest pain with activity, palpitations or paroxysmal nocturnal dyspnea Respiratory/Chest Respiratory/Chest: Reports shortness of breath at rest and shortness of breath with exertion; Denies dyspnea on exertion or productive cough Gastrointestinal Gastrointestinal: Denies change in bowel habits, nausea, vomiting or weight changes Genitourinary Genitourinary: Denies difficulty urinating Musculoskeletal Musculoskeletal: Denies joint stiffness or muscle weakness Integumentary Integumentary: Denies lesions Neurologic Neurologic: Denies dizziness or syncope Psychiatric Psychiatric: Denies anxiety Endocrine Endocrinology: Denies excessive sweating or fatigue Hematologic/Lymphatic Hematologic/Lymphatic: Denies anemia Allergic/Immunologic Allergic/Immunologic: Denies seasonal rhinorrhea Physical Exam Const alert, oriented x3 and no apparent distress General Appearance: cooperative HEENT hearing grossly normal bilaterally Head and Scalp: atraumatic Eyes EOMs intact bilaterally Neck General: normal visual inspection Chest inspection of chest normal and palpation of chest normal Resp normal respiratory effort Auscultation: clear to auscultation bilaterally Cardio regular rate, regular rhythm, S1 normal heart sound and S2 normal heart sound Jugular Venous Distention: JVD GI normal to inspection, nondistended, normoactive bowel sounds Extremity normal capillary refill and no pedal edema General Extremity: edema Peripheral Pulses: Yes pulses 2+ throughout and femoral pulses present Skin no rashes or lesions noted Neuro oriented x3 and CN's II-XII intact bilaterally Psych Appearance: grossly normal and appropriate Risk Stratification Risk Stratification Applicable: Yes Age >/= 65: Yes >/= 3 CAD Risk Factors (HTN, HLD, DM, family hx of CAD, or current smoker): No Aspirin Use in the Past 7 Days: Yes Severe Angina (>/= episodes in 24 hours): No EKG ST Changes >/= 0.5mm: No Positive Cardiac Marker: Yes INDRA Risk Stratification Score: 3 INDRA % Risk: 13% Risk Objective Data Vital Signs: Vital Signs Temp Pulse Resp BP Pulse Ox O2 Del Method O2 Flow Rate 97.9 F 61 20 H 200/73 H 96 Bi-pap 8 08/10/22 06:41 08/10/22 06:41 08/10/22 06:41 08/10/22 06:41 08/10/22 06:41 08/10/22 06:53 08/10/22 06:35 FiO2 40 08/10/22 06:53 Oxygen Flow Rate (L/min) 8 Oxygen Delivery Method Bi-pap Weight: 136 lb 14.513 oz Body Mass Index (BMI) 26.7 Intake & Output: Intake and Output for Last 24 Hours 08/08/22 08/09/22 08/10/22 23:59 23:59 23:59 Output Total 1000 / 1000 Balance -1000 / -1000 Lab / Micro Data Result Diagrams: 08/10/22 01:35 08/10/22 01:35 Labs: Laboratory Results - last 24 hr 08/10/22 01:35: WBC 7.9, RBC 3.44 L, Hgb 10.9 L, Hct 32.9 L, MCV 95.6, MCH 31.7, MCHC 33.1, RDW Std Deviation 44.4 H, RDW Coeff of [place] 12.7, Plt Count 249, MPV 10.1, Immature Gran % (Auto) 0.400, Neut % (Auto) 67.2, Lymph % (Auto) 21.0, [place] % (Auto) 9.2, Eos % (Auto) 1.4, Baso % (Auto) 0.8, Absolute Neuts (auto) 5.3, Absolute Lymphs (auto) 1.67, Nucleated RBC % 0 08/10/22 01:35: Sodium 133 L, Potassium 4.1, Chloride 99, Carbon Dioxide 29.0, Anion Gap 5, BUN 13, Creatinine 0.98, Estim Creat Clear Calc 29.60, Est GFR (MDRD) Af Amer 69, Est GFR (MDRD) Non-Af 57 L, BUN/Creatinine Ratio 13.3, Gluc ose 165 H, Calcium 9.0, Troponin I High Sens 148 H* 08/10/22 01:35: B-Natriuretic Peptide 505.1 H 08/10/22 03:15: D-Dimer Quant (PE/DVT) 1.45 H* 08/10/22 03:15: PT 13.2, INR 1.0, APTT 36.3 H 08/10/22 04:00: Troponin I High Sens 156 H* 08/10/22 06:24: Troponin I High Sens 175 H* Micro: Microbiology 08/09/22 23:45 Nasal Secretion SARS-CoV-2 & FLU Antigen (Rapid) - Final Rhythm Strip Rhythm Strip: Sinus Rhythm Cardiology Labs/Tests 08/10/22 01:35: WBC 7.9, RBC 3.44 L, Hgb 10.9 L, Hct 32.9 L, MCV 95.6, MCH 31.7, MCHC 33.1, Plt Count 249, MPV 10.1, Immature Gran % (Auto) 0.400, Neut % (Auto) 67.2, Lymph % (Auto) 21.0, [place] % (Auto) 9.2, Eos % (Auto) 1.4, Baso % (Auto) 0.8, Absolute Neuts (auto) 5.3, Nucleated RBC % 0 08/10/22 01:35: Sodium 133 L, Potassium 4.1, Chloride 99, Carbon Dioxide 29.0, Anion Gap 5, BUN 13, Creatinine 0.98, Est GFR (MDRD) Af Amer 69, Est GFR (MDRD) Non-Af 57 L, BUN/Creatinine Ratio 13.3, Glucose 165 H, Calcium 9.0 08/10/22 01:35: B-Natriuretic Peptide 505.1 H 08/10/22 03:15: D-Dimer Quant (PE/DVT) 1.45 H* 08/10/22 03:15: PT 13.2, INR 1.0, APTT 36.3 H Rhythm: EKG: ECHO: Stress Test: Cardiac Cath: PCI: CT Surgery: Holter monitor: EPS: PPM: CXR: Chest CT Scan: Radiography Diagnostic Testing: Radiology Impression Chest X-Ray 08/09/22 00:15 IMPRESSION: Findings suggest pulmonary edema with pleural effusions. Electronically Signed: Sandra Dejesus MD at 0:57 EST , Chest CTA 08/10/22 04:06 IMPRESSION: 1. No CTA demonstrated pulmonary embolism or arterial dissection. 2. Findings suggest bilateral multifocal pneumonia. 3. Cardiomegaly and pulmonary edema. Electronically Signed: Sandra Dejesus MD at 6:22 EST Reading Location ID and State: [address] [place] [address] , Service support ,
--- NOTE | 2022-08-10 07:28 | ECHOD_ITS ---
Reason For Study: CHF Procedure This was a 2D Doppler, Color Flow transthoracic echocardiogram. Exam performed portable in ICU/CCU. Left Ventricle Normal LV size. Left ventricular systolic function is normal. The estimated ejection fraction is 65 %. Stage 2 diastolic dysfunction. No regional wall motion abnormalities noted. Right Ventricle Normal RV size. Normal systolic function. Atria The left atrium is mildly enlarged. Normal right atrium. Mitral Valve There is mild to moderate mitral annular calcification. Mild (1+) eccentric mitral valve insufficiency. Tricuspid Valve Normal tricuspid valve. Mild to moderate (1-2+) tricuspid valve insufficiency. Pulmonary artery systolic pressure is 52 mmHg. Aortic Valve Trisinus/trileaflet aortic valve. Mild (1+) aortic valve insufficiency. Pulmonic Valve Normal pulmonic valve. Great Vessels Normal aortic root. The pulmonary artery is normal size. Normal inferior vena cava. Pericardium/Pleural No pericardial effusion. MMode/2D Measurements & Calculations LVIDd: 4.9 cm IVSd: 1.2 cm Ao root diam: 3.1 cm LVIDs: 2.6 cm LVPWd: 1.1 cm RVDd: 3.4 cm FS: 48.1 % LAV(MOD-bp): 73.8 ml LVAd ap4: 20.8 cm2 SV(MOD-sp4): 40.4 ml LAV(MOD-bp) Indexed: 46.4 ml/m2 LVLd ap4: 6.2 cm LAV(MOD-sp2): 58.5 ml EDV(MOD-sp4): 57.1 ml LAV(MOD-sp4): 71.7 ml EDV(sp4-el): 59.6 ml LVAs ap4: 9.6 cm2 LVLs ap4: 4.5 cm ESV(MOD-sp4): 16.8 ml ESV(sp4-el): 17.3 ml EF(MOD-sp4): 70.7 % EF(sp4-el): 71.1 % SV(sp4-el): 42.4 ml LA A4 area: 24.1 cm2 LA dimension(2D): 4.9 cm RA A4 area: 13.7 cm2 Time Measurements MV dec time: 0.22 sec Doppler Measurements & Calculations MV E max ochoa: 108.5 cm/sec Lat Peak E' Ochoa: 6.2 cm/sec Med Peak E' Ochoa: 5.1 cm/sec MV A max ochoa: 75.9 cm/sec E/E' lat: 17.5 E/E' med: 21.2 MV E/A: 1.4 MV V2 max: 140.9 cm/sec MV P1/2t max ochoa: 139.0 cm/sec Ao V2 max: 133.9 cm/sec MV max P.9 mmHg MV P1/2t: 76.3 msec Ao max P.2 mmHg MV V2 mean: 60.5 cm/sec Ao V2 mean: 89.5 cm/sec MV mean P.8 mmHg MV dec slope: 533.4 cm/sec2 Ao mean P.5 mmHg MV V2 VTI: 39.8 cm MVA(P1/2t): 2.9 cm2 Ao V2 VTI: 31.9 cm AI max ochoa: 358.7 cm/sec LV V1 max: 104.0 cm/sec PA V2 max: 112.2 cm/sec AI max P.5 mmHg LV V1 max P.3 mmHg AI dec slope: 227.2 cm/sec2 AI P1/2t: 462.4 msec TR max ochoa: 346.2 cm/sec TR max P.9 mmHg ECHO/Echo Complete Interpretation Summary Normal LV size. Left ventricular systolic function is normal. The estimated ejection fraction is 65 %. Stage 2 diastolic dysfunction. Mild (1+) eccentric mitral valve insufficiency. Mild (1+) aortic valve insufficiency. Compared to previous study, the left ventricular systolic function is the same. . Ordering Physician: Andrez Haney Referring Physician: James Garcia Performed By: Rosalva Hui RDCS, RVT
--- NOTE | 2022-08-10 07:57 | PCM.PN.HOSP ---
Subjective Subjective Follow-up for hypertensive emergency, pulmonary edema and acute hypoxic respiratory failure Objective Data Objective Data Vital Signs: Vital Signs Temp Pulse Resp BP Pulse Ox O2 Del Method O2 Flow Rate 97.9 F 61 20 H 200/73 H 96 Bi-pap 8 08/10/22 06:41 08/10/22 06:41 08/10/22 06:41 08/10/22 06:41 08/10/22 06:41 08/10/22 06:53 08/10/22 06:35 FiO2 40 08/10/22 06:53 Oxygen Flow Rate (L/min) 8 Oxygen Delivery Method Bi-pap Weight: 136 lb 14.513 oz Body Mass Index (BMI) 26.7 Intake & Output: Intake and Output for Last 24 Hours 08/08/22 08/09/22 08/10/22 23:59 23:59 23:59 Output Total 1000 / 1000 Balance -1000 / -1000 Lab / Micro Data Result Diagrams: 08/10/22 01:35 08/10/22 01:35 Labs: Laboratory Results - last 24 hr 08/10/22 01:35: WBC 7.9, RBC 3.44 L, Hgb 10.9 L, Hct 32.9 L, MCV 95.6, MCH 31.7, MCHC 33.1, RDW Std Deviation 44.4 H, RDW Coeff of Deidra 12.7, Plt Count 249, MPV 10.1, Immature Gran % (Auto) 0.400, Neut % (Auto) 67.2, Lymph % (Auto) 21.0, Giles % (Auto) 9.2, Eos % (Auto) 1.4, Baso % (Auto) 0.8, Absolute Neuts (auto) 5.3, Absolute Lymphs (auto) 1.67, Nucleated RBC % 0 08/10/22 01:35: Sodium 133 L, Potassium 4.1, Chloride 99, Carbon Dioxide 29.0, Anion Gap 5, BUN 13, Creatinine 0.98, Estim Creat Clear Calc 29.60, Est GFR (MDRD) Af Amer 69, Est GFR (MDRD) Non-Af 57 L, BUN/Creatinine Ratio 13.3, Glucose 165 H, Calcium 9.0, Troponin I High Sens 148 H* 08/10/22 01:35: B-Natriuretic Peptide 505.1 H 08/10/22 03:15: D-Dimer Quant (PE/DVT) 1.45 H* 08/10/22 03:15: PT 13.2, INR 1.0, APTT 36.3 H 08/10/22 04:00: Troponin I High Sens 156 H* 08/10/22 06:24: Troponin I High Sens 175 H* Micro: Microbiology 08/09/22 23:45 Nasal Secretion SARS-CoV-2 & FLU Antigen (Rapid) - Final Radiography Diagnostic Testing: Radiology Impression Chest X-Ray 08/09/22 00:15 IMPRESSION: Findings suggest pulmonary edema with pleural effusions. Chest CTA 08/10/22 04:06 IMPRESSION: 1. No CTA demonstrated pulmonary embolism or arterial dissection. 2. Findings suggest bilateral multifocal pneumonia. 3. Cardiomegaly and pulmonary edema. Rhythm Strip Rhythm Strip: Sinus Rhythm Physical Exam Narrative Physical exam General: Confused, disoriented pulling out BiPAP mask HEENT: Atraumatic, PERRLA, EOMI, Normocephalic Oral: On BiPAP mask Neck: Supple, No JVD, Negative Carotid Bruits Lungs: Air entry diminished in bilateral lung bases. Bilateral basal rales/rhonchi Cardiovascular: Sinus bradycardia, Normal S1, Normal S2, systolic murmur present LLSB Abdomen: Bowel Sounds Present, Soft, Non Tender, Non-Distended : Ko catheter clear urine no renal angle tenderness. No suprapubic tenderness. 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 No Tenderness to Palpation of Joints or Extremities Neurological: Confused and disoriented, on BiPAP, detailed neuro unobtainable Psych/Mental Status: Flat affect Assessment & Plan Assessment/Plan (1) Hypertensive emergency: PLAN: Plan This is a 87-year-old female with multiple comorbidities was admitted through ED for worsening shortness of breath for about 1 day on the day of admission along with occasional productive cough with yellow sputum. No fever. CTPA was done which shows pulmonary edema and bilateral chronic pleural effusion. No PE. Patient was admitted in ICU with hypertensive emergency Hypertensive emergency along with features of organ dysfunction (pulmonary edema,NSTEMI) : In ED, patient had SBP 257/89. ? Received hydralazine and labetalol in the emergency department.? Emergent department doctor discussed the case with station manager who recommended labetalol and if blood pressure not controlled? Nitroglycerin drip 08/10: BP profile better in ICU but is still elevated Acute hypoxic respiratory failure due to acute Exacerbation of heart failure with preserved ejection fraction: Patient on BiPAP 40% FiO2. Titrate as per protocol. Echocardiogram on 12/04/2021 showed estimated ejection fraction of 55%.? Evidence of diastolic dysfunction. Twelve-lead EKG shows sinus bradycardia 50 bpm, at first-degree AV block heart failure core measures including intake and output, fluid restriction less than 1500 mL, daily weight monitoring, kidney and electrolytes monitoring BNP of 505.1.? Her BNP on 03/09/2022 was 157.8 and 12/03/21 was 174. Diuresis with Lasix 40 mg IV twice daily.? Sodium was mildly low at 133. NSTEMI, unclear whether due to primary ID event or ID type II with increased demand from pulmonary edema and heart failure: Initial high sensitive troponin was 148. Repeat was 156.? Heparin drip continued.? Started on Plavix. Patient is allergic to aspirin. Cardiology consult. Hyponatremia Sodium presentation was 133.? Review of records in the past patient has had some valleys of mild hyponatremia.? Trend. CKD stage IV Stable. DVT prophylaxis On heparin drip. Total time of the visit including total time spent in counseling or coordination of care, (more than 50% of the total time, spent in obtaining medical information from nurses and other ancillary care providers,explaining to the patient about labs, imaging, diagnosis and management of active complex medical conditions), management of multiple organ dysfunction, station manager , review of labs and imaging is 40 minutes. Charges/Coding Procedures Hospitalists Procedures: 05644 Prolonged InPt Service; first hour
[2022-08-10] MEDS: Nitroglycerin Infusion 250 ML 6 MG CONT INF (09:18)
[2022-08-10] MEDS: Losartan Potassium 50 MG Tablet PO ×2 (09:20→20:32)
[2022-08-10] MEDS: Metoprolol(XL)Succ 100 MG Tablet PO ×2 (09:20→20:33)
[2022-08-10] MEDS: Citalopram 20 MG Tablet PO (09:20)
[2022-08-10] MEDS: amLODIPine 2.5 MG Tablet PO ×2 (09:20→20:33)
[2022-08-10] MEDS: HYDROcodone Bitartrate/Apap 5/325 Tablet PO (09:43)
--- NOTE | 2022-08-10 13:20 | CHAPLAIN ---
Type of Pastoral Visit _x__ Initial Visit ___ Follow-up Visit ___ On-call Visit ___ General Patient Visit ___ Spiritual Assessment ___ Family Conference ___ Bereavement ___ Rapid Response ___ Code Blue ___ Other (describe below) Pastoral Care Referral From _x__ Patient ___ Family ___ Nurse ___ Physician ___ Road Gang Supervisor ___ Franchise Field Consultant ___ Other (describe below) Sacrament/Intervention _x__ Active listening ___ Anointing ___ Taoist ___ Bereavement ___ Communion _x__ Dee Dee exploration ___ _x__ Life review _x__ Prayer ___ Reconciliation ___ Sacrament of Sick _x__ Supportive presence ___ Wedding ___ Other (describe below) Pastoral Comments patient immediately identifies herself as the grandmother of a friend of this lumber chain offbearer; pt speaks of being scared after inability to breath yesterday but I'm doing much better now, today is a lot better; pt talks much about her family; pt also speaks of her druze connection and welcomes prayer and presence of lumber chain offbearer for support
[2022-08-10] MEDS: Nitroglycerin Infusion 250 ML 60 MG CONT INF ×2 (18:30→21:16)
[2022-08-10] MEDS: Atorvastatin Calcium 10 MG Tablet 5 MG PO (20:32)
[2022-08-10] MEDS: Senna/Docusate Sodium 1 Tablet 2 TABLET PO (22:03)
[2022-08-11] VITALS (51 sets, daily range): BP systolic 114–202; BP diastolic 42–108; PULSE 58–109; RESP 12–21; TEMP 36.1–37.1; O2SAT 92–100
[2022-08-11] MEDS: Nitroglycerin Infusion 250 ML 69 MG CONT INF (01:00)
[2022-08-11] MEDS: Nitroglycerin Infusion 250 ML 84 MG CONT INF (04:19)
[2022-08-11 04:49] LABS: Absolute Lymphocyte Count 2.02 X10^3/uL (0.83-4.51); Absolute Neutrophil Count 7.5 X10^3/uL (2.0-7.7); Basophil# 0.02 X10^3/uL; Basophil% 0.2 % (0-1); Eosinophil# 0.01 X10^3/uL; Eosinophils% 0.1 % (0-5); Hematocrit 30.1 % (37-47); Hemoglobin 10.2 g/dL (12.0-15.0); Lymphocyte # 2.02 X10^3/ul (0.83-4.51); Mean Corp Hgb Conc 33.9 g/dL (32-36); Mean Corpuscular Hgb 31.6 pg (27.0-32.0); Mean Corpuscular Volume 93.2 fL (81-99); Mean Platelet Vol. 10.1 fl (6.2-12.0); Monocyte# 1.09 X10^3/uL; Monocyte% 10.2 % (0-10); NRBC Flagged by Analyzer 0 % (0-5); Neutrophil # 7.47 X10^3/uL (2.7-7.7); Neutrophil % 70.1 % (47-70); Platelet Count 265 K/mm3 (150-450); RBC Distribution Width CV 12.4 % (11.6-14.6); RBC Distribution Width SD 42.7 fl (35.1-43.9); Red Blood Count 3.23 M/mm3 (4.2-5.4); White Blood Count 10.7 K/mm3 (4.4-11.0)
[2022-08-11 05:12] LABS: Anion Gap 9 (5-15); BUN 16 mg/dL (7-18); BUN/Creat Ratio 15.8 RATIO (10-20); Calcium,Total 8.8 mg/dL (8.5-10.1); Chloride 90 mmol/L (98-107); Creatinine, Serum 1.01 mg/dL (0.55-1.02); EST Glomerular Filtration Rate 55 mL/min (>60); Est Glom Filt Rate - Afr Amer 67 mL/min (>60); Estimated Creatinine Clearance 28.72 ml/min; Glucose 158 mg/dL (74-106); Potassium 3.1 mmol/L (3.5-5.1); Sodium Level 130 mmol/L (136-145)
[2022-08-11] MEDS: cloNIDine HCl 0.1 MG Tablet PO ×3 (05:53→21:11)
[2022-08-11] MEDS: Nitroglycerin Infusion 250 ML 90 MG CONT INF (07:08)
--- NOTE | 2022-08-11 08:19 | PCM.PN.CARD ---
Subjective Subjective The patient is awake and alert. She denies ongoing chest pain. She states her breathing is better than on admission. Objective Data Vital Signs: Vital Signs Temp Pulse Resp BP Pulse Ox O2 Del Method O2 Flow Rate 97.7 F L 78 20 H 170/78 H 94 Nasal Cannula 2 08/11/22 04:00 08/11/22 06:00 08/11/22 06:00 08/11/22 07:00 08/11/22 07:27 08/11/22 07:27 08/11/22 07:27 FiO2 30 08/10/22 22:51 Oxygen Flow Rate (L/min) 2 Oxygen Delivery Method Nasal Cannula Weight: 138 lb 0.15 oz Body Mass Index (BMI) 26.7 Intake & Output: Intake and Output for Last 24 Hours 08/09/22 08/10/22 08/11/22 23:59 23:59 23:59 Intake Total 606.50 / 623.75 585.60 / 585.60 Output Total 1000 / 1650 1250 / 1250 Balance -393.50 / -1026.25 -664.40 / -664.40 Lab / Micro Data Result Diagrams: 08/11/22 04:40 08/11/22 04:40 Labs: Laboratory Results - last 24 hr 08/11/22 04:40: WBC 10.7, RBC 3.23 L, Hgb 10.2 L, Hct 30.1 L, MCV 93.2, MCH 31.6, MCHC 33.9, RDW Std Deviation 42.7, RDW Coeff of Deidra 12.4, Plt Count 265, MPV 10.1, Immature Gran % (Auto) 0.400, Neut % (Auto) 70.1 H, Lymph % (Auto) 19.0, Emery % (Auto) 10.2 H, Eos % (Auto) 0.1, Baso % (Auto) 0.2, Absolute Neuts (auto) 7.5, Absolute Lymphs (auto) 2.02, Nucleated RBC % 0 08/11/22 04:40: Sodium 130 L, Potassium 3.1 L, Chloride 90 L, Carbon Dioxide 31.0, Anion Gap 9, BUN 16, Creatinine 1.01, Estim Creat Clear Calc 28.72, Est GFR (MDRD) Af Amer 67, Est GFR (MDRD) Non-Af 55 L, BUN/Creatinine Ratio 15.8, Glucose 158 H, Calcium 8.8 Rhythm Strip Rhythm Strip: Sinus Rhythm Cardiology Labs/Tests 08/11/22 04:40: WBC 10.7, RBC 3.23 L, Hgb 10.2 L, Hct 30.1 L, MCV 93.2, MCH 31.6, MCHC 33.9, Plt Count 265, MPV 10.1, Immature Gran % (Auto) 0.400, Neut % (Auto) 70.1 H, Lymph % (Auto) 19.0, Emery % (Auto) 10.2 H, Eos % (Auto) 0.1, Baso % (Auto) 0.2, Absolute Neuts (auto) 7.5, Nucleated RBC % 0 08/11/22 04:40: Sodium 130 L, Potassium 3.1 L, Chloride 90 L, Carbon Dioxide 31.0, Anion Gap 9, BUN 16, Creatinine 1.01, Est GFR (MDRD) Af Amer 67, Est GFR (MDRD) Non-Af 55 L, BUN/Creatinine Ratio 15.8, Glucose 158 H, Calcium 8.8 Rhythm: sinus rhythm / PAF Chest CT Scan: Radiography Diagnostic Testing: Radiology Impression Echocardiogram 08/10/22 07:28 Interpretation Summary Normal LV size. Left ventricular systolic function is normal. The estimated ejection fraction is 65 %. Stage 2 diastolic dysfunction. Mild (1+) eccentric mitral valve insufficiency. Mild (1+) aortic valve insufficiency. Compared to previous study, the left ventricular systolic function is the same.. Ordering Physician: Andrez Haney Referring Physician: James Garcia Performed By: Rosalva Hui, RDCS, RVT Physical Exam Const alert, oriented x3 and no apparent distress Orientation / Consciousness: awake HEENT normocephalic, head/scalp atraumatic and hearing grossly normal bilaterally Eyes PERRL, EOMs intact bilaterally, conjunctivae normal and no scleral icterus Neck full ROM, supple and no JVD Resp normal respiratory effort Auscultation: rales bilateral base (mild) Cardio Rhythm: abnormal rhythm irregularly irregular Heart Sounds: S1 normal and S2 normal GI normal to inspection, nondistended, normoactive bowel sounds Extremity General Extremity: edema bilateral lower extremity Details: mild Skin no rashes or lesions noted Assessment & Plan Assessment/Plan (1) Hypertensive emergency: PLAN: The patient's blood pressure remains elevated. She will continue medical therapy. This will include an attempt to increase her amlodipine dose and add hydralazine. An attempt will be made to wean off the IV NTG. Also, internal medicine will consult nephrology to assist in her evaluation and care. (2) Heart failure: PLAN: The patient appears improved with respect to her CHF symptoms. She has undergone additional evaluation with an echocardiogram. The results are noted. She will continue medical therapy. (3) Elevated troponin: PLAN: The patient has chronically elevated cardiac enzymes. This may be secondary to her her hypertension and CHF - a Type II event. At the present time she will continue medical therapy. (4) Atherosclerotic heart disease of morongo coronary artery without angina pectoris: QUALIFIERS: [place] vs. transplanted heart: morongo heart Qualified Code(s): I25.10 - Atherosclerotic heart disease of morongo coronary artery without angina pectoris PLAN: The patient has a history of CAD. At the moment she is without obvious acute coronary symptoms. She will continue medical therapy. (5) Presence of stent in coronary artery: PLAN: The patients's PCI history was reveiwed. At the present time she will continue medical therapy. (6) Paroxysmal atrial fibrillation: PLAN: The patient has demonstrated PAF during her hospitalization. She will continue rate control therapy. She has declined buttermaker helper oral anticoagulant therapy in the past. (7) Pure hypercholesterolemia: PLAN: She will continue medical therapy. (8) Renal artery stenosis: PLAN: She does carry a diagnosis of KWAKU. The input from nephrology as to whether this is contributing to her hypertensive events would be most appreciated. Addt'l Comments The patient's case has been discussed and reviewed with Dr. Gonzalez and the ICU nursing staff. This note was generated using a voice recognition system and there may be incorrect words, spelling or punctuation that were not noted when reviewing the office note prior to saving. Procedure Criteria Type of Procedure Procedure Type: Elective Elective Risks - COVID COVID Risk Discussion: The surgeon/proceduralist and patient have discussed in detail the risk of exposure to and/or potential harm posed by the COVID-19 virus with having a surgery/procedure at this time versus the risk of delaying the surgery/procedure. It is not possible to know either the risk of delaying the surgery or procedure or chance of getting an infection with perfect accuracy, but a joint decision was made between the patient and the surgeon/proceduralist to proceed at this time with the scheduled surgery/procedure as indicated on the consent form.
--- NOTE | 2022-08-11 08:51 | PN.HOSP_ITS ---
Subjective Subjective Follow-up for hypertensive emergency. Patient blood pressure has been high and nitroglycerin drip was constantly get ting titrated. Risk discussed with the applications tester. Objective Data Objective Data Vital Signs: Vital Signs Temp Pulse Resp BP Pulse Ox O2 Del Method O2 Flow Rate 97.7 F L 78 20 H 170/78 H 94 Nasal Cannula 2 08/11/22 04:00 08/11/22 06:00 08/11/22 06:00 08/11/22 07:00 08/11/22 07:27 08/11/22 07:27 08/11/22 07:27 FiO2 30 08/10/22 22:51 Oxygen Flow Rate (L/min) 2 Oxygen Delivery Method Nasal Cannula Weight: 138 lb 0.15 oz Body Mass Index (BMI) 26.7 Intake & Output: Intake and Output for Last 24 Hours 08/09/22 08/10/22 08/11/22 23:59 23:59 23:59 Intake Total 606.50 / 623.75 585.60 / 585.60 Output Total 1000 / 1650 1250 / 1250 Balance -393.50 / -1026.25 -664.40 / -664.40 Lab / Micro Data Result Diagrams: 08/11/22 04:40 08/11/22 04:40 Labs: Laboratory Results - last 24 hr 08/11/22 04:40: WBC 10.7, RBC 3.23 L, Hgb 10.2 L, Hct 30.1 L, MCV 93.2, MCH 31.6, MCHC 33.9, RDW Std Deviation 42.7, RDW Coeff of Deidra 12.4, Plt Count 265, MPV 10.1, Immature Gran % (Auto) 0.400, Neut % (Auto) 70.1 H, Lymph % (Auto) 19.0, [place] % (Auto) 10.2 H, Eos % (Auto) 0.1, Baso % (Auto) 0.2, Absolute Neuts (auto) 7.5, Absolute Lymphs (auto) 2.02, Nucleated RBC % 0 08/11/22 04:40: Sodium 130 L, Potassium 3.1 L, Chloride 90 L, Carbon Dioxide 31.0, Anion Gap 9, BUN 16, Creatinine 1.01, Estim Creat Clear Calc 28.72, Est GFR (MDRD) Af Amer 67, Est GFR (MDRD) Non-Af 55 L, BUN/Creatinine Ratio 15.8, Glucose 158 H, Calcium 8.8 Micro: Microbiology 08/09/22 23:45 Nasal Secretion SARS-CoV-2 & FLU Antigen (Rapid) - Final Radiography Diagnostic Testing: Radiology Impression Echocardiogram 08/10/22 07:28 Interpretation Summary Normal LV size. Left ventricular systolic function is normal. The estimated ejection fraction is 65 %. Stage 2 diastolic dysfunction. Mild (1+) eccentric mitral valve insufficiency. Mild (1+) aortic valve insufficiency. Compared to previous study, the left ventricular systolic function is the same.. Ordering Physician: Andrez Haney Referring Physician: James Garcia Performed By: Rosalva Hui, RDCS, RVT Rhythm Strip Rhythm Strip: Sinus Rhythm Physical Exam Narrative Physical exam General: He is off BiPAP. Shortness of breath better. Mild confused and disoriented. HEENT: Atraumatic, PERRLA, EOMI, Normocephalic Oral: Oral mucosa dry. Neck: Supple, No JVD, Negative Carotid Bruits Lungs: Air entry diminished in bilateral lung bases. No crepitations. Cardiovascular: Atrial flutter, Normal S1, Normal S2, systolic murmur present LLSB Abdomen: Bowel Sounds Present, Soft, Non Tender, Non-Distended : Ko catheter clear urine no renal angle tenderness. No suprapubic tenderness. 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 No Tenderness to Palpation of Joints or Extremities Neurological: No focal deficit. Patient advised and confused. Psych/Mental Status: Flat affect Assessment & Plan Assessment/Plan (1) Hypertensive emergency: PLAN: Plan This is a 87-year-old female with multiple comorbidities was admitted through ED for worsening shortness of breath for about 1 day on the day of admission along with occasional productive cough with yellow sputum. No fever. CTPA was done which shows pulmonary edema and bilateral chronic pleural effusion. No PE. Patient was admitted in ICU with hypertensive emergency Hypertensive emergency along with features of organ dysfunction (pulmonary edema,NSTEMI) : In ED, patient had SBP 257/89. ? Received hydralazine and labetalol in the emergency department.? Emergent department doctor discussed the case with applications tester who recommended labetalol and if blood pressure not controlled? Nitroglycerin drip 08/10: BP profile better in ICU but is still elevated 08/11: Blood pressure has been high and fluctuating yesterday. Patient is started on hydralazine oral 25 mg 3 times daily, already on losartan 50 mg twice daily, clonidine 0.1 mg 3 times daily, amlodipine 5 mg twice daily. Acute hypoxic respiratory failure due to acute Exacerbation of heart failure with preserved ejection fraction: Patient on BiPAP 40% FiO2. Titrate as per protocol. Echocardiogram on 12/04/2021 showed estimated ejection fraction of 55%.? Eviden ce of diastolic dysfunction. Twelve-lead EKG shows sinus bradycardia 50 bpm, at first-degree AV block heart failure core measures including intake and output, fluid restriction less than 1500 mL, daily weight monitoring, kidney and electrolytes monitoring BNP of 505.1.? Her BNP on 03/09/2022 was 157.8 and 12/03/21 was 174. Diuresis with Lasix 40 mg IV twice daily.? Sodium was mildly low at 133. 08/11: 2D echo shows EF 65% with mild eccentric MR and AI. Stage II diastolic dysfunction. Compared to last echo no significant change in systolic function. NSTEMI, unclear whether due to primary MO event or MO type II with increased demand from pulmonary edema and heart failure: Initial high sensitive troponin was 148. Repeat was 156.? Heparin drip continued.? Started on Plavix. Patient is allergic to aspirin. Cardiology consult. Hyponatremia Sodium presentation was 133.? Review of records in the past patient has had some valleys of mild hyponatremia.? Trend. CKD stage IV Stable. DVT prophylaxis On heparin drip. Total time of the visit including total time spent in counseling or coordination of care, (more than 50% of the total time, spent in obtaining medical information from nurses and other ancillary care providers,explaining to the patient about labs, imaging, diagnosis and management of active complex medical conditions), management of multiple organ dysfunction, applications tester , review of labs and imaging is 40 minutes. Charges/Coding Visit Charges Inpatient E&M: 33152 Subs Hosp L3
[2022-08-11] MEDS: amLODIPine 5 MG Tablet PO ×2 (09:44→21:12)
[2022-08-11] MEDS: Metoprolol(XL)Succ 100 MG Tablet PO ×2 (09:44→21:12)
[2022-08-11] MEDS: Citalopram 20 MG Tablet PO (09:45)
[2022-08-11] MEDS: Clopidogrel Bisulfate 75 MG Tablet PO (09:45)
[2022-08-11] MEDS: Losartan Potassium 50 MG Tablet PO ×2 (09:46→21:11)
[2022-08-11] MEDS: Furosemide 40 MG/4 ML Vial IV ×2 (09:46→18:21)
[2022-08-11] MEDS: HYDROcodone Bitartrate/Apap 5/325 Tablet PO ×2 (09:50→21:12)
--- NOTE | 2022-08-11 10:15 | CASEMGMT ---
DUNG REDDING Assessment: Face to Face with pt for initial transition planning/care coordination assessment. DUNG REDDING introduced self and role at [facility], pt voices understanding and consents to assessment. Pt in bed. Oxygen in place. Family at bedside. Pt gave verbal permission to speak with family in room. Pt is A/O x4 and answers all questions appropriately at this time. Care providers, pharmacy, and demographics verified/updated.? Admitting Dx: Hypertensive Emergency.? PCP:? James Garcia. Specialists:? [place], Cardiology.? [facility]erred [facility]acy: [facility]. Insurance: [employer]. Prescription Benefit: yes LW/HPOA: Pt denies having a LW/DPOA and denies need for info regarding AD. However, pt's family stated pt needs the information. Pt then changed her mind and stated she would be open to the information. ANGELA Russell advised.? LNOK: - Dioni White.? Living Arrangements: Pt lives in a one story home with four steps with a railing and a garage ramp.? Transportation: Pt's transports.? DME/HHC/SNF: Pt has the following:? Cane, rollator, shower grab bars, built in shower chair, and a nebulizer. Pt is currently on Oxygen. No HHC or SNF stays reported.? Pt states no concerns with going home at time of dc. Pt states no further concerns/needs. CM to follow. Advised pt to ask CM if any further question/concerns/needs arise, voices understanding. Pt Goal:?Home. No needs. Plan:?TBD.
[2022-08-11 12:59] LABS: Phosphorus 3.9 mg/dL (2.5-4.9)
[2022-08-11] MEDS: Senna/Docusate Sodium 1 Tablet 2 TABLET PO (13:00)
[2022-08-11] MEDS: Potassium Chloride Oral Tablet 20 MEQ 40 MEQ PO (13:00)
[2022-08-11] MEDS: Ondansetron 4 MG/2 ML Vial IV (13:02)
[2022-08-11] MEDS: hydrALAZINE 25 MG Tablet PO ×2 (13:04→21:09)
--- NOTE | 2022-08-11 13:12 | CHAPLAIN ---
Type of Pastoral Visit ___ Initial Visit _x__ Follow-up Visit ___ On-call Visit ___ General Patient Visit ___ Spiritual Assessment ___ Family Conference ___ Bereavement ___ Rapid Response ___ Code Blue ___ Other (describe below) Pastoral Care Referral From _x__ Patient ___ Family ___ Nurse ___ Physician ___ Route Driver ___ Steel Erecting Pusher ___ Other (describe below) Sacrament/Intervention _x__ Active listening ___ Anointing ___ Tenriism ___ Bereavement ___ Communion ___ Dee Dee exploration ___ ___ Life review _x__ Prayer ___ Reconciliation ___ Sacrament of Sick ___ Supportive presence ___ Wedding ___ Other (describe below) Pastoral Comments patient mentioned that she was feeling dizzy; reported this statement to RN; reminded pt to ask for help when she needed it; mostly casual conversation and prayer
--- NOTE | 2022-08-11 14:30 | CASEMGMT ---
ANGELA Note SW met with patient to review Advanced Directives. Patient said that she wants to do advanced directives but not today. Patient said that she wants her sister to be her HCPOA but does not know her sister's address and contact information. SW explained that patient will need to get address and phone number for completing advanced directives. Patient said that she may be able to complete Advanced Directives on Wednesday as she is going home on . SW left advanced directives with patient for her review. ANGELA to update in daily update for ANGELA/DUNG DUBON
--- NOTE | 2022-08-11 15:36 | CON.PCM.RE_ITS ---
Documented by User: DELORIS Sawyer 08/11/22 15:49 Assessment & Plan Assessment/Plan (1) Hypertensive emergency: (2) Elevated troponin: PLAN: Plan Consulted for uncontrolled HTN. Blood pressures have improved and patient is now off nitro drip. Patient is known to our service from hospital consult in February 2022 for hypertensive emergency and FRANSISCO. Baseline creatinine around 1 mg/dL. Renal function is at baseline and stable. During last hospitalization patient did have renal artery duplex which showed right kidney size 10.36 cm, left kidney 7.71 cm, and greater than 60% stenosis in right and left proximal renal arteries. Patient has since seen vascular and decided no intervention at this time. Renin and aldosterone levels were ordered in February, will follow up on results.? TSH normal at 0.38.? Echo from November 2021 showed normal LV size, left ventricular systolic function is normal, EF 65%, evidence of diastolic dysfunction. Patient's renal function is stable, tolerating losartan 50 mg twice daily. Will change losartan to 100 mg daily and amlodipine 10 mg daily and continue following blood pressure trends. Sodium is 130, will avoid thiazide diuretic for now. May add Aldactone. Further orders forthcoming as hospitalization evolves. HPI Consult Data Date of Consult: 08/11/22 HPI Narrative HPI Narrative: ANIYA AGUILAR, is a 87 F with past medical history significant for proximal A. fib, hypertension who presented to the emergency room August 10 with complaints of shortness of breath. In the emergency room she was noted to have elevated troponin, also noted to be significantly hypertensive with systolic blood pressure 250s. She was admitted to ICU on nitro and heparin drips. We were consulted for history of uncontrolled hypertension and CKD. Patient is known to our group from consultation in hospital in February 2022 for uncontrolled hypertension and FRANSISCO. In February patient's creatinine was around 1 to 1.2 mg/dL. Today creatinine is 1.01 mg/dL. Patient denies any complaints including chest pain or shortness of breath. [facility] Medical History Atherosclerotic heart disease of [place] coronary artery without angina pectoris Cardiac murmur Edema Essential hypertension Hypertensive emergency Nausea Paroxysmal atrial fibrillation Presence of stent in coronary artery (~11/05/09) Pure hypercholesterolemia Stage 3b chronic kidney disease (CKD) Home Medications montelukast 10 mg tablet 10 mg PO QDAY allergies 09/08/17 [History Last Taken 03/08/22] omeprazole 20 mg capsule,delayed release 20 mg PO DAILY reflux 09/08/17 [History Last Taken 03/09/22] simvastatin 10 mg tablet 10 mg PO QDAY cholesterol 09/08/17 [History Last Taken 03/08/22] potassium chloride 20 mEq tablet,extended release 20 meq PO QDAY supplement 09/13/17 [History Last Taken 03/09/22] albuterol sulfate 2.5 mg/3 mL (0.083 %) solution for nebulization 2.5 mg inh alation Q4H PRN Shortness Of Breath 06/13/18 [History Last Taken 03/09/22] ipratropium bromide 0.02 % solution for inhalation 2.5 ml inhalation Q4H PRN Shortness Of Breath 06/13/18 [History Last Taken 03/09/22] nitroglycerin 0.4 mg sublingual tablet 0.4 mg sublingual Q5-15M PRN chest pain 06/13/18 [History Last Taken Unknown] metoprolol succinate 100 mg tablet,extended release 24 hr 100 mg PO BID blood pressure 11/28/19 [History Last Taken 03/09/22] isosorbide dinitrate 30 mg tablet 30 mg PO BID heart 12/14/19 [History Last Taken 03/09/22] losartan 50 mg tablet 50 mg PO BID #180 tabs 01/30/20 [Rx Last Taken 03/09/22] fluticasone propionate 50 mcg/actuation nasal spray,suspension 1 spray NASAL DAILY allergies 11/28/20 [History Last Taken 03/09/22] ascorbic acid (vitamin C) 500 mg tablet (Vitamin C) 500 mg PO DAILY supplement 03/09/22 [History Last Taken 03/09/22] ferrous sulfate 325 mg (65 mg iron) tablet 325 mg PO BID supplement 03/09/22 [History Last Taken 03/09/22] amlodipine 2.5 mg tablet 2.5 mg PO BID 05/12/22 [History Last Taken Unknown] lactulose 10 gram/15 mL oral solution 30 g PO Q OTHER DAY ammonia 05/12/22 [History Last Taken Unknown] citalopram 20 mg tablet 20 mg PO DAILY 08/10/22 [History Last Taken Unknown] clonidine HCl 0.2 mg tablet 0.1 mg PO TID 08/10/22 [History Last Taken Unknown] hydrochlorothiazide 25 mg tablet 25 mg PO DAILY blood pressure 08/10/22 [History Last Taken Unknown] hydrocodone-acetaminophen 5-325mg 5mg-325mg 1 tab PO BID 08/10/22 [History Last Taken Unknown] Allergy/AdvReac Type Severity Reaction Status Date / Time aspirin AdvReac Severe Swelling Verified 08/10/22 02:27 clarithromycin [From Biaxin] AdvReac Unknown Verified 08/10/22 02:27 codeine AdvReac Unknown Verified 08/10/22 02:27 morphine AdvReac Unknown Verified 08/10/22 02:27 Penicillins AdvReac Unknown Verified 08/10/22 02:27 Sulfa (Sulfonamide AdvReac Unknown Verified 08/10/22 02:27 Antibiotics) Family History Mother Myocardial infarction CVA (cerebral vascular accident) CAD (coronary artery disease) Father Myocardial infarction CAD (coronary artery disease) Brother History of PTCA Hx of CABG Sister Hx of CABG Surgical History H/O arthroscopy of left knee H/O oophorectomy History of appendectomy History of coronary artery stent placement (11/05/09) History of hernia repair History of partial hysterectomy History of right inguinal hernia repair Presence of coronary angioplasty implant and graft (~11/05/09) Social History Smoking Status: Never smoker alcohol intake: never substance use type: does not use caffeine: Yes Type: carbonated beverages what type of physical activity do you participate in: none seatbelt use: always do you feel safe at home: Yes ROS ROS Narrative As in HPI and past medical history Physical Exam Narrative Alert and oriented, no apparent distress S1, S2, RRR Lung sounds clear anteriorly Abdomen soft, nontender No edema Lab / Micro Data Result Diagrams: 08/11/22 04:40 08/11/22 04:40 Labs: Laboratory Results - last 24 hr 08/11/22 04:40: WBC 10.7, RBC 3.23 L, Hgb 10.2 L, Hct 30.1 L, MCV 93.2, MCH 31.6, MCHC 33.9, RDW Std Deviation 42.7, RDW Coeff of [place] 12.4, Plt Count 265, MPV 10.1, Immature Gran % (Auto) 0.400, Neut % (Auto) 70.1 H, Lymph % (Auto) 19.0, Park % (Auto) 10.2 H, Eos % (Auto) 0.1, Baso % (Auto) 0.2, Absolute Neuts (auto) 7.5, Absolute Lymphs (auto) 2.02, Nucleated RBC % 0 08/11/22 04:40: Sodium 130 L, Potassium 3.1 L, Chloride 90 L, Carbon Dioxide 31.0, Anion Gap 9, BUN 16, Creatinine 1.01, Estim Creat Clear Calc 28.72, Est GFR (MDRD) Af Amer 67, Est GFR (MDRD) Non-Af 55 L, BUN/Creatinine Ratio 15.8, Glucose 158 H, Calcium 8.8 08/11/22 04:40: Phosphorus 3.9 Rhythm Strip Rhythm Strip: Sinus Rhythm Documented by User: Dr. Cristian Pierre MD 08/11/22 18:26 Assessment & Plan Assessment/Plan (1) Hypertensive emergency: (2) Elevated troponin: PLAN: Plan Consulted for uncontrolled HTN. Blood pressures have improved and patient is now off nitro drip. Patient is known to our service from hospital consult in February 2022 for hypertensive emergency and FRANSISCO. Baseline creatinine around 1 mg/dL. Renal function is at baseline and stable. During last hospitalization p atient did have renal artery duplex which showed right kidney size 10.36 cm, left kidney 7.71 cm, and greater than 60% stenosis in right and left proximal renal arteries. Patient has since seen vascular and decided no intervention at this time. Renin and aldosterone levels were ordered in February, will follow up on results.? TSH normal at 0.38.? Echo from November 2021 showed normal LV size, left ventricular systolic function is normal, EF 65%, evidence of diastolic dysfunction. Patient's renal function is stable, tolerating losartan 50 mg twice daily. Will change losartan to 100 mg daily and amlodipine 10 mg daily and continue following blood pressure trends. Sodium is 130, will avoid thiazid e diuretic for now. May add Aldactone. Further orders forthcoming as hospitalization evolves. Attending addendum kerline WELCH. agree with above HTN. uncontrolled renal US was ? positive although not impressive RARI saw vascular surgery, declined intervention might be worthwhile to revisit. med changes as per orders will add aldactone once off IV lasix HPI Consult Data Date of Consult: 08/11/22 [facility] Medical History Atherosclerotic heart disease of [place] coronary artery without angina pectoris Cardiac murmur Edema Essential hypertension Hypertensive emergency Nausea Paroxysmal atrial fibrillation Presence of stent in coronary artery (~11/05/09) Pure hypercholesterolemia Stage 3b chronic kidney disease (CKD) Home Medications montelukast 10 mg tablet 10 mg PO QDAY allergies 09/08/17 [History Last Taken 03/08/22] omeprazole 20 mg capsule,delayed release 20 mg PO DAILY reflux 09/08/17 [History Last Taken 03/09/22] simvastatin 10 mg tablet 10 mg PO QDAY cholesterol 09/08/17 [History Last Taken 03/08/22] potassium chloride 20 mEq tablet,extended release 20 meq PO QDAY supplement 09/13/17 [History Last Taken 03/09/22] albuterol sulfate 2.5 mg/3 mL (0.083 %) solution for nebulization 2.5 mg inhalation Q4H PRN Shortness Of Breath 06/13/18 [History Last Taken 03/09/22] ipratropium bromide 0.02 % solution for inhalation 2.5 ml inhalation Q4H PRN Shortness Of Breath 06/13/18 [History Last Taken 03/09/22] nitroglycerin 0.4 mg sublingual tablet 0.4 mg sublingual Q5-15M PRN chest pain 06/13/18 [History Last Taken Unknown] metoprolol succinate 100 mg tablet,extended release 24 hr 100 mg PO BID blood pressure 11/28/19 [History Last Taken 03/09/22] isosorbide dinitrate 30 mg tablet 30 mg PO BID heart 12/14/19 [History Last Taken 03/09/22] losartan 50 mg tablet 50 mg PO BID #180 tabs 01/30/20 [Rx Last Taken 03/09/22] fluticasone propionate 50 mcg/actuation nasal spray,suspension 1 spray NASAL DAILY allergies 11/28/20 [History Last Taken 03/09/22] ascorbic acid (vitamin C) 500 mg tablet (Vitamin C) 500 mg PO DAILY supplement 03/09/22 [History Last Taken 03/09/22] ferrous sulfate 325 mg (65 mg iron) tablet 325 mg PO BID supplement 03/09/22 [History Last Taken 03/09/22] amlodipine 2.5 mg tablet 2.5 mg PO BID 05/12/22 [History Last Taken Unknown] lactulose 10 gram/15 mL oral solution 30 g PO Q OTHER DAY ammonia 05/12/22 [History Last Taken Unknown] citalopram 20 mg tablet 20 mg PO DAILY 08/10/22 [History Last Taken Unknown] clonidine HCl 0.2 mg tablet 0.1 mg PO TID 08/10/22 [History Last Taken Unknown] hydrochlorothiazide 25 mg tablet 25 mg PO DAILY blood pressure 08/10/22 [History Last Taken Unknown] hydrocodone-acetaminophen 5-325mg 5mg-325mg 1 tab PO BID 08/10/22 [History Last Taken Unknown] Allergy/AdvReac Type Severity Reaction Status Date / Time aspirin AdvReac Severe Swelling Verified 08/10/22 02:27 clarithromycin [From Biaxin] AdvReac Unknown Verified 08/10/22 02:27 codeine AdvReac Unknown Verified 08/10/22 02:27 morphine AdvReac Unknown Verified 08/10/22 02:27 Penicillins AdvReac Unknown Verified 08/10/22 02:27 Sulfa (Sulfonamide AdvReac Unknown Verified 08/10/22 02:27 Antibiotics) Family History Mother Myocardial infarction CVA (cerebral vascular accident) CAD (coronary artery disease) Father Myocardial infarction CAD (coronary artery disease) Brother History of PTCA Hx of CABG Sister Hx of CABG Surgical History H/O arthroscopy of left knee H/O oophorectomy History of appendectomy History of coronary artery stent placement (11/05/09) History of hernia repair History of partial hysterectomy History of right inguinal hernia repair Presence of coronary angioplasty implant and graft (~11/05/09) Social History Smoking Status: Never smoker alcohol intake: never substance use type: does not use caffeine: Yes Type: carbonated beverages what type of physical activity do you participate in: none seatbelt use: always do you feel safe at home: Yes Lab / Micro Data Result Diagrams: 08/11/22 04:40 08/11/22 04:40
[2022-08-11] MEDS: MELATONIN 3 MG TABLET PO (21:09)
[2022-08-11] MEDS: Atorvastatin Calcium 10 MG Tablet 5 MG PO (21:11)
--- NOTE | 2022-08-11 23:05 | CPS ---
Pt Refused BIPAP
[2022-08-12] VITALS (27 sets, daily range): BP systolic 137–191; BP diastolic 40–88; PULSE 57–100; RESP 10–21; TEMP 36.6–37; O2SAT 92–100
[2022-08-12 04:28] LABS: ALB/GLOB Ratio 0.9 RATIO (0.9-2.4); AST(SGOT) 22 U/L (15-37); Alanine Aminotransfer ALT/SGPT 24 U/L (13-56); Albumin, Serum 3.3 g/dL (3.2-5.0); Alkaline Phosphatase 93 U/L (45-117); Anion Gap 7 (5-15); BUN 20 mg/dL (7-18); BUN/Creat Ratio 16.7 RATIO (10-20); Calcium,Total 8.8 mg/dL (8.5-10.1); Chloride 90 mmol/L (98-107); EST Glomerular Filtration Rate 45 mL/min (>60); Est Glom Filt Rate - Afr Amer 55 mL/min (>60); Estimated Creatinine Clearance 24.17 ml/min; Globulin 3.8 g/dL (2.2-4.2); Glucose 124 mg/dL (74-106); Potassium 3.4 mmol/L (3.5-5.1); Protein, Total 7.1 g/dL (6.4-8.2); Sodium Level 131 mmol/L (136-145)
[2022-08-12] MEDS: cloNIDine HCl 0.1 MG Tablet PO (05:42)
[2022-08-12] MEDS: hydrALAZINE 25 MG Tablet PO (05:42)
--- NOTE | 2022-08-12 08:33 | PCM.PN.HOSP ---
Subjective Subjective Follow-up for hypertensive emergency, sinus pause and bradycardia. Objective Data Objective Data Vital Signs: Vital Signs Temp Pulse Resp BP Pulse Ox O2 Del Method O2 Flow Rate 98.1 F 63 18 151/62 H 97 Nasal Cannula 3 08/12/22 04:00 08/12/22 07:00 08/12/22 07:00 08/12/22 07:00 08/12/22 07:00 08/12/22 07:00 08/12/22 07:00 FiO2 3 08/11/22 14:00 Oxygen Flow Rate (L/min) 3 Oxygen Delivery Method Nasal Cannula Weight: 133 lb 2.547 oz Body Mass Index (BMI) 26.7 Intake & Output: Intake and Output for Last 24 Hours 08/10/22 08/11/22 08/12/22 23:59 23:59 23:59 Intake Total 606.50 / 623.75 835.60 / 835.60 Output Total 1000 / 1650 2600 / 3700 1350 / 1350 Balance -393.50 / -1026.25 -1764.40 / -2864.40 -1350 / -1350 Lab / Micro Data Result Diagrams: 08/11/22 04:40 08/12/22 04:05 Labs: Laboratory Results - last 24 hr 08/11/22 04:40: Phosphorus 3.9 08/12/22 04:05: Sodium 131 L, Potassium 3.4 L, Chloride 90 L, Carbon Dioxide 34.0 H, Anion Gap 7, BUN 20 H, Creatinine 1.20 H, Estim Creat Clear Calc 24.17, Est GFR (MDRD) Af Amer 55 L, Est GFR (MDRD) Non-Af 45 L, BUN/Creatinine Ratio 16.7, Glucose 124 H, Calcium 8.8, Total Bilirubin 0.60, AST 22, ALT 24, Alkaline Phosphatase 93, Total Protein 7.1, Albumin 3.3, Globulin 3.8, Albumin/Globulin Ratio 0.9 Micro: Microbiology 08/09/22 23:45 Nasal Secretion SARS-CoV-2 & FLU Antigen (Rapid) - Final Rhythm Strip Rhythm Strip: Sinus Rhythm Physical Exam Narrative Seen and examined. Cardiac telemetry reviewed and patient had sinus pauses about 3 times last night between 3 to 4-second. Bradycardia around 62 bpm, atrial flutter/A. fib. Discussed with the burrer machine. Physical exam General: Shortness of breath better. Patient is oriented to time and place. Denies shortness of breath acute HEENT: Atraumatic, PERRLA, EOMI, Normocephalic Oral: Oral mucosa moist. Neck: Supple, No JVD, Negative Carotid Bruits Lungs: Air entry diminished in bilateral lung bases. No crepitations. Cardiovascular: Atrial flutter, Normal S1, Normal S2, systolic murmur present LLSB Abdomen: Bowel Sounds Present, Soft, Non Tender, Non-Distended : Ko catheter clear urine no renal angle tenderness. No suprapubic tenderness. 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 No Tenderness to Palpation of Joints or Extremities Neurological: No focal deficit. On baseline mental function, no acute neurological deficit Psych/Mental Status: Flat affect Assessment & Plan Assessment/Plan (1) Hypertensive emergency: PLAN: Plan This is a 87-year-old female with multiple comorbidities was admitted through ED for worsening shortness of breath for about 1 day on the day of admission along with occasional productive cough with yellow sputum. No fever. CTPA was done which shows pulmonary edema and bilateral chronic pleural effusion. No PE. Patient was admitted in ICU with hypertensive emergency Hypertensive emergency along with features of organ dysfunction (pulmonary edema,NSTEMI) : In ED, patient had SBP 257/89. ? Received hydralazine and labetalol in the emergency department.? Emergent department doctor discussed the case with burrer machine who recommended labetalol and if blood pressure not controlled? Nitroglycerin drip 08/10: BP profile better in ICU but is still elevated 08/11: Blood pressure has been high and fluctuating yesterday. Patient is started on hydralazine oral 25 mg 3 times daily, already on losartan 50 mg twice daily, clonidine 0.1 mg 3 times daily, amlodipine 5 mg twice daily. 08/12: Blood pressure is better controlled systolic 150s. Patient put back on hydralazine 12.5 mg daily, hydralazine increased to 50 mg 3 times daily. Nephrology adjusted losartan 200 mg daily and amlodipine 10 mg daily. Atrial flutter/fibrillation with sinus pauses with bradycardia: Clonidine decreased to 0.1 mg twice daily. Metoprolol succinate was decreased to 50 mg twice daily. Started on a spironolactone 25 mg daily and Eliquis 2.5 mg twice daily. In the past patient had refused anticoagulant. Acute hypoxic respiratory failure due to acute Exacerbation of heart failure with preserved ejection fraction: Patient on BiPAP 40% FiO2. Titrate as per protocol. 08/12: Shortness of breath is better. Off BiPAP. Echocardiogram on 12/04/2021 showed estimated ejection fraction of 55%.? Evidence of diastolic dysfunction. Twelve-lead EKG shows sinus bradycardia 50 bpm, at first-degree AV block heart failure core measures including intake and output, fluid restriction less than 1500 mL, daily weight monitoring, kidney and electrolytes monitoring BNP of 505.1.? Her BNP on 03/09/2022 was 157.8 and 12/03/21 was 174. Diuresis with Lasix 40 mg IV twice daily.? Sodium was mildly low at 133. 08/11: 2D echo shows EF 65% with mild eccentric MR and AI. Stage II diastolic dysfunction. Compared to last echo no significant change in systolic function. NSTEMI, unclear whether due to primary RI event or RI type II with increased demand from pulmonary edema and heart failure: Initial high sensitive troponin was 148. Repeat was 156.? Heparin drip continued.? Started on Plavix. Patient is allergic to aspirin. Cardiology consult. Hyponatremia Sodium presentation was 133.? Review of records in the past patient has had some valleys of mild hyponatremia.? Trend. 08/12 sodium is 131, potassium 3.4. CKD stage IV Stable. DVT prophylaxis Total time of the visit including total time spent in counseling or coordination of care, (more than 50% of the total time, spent in obtaining medical information from nurses and other ancillary care providers,explaining to the patient about labs, imaging, diagnosis and management of active complex medical conditions), management of multiple organ dysfunction, burrer machine , review of labs and imaging is 40 minutes. Charges/Coding Visit Charges Inpatient E&M: 05865 [facility] Hosp L3
[2022-08-12] MEDS: hydrALAZINE 50 MG Tablet PO ×2 (09:12→21:10)
[2022-08-12] MEDS: Spironolactone 25 MG Tablet PO (09:13)
[2022-08-12] MEDS: APIXABAN 2.5 MG TABLET (WCH) PO ×2 (09:14→21:10)
[2022-08-12] MEDS: hydroCHLOROthiazide 12.5mg 12.5 MG PO (09:14)
[2022-08-12] MEDS: Ascorbic Acid 500 MG Tablet PO (09:14)
[2022-08-12] MEDS: Furosemide 40 MG/4 ML Vial IV ×2 (09:15→17:46)
[2022-08-12] MEDS: Citalopram 20 MG Tablet PO (09:15)
[2022-08-12] MEDS: Losartan Potassium 100 MG Tablet PO (09:17)
[2022-08-12] MEDS: amLODIPine 10 MG Tablet PO (09:17)
[2022-08-12] MEDS: HYDROcodone Bitartrate/Apap 5/325 Tablet PO ×2 (09:20→21:10)
[2022-08-12] MEDS: 0.9% Saline Lock 10 ML Syringe IV ×2 (09:21→17:46)
[2022-08-12 09:37] LABS: Magnesium 1.7 mg/dL (1.6-2.6)
--- NOTE | 2022-08-12 09:49 | PN.CARD_ITS ---
Subjective Subjective The patient appears to be awake and alert. She states she is feeling better overall. She has no new acute cardiac complaints this day. Objective Data Vital Signs: Vital Signs Temp Pulse Resp BP Pulse Ox O2 Del Method O2 Flow Rate 98.1 F 100 18 173/59 H 97 Nasal Cannula 3 08/12/22 04:00 08/12/22 09:12 08/12/22 07:00 08/12/22 09:12 08/12/22 07:00 08/12/22 07:00 08/12/22 07:00 FiO2 3 08/11/22 14:00 Oxygen Flow Rate (L/min) 3 Oxygen Delivery Method Nasal Cannula Weight: 133 lb 2.547 oz Body Mass Index (BMI) 26.7 Intake & Output: Intake and Output for Last 24 Hours 08/10/22 08/11/22 08/12/22 23:59 23:59 23:59 Intake Total 606.50 / 623.75 835.60 / 835.60 Output Total 1000 / 1650 2600 / 3700 1350 / 1350 Balance -393.50 / -1026.25 -1764.40 / -2864.40 -1350 / -1350 Lab / Micro Data Result Diagrams: 08/11/22 04:40 08/12/22 04:05 Labs: Laboratory Results - last 24 hr 08/11/22 04:40: Phosphorus 3.9 08/12/22 04:05: Sodium 131 L, Potassium 3.4 L, Chloride 90 L, Carbon Dioxide 34.0 H, Anion Gap 7, BUN 20 H, Creatinine 1.20 H, Estim Creat Clear Calc 24.17, Est GFR (MDRD) Af Amer 55 L, Est GFR (MDRD) Non-Af 45 L, BUN/Creatinine Ratio 16.7, Glucose 124 H, Calcium 8.8, Total Bilirubin 0.60, AST 22, ALT 24, Alkaline Phosphatase 93, Total Protein 7.1, Albumin 3.3, Globulin 3.8, Albumin/Globulin Ratio 0.9 08/12/22 04:05: Magnesium 1.7 Rhythm Strip Rhythm Strip: Sinus Rhythm Cardiology Labs/Tests 08/11/22 04:40: Phosphorus 3.9 08/12/22 04:05: Sodium 131 L, Potassium 3.4 L, Chloride 90 L, Carbon Dioxide 34.0 H, Anion Gap 7, BUN 20 H, Creatinine 1.20 H, Est GFR (MDRD) Af Amer 55 L, Est GFR (MDRD) Non-Af 45 L, BUN/Creatinine Ratio 16.7, Glucose 124 H, Calcium 8.8, Total Bilirubin 0.60 08/12/22 04:05: Magnesium 1.7 Rhythm: Atrial fibrillation with variable ventricular response with intermittent prolonged RR intervals (less than 5 seconds) Physical Exam Const alert, oriented x3 and no apparent distress Orientation / Consciousness: awake HEENT normocephalic, head/scalp atraumatic and hearing grossly normal bilaterally Eyes PERRL, EOMs intact bilaterally, conjunctivae normal and no scleral icterus Neck full ROM, supple and no JVD Resp normal respiratory effort and clear to auscultation bilaterally Cardio Rhythm: abnormal rhythm irregularly irregular Heart Sounds: S1 normal and S2 normal GI normal to inspection, nondistended, normoactive bowel sounds Extremity General Extremity: edema bilateral lower extremity Details: mild Skin no rashes or lesions noted Assessment & Plan Assessment/Plan (1) Hypertensive emergency: PLAN: The patient's blood pressure remains elevated-although somewhat improved this day. Her medications have been adjusted. She is currently without IV nitroglycerin. (2) Heart failure: PLAN: The patient appears improved with respect to her CHF symptoms. She has undergone additional evaluation with an echocardiogram. The results are noted. She will continue medical therapy. (3) Elevated troponin: PLAN: The patient has chronically elevated cardiac enzymes. This may be secondary to her her hypertension and CHF - a Type II event. At the present time she will continue medical therapy. (4) Atherosclerotic heart disease of [place] coronary artery without angina pectoris: QUALIFIERS: [place] vs. transplanted heart: [place] heart Qualified Code(s): I25.10 - Atherosclerotic heart disease of [place] coronary artery without angina pectoris PLAN: The patient has a history of CAD. At the moment she is without obvious acute coronary symptoms. She will continue medical therapy. (5) Presence of stent in coronary artery: PLAN: The patients's PCI history was reveiwed. At the present time she will continue medical therapy. (6) Paroxysmal atrial fibrillation: PLAN: The patient has demonstrated PAF during her hospitalization. She will continue rate control therapy. However, based upon her prolonged RR intervals (less than 5 seconds) her beta-melanie dose will be decreased and her Catapres/clonidine dose will be decreased. She has declined roasterman oral anticoagulant therapy in the past. However, at the present time she may now be willing to accept anticoagulation therapy. (7) Pure hypercholesterolemia: PLAN: She will continue medical therapy. (8) Renal artery stenosis: PLAN: She does carry a diagnosis of [place]. The nephrology consultation is most appreciated with respect to additional evaluation and care of her hypertension. Addt'l Comments The patient's case was discussed and reviewed with Dr. Gonzalez. This note was generated using a voice recognition system and there may be incorrect words, spelling or punctuation that were not noted when reviewing the office note prior to saving. Procedure Criteria Type of Procedure Procedure Type: Elective Elective Risks - COVID COVID Risk Discussion: The surgeon/proceduralist and patient have discussed in detail the risk of exposure to and/or potential harm posed by the COVID-19 virus with having a surgery/procedure at this time versus the risk of delaying the surgery/procedure . It is not possible to know either the risk of delaying the surgery or procedure or chance of getting an infection with perfect accuracy, but a joint decision was made between the patient and the surgeon/proceduralist to proceed at this time with the scheduled surgery/procedure as indicated on the consent form.
--- NOTE | 2022-08-12 11:59 | EKG12_ITS ---
Test Reason : CONVERTED Blood Pressure : / mmHG Vent. Rate : 059 BPM Atrial Rate : 059 BPM P-R Int : 198 ms QRS Dur : 090 ms QT Int : 454 ms P-R-T Axes : 081 -34 073 degrees QTc Int : 449 ms Sinus bradycardia Left axis deviation Abnormal ECG Confirmed by JORGE SALAZAR, GUILLERMO ([id number]), copy editor BARTOLO STAPLES ([id number]) on 08/14/2022 7:51:24 AM Referred By: Sunny PATEL Confirmed By:GUILLERMO PATEL MD
--- NOTE | 2022-08-12 12:28 | ADDICTION ---
pt converted to sr hr 62 ekg completed et sent to Dr Mroa, will continue plan of care
--- NOTE | 2022-08-12 13:30 | PN.RENAL_ITS ---
Documented by User: DELORIS Sawyer 08/12/22 13:55 Subjective Subjective Resting quietly. No overnight events. Objective Data Objective Data Vital Signs: Vital Signs Temp Pulse Resp BP Pulse Ox O2 Del Method O2 Flow Rate 97.9 F 61 14 150/57 H 98 Nasal Cannula 3 08/12/22 12:00 08/12/22 12:00 08/12/22 12:00 08/12/22 12:00 08/12/22 12:00 08/12/22 12:00 08/12/22 12:00 FiO2 99 08/12/22 08:00 Oxygen Flow Rate (L/min) 3 Oxygen Delivery Method Nasal Cannula Weight: 60.4 kg Body Mass Index (BMI) 26.7 Intake & Output: Intake and Output for Last 24 Hours 08/10/22 08/11/22 08/12/22 23:59 23:59 23:59 Intake Total 606.50 / 623.75 835.60 / 835.60 300 / 300 Output Total 1000 / 1650 2600 / 3700 1700 / 1700 Balance -393.50 / -1026.25 -1764.40 / -2864.40 -1400 / -1400 Lab / Micro Data Result Diagrams: 08/11/22 04:40 08/12/22 04:05 Labs: Laboratory Results - last 24 hr 08/12/22 04:05: Sodium 131 L, Potassium 3.4 L, Chloride 90 L, Carbon Dioxide 34.0 H, Anion Gap 7, BUN 20 H, Creatinine 1.20 H, Estim Creat Clear Calc 24.17, Est GFR (MDRD) Af Amer 55 L, Est GFR (MDRD) Non-Af 45 L, BUN/Creatinine Ratio 16.7, Glucose 124 H, Calcium 8.8, Total Bilirubin 0.60, AST 22, ALT 24, Alkaline Phosphatase 93, Total Protein 7.1, Albumin 3.3, Globulin 3.8, Albumin/Globulin Ratio 0.9 08/12/22 04:05: Magnesium 1.7 Micro: Microbiology 08/09/22 23:45 Nasal Secretion SARS-CoV-2 & FLU Antigen (Rapid) - Final Rhythm Strip Rhythm Strip: Sinus Rhythm Physical Exam Narrative Alert and oriented, no apparent distress S1, S2, RRR Lung sounds clear anteriorly Abdomen soft, nontender No edema Assessment & Plan Assessment/Plan (1) Hypertensive emergency: (2) Elevated troponin: PLAN: Plan -Bps improving. Currently on furosemide 40 mg IV twice daily, Norvasc 10 mg daily, losartan 100 mg daily, Toprol-XL 50 mg twice daily, clonidine 0.1 mg twice daily. Hydralazine 50mg bid, Aldactone and hydrochlorothiazide added today. Sodium 131. - Baseline creatinine around 1 mg/dL. Creatinine is 1.2 mg/dL today, likely from hemodynamics. Good urine output. - renal artery duplex which showed right kidney size 10.36 cm, left kidney 7.71 cm, and greater than 60% stenosis in right and left proximal renal arteries. Patient saw vascular and decided no intervention. Aldosterone normal at 1.7, Renin normal at 0.567 both drawn in February 2020.? TSH normal at 0.38.? Echo from November 2021 showed normal LV size, left ventricular systolic function is normal, EF 65%, evidence of diastolic dysfunction. - discussed with patient given recurrent uncontrolled hypertension requiring many antihypertensives, renal duplex small left kidney with >60% stenosis she may want to revisit renal artery stenting. Documented by User: Dr. Cristian Pierre MD 08/12/22 15:08 Objective Data Lab / Micro Data Result Diagrams: 08/11/22 04:40 08/12/22 04:05 Assessment & Plan Assessment/Plan (1) Hypertensive emergency: (2) Elevated troponin: PLAN: Plan -Bps improving. Currently on furosemide 40 mg IV twice daily, Norvasc 10 mg da alona, losartan 100 mg daily, Toprol-XL 50 mg twice daily, clonidine 0.1 mg twice daily. Hydralazine 50mg bid, Aldactone and hydrochlorothiazide added today. Sodium 131. - Baseline creatinine around 1 mg/dL. Creatinine is 1.2 mg/dL today, likely from hemodynamics. Good urine output. - renal artery duplex which showed right kidney size 10.36 cm, left kidney 7.71 cm, and greater than 60% stenosis in right and left proximal renal arteries. Patient saw vascular and decided no intervention. Aldosterone normal at 1.7, Renin normal at 0.567 both drawn in February 2020.? TSH normal at 0.38.? Echo from November 2021 showed normal LV size, left ventricular systolic function is normal, EF 65%, evidence of diastolic dysfunction. - discussed with patient given recurrent uncontrolled hypertension requiring many antihypertensives, renal duplex small left kidney with >60% stenosis she may want to revisit renal artery stenting. Attending addendum Patient was seen and examined independently. She remains somewhat short of breath, saturating okay on nasal cannula. Urine output has been okay. Creatinine slightly increased to 1.2, likely related to diuresis. Blood pressure remains high. Currently she is on 6 different blood pressure medications in addition to Lasix. Renal Doppler from February showed atrophic left kidney, renal artery stenosis on the right. She does have uncontrolled hypertension, what looks like flash pulmonary edema and resistant hypertension. She does not meet criteria for renal artery stenting, more important since she has atrophic left kidney on imaging. She has seen Dr. August in the past, at that time declined renal artery stenting. I explained to her that given her current clinical situation, she might be better off getting renal artery stenting if she is still a candidate. She asked me to call her . I did call and speak to Mr. White and he is agreeable and he says he will talk to his . We will place consult for vasc ular surgery. Discussed with hospitalist
[2022-08-12] MEDS: Clopidogrel Bisulfate 75 MG Tablet PO (15:54)
[2022-08-12] MEDS: Acetaminophen 325 MG Tablet 650 MG PO (15:58)
--- NOTE | 2022-08-12 16:01 | CHAPLAIN ---
Type of Pastoral Visit ___ Initial Visit _x__ Follow-up Visit ___ On-call Visit ___ General Patient Visit ___ Spiritual Assessment ___ Family Conference ___ Bereavement ___ Rapid Response ___ Code Blue ___ Other (describe below) Pastoral Care Referral From _x__ Patient _x__ Family ___ Nurse ___ Physician ___ Healthcare Or Medical ___ Apple Peeler Operator ___ Other (describe below) Sacrament/Intervention _x__ Active listening ___ Anointing ___ Pentecostalism ___ Bereavement ___ Communion ___ Dee Dee exploration ___ ___ Life review _x__ Prayer ___ Reconciliation ___ Sacrament of Sick ___ Supportive presence ___ Wedding ___ Other (describe below) Pastoral Comments
--- NOTE | 2022-08-12 17:47 | CON.PCM.SX_ITS ---
Assessment & Plan Assessment/Plan (1) Renal artery stenosis: PLAN: Consulted for evaluation for renal artery stenosis. Patient had renal duplex 02/2022 which showed renal artery stenosis by velocity but did not meet criteria with renal artery to aortic ratio. At that time, patient was offered further evaluation with possible intervention and declined. Patient is now agreeable to pursuing renal artery stenting, if appropriate. At this point in setting of resistant hypertension it is reasonable to re- evaluate renal artery stenosis. With renal function overall stable, would like to proceed with CTA to better evaluate and allow for possible surgical planning. No further recommendations at this time, plan will be pending CTA results. HPI Consult Data Date of Consult: 08/12/22 HPI Narrative HPI Narrative: ANIYA AGUILAR, is a 87 F who was admitted to ICU with hypertensive emergency. She presented to ED with dyspnea and was found to have pulmonary edema in addition to significant hypertension with sBP in 250s. She was admitted to ICU on nitro drip. She has a history of hypertension, paroxysmal atrial fibrillation, NSTEMI, renal artery stenosis. She was evaluated by Dr. August in February 2022 for renal artery stenosis following hospital admission for similar presentation to at which time she declined intervention and did not present for further follow-up. Patient's blood pressure has fluctuated throughout admission, overall better than ED presentation and able to wean off nitro drip. However, remains persistently elevated despite regimen of hydralazine, amlodipine, losartan, clonidine, metoprolol, spironolactone, HCTZ, lasix. Her renal function appears overall stable. Today, patient reports she feel okay. She denies chest pain, dyspnea, constitutional symptoms. She complains only of some R knee pain. FORMERLY [facility] Medical History Atherosclerotic heart disease of [place] coronary artery without angina pectoris Cardiac murmur Edema Essential hypertension Hypertensive emergency Nausea Paroxysmal atrial fibrillation Presence of stent in coronary artery (~11/05/09) Pure hypercholesterolemia Stage 3b chronic kidney disease (CKD) Home Medications montelukast 10 mg tablet 10 mg PO QDAY allergies 09/08/17 [History Last Taken 03/08/22] omeprazole 20 mg capsule,delayed release 20 mg PO DAILY reflux 09/08/17 [History Last Taken 03/09/22] simvastatin 10 mg tablet 10 mg PO QDAY cholesterol 09/08/17 [History Last Taken 03/08/22] potassium chloride 20 mEq tablet,extended release 20 meq PO QDAY supplement 09/13/17 [History Last Taken 03/09/22] albuterol sulfate 2.5 mg/3 mL (0.083 %) solution for nebulization 2.5 mg inhalation Q4H PRN Shortness Of Breath 06/13/18 [History Last Taken 03/09/22] ipratropium bromide 0.02 % solution for inhalation 2.5 ml inhalation Q4H PRN Shortness Of Breath 06/13/18 [History Last Taken 03/09/22] nitroglycerin 0.4 mg sublingual tablet 0.4 mg sublingual Q5-15M PRN chest pain 1 [History Last Taken Unknown] metoprolol succinate 100 mg tablet,extended release 24 hr 100 mg PO BID blood pressure 11/28/19 [History Last Taken 03/09/22] isosorbide dinitrate 30 mg tablet 30 mg PO BID heart 12/14/19 [History Last Taken 03/09/22] losartan 50 mg tablet 50 mg PO BID #180 tabs 01/30/20 [Rx Last Taken 03/09/22] fluticasone propionate 50 mcg/actuation nasal spray,suspension 1 spray NASAL DAILY allergies 11/28/20 [History Last Taken 03/09/22] ascorbic acid (vitamin C) 500 mg tablet (Vitamin C) 500 mg PO DAILY supplement 03/09/22 [History Last Taken 03/09/22] ferrous sulfate 325 mg (65 mg iron) tablet 325 mg PO BID supplement 03/09/22 [History Last Taken 03/09/22] amlodipine 2.5 mg tablet 2.5 mg PO BID 05/12/22 [History Last Taken Unknown] lactulose 10 gram/15 mL oral solution 30 g PO Q OTHER DAY ammonia 05/12/22 [History Last Taken Unknown] citalopram 20 mg tablet 20 mg PO DAILY 08/10/22 [History Last Taken Unknown] clonidine HCl 0.2 mg tablet 0.1 mg PO TID 08/10/22 [History Last Taken Unknown] hydrochlorothiazide 25 mg tablet 25 mg PO DAILY blood pressure 08/10/22 [History Last Taken Unknown] hydrocodone-acetaminophen 5-325mg 5mg-325mg 1 tab PO BID 08/10/22 [History Last Taken Unknown] Allergy/AdvReac Type Severity Reaction Status Date / Time aspirin AdvReac Severe Swelling Verified 08/10/22 02:27 clarithromycin [From Biaxin] AdvReac Unknown Verified 08/10/22 02:27 codeine AdvReac Unknown Verified 08/10/22 02:27 morphine AdvReac Unknown Verified 08/10/22 02:27 Penicillins AdvReac Unknown Verified 08/10/22 02:27 Sulfa (Sulfonamide AdvReac Unknown Verified 08/10/22 02:27 Antibiotics) Family History Mother Myocardial infarction CVA (cerebral vascular accident) CAD (coronary artery disease) Father Myocardial infarction CAD (coronary artery disease) Brother History of PTCA Hx of CABG Sister Hx of CABG Surgical History H/O arthroscopy of left knee H/O oophorectomy History of appendectomy History of coronary artery stent placement (11/05/09) History of hernia repair History of partial hysterectomy History of right inguinal hernia repair Presence of coronary angioplasty implant and graft (~11/05/09) Social History Smoking Status: Never smoker alcohol intake: never substance use type: does not use caffeine: Yes Type: carbonated beverages what type of physical activity do you participate in: none seatbelt use: always do you feel safe at home: Yes ROS Constitutional Constitutional: Denies body ache(s), chills, fatigue, fever(s), headache(s), weakness, weight gain or weight loss Eyes Eyes: Reports systems reviewed and no addt'l complaints, except as documented ENT HEENT: Reports systems reviewed and no addt'l complaints, except as documented Cardiovascular Cardiovascular: Denies chest pain, claudication, cold extremities, diaphoresis, dyspnea, edema, fatigue, nausea, orthostatic symptoms, palpitations, radiating jaw, neck or arm pain or syncope Respiratory/Chest Respiratory/Chest: Denies chest tightness, cough, dyspnea or hemoptysis Gastrointestinal Gastrointestinal: Denies abdominal pain, change in bowel habits, change in stool character, constipation, diarrhea, heartburn, hematemesis, hematochezia, melena or vomiting Genitourinary Genitourinary: Denies abdominal discomfort, dysuria, flank pain, hematuria, low back pain, oliguria or polyuria Musculoskeletal Musculoskeletal: Reports systems reviewed and no addt'l complaints, except as documented Integumentary Integumentary: Reports systems reviewed and no addt'l complaints, except as documented Neurologic Neurologic: Reports systems reviewed and no addt'l complaints, except as documented Psychiatric Psychiatric: Reports systems reviewed and no addt'l complaints, except as documented Endocrine Endocrinology: Denies cold intolerance, excessive sweating, fatigue, flushing, heat intolerance, palpitations, polydipsia, polyphagia or polyuria Hematologic/Lymphatic Hematologic/Lymphatic: Denies easy bleeding or easy bruising Allergic/Immunologic Allergic/Immunologic: Reports systems reviewed and no addt'l complaints, except as documented Physical Exam Const alert, oriented x3 and no apparent distress HEENT normocephalic, head/scalp atraumatic, hearing grossly normal bilaterally, associate artistic director al ears normal and external nose normal Eyes EOMs intact bilaterally General Eye: normal appearance of both eyes Neck full ROM General: normal visual inspection and trachea midline Resp normal respiratory effort Effort and Inspection: able to speak in complete sentences and symmetric chest movement; Negative for respiratory distress, labored, stridor, uses accessory muscles or audible wheezes Cardio Rhythm: abnormal rhythm irregularly irregular Peripheral Pulses: brachial pulses present and radial pulses present GI normal to inspection, nondistended, normoactive bowel sounds Palpation: soft; Negative for tender Skin no rashes or lesions noted and no wounds Trauma: no lacerations or abrasions Neuro oriented x3, CN's II-XII intact bilaterally, moves all extremities, no focal motor deficits and no sensory deficits noted Psych mental status grossly normal, cooperative, affect normal, speech normal and activity/motor behavior normal Lab / Micro Data Result Diagrams: 08/11/22 04:40 08/12/22 04:05 Labs: Laboratory Results - last 24 hr 08/12/22 04:05: Sodium 131 L, Potassium 3.4 L, Chloride 90 L, Carbon Dioxide 34.0 H, Anion Gap 7, BUN 20 H, Creatinine 1.20 H, Estim Creat Clear Calc 24.17, Est GFR (MDRD) Af Amer 55 L, Est GFR (MDRD) Non-Af 45 L, BUN/Creatinine Ratio 16.7, Glucose 124 H, Calcium 8.8, Total Bilirubin 0.60, AST 22, ALT 24, Alkaline Phosphatase 93, Total Protein 7.1, Albumin 3.3, Globulin 3.8, Albumin/Globulin Ratio 0.9 08/12/22 04:05: Magnesium 1.7 Rhythm Strip Rhythm Strip: Sinus Rhythm Charges/Coding Visit Charges Inpatient E&M: 08208 Init Hosp L1
--- NOTE | 2022-08-12 17:50 | CT_ITS ---
STUDY: CTA OF THE ABDOMINAL AORTA AND BILATERAL LOWER EXTREMITIES REASON FOR EXAM: Female, 87 years old. Renal Artery Stenosis RADIATION DOSAGE (If Supplied By Facility): CTDIvol = ( 16.31 ) mGy, DLP = ( 529.06 ) mGycm TECHNIQUE: Axial CT angiography multi-detector data acquisition was obtained from the lung bases to the iliac crest following intravenous administration of 75ML Isovue 370. Axial images and MIP images were reconstructed from the axial data set. Post-processing of the angiographic images was performed, with multiplanar reformation and 3D reconstruction. Individualized dose optimization techniques were used for this CT. TECHNICAL QUALITY: Good COMPARISON: None. Descriptors of Narrowing: None (0%) Mild (< 50%) Moderate (50-70%) Severe (70-90%) Subtotal/Total Occlusion (90-100%) Non-Evaluable (technically non-diagnostic FINDINGS: Abdominal aorta: Calcified plaque throughout the abdominal aorta with a focal large calcified plaque producing a severe (80%) stenosis of the proximal abdominal aorta near the origin of the celiac axis. No abdominal aortic aneurysm. Celiac and superior mesenteric arteries: Calcified plaque in the origin the celiac axis produces a mild (50%) stenosis. Calcified plaque in the origin the superior mesenteric artery produces a severe (80%) stenosis. Inferior mesenteric artery: No demonstrated narrowing. Right renal artery(arteries): Single right renal artery with severe (90%) stenosis proximally supplying a severely atrophic right kidney consistent with chronic renal artery stenosis. Left renal artery(arteries): Single left renal artery with a large amount calcified plaque proximally producing a severe (90%) stenosis. Right common iliac artery: There is mild diffuse narrowing. Right external iliac artery: No demonstrated narrowing. Right internal iliac artery: No demonstrated narrowing. Left common iliac artery: There is mild diffuse narrowing. Left external iliac artery: No demonstrated narrowing. Left internal iliac artery: No demonstrated narrowing. CT/CTA Abdomen W/WO Contrast IMPRESSION: 1. Large amount calcified plaque throughout the abdominal aorta with a large calcified plaque at the level of the origin the celiac axis producing a severe (80%) stenosis. No abdominal aortic aneurysm. 2. Calcified plaque at the origin of the celiac axis and superior mesenteric artery with a patent inferior mesenteric artery. 3. Severe (90%) right renal artery stenosis with severely atrophic right kidney consistent with chronic renal artery stenosis. 4. Severe (90%) left renal artery stenosis. Electronically Signed: Martínez Flores MD at 20:01 EST ,
[2022-08-12] MEDS: MELATONIN 3 MG TABLET PO (21:10)
[2022-08-12] MEDS: Atorvastatin Calcium 10 MG Tablet 5 MG PO (21:11)
--- NOTE | 2022-08-12 22:45 | CPS ---
Pt Refused BiPAP
[2022-08-13] VITALS (24 sets, daily range): BP systolic 126–187; BP diastolic 46–106; PULSE 60–86; RESP 12–20; TEMP 36.1–37.1; O2SAT 90–100
[2022-08-13 04:55] LABS: Absolute Lymphocyte Count 2.07 X10^3/uL (0.83-4.51); Absolute Neutrophil Count 6.1 X10^3/uL (2.0-7.7); Basophil# 0.05 X10^3/uL; Basophil% 0.5 % (0-1); Eosinophil# 0.38 X10^3/uL; Eosinophils% 3.8 % (0-5); Hematocrit 38.1 % (37-47); Hemoglobin 12.7 g/dL (12.0-15.0); Lymphocyte # 2.07 X10^3/ul (0.83-4.51); Lymphocyte % 20.7 % (19-41); Mean Corp Hgb Conc 33.3 g/dL (32-36); Mean Corpuscular Hgb 31.8 pg (27.0-32.0); Mean Corpuscular Volume 95.5 fL (81-99); Mean Platelet Vol. 10.2 fl (6.2-12.0); Monocyte# 1.39 X10^3/uL; Monocyte% 13.9 % (0-10); NRBC Flagged by Analyzer 0.4 % (0-5); Neutrophil # 6.09 X10^3/uL (2.7-7.7); Neutrophil % 60.7 % (47-70); Platelet Count 333 K/mm3 (150-450); RBC Distribution Width CV 12.6 % (11.6-14.6); Red Blood Count 3.99 M/mm3 (4.2-5.4)
[2022-08-13 05:13] LABS: Anion Gap 8 (5-15); BUN 25 mg/dL (7-18); BUN/Creat Ratio 17.9 RATIO (10-20); Calcium,Total 8.9 mg/dL (8.5-10.1); Chloride 87 mmol/L (98-107); EST Glomerular Filtration Rate 38 mL/min (>60); Est Glom Filt Rate - Afr Amer 46 mL/min (>60); Estimated Creatinine Clearance 20.72 ml/min; Glucose 124 mg/dL (74-106); Potassium 3.1 mmol/L (3.5-5.1); Sodium Level 130 mmol/L (136-145)
[2022-08-13] MEDS: hydrALAZINE 50 MG Tablet PO ×3 (07:56→20:33)
[2022-08-13] MEDS: Citalopram 20 MG Tablet PO (07:56)
[2022-08-13] MEDS: amLODIPine 10 MG Tablet PO (07:56)
[2022-08-13] MEDS: Losartan Potassium 100 MG Tablet PO (07:56)
[2022-08-13] MEDS: Ascorbic Acid 500 MG Tablet PO (07:56)
[2022-08-13] MEDS: hydroCHLOROthiazide 12.5mg 12.5 MG PO (07:56)
[2022-08-13] MEDS: Furosemide 40 MG/4 ML Vial IV (07:57)
[2022-08-13] MEDS: APIXABAN 2.5 MG TABLET (WCH) PO ×2 (07:57→20:33)
[2022-08-13] MEDS: Spironolactone 25 MG Tablet PO (07:57)
[2022-08-13] MEDS: 0.9% Saline Lock 10 ML Syringe IV (07:58)
[2022-08-13] MEDS: HYDROcodone Bitartrate/Apap 5/325 Tablet PO ×2 (08:02→20:33)
[2022-08-13] MEDS: Clopidogrel Bisulfate 75 MG Tablet PO (08:14)
--- NOTE | 2022-08-13 08:41 | PCM.PN.CARD ---
Subjective Subjective The patient is awake and alert. She has no new acute cardiac complaints. Objective Data Vital Signs: Vital Signs Temp Pulse Resp BP Pulse Ox O2 Del Method O2 Flow Rate 98.6 F 74 13 182/56 H 94 Nasal Cannula 3 08/13/22 04:00 08/13/22 07:56 08/13/22 06:00 08/13/22 07:56 08/13/22 06:55 08/13/22 06:55 08/13/22 06:55 FiO2 30 08/13/22 05:30 Oxygen Flow Rate (L/min) 3 Oxygen Delivery Method Nasal Cannula Weight: 130 lb 1.164 oz Body Mass Index (BMI) 26.7 Intake & Output: Intake and Output for Last 24 Hours 08/11/22 08/12/22 08/13/22 23:59 23:59 23:59 Intake Total 835.60 / 835.60 550 / 550 Output Total 2600 / 3700 2900 / 2900 250 / 250 Balance -1764.40 / -2864.40 -2350 / -2350 -250 / -250 Lab / Micro Data Result Diagrams: 08/13/22 04:40 08/13/22 04:40 Labs: Laboratory Results - last 24 hr 08/12/22 04:05: Magnesium 1.7 08/13/22 04:40: WBC 10.0, RBC 3.99 L, Hgb 12.7, Hct 38.1, MCV 95.5, MCH 31.8, MCHC 33.3, RDW Std Deviation 44.0 H, RDW Coeff of [place] 12.6, Plt Count 333, MPV 10.2, Immature Gran % (Auto) 0.400, Neut % (Auto) 60.7, Lymph % (Auto) 20.7, [place] % (Auto) 13.9 H, Eos % (Auto) 3.8, Baso % (Auto) 0.5, Absolute Neuts (auto) 6.1, Absolute Lymphs (auto) 2.07, Nucleated RBC % 0.4 08/13/22 04:40: Sodium 130 L, Potassium 3.1 L, Chloride 87 L, Carbon Dioxide 35.0 H, Anion Gap 8, BUN 25 H, Creatinine 1.40 H, Estim Creat Clear Calc 20.72, Est GFR (MDRD) Af Amer 46 L, Est GFR (MDRD) Non-Af 38 L, BUN/Creatinine Ratio 17.9, Glucose 124 H, Calcium 8.9 Rhythm Strip Rhythm Strip: Sinus Rhythm Cardiology Labs/Tests 08/12/22 04:05: Magnesium 1.7 08/13/22 04:40: WBC 10.0, RBC 3.99 L, Hgb 12.7, Hct 38.1, MCV 95.5, MCH 31.8, MCHC 33.3, Plt Count 333, MPV 10.2, Immature Gran % (Auto) 0.400, Neut % (Auto) 60.7, Lymph % (Auto) 20.7, [place] % (Auto) 13.9 H, Eos % (Auto) 3.8, Baso % (Auto) 0.5, Absolute Neuts (auto) 6.1, Nucleated RBC % 0.4 08/13/22 04:40: Sodium 130 L, Potassium 3.1 L, Chloride 87 L, Carbon Dioxide 35.0 H, Anion Gap 8, BUN 25 H, Creatinine 1.40 H, Est GFR (MDRD) Af Amer 46 L, Est GFR (MDRD) Non-Af 38 L, BUN/Creatinine Ratio 17.9, Glucose 124 H, Calcium 8.9 Rhythm: Sinus rhythm Radiography Diagnostic Testing: Radiology Impression Abdomen CTA 08/12/22 17:50 IMPRESSION: 1. Large amount calcified plaque throughout the abdominal aorta with a large calcified plaque at the level of the origin the celiac axis producing a severe (80%) stenosis. No abdominal aortic aneurysm. 2. Calcified plaque at the origin of the celiac axis and superior mesenteric artery with a patent inferior mesenteric artery. 3. Severe (90%) right renal artery stenosis with severely atrophic right kidney consistent with chronic renal artery stenosis. 4. Severe (90%) left renal artery stenosis. Electronically Signed: Martínez Flores MD at 20:01 EST , Physical Exam Const alert, oriented x3 and no apparent distress Orientation / Consciousness: awake HEENT normocephalic, head/scalp atraumatic and hearing grossly normal bilaterally Eyes PERRL, EOMs intact bilaterally, conjunctivae normal and no scleral icterus Neck full ROM, supple and no JVD Resp normal respiratory effort and clear to auscultation bilaterally Cardio Palpation: normal PMI Rate: regular rate Rhythm: regular rhythm Heart Sounds: S1 normal and S2 normal GI normal to inspection, nondistended, normoactive bowel sounds Extremity General Extremity: edema bilateral lower extremity Details: mild Skin no rashes or lesions noted Assessment & Plan Assessment/Plan (1) Hypertensive emergency: PLAN: The patient's blood pressure remains elevated. Her medications have been adjusted. She is now pending further evaluation for her renal artery stenosis with possible renal artery percutaneous intervention. (2) Heart failure: PLAN: The patient appears improved with respect to her CHF symptoms. She has undergone additional evaluation with an echocardiogram. The results are noted. She will continue medical therapy. (3) Elevated troponin: PLAN: The patient has chronically elevated cardiac enzymes. This may be secondary to her her hypertension and CHF - a Type II event. At the present time she will continue medical therapy. (4) Atherosclerotic heart disease of [place] coronary artery without angina pectoris: QUALIFIERS: [place] vs. transplanted heart: [place] heart Qualified Code(s): I25.10 - Atherosclerotic heart disease of [place] coronary artery without angina pectoris PLAN: The patient has a history of CAD. At the moment she is without obvious acute coronary symptoms. She will continue medical therapy. (5) Presence of stent in coronary artery: PLAN: The patients's PCI history was reveiwed. At the present time she will continue medical therapy. (6) Paroxysmal atrial fibrillation: PLAN: The patient has demonstrated PAF during her hospitalization. She is now noted to be back in sinus rhythm. She will continue medical therapy with adjustment as deemed appropriate. (7) Pure hypercholesterolemia: PLAN: She will continue medical therapy. (8) Renal artery stenosis: PLAN: She does carry a diagnosis of [place]. The nephrology consultation is most appreciated with respect to additional evaluation and care of her hypertension. She is being evaluated by peripheral vascular surgery for the possibility of renal artery stenosis percutaneous intervention. Procedure Criteria Type of Procedure Procedure Type: Elective Elective Risks - COVID COVID Risk Discussion: The surgeon/proceduralist and patient have discussed in detail the risk of exposure to and/or potential harm posed by the COVID-19 virus with having a surgery/procedure at this time versus the risk of delaying the surgery/procedure. It is not possible to know either the risk of delaying the surgery or procedure or chance of getting an infection with perfect accuracy, but a joint decision was made between the patient and the surgeon/proceduralist to proceed at this time with the scheduled surgery/procedure as indicated on the consent form.
--- NOTE | 2022-08-13 10:23 | PCM.PN.REN ---
Subjective Subjective Resting quietly, eating breakfast. No overnight events. No complaints today Objective Data Objective Data Vital Signs: Vital Signs Temp Pulse Resp BP Pulse Ox O2 Del Method O2 Flow Rate 98.6 F 74 13 182/56 H 94 Nasal Cannula 3 08/13/22 04:00 08/13/22 07:56 08/13/22 06:00 08/13/22 07:56 08/13/22 06:55 08/13/22 06:55 08/13/22 06:55 FiO2 30 08/13/22 05:30 Oxygen Flow Rate (L/min) 3 Oxygen Delivery Method Nasal Cannula Weight: 59 kg Body Mass Index (BMI) 26.7 Intake & Output: Intake and Output for Last 24 Hours 08/11/22 08/12/22 08/13/22 23:59 23:59 23:59 Intake Total 835.60 / 835.60 550 / 550 Output Total 2600 / 3700 2900 / 2900 250 / 250 Balance -1764.40 / -2864.40 -2350 / -2350 -250 / -250 Lab / Micro Data Result Diagrams: 08/13/22 04:40 08/13/22 04:40 Labs: Laboratory Results - last 24 hr 08/13/22 04:40: WBC 10.0, RBC 3.99 L, Hgb 12.7, Hct 38.1, MCV 95.5, MCH 31.8, MCHC 33.3, RDW Std Deviation 44.0 H, RDW Coeff of Deidra 12.6, Plt Count 333, MPV 10.2, Immature Gran % (Auto) 0.400, Neut % (Auto) 60.7, Lymph % (Auto) 20.7, [place] % (Auto) 13.9 H, Eos % (Auto) 3.8, Baso % (Auto) 0.5, Absolute Neuts (auto) 6.1, Absolute Lymphs (auto) 2.07, Nucleated RBC % 0.4 08/13/22 04:40: Sodium 130 L, Potassium 3.1 L, Chloride 87 L, Carbon Dioxide 35.0 H, Anion Gap 8, BUN 25 H, Creatinine 1.40 H, Estim Creat Clear Calc 20.72, Est GFR (MDRD) Af Amer 46 L, Est GFR (MDRD) Non-Af 38 L, BUN/Creatinine Ratio 17.9, Glucose 124 H, Calcium 8.9 Micro: Microbiology 08/09/22 23:45 Nasal Secretion SARS-CoV-2 & FLU Antigen (Rapid) - Final Radiography Diagnostic Testing: Radiology Impression Abdomen CTA 08/12/22 17:50 IMPRESSION: 1. Large amount calcified plaque throughout the abdominal aorta with a large calcified plaque at the level of the origin the celiac axis producing a severe (80%) stenosis. No abdominal aortic aneurysm. 2. Calcified plaque at the origin of the celiac axis and superior mesenteric artery with a patent inferior mesenteric artery. 3. Severe (90%) right renal artery stenosis with severely atrophic right kidney consistent with chronic renal artery stenosis. 4. Severe (90%) left renal artery stenosis. Electronically Signed: Martínez Flores MD at 20:01 EST , Rhythm Strip Rhythm Strip: Sinus Rhythm Physical Exam Narrative Alert and oriented, no apparent distress S1, S2, RRR Lung sounds clear anteriorly Abdomen soft, nontender No edema Assessment & Plan Assessment/Plan (1) Hypertensive emergency: (2) Elevated troponin: PLAN: Plan -Bps fluctuating. Systolic blood pressure anywhere from 120s up to 180s. Currently on furosemide 40 mg IV twice daily, Norvasc 10 mg daily, losartan 100 mg daily, Toprol-XL 50 mg twice daily, clonidine 0.1 mg twice daily, hydralazine 50mg bid, Aldactone 25 mg daily and hydrochlorothiazide 12.5mg daily. Sodium 130. Potassium 3.1, replacement ordered. - Baseline creatinine around 1 mg/dL. Creatinine is 1.2 mg/dL yesterday and up to 1.4 today, likely from diuresis/hemodynamics and had CTA yesterday. Good urine output, almost 3L yesterday. - renal artery duplex which showed right kidney size 10.36 cm, left kidney 7.71 cm, and greater than 60% stenosis in right and left proximal renal arteries. Aldosterone normal at 1.7, Renin normal at 0.567 both drawn in February 2022.? TSH normal at 0.38.? Echo from November 2021 showed normal LV size, left ventricular systolic function is normal, EF 65%, evidence of diastolic dysfunction. -Vascular consulted as patient agreeable for evaluation for renal artery stenting. Patient had CTA yesterday: Severe (90%) renal artery stenosis with severely atrophic right kidney, severe (90%) left renal artery stenosis
[2022-08-13] MEDS: Senna Tablet 1 TABLET PO ×2 (11:29→20:34)
[2022-08-13] MEDS: Potassium Chloride Oral Tablet 20 MEQ 60 MEQ PO (11:29)
[2022-08-13] MEDS: Polyethylene Glycol 3350 17 GM PACKET PO (11:29)
--- NOTE | 2022-08-13 12:09 | PN.HOSP_ITS ---
Subjective Subjective Follow-up for hypertensive emergency. Patient continued to have high blood pressure discussed with Dr. Mora. Samantha rosa short of breath. Objective Data Objective Data Vital Signs: Vital Signs Temp Pulse Resp BP Pulse Ox O2 Del Method O2 Flow Rate 98.6 F 74 13 182/56 H 94 Nasal Cannula 3 08/13/22 04:00 08/13/22 07:56 08/13/22 06:00 08/13/22 07:56 08/13/22 06:55 08/13/22 06:55 08/13/22 06:55 FiO2 30 08/13/22 05:30 Oxygen Flow Rate (L/min) 3 Oxygen Delivery Method Nasal Cannula Weight: 130 lb 1.164 oz Body Mass Index (BMI) 26.7 Intake & Output: Intake and Output for Last 24 Hours 08/11/22 08/12/22 08/13/22 23:59 23:59 23:59 Intake Total 835.60 / 835.60 550 / 550 Output Total 2600 / 3700 2900 / 2900 250 / 250 Balance -1764.40 / -2864.40 -2350 / -2350 -250 / -250 Lab / Micro Data Result Diagrams: 08/13/22 04:40 08/13/22 04:40 Labs: Laboratory Results - last 24 hr 08/13/22 04:40: WBC 10.0, RBC 3.99 L, Hgb 12.7, Hct 38.1, MCV 95.5, MCH 31.8, MCHC 33.3, RDW Std Deviation 44.0 H, RDW Coeff of Deidra 12.6, Plt Count 333, MPV 10.2, Immature Gran % (Auto) 0.400, Neut % (Auto) 60.7, Lymph % (Auto) 20.7, [place] % (Auto) 13.9 H, Eos % (Auto) 3.8, Baso % (Auto) 0.5, Absolute Neuts (auto) 6.1, Absolute Lymphs (auto) 2.07, Nucleated RBC % 0.4 08/13/22 04:40: Sodium 130 L, Potassium 3.1 L, Chloride 87 L, Carbon Dioxide 35.0 H, Anion Gap 8, BUN 25 H, Creatinine 1.40 H, Estim Creat Clear Calc 20.72, Est GFR (MDRD) Af Amer 46 L, Est GFR (MDRD) Non-Af 38 L, BUN/Creatinine Ratio 17.9, Glucose 124 H, Calcium 8.9 Micro: Microbiology 08/09/22 23:45 Nasal Secretion SARS-CoV-2 & FLU Antigen (Rapid) - Final Radiography Diagnostic Testing: Radiology Impression Abdomen CTA 08/12/22 17:50 IMPRESSION: 1. Large amount calcified plaque throughout the abdominal aorta with a large calcified plaque at the level of the origin the celiac axis producing a severe (80%) stenosis. No abdominal aortic aneurysm. 2. Calcified plaque at the origin of the celiac axis and superior mesenteric artery with a patent inferior mesenteric artery. 3. Severe (90%) right renal artery stenosis with severely atrophic right kidney consistent with chronic renal artery stenosis. 4. Severe (90%) left renal artery stenosis. Electronically Signed: Martínez Flores MD at 20:01 EST Reading Location ID and State: [address] [place] [address] Tel , Service support , Rhythm Strip Rhythm Strip: Sinus Rhythm Physical Exam Narrative Seen and examined. Cardiac telemetry atrial flutter/A. fib. Bradycardia has resolved. Currently heart rate 74/min. Physical exam General: Patient is oriented to time place and person. Mild shortness of breath. HEENT: Atraumatic, PERRLA, EOMI, Normocephalic Oral: Oral mucosa moist. Neck: Supple, No JVD, Negative Carotid Bruits Lungs: Air entry diminished in bilateral lung bases. No crepitations. Cardiovascular: Atrial flutter, Normal S1, Normal S2, systolic murmur present LLSB Abdomen: Bowel Sounds Present, Soft, Non Tender, Non-Distended : Ko catheter clear urine no renal angle tenderness. No suprapubic tenderness. 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 No Tenderness to Palpation of Joints or Extremities Neurological: No focal deficit. On baseline mental function, no acute neurological deficit Psych/Mental Status: Flat affect Assessment & Plan Assessment/Plan (1) Hypertensive emergency: PLAN: Plan This is a 87-year-old female with multiple comorbidities was admitted through ED for worsening shortness of breath for about 1 day on the day of admission along with occasional productive cough with yellow sputum. No fever. CTPA was done which shows pulmonary edema and bilateral chronic pleural effusion. No PE. Patient was admitted in ICU with hypertensive emergency Hypertensive emergency with resistant hypertension along with features of organ dysfunction (pulmonary edema,NSTEMI) : In ED, patient had SBP 257/89. ? Received hydralazine and labetalol in the emergency department.? Emergent department doctor discussed the case with shuffle board operator who recommended labetalol and if blood pressure not controlled? Nitroglycerin drip 08/10: BP profile better in ICU but is still elevated 08/11: Blood pressure has been high and fluctuating yesterday. Patient is s tarted on hydralazine oral 25 mg 3 times daily, already on losartan 50 mg twice daily, clonidine 0.1 mg 3 times daily, amlodipine 5 mg twice daily. 08/12: Blood pressure is better controlled systolic 150s. Patient put back on hydralazine 12.5 mg daily, hydralazine increased to 50 mg 3 times daily. Nephrology adjusted losartan 200 mg daily and amlodipine 10 mg daily. Atrial flutter/fibrillation with sinus pauses with bradycardia: Clonidine decreased to 0.1 mg twice daily. Metoprolol succinate was decreased to 50 mg twice daily. Started on a spironolactone 25 mg daily and Eliquis 2.5 mg twice daily. In the past patient had refused anticoagulant. 08/13: Patient has chronic renal artery stenosis, severe 90% on right side with atrophic right kidney. Left KWAKU severe 90%. Vascular surgery is consulted. As per Dr. August consult note, patient refused earlier for renal artery stenting but now agreeable. Patient on losartan, HCTZ, hydralazine, furosemide and metoprolol succinate. Creatinine went up to 1.4, BUN 25. Lasix IV Discontinued. Consider Lasix 40 mg oral twice daily from tomorrow a.m. if kidney function permits. Hypokalemia, potassium is getting replaced. Acute hypoxic respiratory failure due to acute Exacerbation of heart failure with preserved ejection fraction complicated with pulmonary edema: Patient on BiPAP 40% FiO2. Titrate as per protocol. 08/12: Shortness of breath is better. Off BiPAP. Echocardiogram on 12/04/2021 showed estimated ejection fraction of 55%.? Evidence of diastolic dysfunction. Twelve-lead EKG shows sinus bradycardia 50 bpm, at first-degree AV block heart failure core measures including intake and output, fluid restriction less than 1500 mL, daily weight monitoring, kidney and electrolytes monitoring BNP of 505.1.? Her BNP on 03/09/2022 was 157.8 and 12/03/21 was 174. Diuresis with Lasix 40 mg IV twice daily.? Sodium was mildly low at 133. 08/11: 2D echo shows EF 65% with mild eccentric MR and AI. Stage II diastolic dysfunction. Compared to last echo no significant change in systolic function. NSTEMI, unclear whether due to primary LA event or LA type II with increased demand from pulmonary edema and heart failure: Initial high sensitive troponin was 148. Repeat was 156.? Heparin drip continued.? Started on Plavix. Patient is allergic to aspirin. Cardiology consult. Hyponatremia Sodium presentation was 133.? Review of records in the past patient has had some valleys of mild hyponatremia.? Trend. 08/12 sodium is 131, potassium 3.4. CKD stage IV Stable. DVT prophylaxis Clinical Impression(s) from Imaging Studies Chest X-Ray 08/09/22 00:15 IMPRESSION: Findings suggest pulmonary edema with pleural effusions. Electronically Signed: Sandra Dejesus MD at 0:57 EST Reading Location ID and State: [facility] / [place] , Service support , Chest CTA 08/10/22 04:06 IMPRESSION: 1. No CTA demonstrated pulmonary embolism or arterial dissection. 2. Findings suggest bilateral multifocal pneumonia. 3. Cardiomegaly and pulmonary edema. Echocardiogram 08/10/22 07:28 Interpretation Summary Normal LV size. Left ventricular systolic function is normal. The estimated ejection fraction is 65 %. Stage 2 diastolic dysfunction. Mild (1+) eccentric mitral valve insufficiency. Mild (1+) aortic valve insufficiency. Compared to previous study, the left ventricular systolic function is the same.. Abdomen CTA 08/12/22 17:50 IMPRESSION: 1. Large amount calcified plaque throughout the abdominal aorta with a large calcified plaque at the level of the origin the celiac axis producing a severe (80%) stenosis. No abdominal aortic aneurysm. 2. Calcified plaque at the origin of the celiac axis and superior mesenteric artery with a patent inferior mesenteric artery. 3. Severe (90%) right renal artery stenosis with severely atrophic right kidney consistent with chronic renal artery stenosis. 4. Severe (90%) left renal artery stenosis. Electronically Signed: Martínez Flores MD at 20:01 EST , Total time of the visit including total time spent in counseling or coordination of care, (more than 50% of the total time, spent in obtaining medical information from nurses and other ancillary care providers,explaining to the patient about labs, imaging, diagnosis and management of active complex medical conditions), management of multiple organ dysfunction, shuffle board operator , review of labs and imaging is 40 minutes. Charges/Coding Visit Charges Inpatient E&M: 74490 [facility] Hosp L3
--- NOTE | 2022-08-13 12:18 | CHAPLAIN ---
Type of Pastoral Visit ___ Initial Visit ___ Follow-up Visit ___ On-call Visit ___ General Patient Visit ___ Spiritual Assessment ___ Family Conference ___ Bereavement ___ Rapid Response ___ Code Blue ___ Other (describe below) Pastoral Care Referral From ___ Patient ___ Family ___ Nurse ___ Physician ___ Acquisition Cost Estimator ___ International Broadcast Music Librarian ___ Other (describe below) Sacrament/Intervention ___ Active listening ___ Anointing ___ Hinduism ___ Bereavement ___ Communion ___ Dee Dee exploration ___ ___ Life review ___ Prayer ___ Reconciliation ___ Sacrament of Sick ___ Supportive presence ___ Wedding ___ Other (describe below) Pastoral Comments assisted patient in using the phone to call her ; pt states that she is so tired and has on her mind the procedure/surgery to be done for her kidney
--- NOTE | 2022-08-13 14:09 | CASEMGMT ---
ANGELA Note SW met with patient and introduced herself and role as [facility] Front Desk Team Member. SW explained the purpose of this conversation was to start to discuss options for her discharge. SW explained PT/OT would be working with patient and would give recommendations for placement such as SNF. SW explained she had a list of in network providers in the area and inquired if patient was interested in reviewing the list. Patient stated she did not want to go to a SNF and declined taking the list of in network facilities. Patient reported her is at home and will be able to care for her. SW explained she would hold on to the list of options and would continue to follow along to continue discharge planning. SW remains available if other needs arise. Caroline Barlow SENIOR ENGINEERING TECH,[place]
--- NOTE | 2022-08-13 15:00 | CASEMGMT ---
Addendum entered by Terese Hollis 08/13/22 15:49: DUNG REDDING in to pt room. Pt states going to the bathroom was slow going but she did ok. Discussed having HHC at home for SN for m/s assess and therapy for strengthening. Pt states she thinks it would be a good idea but doesn't think her would. Asked if DUNG REDDING could call her while in room, she was agreeable. TC to him, discussed with him and he was agreeable. He states pt can pick which agency. Patient was provided a list of HHC providers including quality and resource use data and consistent with the patient?s preferred geographic region, medical needs, and insurance network were provided from the [employer] Guide. [facility] TC to [place], referral made, will await acceptance. Original Note: DUNG REDDING in to pt room to discuss dc planning, pt ready to get up to the restroom with nurse.
[2022-08-13] MEDS: MELATONIN 3 MG TABLET PO (20:33)
[2022-08-13] MEDS: Atorvastatin Calcium 10 MG Tablet 5 MG PO (20:33)
[2022-08-14] VITALS (17 sets, daily range): BP systolic 144–193; BP diastolic 43–101; PULSE 87–140; RESP 18; TEMP 36.8–37.3; O2SAT 94–98
[2022-08-14 05:01] LABS: Absolute Lymphocyte Count 1.64 X10^3/uL (0.83-4.51); Absolute Neutrophil Count 8.8 X10^3/uL (2.0-7.7); Basophil# 0.04 X10^3/uL; Basophil% 0.3 % (0-1); Eosinophil# 0.08 X10^3/uL; Eosinophils% 0.7 % (0-5); Hematocrit 39.3 % (37-47); Hemoglobin 12.9 g/dL (12.0-15.0); Lymphocyte # 1.64 X10^3/ul (0.83-4.51); Lymphocyte % 13.6 % (19-41); Mean Corp Hgb Conc 32.8 g/dL (32-36); Mean Corpuscular Hgb 31.6 pg (27.0-32.0); Mean Corpuscular Volume 96.3 fL (81-99); Mean Platelet Vol. 10.1 fl (6.2-12.0); Monocyte# 1.49 X10^3/uL; Monocyte% 12.3 % (0-10); NRBC Flagged by Analyzer 0 % (0-5); Neutrophil # 8.76 X10^3/uL (2.7-7.7); Neutrophil % 72.5 % (47-70); Platelet Count 317 K/mm3 (150-450); RBC Distribution Width CV 12.8 % (11.6-14.6); RBC Distribution Width SD 45.5 fl (35.1-43.9); Red Blood Count 4.08 M/mm3 (4.2-5.4); White Blood Count 12.1 K/mm3 (4.4-11.0)
[2022-08-14] MEDS: Acetaminophen 325 MG Tablet 650 MG PO (05:15)
[2022-08-14] MEDS: hydrALAZINE 50 MG Tablet PO ×2 (05:15→14:54)
[2022-08-14 05:36] LABS: Anion Gap 10 (5-15); BUN 34 mg/dL (7-18); BUN/Creat Ratio 19.9 RATIO (10-20); Calcium,Total 9.2 mg/dL (8.5-10.1); Chloride 90 mmol/L (98-107); Creatinine, Serum 1.71 mg/dL (0.55-1.02); EST Glomerular Filtration Rate 30 mL/min (>60); Est Glom Filt Rate - Afr Amer 36 mL/min (>60); Estimated Creatinine Clearance 16.96 ml/min; Glucose 149 mg/dL (74-106); Potassium 4.2 mmol/L (3.5-5.1); Sodium Level 130 mmol/L (136-145)
--- NOTE | 2022-08-14 08:31 | PN.SURG_ITS ---
Subjective Subjective Patient is doing okay this morning. She complains of pain in her right knee. Otherwise, no complaints. Denies constitutional symptoms, SOB, CP, abdominal pain. Her BP remains elevated despite regimen of seven medications with addition of lasix as renal function tolerates. Objective Data Objective Data A&O x3, NAD Nonlabored respirations, no audible wheeze or stridor, able to speak in complete sentences, no signs of respiratory distress Irregular rhythm, heart monitor showed Afib Vital Signs: Vital Signs Temp Pulse Resp BP Pulse Ox O2 Del Method O2 Flow Rate 98.6 F 116 H 18 171/82 H 95 Nasal Cannula 2 08/14/22 02:00 08/14/22 05:15 08/14/22 02:00 08/14/22 05:15 08/14/22 07:41 08/14/22 07:41 08/14/22 07:41 FiO2 30 08/13/22 05:30 Oxygen Flow Rate (L/min) 2 Oxygen Delivery Method Nasal Cannula Weight: 132 lb 15.02 oz Body Mass Index (BMI) 26.7 Intake & Output: Intake and Output for Last 24 Hours 08/12/22 08/13/22 08/14/22 23:59 23:59 23:59 Intake Total 550 / 550 500 / 500 Output Total 2900 / 2900 750 / 900 300 / 300 Balance -2350 / -2350 -250 / -400 -300 / -300 Lab / Micro Data Result Diagrams: 08/14/22 04:50 08/14/22 04:50 Labs: Laboratory Results - last 24 hr 08/14/22 04:50: WBC 12.1 H, RBC 4.08 L, Hgb 12.9, Hct 39.3, MCV 96.3, MCH 31.6, MCHC 32.8, RDW Std Deviation 45.5 H, RDW Coeff of Deidra 12.8, Plt Count 317, MPV 10.1, Immature Gran % (Auto) 0.600, Neut % (Auto) 72.5 H, Lymph % (Auto) 13.6 L, [place] % (Auto) 12.3 H, Eos % (Auto) 0.7, Baso % (Auto) 0.3, Absolute Neuts (auto) 8.8 H, Absolute Lymphs (auto) 1.64, Nucleated RBC % 0 08/14/22 04:50: Sodium 130 L, Potassium 4.2, Chloride 90 L, Carbon Dioxide 30.0, Anion Gap 10, BUN 34 H, Creatinine 1.71 H, Estim Creat Clear Calc 16.96, Est GFR (MDRD) Af Amer 36 L, Est GFR (MDRD) Non-Af 30 L, BUN/Creatinine Ratio 19.9, Glucose 149 H, Calcium 9.2 Micro: Microbiology 08/09/22 23:45 Nasal Secretion SARS-CoV-2 & FLU Antigen (Rapid) - Final Assessment & Plan Assessment/Plan (1) Renal artery stenosis: PLAN: CTA 08/12 Impression: 1.? Large amount calcified plaque throughout the abdominal aorta with a large calcified plaque at the level of the origin the celiac axis producing a severe (80%) stenosis.? No abdominal aortic aneurysm. 2.? Calcified plaque at the origin of the celiac axis and superior mesenteric artery with a patent inferior mesenteric artery. 3.? Severe (90%) right renal artery stenosis with severely atrophic right kidney consistent with chronic renal artery stenosis. 4.? Severe (90%) left renal artery stenosis PLAN: Plan CTA confirmed severe renal artery stenosis appropriate for percutaneous interve ntion. Discussed with patient that intervention may allow for better BP control with fewer medications. She is agreeable to proceed with intervention. With holiday, earliest available time for procedure would appear to be 08/20. Will plan to schedule patient for that afternoon. There is no need to keep inpatient just for this procedure if patient is otherwise medically stable for discharge prior to next . Will defer discharge planning to primary team. Charges/Coding Visit Charges Inpatient E&M: 44692 [facility] Hosp L1
[2022-08-14] MEDS: hydroCHLOROthiazide 12.5mg 12.5 MG PO (09:31)
[2022-08-14] MEDS: amLODIPine 10 MG Tablet PO (09:31)
[2022-08-14] MEDS: Spironolactone 25 MG Tablet 50 MG PO (09:31)
[2022-08-14] MEDS: Clopidogrel Bisulfate 75 MG Tablet PO (09:31)
[2022-08-14] MEDS: Polyethylene Glycol 3350 17 GM PACKET PO (09:31)
[2022-08-14] MEDS: Citalopram 20 MG Tablet PO (09:31)
[2022-08-14] MEDS: Losartan Potassium 100 MG Tablet PO (09:31)
[2022-08-14] MEDS: Ascorbic Acid 500 MG Tablet PO (09:32)
[2022-08-14] MEDS: APIXABAN 2.5 MG TABLET (WCH) PO ×2 (09:32→20:39)
[2022-08-14] MEDS: HYDROcodone Bitartrate/Apap 5/325 Tablet PO ×2 (09:32→20:51)
[2022-08-14] MEDS: Senna Tablet 1 TABLET PO ×2 (09:32→20:51)
[2022-08-14] MEDS: 0.9% Saline Lock 10 ML Syringe IV (09:34)
--- NOTE | 2022-08-14 12:33 | CASEMGMT ---
Spoke with Cecilia at [facility], they are able to accept pt. Per hospitalist, pt will dc in the next day or two. C to start on Wednesday. Will place green sheet on chart.
--- NOTE | 2022-08-14 12:53 | PN.RENAL_ITS ---
Subjective Subjective No new complaints Objective Data Objective Data Vital Signs: Vital Signs Temp Pulse Resp BP Pulse Ox O2 Del Method O2 Flow Rate 98.8 F 106 H 18 150/66 H 95 Nasal Cannula 2 08/14/22 11:58 08/14/22 11:58 08/14/22 11:58 08/14/22 11:58 08/14/22 11:58 08/14/22 11:58 08/14/22 11:58 FiO2 30 08/13/22 05:30 Oxygen Flow Rate (L/min) 2 Oxygen Delivery Method Nasal Cannula Weight: 60.3 kg Body Mass Index (BMI) 26.7 Intake & Output: Intake and Output for Last 24 Hours 08/12/22 08/13/22 08/14/22 23:59 23:59 23:59 Intake Total 550 / 550 500 / 500 Output Total 2900 / 2900 750 / 900 300 / 300 Balance -2350 / -2350 -250 / -400 -300 / -300 Lab / Micro Data Result Diagrams: 08/14/22 04:50 08/14/22 04:50 Labs: Laboratory Results - last 24 hr 08/14/22 04:50: WBC 12.1 H, RBC 4.08 L, Hgb 12.9, Hct 39.3, MCV 96.3, MCH 31.6, MCHC 32.8, RDW Std Deviation 45.5 H, RDW Coeff of Deidra 12.8, Plt Count 317, MPV 1 0.1, Immature Gran % (Auto) 0.600, Neut % (Auto) 72.5 H, Lymph % (Auto) 13.6 L, [place] % (Auto) 12.3 H, Eos % (Auto) 0.7, Baso % (Auto) 0.3, Absolute Neuts (auto) 8.8 H, Absolute Lymphs (auto) 1.64, Nucleated RBC % 0 08/14/22 04:50: Sodium 130 L, Potassium 4.2, Chloride 90 L, Carbon Dioxide 30.0, Anion Gap 10, BUN 34 H, Creatinine 1.71 H, Estim Creat Clear Calc 16.96, Est GFR (MDRD) Af Amer 36 L, Est GFR (MDRD) Non-Af 30 L, BUN/Creatinine Ratio 19.9, Glucose 149 H, Calcium 9.2 Micro: Microbiology 08/09/22 23:45 Nasal Secretion SARS-CoV-2 & FLU Antigen (Rapid) - Final Rhythm Strip Rhythm Strip: Sinus Rhythm Physical Exam Narrative Alert and oriented, no apparent distress S1, S2, RRR Lung sounds clear anteriorly Abdomen soft, nontender No edema Assessment & Plan Assessment/Plan (1) Hypertensive emergency: (2) Elevated troponin: PLAN: Plan Hypertension. Currently on multiple agents. Blood pressure remains high. La six on hold due to FRANSISCO. CTA showed bilateral stenosis more than 90%. 1 kidney is atrophic already. Will benefit from renal artery angioplasty. It seems she has heavy calcification at the level of renal artery origin. Not sure if stenting will be feasible. Will wait for surgery opinion. Continue all medications. Acute renal failure. Likely due to diuresis, contrast exposure, hemodynamic ch anges. Hold Lasix for now. Addendum. Vascular surgery note reviewed. Tentative renal artery angioplasty 08/20. If creatinine is better and blood pressure is controlled, she can be discharged home and come back as outpatient for stenting. We will adjust blood pressure medications as needed.
--- NOTE | 2022-08-14 12:55 | PCM.PN.CARD ---
Documented by User: SHANELLE Castellano 08/14/22 15:20 Subjective Subjective The patient is awake and alert. Currently complaining of neck pain. Her BP remains elevated Objective Data Vital Signs: Vital Signs Temp Pulse Resp BP Pulse Ox O2 Del Method O2 Flow Rate 98.8 F 106 H 18 150/66 H 95 Nasal Cannula 2 08/14/22 11:58 08/14/22 11:58 08/14/22 11:58 08/14/22 11:58 08/14/22 11:58 08/14/22 11:58 08/14/22 11:58 FiO2 30 08/13/22 05:30 Oxygen Flow Rate (L/min) 2 Oxygen Delivery Method Nasal Cannula Weight: 132 lb 15.02 oz Body Mass Index (BMI) 26.7 Intake & Output: Intake and Output for Last 24 Hours 08/12/22 08/13/22 08/14/22 23:59 23:59 23:59 Intake Total 550 / 550 500 / 500 Output Total 2900 / 2900 750 / 900 300 / 300 Balance -2350 / -2350 -250 / -400 -300 / -300 Lab / Micro Data Result Diagrams: 08/14/22 04:50 08/14/22 04:50 Labs: Laboratory Results - last 24 hr 08/14/22 04:50: WBC 12.1 H, RBC 4.08 L, Hgb 12.9, Hct 39.3, MCV 96.3, MCH 31.6, MCHC 32.8, RDW Std Deviation 45.5 H, RDW Coeff of Deidra 12.8, Plt Count 317, MPV 10.1, Immature Gran % (Auto) 0.600, Neut % (Auto) 72.5 H, Lymph % (Auto) 13.6 L, [place] % (Auto) 12.3 H, Eos % (Auto) 0.7, Baso % (Auto) 0.3, Absolute Neuts (auto) 8.8 H, Absolute Lymphs (auto) 1.64, Nucleated RBC % 0 08/14/22 04:50: Sodium 130 L, Potassium 4.2, Chloride 90 L, Carbon Dioxide 30.0, Anion Gap 10, BUN 34 H, Creatinine 1.71 H, Estim Creat Clear Calc 16.96, Est GFR (MDRD) Af Amer 36 L, Est GFR (MDRD) Non-Af 30 L, BUN/Creatinine Ratio 19.9, Glucose 149 H, Calcium 9.2 Rhythm Strip Rhythm Strip: Sinus Rhythm Cardiology Labs/Tests 08/14/22 04:50: WBC 12.1 H, RBC 4.08 L, Hgb 12.9, Hct 39.3, MCV 96.3, MCH 31.6, MCHC 32.8, Plt Count 317, MPV 10.1, Immature Gran % (Auto) 0.600, Neut % (Auto) 72.5 H, Lymph % (Auto) 13.6 L, [place] % (Auto) 12.3 H, Eos % (Auto) 0.7, Baso % (Auto) 0.3, Absolute Neuts (auto) 8.8 H, Nucleated RBC % 0 08/14/22 04:50: Sodium 130 L, Potassium 4.2, Chloride 90 L, Carbon Dioxide 30.0, Anion Gap 10, BUN 34 H, Creatinine 1.71 H, Est GFR (MDRD) Af Amer 36 L, Est GFR (MDRD) Non-Af 30 L, BUN/Creatinine Ratio 19.9, Glucose 149 H, Calcium 9.2 Rhythm: Afib Physical Exam Const alert, oriented x3 and no apparent distress Orientation / Consciousness: awake HEENT normocephalic, head/scalp atraumatic and hearing grossly normal bilaterally Eyes PERRL, EOMs intact bilaterally, conjunctivae normal and no scleral icterus Neck full ROM, supple and no JVD Resp normal respiratory effort and clear to auscultation bilaterally Cardio Palpation: normal PMI Rate: regular rate Rhythm: abnormal rhythm irregularly irregular Heart Sounds: S1 normal and S2 normal GI normal to inspection, nondistended, normoactive bowel sounds Extremity General Extremity: edema bilateral lower extremity Details: mild Skin no rashes or lesions noted Assessment & Plan Assessment/Plan (1) Hypertensive emergency: PLAN: The patient's blood pressure remains elevated on multiple medications. She does have renal artery stenosis. there is plans for proceed with renal artery percutaneous intervention next week on an OP basis. (2) Heart failure: PLAN: Symptoms have improved. She has undergone additional evaluation with an echocardiogram. The results are noted. She will continue medical therapy. (3) Elevated troponin: PLAN: The patient has chronically elevated cardiac enzymes. This may be secondary to her her hypertension and CHF - a Type II event. At the present time she will continue medical therapy. (4) Atherosclerotic heart disease of [place] coronary artery without angina pectoris: QUALIFIERS: [place] vs. transplanted heart: [place] heart Qualified Code(s): I25.10 - Atherosclerotic heart disease of [place] coronary artery without angina pectoris PLAN: The patient has a history of CAD. At the moment she is without obvious acute coronary symptoms. She will continue medical therapy. (5) Presence of stent in coronary artery: PLAN: The patients's PCI history was reviewed. At the present time she will continue medical therapy. (6) Paroxysmal atrial fibrillation: PLAN: The patient has demonstrated PAF during her hospitalization. She will continue with her current rate limiting medications. Restarted her metoprolol, She will continue with low dose eliquis. (7) Pure hypercholesterolemia: PLAN: She will continue medical therapy. (8) Renal artery stenosis: PLAN: She does carry a diagnosis of KWAKU. It appears she is scheduled to have renal artery stenosis percutaneous intervention next week. Charges/Coding Visit Charges Inpatient E&M: 56029 Subs Hosp L2 Documented by User: Dr. Leandro Fay MD 08/14/22 17:52 Lab / Micro Data Result Diagrams: 08/14/22 04:50 08/14/22 04:50 Assessment & Plan Assessment/Plan (1) Hypertensive emergency: (2) Heart failure: (3) Elevated troponin: (4) Atherosclerotic heart disease of [place] coronary artery without angina pectoris: QUALIFIERS: [place] vs. transplanted heart: [place] heart Qualified Code(s): I25.10 - Atherosclerotic heart disease of [place] coronary artery without angina pectoris (5) Presence of stent in coronary artery: (6) Paroxysmal atrial fibrillation: (7) Pure hypercholesterolemia: (8) Renal artery stenosis: PLAN: Plan I independently reviewed the medical record of this patient including the EKG, imaging studies, current cardiac medication Patient has CAD with prior PCI and stent. Patient with multiple medical comorbidities Paroxysmal atrial fibrillation, renal artery stenosis and hypercholesteremia From cardiac standpoint we will continue current cardiac medication Patient is scheduled for renal artery stenting by vascular surgeon
--- NOTE | 2022-08-14 14:52 | PCM.PN.HOSP ---
Subjective Subjective Follow-up for hypertensive emergency probably due to renal artery stenosis. supervisor delivery department shows atrial fibrillation. Objective Data Objective Data Vital Signs: Vital Signs Temp Pulse Resp BP Pulse Ox O2 Del Method O2 Flow Rate 98.8 F 106 H 18 150/66 H 95 Nasal Cannula 2 08/14/22 11:58 08/14/22 11:58 08/14/22 11:58 08/14/22 11:58 08/14/22 11:58 08/14/22 11:58 08/14/22 12:05 FiO2 30 08/13/22 05:30 Oxygen Flow Rate (L/min) 2 Oxygen Delivery Method Nasal Cannula Weight: 132 lb 15.02 oz Body Mass Index (BMI) 26.7 Intake & Output: Intake and Output for Last 24 Hours 08/12/22 08/13/22 08/14/22 23:59 23:59 23:59 Intake Total 550 / 550 500 / 500 Output Total 2900 / 2900 750 / 900 300 / 300 Balance -2350 / -2350 -250 / -400 -300 / -300 Lab / Micro Data Result Diagrams: 08/14/22 04:50 08/14/22 04:50 Labs: Laboratory Results - last 24 hr 08/14/22 04:50: WBC 12.1 H, RBC 4.08 L, Hgb 12.9, Hct 39.3, MCV 96.3, MCH 31.6, MCHC 32.8, RDW Std Deviation 45.5 H, RDW Coeff of Deidra 12.8, Plt Count 317, MPV 10.1, Immature Gran % (Auto) 0.600, Neut % (Auto) 72.5 H, Lymph % (Auto) 13.6 L, [place] % (Auto) 12.3 H, Eos % (Auto) 0.7, Baso % (Auto) 0.3, Absolute Neuts (auto) 8.8 H, Absolute Lymphs (auto) 1.64, Nucleated RBC % 0 08/14/22 04:50: Sodium 130 L, Potassium 4.2, Chloride 90 L, Carbon Dioxide 30.0, Anion Gap 10, BUN 34 H, Creatinine 1.71 H, Estim Creat Clear Calc 16.96, Est GFR (MDRD) Af Amer 36 L, Est GFR (MDRD) Non-Af 30 L, BUN/Creatinine Ratio 19.9, Glucose 149 H, Calcium 9.2 Micro: Microbiology 08/09/22 23:45 Nasal Secretion SARS-CoV-2 & FLU Antigen (Rapid) - Final Rhythm Strip Rhythm Strip: Sinus Rhythm Physical Exam Narrative Seen and examined. Cardiac telemetry A. fib. Metoprolol to be resumed. Heart rate 106, Physical exam General: Patient is oriented to time place and person. Shortness of breath resolved. HEENT: Atraumatic, PERRLA, EOMI, Normocephalic Oral: Oral mucosa moist. Neck: Supple, No JVD, Negative Carotid Bruits Lungs: Air entry diminished in bilateral lung bases. No crepitations. Cardiovascular: Atrial flutter, mild tachycardia 106/min. Normal S1, Normal S2, systolic murmur present LLSB Abdomen: Bowel Sounds Present, Soft, Non Tender, Non-Distended : Ko catheter clear urine no renal angle tenderness. No suprapubic tenderness. 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 No Tenderness to Palpation of Joints or Extremities Neurological: No focal deficit. On baseline mental function, no acute neurological deficit Psych/Mental Status: Flat affect Assessment & Plan Assessment/Plan (1) Hypertensive emergency: PLAN: Plan This is a 87-year-old female with multiple comorbidities was admitted through ED for worsening shortness of breath for about 1 day on the day of admission along with occasional productive cough with yellow sputum. No fever. CTPA was done which shows pulmonary edema and bilateral chronic pleural effusion. No PE. Patient was admitted in ICU with hypertensive emergency Hypertensive emergency with resistant hypertension along with features of organ dysfunction (pulmonary edema,NSTEMI) : In ED, patient had SBP 257/89. ? Received hydralazine and labetalol in the emergency department.? Emergent department doctor discussed the case with crisis mental health therapist who recommended labetalol and if blood pressure not controlled? Nitroglycerin drip 08/10: BP profile better in ICU but is still elevated 08/11: Blood pressure has been high and fluctuating yesterday. Patient is started on hydralazine oral 25 mg 3 times daily, already on losartan 50 mg twice daily, clonidine 0.1 mg 3 times daily, amlodipine 5 mg twice daily. 08/12: Blood pressure is better controlled systolic 150s. Patient put back on hydralazine 12.5 mg daily, hydralazine increased to 50 mg 3 times daily. Nephrology adjusted losartan 200 mg daily and amlodipine 10 mg daily. Atrial flutter/fibrillation with sinus pauses with bradycardia: Clonidine decreased to 0.1 mg twice daily. Metoprolol succinate was decreased to 50 mg twice daily. Started on a spironolactone 25 mg daily and Eliquis 2.5 mg twice daily. In the past patient had refused anticoagulant. 08/13: Patient has chronic renal artery stenosis, severe 90% on right side with atrophic right kidney. Left KWAKU severe 90%. Vascular surgery is consulted. As per Dr. August consult note, patient refused earlier for renal artery stenting but now agreeable. Patient on losartan, HCTZ, hydralazine, furosemide and metoprolol succinate. Creatinine went up to 1.4, BUN 25. Lasix IV Discontinued. Consider Lasix 40 mg oral twice daily from tomorrow a.m. if kidney function permits. Hypokalemia, potassium is getting replaced. 08/14: Patient in A. fib, heart rate gradually climbing up therefore was restarted on metoprolol. Discussed with the nursing secretary. Uncontrolled left renal artery is stented, her blood pressure difficult to control. Acute hypoxic respiratory failure due to acute Exacerbation of heart failure with preserved ejection fraction complicated with pulmonary edema: Patient on BiPAP 40% FiO2. Titrate as per protocol. 08/12: Shortness of breath is better. Off BiPAP. Echocardiogram on 12/04/2021 showed estimated ejection fraction of 55%.? Evidence of diastolic dysfunction. Twelve-lead EKG shows sinus bradycardia 50 bpm, at first-degree AV block heart failure core measures including intake and output, fluid restriction less than 1500 mL, daily weight monitoring, kidney and electrolytes monitoring BNP of 505.1.? Her BNP on 03/09/2022 was 157.8 and 12/03/21 was 174. Diuresis with Lasix 40 mg IV twice daily.? Sodium was mildly low at 133. 08/11: 2D echo shows EF 65% with mild eccentric MR and AI. Stage II diastolic dysfunction. Compared to last echo no significant change in systolic function. NSTEMI, unclear whether due to primary NV event or NV type II with increased demand from pulmonary edema and heart failure: Initial high sensitive troponin was 148. Repeat was 156.? Heparin drip continued.? Started on Plavix. Patient is allergic to aspirin. Cardiology consult. Hyponatremia Sodium presentation was 133.? Review of records in the past patient has had some valleys of mild hyponatremia.? Trend. 08/12 sodium is 131, potassium 3.4. FRANSISCO on CKD stage IV Patient creatinine went up from 1.0 to 1.71. There is increase of more than 0.3 mg creatinine in last 48 hours therefore patient meets criteria for FRANSISCO. DVT prophylaxis Clinical Impression(s) from Imaging Studies Chest X-Ray 08/09/22 00:15 IMPRESSION: Findings suggest pulmonary edema with pleural effusions. Electronically Signed: Sandra Dejesus MD at 0:57 EST , Chest CTA 08/10/22 04:06 IMPRESSION: 1. No CTA demonstrated pulmonary embolism or arterial dissection. 2. Findings suggest bilateral multifocal pneumonia. 3. Cardiomegaly and pulmonary edema. Echocardiogram 08/10/22 07:28 Interpretation Summary Normal LV size. Left ventricular systolic function is normal. The estimated ejection fraction is 65 %. Stage 2 diastolic dysfunction. Mild (1+) eccentric mitral valve insufficiency. Mild (1+) aortic valve insufficiency. Compared to previous study, the left ventricular systolic function is the same.. Abdomen CTA 08/12/22 17:50 IMPRESSION: 1. Large amount calcified plaque throughout the abdominal aorta with a large calcified plaque at the level of the origin the celiac axis producing a severe (80%) stenosis. No abdominal aortic aneurysm. 2. Calcified plaque at the origin of the celiac axis and superior mesenteric artery with a patent inferior mesenteric artery. 3. Severe (90%) right renal artery stenosis with severely atrophic right kidney consistent with chronic renal artery stenosis. 4. Severe (90%) left renal artery stenosis. Electronically Signed: Martínez Flores MD at 20:01 EST , Total time of the visit including total time spent in counseling or coordination of care, (more than 50% of the total time, spent in obtaining medical information from nurses and other ancillary care providers,explaining to the patient about labs, imaging, diagnosis and management of active complex medical conditions), management of multiple organ dysfunction, crisis mental health therapist , review of labs and imaging is 40 minutes. Charges/Coding Visit Charges Inpatient E&M: 91602 [facility] Hosp L3
--- NOTE | 2022-08-14 16:13 | CASEMGMT ---
DUNG CM in to pt room, pt sitting up in chair with oxygen on. Discussed should pt need oxygen at dc how the process works. She is aware to call phone number on portable tank tag to get the concentrator delivered. Pt verbalizes understanding. Provided pt with a verbal local in network list of DME companies, pt chose [employer]. Pt is aware that [facility] from [facility] has accepted her and will be out on Wednesday. Pt denies further homegoing needs. Green sheet on chart for HHC and O2.
[2022-08-14] MEDS: hydrALAZINE 50 MG Tablet 100 MG PO (20:37)
[2022-08-14] MEDS: Metoprolol(XL)Succ 50 MG Tablet PO (20:38)
[2022-08-14] MEDS: Atorvastatin Calcium 10 MG Tablet 5 MG PO (20:39)
[2022-08-14] MEDS: cloNIDine HCl 0.1 MG Tablet PO (20:51)
[2022-08-15] VITALS (20 sets, daily range): BP systolic 132–178; BP diastolic 50–64; PULSE 70–84; RESP 14–18; TEMP 36.4–37; O2SAT 87–97
[2022-08-15 05:11] LABS: Absolute Lymphocyte Count 1.48 X10^3/uL (0.83-4.51); Absolute Neutrophil Count 7.4 X10^3/uL (2.0-7.7); Basophil# 0.05 X10^3/uL; Basophil% 0.5 % (0-1); Eosinophil# 0.17 X10^3/uL; Eosinophils% 1.6 % (0-5); Hematocrit 37.1 % (37-47); Hemoglobin 12.1 g/dL (12.0-15.0); Lymphocyte # 1.48 X10^3/ul (0.83-4.51); Lymphocyte % 13.9 % (19-41); Mean Corp Hgb Conc 32.6 g/dL (32-36); Mean Corpuscular Hgb 31.9 pg (27.0-32.0); Mean Corpuscular Volume 97.9 fL (81-99); Mean Platelet Vol. 10.4 fl (6.2-12.0); Monocyte# 1.46 X10^3/uL; Monocyte% 13.7 % (0-10); NRBC Flagged by Analyzer 0 % (0-5); Neutrophil # 7.43 X10^3/uL (2.7-7.7); Neutrophil % 69.8 % (47-70); Platelet Count 287 K/mm3 (150-450); RBC Distribution Width CV 12.8 % (11.6-14.6); RBC Distribution Width SD 45.8 fl (35.1-43.9); Red Blood Count 3.79 M/mm3 (4.2-5.4); White Blood Count 10.6 K/mm3 (4.4-11.0)
[2022-08-15] MEDS: hydrALAZINE 50 MG Tablet 100 MG PO ×3 (05:32→20:57)
[2022-08-15 05:34] LABS: Anion Gap 9 (5-15); BUN 42 mg/dL (7-18); BUN/Creat Ratio 23.7 RATIO (10-20); Calcium,Total 9.2 mg/dL (8.5-10.1); Chloride 90 mmol/L (98-107); Creatinine, Serum 1.77 mg/dL (0.55-1.02); EST Glomerular Filtration Rate 29 mL/min (>60); Est Glom Filt Rate - Afr Amer 35 mL/min (>60); Estimated Creatinine Clearance 16.39 ml/min; Glucose 126 mg/dL (74-106); Potassium 4.4 mmol/L (3.5-5.1); Sodium Level 130 mmol/L (136-145)
[2022-08-15] MEDS: Metoprolol(XL)Succ 50 MG Tablet PO ×2 (09:35→20:58)
[2022-08-15] MEDS: Ascorbic Acid 500 MG Tablet PO (09:35)
[2022-08-15] MEDS: Senna Tablet 1 TABLET PO ×2 (09:35→20:58)
[2022-08-15] MEDS: amLODIPine 10 MG Tablet PO (09:35)
[2022-08-15] MEDS: Clopidogrel Bisulfate 75 MG Tablet PO (09:35)
[2022-08-15] MEDS: APIXABAN 2.5 MG TABLET (WCH) PO ×2 (09:35→20:57)
[2022-08-15] MEDS: Polyethylene Glycol 3350 17 GM PACKET PO (09:35)
[2022-08-15] MEDS: Citalopram 20 MG Tablet PO (09:36)
[2022-08-15] MEDS: HYDROcodone Bitartrate/Apap 5/325 Tablet PO ×2 (09:44→20:57)
[2022-08-15] MEDS: cloNIDine HCl 0.1 MG Tablet PO ×2 (09:44→20:57)
--- NOTE | 2022-08-15 10:26 | PCM.PN.REN ---
Subjective Subjective Follow-up on renal artery stenosis. 1 atrophic kidney. Hypertension, acute kidney injury. She is doing okay, on nasal cannula oxygen, blood pressure is acceptable. Edema is better. Surgical input has been reviewed. Earliest intervention possible on 20 August. Objective Data Objective Data Vital Signs: Vital Signs Temp Pulse Resp BP Pulse Ox O2 Del Method O2 Flow Rate 98.3 F 84 14 164/64 H 96 Nasal Cannula 2 08/15/22 09:30 08/15/22 09:35 08/15/22 09:30 08/15/22 09:35 08/15/22 09:30 08/15/22 09:45 08/15/22 09:45 FiO2 30 08/13/22 05:30 Oxygen Flow Rate (L/min) 2 Oxygen Delivery Method Nasal Cannula Weight: 61.6 kg Body Mass Index (BMI) 26.7 Intake & Output: Intake and Output for Last 24 Hours 08/13/22 08/14/22 08/15/22 23:59 23:59 23:59 Intake Total 500 / 500 340 / 340 Output Total 750 / 900 675 / 675 150 / 150 Balance -250 / -400 -335 / -335 -150 / -150 Lab / Micro Data Attestation: I reviewed the patient's lab results. Result Diagrams: 08/15/22 04:35 08/15/22 04:35 Labs: Laboratory Results - last 24 hr 08/15/22 04:35: WBC 10.6, RBC 3.79 L, Hgb 12.1, Hct 37.1, MCV 97.9, MCH 31.9, MCHC 32.6, RDW Std Deviation 45.8 H, RDW Coeff of Deidra 12.8, Plt Count 287, MPV 10.4, Immature Gran % (Auto) 0.500, Neut % (Auto) 69.8, Lymph % (Auto) 13.9 L, [place] % (Auto) 13.7 H, Eos % (Auto) 1.6, Baso % (Auto) 0.5, Absolute Neuts (auto) 7.4, Absolute Lymphs (auto) 1.48, Nucleated RBC % 0 08/15/22 04:35: Sodium 130 L, Potassium 4.4, Chloride 90 L, Carbon Dioxide 31.0, Anion Gap 9, BUN 42 H, Creatinine 1.77 H, Estim Creat Clear Calc 16.39, Est GFR (MDRD) Af Amer 35 L, Est GFR (MDRD) Non-Af 29 L, BUN/Creatinine Ratio 23.7 H, Glucose 126 H, Calcium 9.2 Micro: Microbiology 08/09/22 23:45 Nasal Secretion SARS-CoV-2 & FLU Antigen (Rapid) - Final Rhythm Strip Rhythm Strip: Sinus Rhythm Physical Exam Const alert, no apparent distress and average body habitus General Appearance: well developed Orientation / Consciousness: oriented to person and oriented to place Nutritional Appearance: thin HEENT normocephalic Head and Scalp: atraumatic External Ear: external ears normal Eyes PERRL Neck no lymphadenopathy Resp no use of accessory muscles and clear to auscultation bilaterally Cardio regular rate GI non-tender and non-distended Auscultation: normoactive bowel sounds Skin no rashes or lesions noted Psych cooperative Assessment & Plan Assessment/Plan (1) Renal artery stenosis: PLAN: She has 1 atrophic kidney. Creatinine is stable. Blood pressure is acceptable. Most likely intervention on August 20 (2) Hypertensive emergency: PLAN: Continue with the current medications, monitor blood pressure, adjust as needed (3) Edema: QUALIFIERS: Edema type: unspecified Qualified Code(s): R60.9 - Edema, unspecified PLAN: That has improved, no respiratory compromise (4) Acute kidney injury: PLAN: Creatinine is stable, keep monitoring, avoid nephrotoxins
--- NOTE | 2022-08-15 10:28 | PCM.PN.HOSP ---
Objective Data Objective Data Vital Signs: Vital Signs Temp Pulse Resp BP Pulse Ox O2 Del Method O2 Flow Rate 98.3 F 84 14 164/64 H 96 Nasal Cannula 2 08/15/22 09:30 08/15/22 09:35 08/15/22 09:30 08/15/22 09:35 08/15/22 09:30 08/15/22 09:45 08/15/22 09:45 FiO2 30 08/13/22 05:30 Oxygen Flow Rate (L/min) 2 Oxygen Delivery Method Nasal Cannula Weight: 61.6 kg Body Mass Index (BMI) 26.7 Intake & Output: Intake and Output for Last 24 Hours 08/13/22 08/14/22 08/15/22 23:59 23:59 23:59 Intake Total 500 / 500 340 / 340 Output Total 750 / 900 675 / 675 150 / 150 Balance -250 / -400 -335 / -335 -150 / -150 Lab / Micro Data Result Diagrams: 08/15/22 04:35 08/15/22 04:35 Labs: Laboratory Results - last 24 hr 08/15/22 04:35: WBC 10.6, RBC 3.79 L, Hgb 12.1, Hct 37.1, MCV 97.9, MCH 31.9, MCHC 32.6, RDW Std Deviation 45.8 H, RDW Coeff of [place]idra 12.8, Plt Count 287, MPV 10.4, Immature Gran % (Auto) 0.500, Neut % (Auto) 69.8, Lymph % (Auto) 13.9 L, [place] % (Auto) 13.7 H, Eos % (Auto) 1.6, Baso % (Auto) 0.5, Absolute Neuts (auto) 7.4, Absolute Lymphs (auto) 1.48, Nucleated RBC % 0 08/15/22 04:35: Sodium 130 L, Potassium 4.4, Chloride 90 L, Carbon Dioxide 31.0, Anion Gap 9, BUN 42 H, Creatinine 1.77 H, Estim Creat Clear Calc 16.39, Est GFR (MDRD) Af Amer 35 L, Est GFR (MDRD) Non-Af 29 L, BUN/Creatinine Ratio 23.7 H, Glucose 126 H, Calcium 9.2 Micro: Microbiology 08/09/22 23:45 Nasal Secretion SARS-CoV-2 & FLU Antigen (Rapid) - Final Rhythm Strip Rhythm Strip: Sinus Rhythm Physical Exam Narrative Seen and examined. Cardiac telemetry A. fib. Metoprolol to be resumed. Heart rate 106, Physical exam General: Patient is oriented to time place and person. Shortness of breath resolved. HEENT: Atraumatic, PERRLA, EOMI, Normocephalic Oral: Oral mucosa moist. Neck: Supple, No JVD, Negative Carotid Bruits Lungs: Air entry diminished in bilateral lung bases. No crepitations. Cardiovascular: Atrial flutter, mild tachycardia 106/min. Normal S1, Normal S2, systolic murmur present LLSB Abdomen: Bowel Sounds Present, Soft, Non Tender, Non-Distended : Ko catheter clear urine no renal angle tenderness. No suprapubic tenderness. 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 No Tenderness to Palpation of Joints or Extremities Neurological: No focal deficit. On baseline mental function, no acute neurological deficit Psych/Mental Status: Flat affect Assessment & Plan Assessment/Plan (1) Hypertensive emergency: PLAN: Plan This is a 87-year-old female with multiple comorbidities was admitted through ED for worsening shortness of breath for about 1 day on the day of admission along with occasional productive cough with yellow sputum. No fever. CTPA was done which shows pulmonary edema and bilateral chronic pleural effusion. No PE. Patient was admitted in ICU with hypertensive emergency Hypertensive emergency with resistant hypertension along with features of organ dysfunction (pulmonary edema,NSTEMI) : In ED, patient had SBP 257/89. ? Received hydralazine and labetalol in the emergency department.? Emergent department doctor discussed the case with mica builder who recommended labetalol and if blood pressure not controlled? Nitroglycerin drip 08/10: BP profile better in ICU but is still elevated 08/11: Blood pressure has been high and fluctuating yesterday. Patient is started on hydralazine oral 25 mg 3 times daily, already on losartan 50 mg twice daily, clonidine 0.1 mg 3 times daily, amlodipine 5 mg twice daily. 08/12: Blood pressure is better controlled systolic 150s. Patient put back on hydralazine 12.5 mg daily, hydralazine increased to 50 mg 3 times daily. Nephrology adjusted losartan 200 mg daily and amlodipine 10 mg daily. Atrial flutter/fibrillation with sinus pauses with bradycardia: Clonidine decreased to 0.1 mg twice daily. Metoprolol succinate was decreased to 50 mg twice daily. Started on a spironolactone 25 mg daily and Eliquis 2.5 mg twice daily. In the past patient had refused anticoagulant. 08/13: Patient has chronic renal artery stenosis, severe 90% on right side with atrophic right kidney. Left KWAKU severe 90%. Vascular surgery is consulted. As per Dr. August consult note, patient refused earlier for renal artery stenting but now agreeable. Patient on losartan, HCTZ, hydralazine, furosemide and metoprolol succinate. Creatinine went up to 1.4, BUN 25. Lasix IV Discontinued. Consider Lasix 40 mg oral twice daily from tomorrow a.m. if kidney function permits. Hypokalemia, potassium is getting replaced. 08/14: Patient in A. fib, heart rate gradually climbing up therefore was restarted on metoprolol. Discussed with the water resource engineering specialist. Uncontrolled left renal artery is stented, her blood pressure difficult to control. Acute hypoxic respiratory failure due to acute Exacerbation of heart failure with preserved ejection fraction complicated with pulmonary edema: Patient on BiPAP 40% FiO2. Titrate as per protocol. 08/12: Shortness of breath is better. Off BiPAP. Echocardiogram on 12/04/2021 showed estimated ejection fraction of 55%.? Evidence of diastolic dysfunction. Twelve-lead EKG shows sinus bradycardia 50 bpm, at first-degree AV block heart failure core measures including intake and output, fluid restriction less than 1500 mL, daily weight monitoring, kidney and electrolytes monitoring BNP of 505.1.? Her BNP on 03/09/2022 was 157.8 and 12/03/21 was 174. Diuresis with Lasix 40 mg IV twice daily.? Sodium was mildly low at 133. 08/11: 2D echo shows EF 65% with mild eccentric MR and AI. Stage II diastolic dysfunction. Compared to last echo no significant change in systolic function. NSTEMI, unclear whether due to primary NM event or NM type II with increased demand from pulmonary edema and heart failure: Initial high sensitive troponin was 148. Repeat was 156.? Heparin drip continued.? Started on Plavix. Patient is allergic to aspirin. Cardiology consult. Hyponatremia Sodium presentation was 133.? Review of records in the past patient has had some valleys of mild hyponatremia.? Trend. 08/12 sodium is 131, potassium 3.4. FRANSISCO on CKD stage IV Patient creatinine went up from 1.0 to 1.71. There is increase of more than 0.3 mg creatinine in last 48 hours therefore patient meets criteria for FRANSISCO. DVT prophylaxis
--- NOTE | 2022-08-15 10:33 | PCM.DC.SUM ---
Providers Date of Admission: 08/10/22 Date of Discharge: 08/15/22 Primary Care Physician: Dr. James Garcia, Consultations 08/10/22 05:50 Consult: Cardiology Routine Consulting Provider: Leandro Fay Reason for Consult: Elevated troponin EMERGENT Consult: No MD Notified: Yes Date Notified: 08/10/22 Time Notified: 11:47 Method of Notification: Text Method of Consult:: In-Person 08/11/22 08:58 Consult: Nephrology Routine Consulting Provider: Cristian Pierre Reason for Consult: Hypertensive emergency, Pulm edema EMERGENT Consult: No MD Notified: Yes Date Notified: 08/11/22 Time Notified: 08:58 Method of Notification: Verbal 08/12/22 15:03 Consult: Vascular Surgery Routine Consulting Provider: Duke August Reason for Consult: Renal A stenosis. needs stenting EMERGENT Consult: No MD Notified: Yes Date Notified: 08/12/22 Time Notified: 15:28 Method of Notification: Verbal Reason For Visit: HYPERTENSIVE EMERGENCY Diagnosis Discharge Diagnosis (1) Hypertensive emergency: Status: Acute Code(s): I16.1 - Hypertensive emergency (2) Edema: Status: Chronic Code(s): R60.9 - Edema, unspecified Qualifiers: Edema type: unspecified Qualified Code(s): R60.9 - Edema, unspecified (3) Acute kidney injury: Status: Acute Code(s): N17.9 - Acute kidney failure, unspecified Medications at Discharge Home Medications montelukast 10 mg tablet 10 mg PO QDAY allergies 09/08/17 omeprazole 20 mg capsule,delayed release 20 mg PO DAILY reflux 09/08/17 simvastatin 10 mg tablet 10 mg PO QDAY cholesterol 09/08/17 potassium chloride 20 mEq tablet,extended release 20 meq PO QDAY supplement 09/13/17 albuterol sulfate 2.5 mg/3 mL (0.083 %) solution for nebulization 2.5 mg inhalation Q4H PRN Shortness Of Breath 06/13/18 ipratropium bromide 0.02 % solution for inhalation 2.5 ml inhalation Q4H PRN Shortness Of Breath 06/13/18 nitroglycerin 0.4 mg sublingual tablet 0.4 mg sublingual Q5-15M PRN chest pain 10/22/18 metoprolol succinate 100 mg tablet,extended release 24 hr 100 mg PO BID blood pressure 11/28/19 isosorbide dinitrate 30 mg tablet 30 mg PO BID heart 12/14/19 losartan 50 mg tablet 50 mg PO BID #180 tabs 01/30/20 fluticasone propionate 50 mcg/actuation nasal spray,suspension 1 spray NASAL DAILY allergies 11/28/20 ascorbic acid (vitamin C) 500 mg tablet (Vitamin C) 500 mg PO DAILY supplement 03/09/22 ferrous sulfate 325 mg (65 mg iron) tablet 325 mg PO BID supplement 03/09/22 lactulose 10 gram/15 mL oral solution 30 g PO Q OTHER DAY ammonia 05/12/22 citalopram 20 mg tablet 20 mg PO DAILY 08/10/22 clonidine HCl 0.2 mg tablet 0.1 mg PO TID 08/10/22 hydrochlorothiazide 25 mg tablet 25 mg PO DAILY blood pressure 08/10/22 hydrocodone-acetaminophen 5-325mg 5mg-325mg 1 tab PO BID 08/10/22 amlodipine 10 mg tablet 10 mg PO DAILY 30 days #30 tabs 08/15/22 apixaban 5 mg tablet (Eliquis) 2.5 mg PO BID 30 days #30 tabs 08/15/22 clopidogrel 75 mg tablet 75 mg PO DAILY 30 days #30 tabs 08/15/22 hydralazine 50 mg tablet 100 mg PO TID 30 days #180 tabs 08/15/22 Hospital Course Summary of Care Provided Minutes Spent on Discharge: 35 Physical Exam Narrative GENERAL: cooperative HEENT: Atraumatic; normocephalic EYES; Anicteric, Normal Conjunctiva NECK; supple, normal thyroid, RESPIRATORY: Diminished to auscultation CARDIOVASCULAR: Regular S1 S2, GI: soft, normoactive bowel sounds, : No Renal angle tenderness; EXTREMITIES: No edema, no clubbing, MUSCULOSKELETAL: no muscle wasting NEURO: Awake; no lateralizing signs. SKIN: No Rash PSYCH; Flat affect Weight / BMI Weight Weight: 61.6 kg Body Mass Index (BMI) 26.7 ABG / Lab / Microbiology Data Result Diagrams: 08/15/22 04:35 08/15/22 04:35 Laboratory: Laboratory Results - last 24 hr 08/15/22 04:35: WBC 10.6, RBC 3.79 L, Hgb 12.1, Hct 37.1, MCV 97.9, MCH 31.9, MCHC 32.6, RDW Std Deviation 45.8 H, RDW Coeff of Deidra 12.8, Plt Count 287, MPV 10.4, Immature Gran % (Auto) 0.500, Neut % (Auto) 69.8, Lymph % (Auto) 13.9 L, [place] % (Auto) 13.7 H, Eos % (Auto) 1.6, Baso % (Auto) 0.5, Absolute Neuts (auto) 7.4, Absolute Lymphs (auto) 1.48, Nucleated RBC % 0 08/15/22 04:35: Sodium 130 L, Potassium 4.4, Chloride 90 L, Carbon Dioxide 31.0, Anion Gap 9, BUN 42 H, Creatinine 1.77 H, Estim Creat Clear Calc 16.39, Est GFR (MDRD) Af Amer 35 L, Est GFR (MDRD) Non-Af 29 L, BUN/Creatinine Ratio 23.7 H, Glucose 126 H, Calcium 9.2 Microbiology: Microbiology 08/09/22 23:45 Nasal Secretion SARS-CoV-2 & FLU Antigen (Rapid) - Final Meaningful Use Info Meaningful Use Diagnoses (Choose all that apply): None applicable Discharge Plan Admission Admit Date/Time: 08/10/22 04:33 Attending Provider: Sanket Machado Primary Care Provider: James Garcia Consulting Providers: Ace Ugalde ; Leandro Fay ; Cristian Pierre ; Duke August ; Lei Gonzalez Discharge Orders/Prescriptions Prescriptions: New clopidogrel 75 mg Tablet 75 mg PO DAILY 30 Days Qty: 30 0RF amlodipine 10 mg Tablet 10 mg PO DAILY 30 Days Qty: 30 0RF hydralazine 50 mg Tablet 100 mg PO TID 30 Days Qty: 180 0RF Eliquis 5 mg Tablet 2.5 mg PO BID 30 Days Qty: 30 0RF Continued montelukast 10 mg tablet 10 mg PO QDAY simvastatin 10 mg tablet 10 mg PO QDAY omeprazole 20 mg capsule,delayed release(DR/EC) 20 mg PO DAILY potassium chloride 20 mEq tablet extended release 20 meq PO QDAY metoprolol succinate 100 mg tablet extended release 24 hr 100 mg PO BID albuterol sulfate 2.5 mg /3 mL (0.083 %) solution for nebulization 2.5 mg INHALATION Q4H PRN (Reason: Shortness Of Breath) ipratropium bromide 0.02 % solution 2.5 ml INHALATION Q4H PRN (Reason: Shortness Of Breath) nitroglycerin 0.4 mg tablet, sublingual 0.4 mg sublingual Q5-15M PRN (Reason: chest pain) fluticasone propionate 1 SPRAY spray,suspension 1 spray NASAL DAILY lactulose 10 gram/15 mL solution 30 g PO Q OTHER DAY ferrous sulfate 325 mg (65 mg iron) Tablet 325 mg PO BID ascorbic acid (vitamin C) [Vitamin C] 500 mg Tablet 500 mg PO DAILY hydrocodone-acetaminophen 5-325 mg tablet 1 tab PO BID citalopram 20 mg tablet 20 mg PO DAILY clonidine HCl 0.2 mg tablet 0.1 mg PO TID hydrochlorothiazide 25 mg tablet 25 mg PO DAILY isosorbide dinitrate 30 mg tablet 30 mg PO BID losartan 50 mg tablet 50 mg PO BID Qty: 180 3RF Discontinued amlodipine 2.5 mg tablet 2.5 mg PO BID Referrals / Follow Up: James Garcia DO [Primary Care Provider] - In 1 Week Duke August MD [Med Staff - Active Staff] - 08/20/22 7:00 am (For renal artery stenting) Disposition Disposition (needs filled in before D/C Order can be placed): Home Health Service Charges/Coding Visit Charges Inpatient E&M: 34407 Disch Hosp
--- NOTE | 2022-08-15 10:46 | PCM.PN.HOSP ---
Subjective Subjective Patient is an 87-year-old lady with multiple comorbidities admitted with shortness of breath diagnosed with acute hypertensive emergency. Admitted to a monitored bed for subsequent management Objective Data Objective Data Vital Signs: Vital Signs Temp Pulse Resp BP Pulse Ox O2 Del Method O2 Flow Rate 98.3 F 84 14 164/64 H 96 Nasal Cannula 2 08/15/22 09:30 08/15/22 09:35 08/15/22 09:30 08/15/22 09:35 08/15/22 09:30 08/15/22 09:45 08/15/22 09:45 FiO2 30 08/13/22 05:30 Oxygen Flow Rate (L/min) 2 Oxygen Delivery Method Nasal Cannula Weight: 61.6 kg Body Mass Index (BMI) 26.7 Intake & Output: Intake and Output for Last 24 Hours 08/13/22 08/14/22 08/15/22 23:59 23:59 23:59 Intake Total 500 / 500 340 / 340 Output Total 750 / 900 675 / 675 150 / 150 Balance -250 / -400 -335 / -335 -150 / -150 Lab / Micro Data Result Diagrams: 08/15/22 04:35 08/15/22 04:35 Labs: Laboratory Results - last 24 hr 08/15/22 04:35: WBC 10.6, RBC 3.79 L, Hgb 12.1, Hct 37.1, MCV 97.9, MCH 31.9, MCHC 32.6, RDW Std Deviation 45.8 H, RDW Coeff of Deidra 12.8, Plt Count 287, MPV 10.4, Immature Gran % (Auto) 0.500, Neut % (Auto) 69.8, Lymph % (Auto) 13.9 L, [place] % (Auto) 13.7 H, Eos % (Auto) 1.6, Baso % (Auto) 0.5, Absolute Neuts (auto) 7.4, Absolute Lymphs (auto) 1.48, Nucleated RBC % 0 08/15/22 04:35: Sodium 130 L, Potassium 4.4, Chloride 90 L, Carbon Dioxide 31.0, Anion Gap 9, BUN 42 H, Creatinine 1.77 H, Estim Creat Clear Calc 16.39, Est GFR (MDRD) Af Amer 35 L, Est GFR (MDRD) Non-Af 29 L, BUN/Creatinine Ratio 23.7 H, Glucose 126 H, Calcium 9.2 Micro: Microbiology 08/09/22 23:45 Nasal Secretion SARS-CoV-2 & FLU Antigen (Rapid) - Final Rhythm Strip Rhythm Strip: Sinus Rhythm Physical Exam Narrative GENERAL: cooperative HEENT: Atraumatic; normocephalic EYES; Anicteric, Normal Conjunctiva NECK; supple, normal thyroid, RESPIRATORY: Diminished to auscultation CARDIOVASCULAR: Regular S1 S2, GI: soft, normoactive bowel sounds, : No Renal angle tenderness; EXTREMITIES: No edema, no clubbing, MUSCULOSKELETAL: no muscle wasting NEURO: Awake; no lateralizing signs. SKIN: No Rash PSYCH; Flat affect Assessment & Plan Assessment/Plan (1) Heart failure: (2) Hypertensive emergency: (3) Renal artery stenosis: PLAN: Plan Patient is an 87-year-old lady with multiple comorbidities admitted with shortness of breath diagnosed with acute hypertensive emergency. Admitted to a monitored bed for subsequent management 1. Acute hypertensive emergency in a patient with resistant hypertension ? Patient had evidence of endorgan dysfunction including pulmonary edema as well as elevated troponin. Patient was admitted to a monitored bed for treatment work-up did reveal bilateral severe renal artery stenosis. Seen in consultation by vascular surgery plans for patient to undergo stenting on 08/20/2022 2. Hypoxic respiratory failure (present on admission) ? This was secondary to patient pulmonary edema managed with noninvasive ventilation BiPAP subsequently weaned off. Echo obtained on 08/11/2022 demonstrated EF of 65% 3. Acute on chronic congestive heart failure with preserved ejection fraction ? Managed per protocol 3. Elevated troponin ? Secondary to acute hypertensive emergency 5. Acute kidney injury Secondary to hypertensive heart disease patient was seen in consultation by nephrology. Patient kidney function continues to worsen 6. Hyponatremia ? Patient was on HCTZ discontinued subsequent monitoring with daily BMPs ordered 7. Paroxysmal A. fib ? Patient is on beta-blockers. Started on systemic anticoagulation with apixaban 8. DVT prophylaxis ? On apixaban Charges/Coding Visit Charges Inpatient E&M: 51910 [facility] Hosp L3
--- NOTE | 2022-08-15 17:56 | PCM.PN.CARD ---
Subjective Subjective Shortness of breath improving Objective Data Vital Signs: Vital Signs Temp Pulse Resp BP Pulse Ox O2 Del Method O2 Flow Rate 98.3 F 79 18 132/56 H 87 Nasal Cannula 2 08/15/22 14:32 08/15/22 15:16 08/15/22 14:32 08/15/22 14:37 08/15/22 14:34 08/15/22 14:35 08/15/22 16:15 FiO2 30 08/13/22 05:30 Oxygen Flow Rate (L/min) 2 Oxygen Delivery Method Nasal Cannula Weight: 135 lb 12.876 oz Body Mass Index (BMI) 26.7 Intake & Output: Intake and Output for Last 24 Hours 08/13/22 08/14/22 08/15/22 23:59 23:59 23:59 Intake Total 500 / 500 340 / 340 120 / 120 Output Total 750 / 900 675 / 675 325 / 325 Balance -250 / -400 -335 / -335 -205 / -205 Lab / Micro Data Result Diagrams: 08/15/22 04:35 08/15/22 04:35 Labs: Laboratory Results - last 24 hr 08/15/22 04:35: WBC 10.6, RBC 3.79 L, Hgb 12.1, Hct 37.1, MCV 97.9, MCH 31.9, MCHC 32.6, RDW Std Deviation 45.8 H, RDW Coeff of Deidra 12.8, Plt Count 287, MPV 10.4, Immature Gran % (Auto) 0.500, Neut % (Auto) 69.8, Lymph % (Auto) 13.9 L, [place] % (Auto) 13.7 H, Eos % (Auto) 1.6, Baso % (Auto) 0.5, Absolute Neuts (auto) 7.4, Absolute Lymphs (auto) 1.48, Nucleated RBC % 0 08/15/22 04:35: Sodium 130 L, Potassium 4.4, Chloride 90 L, Carbon Dioxide 31.0, Anion Gap 9, BUN 42 H, Creatinine 1.77 H, Estim Creat Clear Calc 16.39, Est GFR (MDRD) Af Amer 35 L, Est GFR (MDRD) Non-Af 29 L, BUN/Creatinine Ratio 23.7 H, Glucose 126 H, Calcium 9.2 Rhythm Strip Rhythm Strip: Sinus Rhythm Cardiology Labs/Tests 08/15/22 04:35: WBC 10.6, RBC 3.79 L, Hgb 12.1, Hct 37.1, MCV 97.9, MCH 31.9, MCHC 32.6, Plt Count 287, MPV 10.4, Immature Gran % (Auto) 0.500, Neut % (Auto) 69.8, Lymph % (Auto) 13.9 L, [place] % (Auto) 13.7 H, Eos % (Auto) 1.6, Baso % (Auto) 0.5, Absolute Neuts (auto) 7.4, Nucleated RBC % 0 08/15/22 04:35: Sodium 130 L, Potassium 4.4, Chloride 90 L, Carbon Dioxide 31.0, Anion Gap 9, BUN 42 H, Creatinine 1.77 H, Est GFR (MDRD) Af Amer 35 L, Est GFR (MDRD) Non-Af 29 L, BUN/Creatinine Ratio 23.7 H, Glucose 126 H, Calcium 9.2 Rhythm: EKG: ECHO: Stress Test: Cardiac Cath: PCI: CT Surgery: Holter monitor: EPS: PPM: CXR: Chest CT Scan: Physical Exam Cardio Cardio Narrative: Cardiac rhythm is A. fib Cardiac exam S1-S2 is irregular Chest exam mildly diminished air entry bilateral Assessment & Plan Assessment/Plan (1) Renal artery stenosis: (2) Elevated troponin: (3) COPD (chronic obstructive pulmonary disease): (4) Presence of stent in coronary artery: (5) Paroxysmal atrial fibrillation: PLAN: Plan This 87-year-old patient with known history of CAD Prior PCI and stent of RCA and LAD Also has paroxysmal atrial fibrillation Patient has been on rate control in addition to her anticoagulation On her last echocardiogram patient LV systolic function is preserved Is hypertensive emergency with acute on chronic diastolic heart failure Cardiac care plan recommendation; This patient with acute hypertensive emergency with bilateral severe renal artery stenosis Scheduled to undergo renal stenting by vascular surgeon From cardiac standpoint last echocardiogram showed preserved LV systolic function ejection fraction of around 65% we will continue to monitor clinically The mild elevation of cardiac biomarker is secondary to demand myocardial ischemia with type II LA secondary to acute hypertensive emergency and acute renal insufficiency. Exam from cardiac standpoint we will continue to monitor and follow-up clinically.
[2022-08-15] MEDS: Atorvastatin Calcium 10 MG Tablet 5 MG PO (20:58)
[2022-08-16] VITALS (17 sets, daily range): BP systolic 131–147; BP diastolic 47–57; PULSE 65–76; RESP 16–20; TEMP 36.6–37.1; O2SAT 87–97
[2022-08-16] MEDS: 0.9% Saline Lock 10 ML Syringe IV (02:57)
[2022-08-16] MEDS: hydrALAZINE 50 MG Tablet 100 MG PO ×3 (05:44→21:47)
[2022-08-16 07:08] LABS: Absolute Lymphocyte Count 1.79 X10^3/uL (0.83-4.51); Basophil# 0.06 X10^3/uL; Basophil% 0.7 % (0-1); Eosinophil# 0.33 X10^3/uL; Eosinophils% 3.9 % (0-5); Hematocrit 34.9 % (37-47); Hemoglobin 11.5 g/dL (12.0-15.0); Lymphocyte # 1.79 X10^3/ul (0.83-4.51); Lymphocyte % 21.3 % (19-41); Mean Corpuscular Hgb 32.3 pg (27.0-32.0); Mean Platelet Vol. 10.2 fl (6.2-12.0); Monocyte# 1.18 X10^3/uL; Monocyte% 14.1 % (0-10); NRBC Flagged by Analyzer 0 % (0-5); Neutrophil % 59.6 % (47-70); Platelet Count 289 K/mm3 (150-450); RBC Distribution Width CV 12.9 % (11.6-14.6); RBC Distribution Width SD 46.8 fl (35.1-43.9); Red Blood Count 3.56 M/mm3 (4.2-5.4); White Blood Count 8.4 K/mm3 (4.4-11.0)
[2022-08-16 07:37] LABS: Anion Gap 9 (5-15); BUN 55 mg/dL (7-18); BUN/Creat Ratio 26.4 RATIO (10-20); Calcium,Total 9.2 mg/dL (8.5-10.1); Chloride 92 mmol/L (98-107); Creatinine, Serum 2.08 mg/dL (0.55-1.02); EST Glomerular Filtration Rate 24 mL/min (>60); Est Glom Filt Rate - Afr Amer 29 mL/min (>60); Estimated Creatinine Clearance 13.95 ml/min; Glucose 114 mg/dL (74-106); Potassium 4.5 mmol/L (3.5-5.1); Sodium Level 129 mmol/L (136-145)
--- NOTE | 2022-08-16 08:11 | PN.HOSP_ITS ---
Subjective Subjective Patient seen blood pressure control improving however kidney function continues to worsen Objective Data Objective Data Vital Signs: Vital Signs Temp Pulse Resp BP Pulse Ox O2 Del Method O2 Flow Rate 98.2 F 67 18 147/52 H 95 Nasal Cannula 2 08/16/22 05:43 08/16/22 07:04 08/16/22 05:43 08/16/22 05:43 08/16/22 05:43 08/16/22 05:43 08/16/22 05:43 FiO2 30 08/13/22 05:30 Oxygen Flow Rate (L/min) 2 Oxygen Delivery Method Nasal Cannula Weight: 60.6 kg Body Mass Index (BMI) 26.7 Intake & Output: Intake and Output for Last 24 Hours 08/14/22 08/15/22 08/16/22 23:59 23:59 23:59 Intake Total 340 / 340 490 / 710 470 / 470 Output Total 675 / 675 375 / 475 200 / 200 Balance -335 / -335 115 / 235 270 / 270 Lab / Micro Data Result Diagrams: 08/16/22 06:25 08/16/22 06:25 Labs: Laboratory Results - last 24 hr 08/16/22 06:25: WBC 8.4, RBC 3.56 L, Hgb 11.5 L, Hct 34.9 L, MCV 98.0, MCH 32.3 H, MCHC 33.0, RDW Std Deviation 46.8 H, RDW Coeff of Deidra 12.9, Plt Count 289, MPV 10.2, Immature Gran % (Auto) 0.400, Neut % (Auto) 59.6, Lymph % (Auto) 21.3, [place] % (Auto) 14.1 H, Eos % (Auto) 3.9, Baso % (Auto) 0.7, Absolute Neuts (auto) 5.0, Absolute Lymphs (auto) 1.79, Nucleated RBC % 0 08/16/22 06:25: Sodium 129 L, Potassium 4.5, Chloride 92 L, Carbon Dioxide 28.0, Anion Gap 9, BUN 55 H, Creatinine 2.08 H, Estim Creat Clear Calc 13.95, Est GFR (MDRD) Af Amer 29 L, Est GFR (MDRD) Non-Af 24 L, BUN/Creatinine Ratio 26.4 H, Glucose 114 H, Calcium 9.2 Micro: Microbiology 08/09/22 23:45 Nasal Secretion SARS-CoV-2 & FLU Antigen (Rapid) - Final Rhythm Strip Rhythm Strip: Sinus Rhythm Physical Exam Narrative GENERAL: cooperative HEENT: Atraumatic; normocephalic EYES; Anicteric, Normal Conjunctiva NECK; supple, normal thyroid, RESPIRATORY: Diminished to auscultation CARDIOVASCULAR: Regular S1 S2, GI: soft, normoactive bowel sounds, : No Renal angle tenderness; EXTREMITIES: No edema, no clubbing, MUSCULOSKELETAL: no muscle wasting NEURO: Awake; no lateralizing signs. SKIN: No Rash PSYCH; Flat affect Assessment & Plan Assessment/Plan (1) Heart failure: (2) Hypertensive emergency: (3) Renal artery stenosis: PLAN: Plan Patient is an 87-year-old lady with multiple comorbidities admitted with shortness of breath diagnosed with acute hypertensive emergency. Admitted to a monitored bed for subsequent management 1. Acute hypertensive emergency in a patient with resistant hypertension ? Patient had evidence of endorgan dysfunction including pulmonary edema as well as elevated troponin. Patient was admitted to a monitored bed for treatment work-up did reveal bilateral severe renal artery stenosis. Seen in consultation by vascular surgery plans for patient to undergo stenting on 08/20/2022 ? 08/16/2022; patient blood pressure control improving 2. Hypoxic respiratory failure (present on admission) ? This was secondary to patient pulmonary edema managed with noninvasive ventilation BiPAP subsequently weaned off. Echo obtained on 08/11/2022 demonstrated EF of 65% 3. Acute on chronic congestive heart failure with preserved ejection fraction ? Managed per protocol 3. Elevated troponin ? Secondary to acute hypertensive emergency 5. Acute kidney injury Secondary to hypertensive heart disease patient was seen in consultation by nephrology. Patient kidney function continues to worsen ? 08/16/2022 patient kidney function continues to worsen 6. Hyponatremia ? Patient was on HCTZ discontinued subsequent monitoring with daily BMPs ordered 7. Paroxysmal A. fib ? Patient is on beta-blockers. Started on systemic anticoagulation with apixaban 8. DVT prophylaxis ? On apixaban 9. Anemia - Secondary to chronic disorder monitoring H&H and transfuse if patient becomes symptomatic or hemoglobin falls below 7 Charges/Coding Visit Charges Inpatient E&M: 54250 Subs Hosp L2
[2022-08-16] MEDS: Metoprolol(XL)Succ 50 MG Tablet PO ×2 (08:54→21:47)
[2022-08-16] MEDS: Senna Tablet 1 TABLET PO ×2 (08:54→21:47)
[2022-08-16] MEDS: cloNIDine HCl 0.1 MG Tablet PO ×2 (08:55→21:47)
[2022-08-16] MEDS: APIXABAN 2.5 MG TABLET (WCH) PO ×2 (08:55→21:47)
[2022-08-16] MEDS: Polyethylene Glycol 3350 17 GM PACKET PO (08:55)
[2022-08-16] MEDS: Citalopram 20 MG Tablet PO (08:55)
[2022-08-16] MEDS: amLODIPine 10 MG Tablet PO ×2 (08:55→08:56)
[2022-08-16] MEDS: Clopidogrel Bisulfate 75 MG Tablet PO (08:55)
[2022-08-16] MEDS: Ascorbic Acid 500 MG Tablet PO (08:55)
[2022-08-16] MEDS: HYDROcodone Bitartrate/Apap 5/325 Tablet PO ×2 (10:31→21:47)
[2022-08-16] MEDS: Acetaminophen 325 MG Tablet 650 MG PO (18:58)
[2022-08-16] MEDS: Bisacodyl 10 MG Suppository RC (19:37)
[2022-08-16] MEDS: Atorvastatin Calcium 10 MG Tablet 5 MG PO (21:47)
[2022-08-16] MEDS: MELATONIN 3 MG TABLET PO (21:48)
--- NOTE | 2022-08-16 21:56 | PCM.HOSP.N ---
Hospitalist Note Patient without recent bowel movement, now noting abdominal pain, cramping. Dulcolax administered per RN with small output but still midabdominal pain. Will obtain KUB to be cautious.
--- NOTE | 2022-08-16 22:05 | RAD_ITS ---
INDICATION: abdominal pain EXAMINATION/TECHNIQUE: X-RAY - supine AP XR Abdomen 1 View COMPARISON: CT abdomen from 08/12/2022 FINDINGS: BOWEL GAS PATTERN: Non-obstructive. Mild colonic gaseous distention and prominent colonic fecal load, similar to energy assistant view from recent CT abdomen. FREE AIR: Not assessed on a single supine view. CALCIFICATIONS: Vascular calcifications again noted with numerous calcified hepatic and splenic granulomas. LOWER CHEST: Mildly elevated right hemidiaphragm. BONES AND SOFT TISSUES: Skeletal degenerative changes with prominent thoracolumbar dextroscoliotic curvature. RAD/Abdomen Single View (Portable) IMPRESSION: Persistent mild colonic gaseous distention and prominent colonic fecal load. Continued follow-up recommended. Electronically Signed: Sam Valdez MD at 23:07 EST ,
[2022-08-16] MEDS: Electrolyte Solution/Peg's 4000 ML 1000 ML PO (23:56)
[2022-08-16] MEDS: Fleet Enema 1 ML RC (23:56)
[2022-08-17] VITALS (12 sets, daily range): BP systolic 151–172; BP diastolic 54–67; PULSE 63–72; RESP 16–17; TEMP 36.5–36.6; O2SAT 90–98
[2022-08-17] MEDS: hydrALAZINE 50 MG Tablet 100 MG PO ×2 (05:09→14:19)
[2022-08-17 07:02] LABS: Absolute Lymphocyte Count 1.61 X10^3/uL (0.83-4.51); Absolute Neutrophil Count 4.5 X10^3/uL (2.0-7.7); Basophil# 0.05 X10^3/uL; Basophil% 0.7 % (0-1); Eosinophil# 0.18 X10^3/uL; Eosinophils% 2.5 % (0-5); Hematocrit 34.8 % (37-47); Hemoglobin 11.7 g/dL (12.0-15.0); Lymphocyte # 1.61 X10^3/ul (0.83-4.51); Lymphocyte % 22.2 % (19-41); Mean Corp Hgb Conc 33.6 g/dL (32-36); Mean Corpuscular Hgb 32.5 pg (27.0-32.0); Mean Corpuscular Volume 96.7 fL (81-99); Monocyte% 12.4 % (0-10); NRBC Flagged by Analyzer 0 % (0-5); Neutrophil # 4.49 X10^3/uL (2.7-7.7); Neutrophil % 61.8 % (47-70); Platelet Count 323 K/mm3 (150-450); RBC Distribution Width CV 12.5 % (11.6-14.6); RBC Distribution Width SD 44.3 fl (35.1-43.9); White Blood Count 7.3 K/mm3 (4.4-11.0)
[2022-08-17 07:43] LABS: Anion Gap 9 (5-15); BUN 53 mg/dL (7-18); BUN/Creat Ratio 30.6 RATIO (10-20); Calcium,Total 9.2 mg/dL (8.5-10.1); Chloride 92 mmol/L (98-107); Creatinine, Serum 1.73 mg/dL (0.55-1.02); EST Glomerular Filtration Rate 30 mL/min (>60); Est Glom Filt Rate - Afr Amer 36 mL/min (>60); Estimated Creatinine Clearance 16.77 ml/min; Glucose 128 mg/dL (74-106); Potassium 4.1 mmol/L (3.5-5.1); Sodium Level 128 mmol/L (136-145)
--- NOTE | 2022-08-17 10:14 | DS.PCM_ITS ---
Providers Date of Admission: 08/10/22 Date of Discharge: 08/17/22 Primary Care Physician: Dr. James Garcia, Consultations 08/10/22 05:50 Consult: Cardiology Routine Consulting Provider: Leandro Fay Reason for Consult: Elevated troponin EMERGENT Consult: No MD Notified: Yes Date Notified: 08/10/22 Time Notified: 11:47 Method of Notification: Text Method of Consult:: In-Person 08/11/22 08:58 Consult: Nephrology Routine Consulting Provider: Cristian Pierre Reason for Consult: Hypertensive emergency, Pulm edema EMERGENT Consult: No MD Notified: Yes Date Notified: 08/11/22 Time Notified: 08:58 Method of Notification: Verbal 08/12/22 15:03 Consult: Vascular Surgery Routine Consulting Provider: Duke August Reason for Consult: Renal A stenosis. needs stenting EMERGENT Consult: No MD Notified: Yes Date Notified: 08/12/22 Time Notified: 15:28 Method of Notification: Verbal Reason For Visit: HYPERTENSIVE EMERGENCY Diagnosis Discharge Diagnosis (1) Heart failure: Status: Acute Code(s): I50.9 - Heart failure, unspecified (2) Hypertensive emergency: Status: Acute Code(s): I16.1 - Hypertensive emergency (3) Renal artery stenosis: Status: Acute Code(s): I70.1 - Atherosclerosis of renal artery Plan Patient is an 87-year-old lady with multiple comorbidities admitted with shortness of breath diagnosed with acute hypertensive emergency. Admitted to a monitored bed for subsequent management 1. Acute hypertensive emergency in a patient with resistant hypertension ? Patient had evidence of endorgan dysfunction including pulmonary edema as well as elevated troponin. Patient was admitted to a monitored bed for treatment work-up did reveal bilateral severe renal artery stenosis. Seen in consultation by vascular surgery plans for patient to undergo stenting on 08/20/2022 ? 08/16/2022; patient blood pressure control improving ? 08/17/2022; patient assessed ready for discharge plan is for patient to follow-up with vascular surgery on 08/20/2022 2. Hypoxic respiratory failure (present on admission) ? This was secondary to patient pulmonary edema managed with noninvasive ventilation BiPAP subsequently weaned off. Echo obtained on 08/11/2022 de monstrated EF of 65% 3. Acute on chronic congestive heart failure with preserved ejection fraction ? Managed per protocol 3. Elevated troponin ? Secondary to acute hypertensive emergency 5. Acute kidney injury Secondary to hypertensive heart disease patient was seen in consultation by nephrology. Patient kidney function continues to worsen ? 08/16/2022 patient kidney function continues to worsen 6. Hyponatremia ? Patient was on HCTZ discontinued subsequent monitoring with daily BMPs ordered 7. Paroxysmal A. fib ? Patient is on beta-blockers. Started on systemic anticoagulation with apixaban 8. DVT prophylaxis ? On apixaban 9. Anemia - Secondary to chronic disorder monitoring H&H and transfuse if patient becomes symptomatic or hemoglobin falls below 7 Medications at Discharge Home Medications montelukast 10 mg tablet 10 mg PO QDAY allergies 09/08/17 omeprazole 20 mg capsule,delayed release 20 mg PO DAILY reflux 09/08/17 simvastatin 10 mg tablet 10 mg PO QDAY cholesterol 09/08/17 potassium chloride 20 mEq tablet,extended release 20 meq PO QDAY supplement 09/13/17 albuterol sulfate 2.5 mg/3 mL (0.083 %) solution for nebulization 2.5 mg inhalation Q4H PRN Shortness Of Breath 06/13/18 ipratropium bromide 0.02 % solution for inhalation 2.5 ml inhalation Q4H PRN Shortness Of Breath 06/13/18 nitroglycerin 0.4 mg sublingual tablet 0.4 mg sublingual Q5-15M PRN chest pain 06/13/18 metoprolol succinate 100 mg tablet,extended release 24 hr 100 mg PO BID blood pressure 11/28/19 isosorbide dinitrate 30 mg tablet 30 mg PO BID heart 12/14/19 losartan 50 mg tablet 50 mg PO BID #180 tabs 01/30/20 fluticasone propionate 50 mcg/actuation nasal spray,suspension 1 spray NASAL DAILY allergies 11/28/20 ascorbic acid (vitamin C) 500 mg tablet (Vitamin C) 500 mg PO DAILY supplement 03/09/22 ferrous sulfate 325 mg (65 mg iron) tablet 325 mg PO BID supplement 03/09/22 lactulose 10 gram/15 mL oral solution 30 g PO Q OTHER DAY ammonia 05/12/22 citalopram 20 mg tablet 20 mg PO DAILY mental health 08/10/22 clonidine HCl 0.2 mg tablet 0.1 mg PO TID blood pressure 08/10/22 hydrochlorothiazide 25 mg tablet 25 mg PO DAILY blood pressure 08/10/22 hydrocodone-acetaminophen 5-325mg 5mg-325mg 1 tab PO BID pain 08/10/22 amlodipine 10 mg tablet 10 mg PO DAILY 30 days #30 tabs 08/15/22 apixaban 5 mg tablet (Eliquis) 2.5 mg PO BID 30 days #30 tabs 08/15/22 clopidogrel 75 mg tablet 75 mg PO DAILY 30 days #30 tabs 08/15/22 hydralazine 50 mg tablet 100 mg PO TID 30 days #180 tabs 08/15/22 Hospital Course Summary of Care Provided Minutes Spent on Discharge: 35 Physical Exam Narrative GENERAL: cooperative HEENT: Atraumatic; normocephalic EYES; Anicteric, Normal Conjunctiva NECK; supple, normal thyroid, RESPIRATORY: Diminished to auscultation CARDIOVASCULAR: Regular S1 S2, GI: soft, normoactive bowel sounds, : No Renal angle tenderness; EXTREMITIES: No edema, no clubbing, MUSCULOSKELETAL: no muscle wasting NEURO: Awake; no lateralizing signs. SKIN: No Rash PSYCH; Flat affect Weight / BMI Weight Weight: 61.6 kg Body Mass Index (BMI) 26.7 ABG / Lab / Microbiology Data Result Diagrams: 08/17/22 06:00 08/17/22 06:00 Laboratory: Laboratory Results - last 24 hr 08/17/22 06:00: WBC 7.3, RBC 3.60 L, Hgb 11.7 L, Hct 34.8 L, MCV 96.7, MCH 32.5 H, MCHC 33.6, RDW Std Deviation 44.3 H, RDW Coeff of Deidra 12.5, Plt Count 323, MPV 10.0, Immature Gran % (Auto) 0.400, Neut % (Auto) 61.8, Lymph % (Auto) 22.2, [place] % (Auto) 12.4 H, Eos % (Auto) 2.5, Baso % (Auto) 0.7, Absolute Neuts (auto) 4.5, Absolute Lymphs (auto) 1.61, Nucleated RBC % 0 08/17/22 06:00: Sodium 128 L, Potassium 4.1, Chloride 92 L, Carbon Dioxide 27.0, Anion Gap 9, BUN 53 H, Creatinine 1.73 H, Estim Creat Clear Calc 16.77, Est GFR (MDRD) Af Amer 36 L, Est GFR (MDRD) Non-Af 30 L, BUN/Creatinine Ratio 30.6 H, Glucose 128 H, Calcium 9.2 Microbiology: Microbiology 08/09/22 23:45 Nasal Secretion SARS-CoV-2 & FLU Antigen (Rapid) - Final Radiography Diagnostic Testing: Radiology Impression KUB X-Ray 08/16/22 22:05 IMPRESSION: Persistent mild colonic gaseous distention and prominent colonic fecal load. Continued follow-up recommended. Electronically Signed: Sam Valdez MD at 23:07 EST , D/C Instructions Discharge Diet: No restrictions Discharge Activity: Return to Normal Activity Call your doctor if you observe: Fever of 101 or Higher, Shortness of breath, Fainting spells and Chest pain Meaningful Use Info Meaningful Use Diagnoses (Choose all that apply): None applicable Discharge Plan Admission Admit Date/Time: 08/10/22 04:33 Attending Provider: Sanket Machado Primary Care Provider: James Garcia Consulting Providers: Ace Ugalde ; Leandro Fay ; Cristian Pierre ; Duke August ; Lei Gonzalez Discharge Orders/Prescriptions Prescriptions: New clopidogrel 75 mg Tablet 75 mg PO DAILY 30 Days Qty: 30 0RF amlodipine 10 mg Tablet 10 mg PO DAILY 30 Days Qty: 30 0RF hydralazine 50 mg Tablet 100 mg PO TID 30 Days Qty: 180 0RF Eliquis 5 mg Tablet 2.5 mg PO BID 30 Days Qty: 30 0RF Continued montelukast 10 mg tablet 10 mg PO QDAY simvastatin 10 mg tablet 10 mg PO QDAY omeprazole 20 mg capsule,delayed release(DR/EC) 20 mg PO DAILY potassium chloride 20 mEq tablet extended release 20 meq PO QDAY metoprolol succinate 100 mg tablet extended release 24 hr 100 mg PO BID albuterol sulfate 2.5 mg /3 mL (0.083 %) solution for nebulization 2.5 mg INHALATION Q4H PRN (Reason: Shortness Of Breath) ipratropium bromide 0.02 % solution 2.5 ml INHALATION Q4H PRN (Reason: Shortness Of Breath) nitroglycerin 0.4 mg tablet, sublingual 0.4 mg sublingual Q5-15M PRN (Reason: chest pain) fluticasone propionate 1 SPRAY spray,suspension 1 spray NASAL DAILY lactulose 10 gram/15 mL solution 30 g PO Q OTHER DAY ferrous sulfate 325 mg (65 mg iron) Tablet 325 mg PO BID ascorbic acid (vitamin C) [Vitamin C] 500 mg Tablet 500 mg PO DAILY hydrocodone-acetaminophen 5-325 mg tablet 1 tab PO BID citalopram 20 mg tablet 20 mg PO DAILY clonidine HCl 0.2 mg tablet 0.1 mg PO TID hydrochlorothiazide 25 mg tablet 25 mg PO DAILY isosorbide dinitrate 30 mg tablet 30 mg PO BID losartan 50 mg tablet 50 mg PO BID Qty: 180 3RF Discontinued amlodipine 2.5 mg tablet 2.5 mg PO BID Referrals / Follow Up: Duke August MD [Med Staff - Active Staff] - 08/20/22 7:00 am (For renal artery stenting) James Garcia DO [Primary Care Provider] - In 1 Week Disposition Disposition (needs filled in before D/C Order can be placed): Home Health Service
--- NOTE | 2022-08-17 10:17 | PCM.PN.HOSP ---
Subjective Subjective Patient seen had a relatively uneventful night blood pressure controlled. Kidney function improving. Patient be assessed for discharge with plans for patient to follow-up with vascular surgery as outpatient for stenting of her renal artery stenosis Objective Data Objective Data Vital Signs: Vital Signs Temp Pulse Resp BP Pulse Ox O2 Del Method O2 Flow Rate 97.8 F 71 16 172/67 H 92 Nasal Cannula 2 08/17/22 03:55 08/17/22 07:00 08/17/22 03:55 08/17/22 03:55 08/17/22 07:47 08/17/22 07:47 08/17/22 07:47 FiO2 30 08/13/22 05:30 Oxygen Flow Rate (L/min) 2 Oxygen Delivery Method Nasal Cannula Weight: 61.6 kg Body Mass Index (BMI) 26.7 Intake & Output: Intake and Output for Last 24 Hours 08/15/22 08/16/22 08/17/22 23:59 23:59 23:59 Intake Total 490 / 710 1020 / 1020 300 / 300 Output Total 375 / 475 400 / 750 500 / 500 Balance 115 / 235 620 / 270 -200 / -200 Lab / Micro Data Result Diagrams: 08/17/22 06:00 08/17/22 06:00 Labs: Laboratory Results - last 24 hr 08/17/22 06:00: WBC 7.3, RBC 3.60 L, Hgb 11.7 L, Hct 34.8 L, MCV 96.7, MCH 32.5 H, MCHC 33.6, RDW Std Deviation 44.3 H, RDW Coeff of Deidra 12.5, Plt Count 323, MPV 10.0, Immature Gran % (Auto) 0.400, Neut % (Auto) 61.8, Lymph % (Auto) 22.2, [place] % (Auto) 12.4 H, Eos % (Auto) 2.5, Baso % (Auto) 0.7, Absolute Neuts (auto) 4.5, Absolute Lymphs (auto) 1.61, Nucleated RBC % 0 08/17/22 06:00: Sodium 128 L, Potassium 4.1, Chloride 92 L, Carbon Dioxide 27.0, Anion Gap 9, BUN 53 H, Creatinine 1.73 H, Estim Creat Clear Calc 16.77, Est GFR (MDRD) Af Amer 36 L, Est GFR (MDRD) Non-Af 30 L, BUN/Creatinine Ratio 30.6 H, Glucose 128 H, Calcium 9.2 Micro: Microbiology 08/09/22 23:45 Nasal Secretion SARS-CoV-2 & FLU Antigen (Rapid) - Final Radiography Diagnostic Testing: Radiology Impression KUB X-Ray 08/16/22 22:05 IMPRESSION: Persistent mild colonic gaseous distention and prominent colonic fecal load. Continued follow-up recommended. Electronically Signed: Sam Valdez MD at 23:07 EST , Rhythm Strip Rhythm Strip: Sinus Rhythm Physical Exam Narrative GENERAL: cooperative HEENT: Atraumatic; normocephalic EYES; Anicteric, Normal Conjunctiva NECK; supple, normal thyroid, RESPIRATORY: Diminished to auscultation CARDIOVASCULAR: Regular S1 S2, GI: soft, normoactive bowel sounds, : No Renal angle tenderness; EXTREMITIES: No edema, no clubbing, MUSCULOSKELETAL: no muscle wasting NEURO: Awake; no lateralizing signs. SKIN: No Rash PSYCH; Flat affect Assessment & Plan Assessment/Plan (1) Heart failure: (2) Hypertensive emergency: (3) Renal artery stenosis: PLAN: Plan Patient is an 87-year-old lady with multiple comorbidities admitted with shortness of breath diagnosed with acute hypertensive emergency. Admitted to a monitored bed for subsequent management 1. Acute hypertensive emergency in a patient with resistant hypertension ? Patient had evidence of endorgan dysfunction including pulmonary edema as well as elevated troponin. Patient was admitted to a monitored bed for treatment work-up did reveal bilateral severe renal artery stenosis. Seen in consultation by vascular surgery plans for patient to undergo stenting on 08/20/2022 ? 08/16/2022; patient blood pressure control improving ? 08/17/2022; patient assessed ready for discharge plan is for patient to follow-up with vascular surgery on 08/20/2022 2. Hypoxic respiratory failure (present on admission) ? This was secondary to patient pulmonary edema managed with noninvasive ventilation BiPAP subsequently weaned off. Echo obtained on 08/11/2022 demonstrated EF of 65% 3. Acute on chronic congestive heart failure with preserved ejection fraction ? Managed per protocol 3. Elevated troponin ? Secondary to acute hypertensive emergency 5. Acute kidney injury Secondary to hypertensive heart disease patient was seen in consultation by nephrology. Patient kidney function continues to worsen ? 08/16/2022 patient kidney function continues to worsen 6. Hyponatremia ? Patient was on HCTZ discontinued subsequent monitoring with daily BMPs ordered 7. Paroxysmal A. fib ? Patient is on beta-blockers. Started on systemic anticoagulation with apixaban 8. DVT prophylaxis ? On apixaban 9. Anemia - Secondary to chronic disorder monitoring H&H and transfuse if patient becomes symptomatic or hemoglobin falls below 7 Charges/Coding Visit Charges Inpatient E&M: 27585 Subs Hosp L2
[2022-08-17] MEDS: Metoprolol(XL)Succ 50 MG Tablet PO (10:25)
[2022-08-17] MEDS: cloNIDine HCl 0.1 MG Tablet PO (10:25)
[2022-08-17] MEDS: Ascorbic Acid 500 MG Tablet PO (10:25)
[2022-08-17] MEDS: Citalopram 20 MG Tablet PO (10:25)
[2022-08-17] MEDS: APIXABAN 2.5 MG TABLET (WCH) PO (10:25)
[2022-08-17] MEDS: Clopidogrel Bisulfate 75 MG Tablet PO (10:26)
[2022-08-17] MEDS: Senna Tablet 1 TABLET PO (10:26)
[2022-08-17] MEDS: Polyethylene Glycol 3350 17 GM PACKET PO (10:27)
[2022-08-17] MEDS: amLODIPine 10 MG Tablet PO (10:28)
[2022-08-17] MEDS: HYDROcodone Bitartrate/Apap 5/325 Tablet PO (10:34)
--- NOTE | 2022-08-17 13:43 | PCM.PN.REN ---
Subjective Subjective Follow-up on renal artery stenosis, acute kidney injury, hypertension. Awaiting intervention, stable, no new events Objective Data Objective Data Vital Signs: Vital Signs Temp Pulse Resp BP Pulse Ox O2 Del Method O2 Flow Rate 97.7 F L 72 16 151/54 H 95 Room Air 2 08/17/22 10:16 08/17/22 10:25 08/17/22 10:16 08/17/22 10:16 08/17/22 11:00 08/17/22 10:16 08/17/22 07:47 FiO2 30 08/13/22 05:30 Oxygen Flow Rate (L/min) 2 Oxygen Delivery Method Room Air Weight: 61.6 kg Body Mass Index (BMI) 26.7 Intake & Output: Intake and Output for Last 24 Hours 08/15/22 08/16/22 08/17/22 23:59 23:59 23:59 Intake Total 490 / 710 1020 / 1020 300 / 300 Output Total 375 / 475 400 / 750 500 / 500 Balance 115 / 235 620 / 270 -200 / -200 Lab / Micro Data Attestation: I reviewed the patient's lab results. Result Diagrams: 08/17/22 06:00 08/17/22 06:00 Labs: Laboratory Results - last 24 hr 08/17/22 06:00: WBC 7.3, RBC 3.60 L, Hgb 11.7 L, Hct 34.8 L, MCV 96.7, MCH 32.5 H, MCHC 33.6, RDW Std Deviation 44.3 H, RDW Coeff of Deidra 12.5, Plt Count 323, MPV 10.0, Immature Gran % (Auto) 0.400, Neut % (Auto) 61.8, Lymph % (Auto) 22.2, [place] % (Auto) 12.4 H, Eos % (Auto) 2.5, Baso % (Auto) 0.7, Absolute Neuts (auto) 4.5, Absolute Lymphs (auto) 1.61, Nucleated RBC % 0 08/17/22 06:00: Sodium 128 L, Potassium 4.1, Chloride 92 L, Carbon Dioxide 27.0, Anion Gap 9, BUN 53 H, Creatinine 1.73 H, Estim Creat Clear Calc 16.77, Est GFR (MDRD) Af Amer 36 L, Est GFR (MDRD) Non-Af 30 L, BUN/Creatinine Ratio 30.6 H, Glucose 128 H, Calcium 9.2 Micro: Microbiology 08/09/22 23:45 Nasal Secretion SARS-CoV-2 & FLU Antigen (Rapid) - Final Radiography Diagnostic Testing: Radiology Impression KUB X-Ray 08/16/22 22:05 IMPRESSION: Persistent mild colonic gaseous distention and prominent colonic fecal load. Continued follow-up recommended. Electronically Signed: Sam Valdez MD at 23:07 EST , Rhythm Strip Rhythm Strip: Sinus Rhythm Physical Exam Const alert, no apparent distress and average body habitus General Appearance: well developed Orientation / Consciousness: oriented to person HEENT normocephalic Head and Scalp: atraumatic Resp Effort and Inspection: respiratory distress Cardio regular rate GI non-tender Auscultation: normoactive bowel sounds Neuro Sensorium / Orientation: awake Assessment & Plan Assessment/Plan (1) Hypertensive emergency: (2) Renal artery stenosis: PLAN: Plan No changes to medications, await intervention
== END 2022-08-17 17:11 | disposition home health service (06) | DRG 304 ==
LOC: ED 23:06 → ICU 08-10 07:20 → PCU 08-15 07:23
PROVIDERS: Internal Medicine; Nurse Practitioner Adult Health; Admitting Provider Hospitalist; Emergency Provider Student in an Organized Health Care Education/Training Program; PCP Family Medicine; Visit Provider Internal Medicine
DX: I16.1 Hypertensive emergency (principal); I50.33 Acute on chronic diastolic (congestive) heart failure; J96.01 Acute respiratory failure with hypoxia; G93.41 Metabolic encephalopathy; I48.92 Unspecified atrial flutter; N17.9 Acute kidney failure, unspecified; E87.1 Hypo-osmolality and hyponatremia; N18.4 Chronic kidney disease, stage 4 (severe); D63.1 Anemia in chronic kidney disease; I13.0 Hypertensive heart and chronic kidney disease with heart failure and stage 1 through stage 4 chronic kidney disease, or unspecified chronic kidney disease; I48.0 Paroxysmal atrial fibrillation; I70.1 Atherosclerosis of renal artery; J44.9 Chronic obstructive pulmonary disease, unspecified; I70.0 Atherosclerosis of aorta; E78.00 Pure hypercholesterolemia, unspecified; I25.10 Atherosclerotic heart disease of native coronary artery without angina pectoris; I25.2 Old myocardial infarction; I08.0 Rheumatic disorders of both mitral and aortic valves; E87.6 Hypokalemia; I67.2 Cerebral atherosclerosis; N26.1 Atrophy of kidney (terminal); Z79.899 Other long term (current) drug therapy; Z20.822 Contact with and (suspected) exposure to COVID-19
CPT/HCPCS: 36415; 71045; 71275; 74018; 74175; 80048; 80053; 83735; 83880; 84100; 84484; 85025; 85379; 85610; 85730; 87428; 93005; 93306; 94002; 94003; 94762; 97110; 97162; 97166; 97535; 99285; J7040; J7050; Q9967; A4216; J1940; J2405

== ENCOUNTER 2022-08-22 08:56 | Inpatient (IN) | payer MEDICARE, SELFPAY ==
[2022-08-22] VITALS (23 sets, daily range): BP systolic 156–201; BP diastolic 54–95; PULSE 65–79; RESP 14–21; TEMP 35.9–37.3; O2SAT 90–98; BMI 29.5; BMI 27.3
--- NOTE | 2022-08-22 09:23 | ED.RN ---
pt. placed on 2L for comfort as she was calling out stating she could not breath. Oxygen saturation 93%
--- NOTE | 2022-08-22 09:34 | RAD_ITS ---
INDICATION: Dyspnea EXAMINATION/TECHNIQUE: X-RAY - XR Chest 2 Views COMPARISON: 08/10/2022. FINDINGS: LINES/DEVICES: None. LUNGS: Patchy infiltrates in the right upper and lower lung zones new since previous exam. No evidence of pleural effusions. MEDIASTINUM AND CARDIOVASCULAR STRUCTURES: Persistent enlargement of cardiac silhouette. BONES AND SOFT TISSUES: Stable soft tissues and osseous structures. RAD/Chest PA and Lateral IMPRESSION: 1. Patchy infiltrates in the right upper and right lower lung zones. 2. Cardiomegaly. Electronically Signed: Yariel Daly MD at 10:27 EST ,
--- NOTE | 2022-08-22 09:34 | EKG12_ITS ---
Test Reason : SOB Blood Pressure : / mmHG Vent. Rate : 065 BPM Atrial Rate : 065 BPM P-R Int : 226 ms QRS Dur : 096 ms QT Int : 440 ms P-R-T Axes : 084 -06 065 degrees QTc Int : 457 ms Sinus rhythm with 1st degree A-V block Otherwise normal ECG Confirmed by JORGE SALAZAR, GUILLERMO ([id number]), department editor [employer] ([id number]) on 08/25/2022 10:38:05 AM Referred By: Confirmed By:GUILLERMO PATEL MD
[2022-08-22 09:48] LABS: Absolute Lymphocyte Count 1.79 X10^3/uL (0.83-4.51); Absolute Neutrophil Count 6.9 X10^3/uL (2.0-7.7); Basophil# 0.06 X10^3/uL; Basophil% 0.6 % (0-1); Eosinophils% 2.1 % (0-5); Hematocrit 32.3 % (37-47); Hemoglobin 10.8 g/dL (12.0-15.0); Lymphocyte # 1.79 X10^3/ul (0.83-4.51); Lymphocyte % 18.4 % (19-41); Mean Corp Hgb Conc 33.4 g/dL (32-36); Mean Corpuscular Volume 95.8 fL (81-99); Mean Platelet Vol. 10.2 fl (6.2-12.0); Monocyte% 7.2 % (0-10); NRBC Flagged by Analyzer 0 % (0-5); Neutrophil % 70.7 % (47-70); Platelet Count 403 K/mm3 (150-450); RBC Distribution Width CV 12.4 % (11.6-14.6); RBC Distribution Width SD 43.5 fl (35.1-43.9); Red Blood Count 3.37 M/mm3 (4.2-5.4); White Blood Count 9.8 K/mm3 (4.4-11.0)
[2022-08-22 09:58] LABS: Mucous, Urine 0 SEEN /hpf (<or=2+); Red Blood Cells-Urine 0 SEEN /hpf (0-5); Squamous Epithelial Cells - UA 0 SEEN /hpf (5-10)
[2022-08-22 10:09] LABS: International Normalized Ratio 1.4; Prothrombin Time (Protime)PT. 17.2 SECONDS (11.7-14.9)
[2022-08-22 10:10] LABS: ALB/GLOB Ratio 0.9 RATIO (0.9-2.4); AST(SGOT) 28 U/L (15-37); Alanine Aminotransfer ALT/SGPT 23 U/L (13-56); Albumin, Serum 3.5 g/dL (3.2-5.0); Alkaline Phosphatase 92 U/L (45-117); Anion Gap 10 (5-15); BUN 48 mg/dL (7-18); BUN/Creat Ratio 23.5 RATIO (10-20); Calcium,Total 9.2 mg/dL (8.5-10.1); Chloride 94 mmol/L (98-107); Creatinine, Serum 2.04 mg/dL (0.55-1.02); D-Dimer Quantitative (DVT/PE) 1.67 FEU/ug/m (0.27-0.49); EST Glomerular Filtration Rate 25 mL/min (>60); Est Glom Filt Rate - Afr Amer 30 mL/min (>60); Estimated Creatinine Clearance 14.22 ml/min; Glucose 143 mg/dL (74-106); Potassium 4.1 mmol/L (3.5-5.1); Protein, Total 7.5 g/dL (6.4-8.2); Sodium Level 128 mmol/L (136-145); Troponin-I HS 165 pg/mL (3.0-54.0)
[2022-08-22 10:15] LABS: Color, Urine Yellow (Yellow); Glucose, Dipstick Normal (Normal); Ketone-Dipstick Negative (Negative); Leukocyte Esterase-Dipstick 500 /ul (Negative); Nitrite-Dipstick Positive (Negative); Occult Blood-Urine Negative /ul (Negative); Protein-Dipstick Negative (Negative); Specific Gravity, Urine 1.005 (1.002-1.030); Urine Bilirubin Dipstick Negative (Negative); Urine Clarity Clear (Clear); Urine Urobilinogen Normal (Normal)
[2022-08-22] MEDS: Ipratropium/Albuterol Sulfate 3 ML AMPUL.NEB INHALATION ×2 (10:18→19:34)
[2022-08-22 10:30] LABS: Bacteria 2+ /hpf (None Seen); White Blood Cells 0-5 SEEN /hpf (0-5)
--- NOTE | 2022-08-22 10:40 | CT_ITS ---
STUDY: CTA CHEST REASON FOR EXAM: Female, 87 years old. Elevated D-dimer RADIATION DOSAGE (If Supplied By Facility): CTDIvol = ( 14.48 ) mGy, DLP = ( 335.97 ) mGycm TECHNIQUE: The examination was performed with the intravenous administration of IV 75mL Isovue-370. Post-processing of the angiographic images was performed, with multiplanar reformation and 3D reconstruction. Individualized dose optimization techniques were used for this CT. COMPARISON: 08/10/2022. FINDINGS: Normal enhancement of the main pulmonary artery and right and left pulmonary arteries. Normal enhancement of the bilateral peripheral pulmonary arteries. There is no demonstrated pulmonary embolism. There is atherosclerotic calcification of the aortic arch with tortuosity. There is no demonstrated aortic dissection. Mild cardiomegaly. No evidence of pericardial effusion. Artery calcifications. Calcified subcarinal and right hilar nodes. No evidence of adenopathy. Unremarkable trachea and mainstem bronchi. Mild bronchiectatic changes in both lower lobes and proximal upper lobes. Prominence of the pulmonary vasculature and interstitial changes could reflect pulmonary edema improved since previous exam. Atelectatic changes in both lower lobes. Small right pleural effusion. Normal chest wall structures. Unchanged osseous structures. Straight acute changes in the visualized upper abdomen. CT/CTA Chest W/WO Contrast IMPRESSION: 1. No evidence of pulmonary embolism or aortic dissection. 2. Improved bilateral infiltrates/edema. 3. Persistent right pleural effusion. Electronically Signed: Yariel Daly MD at 11:38 EST ,
--- NOTE | 2022-08-22 10:45 | ED.VIS.DYS ---
HPI History of Present Illness Chief Complaint: Shortness of Breath Informant: patient Onset/Context/Timing Onset: Today Context: sudden Timing: Continuous Quality: Positive for Orthopnea Worsened by: Lying flat Relieved by: Nothing Associated Symptoms Negative for cough, rhinorrhea, post nasal drip, ear pain, fever, sore throat, chills or sweats Chest Pain: Positive for None Narrative Narrative: Patient presents with shortness of breath that began today. Patient states it began rather suddenly. Patient states her breathing is worse when she lies flat. Patient denies any cough. Patient denies any chest pain. Patient denies any fevers or chills. Patient denies any sore throat. Patient states she does have some pain in her neck and back. Patient states she was recently admitted to the hospital and was in intensive care unit for a few days. [facility] Medical History Atherosclerotic heart disease of [place] coronary artery without angina pectoris Cardiac murmur Edema Essential hypertension Hypertensive emergency Nausea Paroxysmal atrial fibrillation Presence of stent in coronary artery (~11/05/09) Pure hypercholesterolemia Stage 3b chronic kidney disease (CKD) Home Medications montelukast 10 mg tablet 10 mg PO QDAY allergies 09/08/17 [History Last Taken 03/08/22] omeprazole 20 mg capsule,delayed release 20 mg PO DAILY reflux 09/08/17 [History Last Taken 03/09/22] simvastatin 10 mg tablet 10 mg PO QDAY cholesterol 09/08/17 [History Last Taken 03/08/22] potassium chloride 20 mEq tablet,extended release 20 meq PO QDAY supplement 09/13/17 [History Last Taken 03/09/22] albuterol sulfate 2.5 mg/3 mL (0.083 %) solution for nebulization 2.5 mg inhalation Q4H PRN Shortness Of Breath 06/13/18 [History Last Taken 03/09/22] ipratropium bromide 0.02 % solution for inhalation 2.5 ml inhalation Q4H PRN Shortness Of Breath 06/13/18 [History Last Taken 03/09/22] nitroglycerin 0.4 mg sublingual tablet 0.4 mg sublingual Q5-15M PRN chest pain 06/13/18 [History Last Taken Unknown] metoprolol succinate 100 mg tablet,extended release 24 hr 100 mg PO BID blood pressure 11/28/19 [History Last Taken 03/09/22] isosorbide dinitrate 30 mg tablet 30 mg PO BID heart 12/14/19 [History Last Taken 03/09/22] losartan 50 mg tablet 50 mg PO BID #180 tabs 01/30/20 [Rx Last Taken 03/09/22] fluticasone propionate 50 mcg/actuation nasal spray,suspension 1 spray NASAL DAILY allergies 11/28/20 [History Last Taken 03/09/22] ascorbic acid (vitamin C) 500 mg tablet (Vitamin C) 500 mg PO DAILY supplement 03/09/22 [History Last Taken 03/09/22] ferrous sulfate 325 mg (65 mg iron) tablet 325 mg PO BID supplement 03/09/22 [History Last Taken 03/09/22] lactulose 10 gram/15 mL oral solution 30 g PO Q OTHER DAY ammonia 05/12/22 [History Last Taken Unknown] clonidine HCl 0.2 mg tablet 0.1 mg PO TID blood pressure 08/10/22 [History Last Taken Unknown] hydrochlorothiazide 25 mg tablet 25 mg PO DAILY blood pressure 08/10/22 [History Last Taken Unknown] hydrocodone-acetaminophen 5-325mg 5mg-325mg 1 tab PO BID pain 08/10/22 [History Last Taken Unknown] amlodipine 10 mg tablet 10 mg PO DAILY 30 days #30 tabs 08/15/22 [Rx Last Taken Unknown] apixaban 5 mg tablet (Eliquis) 2.5 mg PO BID 30 days #30 tabs 08/15/22 [Rx Last Taken Unknown] clopidogrel 75 mg tablet 75 mg PO DAILY 30 days #30 tabs 08/15/22 [Rx Last Taken Unknown] hydralazine 50 mg tablet 100 mg PO TID 30 days #180 tabs 08/15/22 [Rx Last Taken Unknown] Allergy/AdvReac Type Severity Reaction Status Date / Time aspirin AdvReac Severe Swelling Verified 08/10/22 02:27 clarithromycin [From Biaxin] AdvReac Unknown Verified 08/10/22 02:27 codeine AdvReac Unknown Verified 08/10/22 02:27 morphine AdvReac Unknown Verified 08/10/22 02:27 Penicillins AdvReac Unknown Verified 08/10/22 02:27 Sulfa (Sulfonamide AdvReac Unknown Verified 08/10/22 02:27 Antibiotics) Family History Mother Myocardial infarction CVA (cerebral vascular accident) CAD (coronary artery disease) Father Myocardial infarction CAD (coronary artery disease) Brother History of PTCA Hx of CABG Sister Hx of CABG Surgical History H/O arthroscopy of left knee H/O oophorectomy History of appendectomy History of coronary artery stent placement (11/05/09) History of hernia repair History of partial hysterectomy History of right inguinal hernia repair Presence of coronary angioplasty implant and graft (~11/05/09) Social History Smoking Status: Never smoker alcohol intake: never substance use type: does not use caffeine: Yes Type: carbonated beverages what type of physical activity do you participate in: none seatbelt use: always do you feel safe at home: Yes ROS ROS ED Constitutional Constitutional ED: Denies chills or fever(s) Eyes Eyes: Denies blurry vision or change in vision ENT ENT ED: Denies rhinorrhea or sore throat Cardiovascular Cardiovascular: Denies chest pain or palpitations Respiratory/Chest Respiratory/Chest: Reports dyspnea; Denies cough Gastrointestinal Gastrointestinal: Denies nausea or vomiting Genitourinary Genitourinary ED: Denies dysuria or hematuria Musculoskeletal Musculoskeletal: Reports back pain and neck pain Integumentary Denies abscess or rash Neurologic Neurologic: Denies headache(s) or weakness Allergic/Immunologic Allergic/Immunologic ED: Denies mouth swelling or urticaria EXAM Physical Exam Const Vital Signs: 08/22/22 08:57 08/22/22 09:00 08/22/22 09:41 Temperature 96.7 F L Temperature Source Temporal Pulse Rate 65 Respiratory Rate 19 H Respiratory Effort Short of Breath Respiratory Depth Blood Pressure 190/59 H Blood Pressure Mean 102 Pulse Ox 92 Oxygen Delivery Method Room Air Room Air Room Air Oxygen Flow Rate (L/min) 08/22/22 10:20 08/22/22 10:20 08/22/22 10:36 Temperature Temperature Source Pulse Rate 68 74 Respiratory Rate 20 H 20 H Respiratory Effort Respiratory Depth Blood Pressure 195/95 H Blood Pressure Mean 128 Pulse Ox 93 94 Oxygen Delivery Method Nasal Cannula Nasal Cannula Oxygen Flow Rate (L/min) 2 2 08/22/22 10:20 08/22/22 11:14 08/22/22 11:15 Temperature Temperature Source Pulse Rate Respiratory Rate Respiratory Effort Respiratory Depth Blood Pressure Blood Pressure Mean Pulse Ox 93 90 91 Oxygen Delivery Method Nasal Cannula Nasal Cannula Nasal Cannula Oxygen Flow Rate (L/min) 2 3 4 08/22/22 11:16 08/22/22 12:32 08/22/22 12:32 Temperature Temperature Source Pulse Rate 69 Respiratory Rate 21 H Respiratory Effort Respiratory Depth Blood Pressure 201/60 H Blood Pressure Mean 107 Pulse Ox 92 Oxygen Delivery Method Nasal Cannula Oxygen Flow Rate (L/min) 4 08/22/22 12:35 Temperature Temperature Source Pulse Rate Respiratory Rate 21 H Respiratory Effort Short of Breath Respiratory Depth Shallow Blood Pressure Blood Pressure Mean Pulse Ox 92 Oxygen Delivery Method Nasal Cannula Oxygen Flow Rate (L/min) 4 Positive well nourished and well developed General Appearance ED: well developed and NAD HEENT Reports moist mucous membranes Neck supple and no JVD Resp normal respiratory effort Auscultation: diminished lung sounds diffuse Cardio regular rate, regular rhythm and no murmurs GI normal to inspection, nondistended, normoactive bowel sounds and non-tender Palpation: soft Extremity normal to inspection General Extremety ED: Negative for edema or tenderness General Extremity: Negative for edema Neuro oriented x3, CN's II-XII intact bilaterally and no sensory deficits noted Sensorium / Orientation: alert Motor Exam: strength 5/5 throughout Psych mental status grossly normal Mood & Affect: depressed Skin no rashes or lesions noted MDM MDM MDM Narrative Medical decision making narrative: Patient was given a DuoNeb aerosol here. Patient is allergic to aspirin. EKG was obtained. On my interpretation, it showed a normal sinus rhythm with first-degree AV block with a rate of 65. TN interval was prolonged at 226 ms. QRS interval and QTc intervals were normal. [place] was normal. There are no acute ST or T wave changes. PA and lateral chest x-ray was obtained. There are 2 views. On my interpretation, there are infiltrates in the right upper and lower lobes. There is cardiomegaly noted. Bony thorax is normal. There are chronic changes noted. Radiologist also interpreted the x-rays and agrees. CBC shows a normal white blood cell count. There is a mild anemia with a hemoglobin of 10.8 and hematocrit 32.2. PT was 17.2 and INR is 1.4. PTT was slightly elevated at 41.0. D-dimer was elevated at 1.67. Comprehensive metabolic profile showed a sodium of 128 and a chloride of 94. BUN was slightly elevated at 48 and creatinine was 2.04. These are consistent with prior results. High-sensitivity troponin was slightly elevated at 165. Urinalysis shows leukocyte esterase of 500 and positive nitrites with 2+ bacteria. There is 0-5 white blood cells. Urine culture was ordered. COVID-19 rapid antigen was obtained and was negative. Influenza A and influenza B rapid antigens were obtained and were negative. Because of the elevated D-dimer, CTA of the chest was obtained. Patient was given IV fluids. CTA of the chest does not show any evidence of pulmonary embolism or arterial dissection. There is improved bilateral infiltrates and edema. This was interpreted by the radiologist and reviewed by myself. Case was discussed with the hospitalist. He will admit the patient to his service. Patient was given a dose of Lasix here. 2-hour repeat troponin was obtained and was 174. Patient understood and was agreeable with the plan. All questions were answered. Lab Data Attestation: I reviewed the patient's lab results. Labs: Laboratory Results - last 24 hr 08/22/22 08/22/22 08/22/22 09:10 09:10 09:10 WBC 9.8 RBC 3.37 L Hgb 10.8 L Hct 32.3 L MCV 95.8 MCH 32.0 MCHC 33.4 RDW Std Deviation 43.5 RDW Coeff of Deidra 12.4 Plt Count 403 MPV 10.2 Immature Gran % (Auto) 1.000 H Neut % (Auto) 70.7 H Lymph % (Auto) 18.4 L [place] % (Auto) 7.2 Eos % (Auto) 2.1 Baso % (Auto) 0.6 Absolute Neuts (auto) 6.9 Absolute Lymphs (auto) 1.79 Nucleated RBC % 0 PT 17.2 H INR 1.4 APTT 41.0 H D-Dimer Quant (PE/DVT) 1.67 H* Sodium 128 L Potassium 4.1 Chloride 94 L Carbon Dioxide 24.0 Anion Gap 10 BUN 48 H Creatinine 2.04 H Estim Creat Clear Calc 14.22 Est GFR (MDRD) Af Amer 30 L Est GFR (MDRD) Non-Af 25 L BUN/Creatinine Ratio 23.5 H Glucose 143 H Calcium 9.2 Total Bilirubin 0.70 AST 28 ALT 23 Alkaline Phosphatase 92 Troponin I High Sens 165 H* Total Protein 7.5 Albumin 3.5 Globulin 4.0 Albumin/Globulin Ratio 0.9 Urine Color Urine Clarity Urine pH Ur Specific [place] Urine Protein Urine Glucose (UA) Urine Ketones Urine Occult Blood Urine Nitrite Urine Bilirubin Urine Urobilinogen Ur Leukocyte Esterase Urine RBC Urine WBC Ur Squamous Epith Cells Urine Bacteria Urine Mucus 08/22/22 09:55 WBC RBC Hgb Hct MCV MCH MCHC RDW Std Deviation RDW Coeff of Deidra Plt Count MPV Immature Gran % (Auto) Neut % (Auto) Lymph % (Auto) [place] % (Auto) Eos % (Auto) Baso % (Auto) Absolute Neuts (auto) Absolute Lymphs (auto) Nucleated RBC % PT INR APTT D-Dimer Quant (PE/DVT) Sodium Potassium Chloride Carbon Dioxide Anion Gap BUN Creatinine Estim Creat Clear Calc Est GFR (MDRD) Af Amer Est GFR (MDRD) Non-Af BUN/Creatinine Ratio Glucose Calcium Total Bilirubin AST ALT Alkaline Phosphatase Troponin I High Sens Total Protein Albumin Globulin Albumin/Globulin Ratio Urine Color Yellow Urine Clarity Clear Urine pH 7.0 Ur Specific [place] 1.005 Urine Protein Negative Urine Glucose (UA) Normal Urine Ketones Negative Urine Occult Blood Negative Urine Nitrite Positive H Urine Bilirubin Negative Urine Urobilinogen Normal Ur Leukocyte Esterase 500 H Urine RBC 0 SEEN Urine WBC 0-5 SEEN Ur Squamous Epith Cells 0 SEEN Urine Bacteria 2+ Urine Mucus 0 SEEN Radiography Diagnostic Testing: Clinical Impression(s) from Imaging Studies Chest X-Ray 08/22/22 09:34 IMPRESSION: 1. Patchy infiltrates in the right upper and right lower lung zones. 2. Cardiomegaly. Electronically Signed: Yariel Daly MD at 10:27 EST , Chest CTA 08/22/22 10:40 IMPRESSION: 1. No evidence of pulmonary embolism or aortic dissection. 2. Improved bilateral infiltrates/edema. 3. Persistent right pleural effusion. Electronically Signed: Yariel Daly MD at 11:38 EST , EKG Initial EKG: Attestation: I personally reviewed and interpreted this EKG as follows: Interpretation: Sinus Rhythm (With first-degree AV block with a rate of 65) and No Acute Injury Pattern Prior EKG tracings: available for review Prior: Unchanged (08/12/2022) Discharge Plan Triage Chief Complaint: Shortness of Breath ED Provider: Duke Montejo Dx/Rx/DC Orders Clinical Impression: Hypoxia, Elevated troponin I level, Congestive heart failure (CHF) Primary Care Provider: James Garcia Disposition Disposition: Acute Care Hospital [facility]
[2022-08-22] MEDS: 0.9% Normal Saline 1,000 ML 1000 ML IV (10:48)
[2022-08-22] MEDS: fentaNYL 100 MCG/2 ML Ampul 25 MCG IV (10:48)
[2022-08-22] MEDS: Ondansetron 4 MG/2 ML Vial IV ×2 (11:13→20:41)
[2022-08-22] MEDS: Labetalol (Prefilled) 20 MG/4 ML 10 MG IV (11:27)
[2022-08-22] MEDS: levoFLOXacin IV 750 MG/150 ML BAG 100 MG IV (11:45)
[2022-08-22] MEDS: Albuterol 2.5 MG/3 ML VIAL.NEB. INHALATION (12:31)
[2022-08-22] MEDS: Furosemide 40 MG/4 ML Vial IV (13:01)
[2022-08-22 13:36] LABS: Troponin-I HS 174 pg/mL (3.0-54.0)
--- NOTE | 2022-08-22 15:03 | HP.PCM.HOS_ITS ---
HPI - General General Date of Admission: 08/22/22 Date of Service: 08/22/22 Chief Complaint: Shortness of breath HPI Narrative ANIYA AGUILAR, is a 87 F who presents to the emergency room at [facility] with complaints of shortness of breath over the last 2 to 3 days. Patient denies any chest pain, she denies any fevers or chills, some of the history was obtained from the daughter who was present at the time my examination in the patient's room. Patient was just discharged from the hospital here on [place] after being treated for uncontrolled hypertension and congestive heart failure with preserved ejection fraction. Reviewing her home medications, she was not discharged on any furosemide-she was discharged on h ydrochlorothiazide. Labs were performed in the ER, white blood cell count was normal at 9.8, hemogl obin was 10.8, patient required 4 L of oxygen to maintain her pulse ox above 90%. Patient's blood pressure was 160/56, D-dimer was elevated at 1.67, creatinine was elevated at 2.04, BUN was 48, and sodium was 128. Patient had a CTA of her chest performed-it showed no evidence of pulmonary embolism or aortic dissection, there was bilateral infiltrates/edema which appeared improved from her last imaging study. There is persistent right pleural effusion. Troponin was elevated at 165. PFSH Medical History Atherosclerotic heart disease of [place] coronary artery without angina pectoris Cardiac murmur Edema Essential hypertension Hypertensive emergency Nausea Paroxysmal atrial fibrillation Presence of stent in coronary artery (~11/05/09) Pure hypercholesterolemia Stage 3b chronic kidney disease (CKD) Home Medications montelukast 10 mg tablet 10 mg PO QDAY allergies 09/08/17 [History Last Taken 03/08/22] omeprazole 20 mg capsule,delayed release 20 mg PO DAILY reflux 09/08/17 [History Last Taken 03/09/22] simvastatin 10 mg tablet 10 mg PO QDAY cholesterol 09/08/17 [History Last Taken 03/08/22] potassium chloride 20 mEq tablet,extended release 20 meq PO QDAY supplement 09/13/17 [History Last Taken 03/09/22] albuterol sulfate 2.5 mg/3 mL (0.083 %) solution for nebulization 2.5 mg inhalation Q4H PRN Shortness Of Breath 06/13/18 [History Last Taken 03/09/22] ipratropium bromide 0.02 % solution for inhalation 2.5 ml inhalation Q4H PRN Shortness Of Breath 06/13/18 [History Last Taken 03/09/22] nitroglycerin 0.4 mg sublingual tablet 0.4 mg sublingual Q5-15M PRN chest pain 06/13/18 [History Last Taken Unknown] metoprolol succinate 100 mg tablet,extended release 24 hr 100 mg PO BID blood pressure 11/28/19 [History Last Taken 03/09/22] isosorbide dinitrate 30 mg tablet 30 mg PO BID heart 12/14/19 [History Last Taken 03/09/22] losartan 50 mg tablet 50 mg PO BID #180 tabs 01/30/20 [Rx Last Taken 03/09/22] fluticasone propionate 50 mcg/actuation nasal spray,suspension 1 spray NASAL DAILY allergies 11/28/20 [History Last Taken 03/09/22] ascorbic acid (vitamin C) 500 mg tablet (Vitamin C) 500 mg PO DAILY supplement 03/09/22 [History Last Taken 03/09/22] ferrous sulfate 325 mg (65 mg iron) tablet 325 mg PO BID supplement 03/09/22 [History Last Taken 03/09/22] lactulose 10 gram/15 mL oral solution 30 g PO Q OTHER DAY ammonia 05/12/22 [History Last Taken Unknown] clonidine HCl 0.2 mg tablet 0.1 mg PO TID blood pressure 08/10/22 [History Last Taken Unknown] hydrochlorothiazide 25 mg tablet 25 mg PO DAILY blood pressure 08/10/22 [History Last Taken Unknown] hydrocodone-acetaminophen 5-325mg 5mg-325mg 1 tab PO BID pain 08/10/22 [History Last Taken Unknown] amlodipine 10 mg tablet 10 mg PO DAILY 30 days #30 tabs 08/15/22 [Rx Last Taken Unknown] apixaban 5 mg tablet (Eliquis) 2.5 mg PO BID 30 days #30 tabs 08/15/22 [Rx Last Taken Unknown] clopidogrel 75 mg tablet 75 mg PO DAILY 30 days #30 tabs 08/15/22 [Rx Last Taken Unknown] hydralazine 50 mg tablet 100 mg PO TID 30 days #180 tabs 08/15/22 [Rx Last Taken Unknown] Allergy/AdvReac Type Severity Reaction Status Date / Time aspirin AdvReac Severe Swelling Verified 08/10/22 02:27 clarithromycin [From Biaxin] AdvReac Unknown Verified 08/10/22 02:27 codeine AdvReac Unknown Verified 08/10/22 02:27 morphine AdvReac Unknown Verified 08/10/22 02:27 Penicillins AdvReac Unknown Verified 08/10/22 02:27 Sulfa (Sulfonamide AdvReac Unknown Verified 08/10/22 02:27 Antibiotics) Family History Mother Myocardial infarction CVA (cerebral vascular accident) CAD (coronary artery disease) Father Myocardial infarction CAD (coronary artery disease) Brother History of PTCA Hx of CABG Sister Hx of CABG Surgical History H/O arthroscopy of left knee H/O oophorectomy History of appendectomy History of coronary artery stent placement (11/05/09) History of hernia repair History of partial hysterectomy History of right inguinal hernia repair Presence of coronary angioplasty implant and graft (~11/05/09) Social History Smoking Status: Never smoker alcohol intake: never substance use type: does not use caffeine: Yes Type: carbonated beverages what type of physical activity do you participate in: none seatbelt use: always do you feel safe at home: Yes ROS ROS Narrative Patient is alert, she does not appear in any distress, patient does not carry on a fluent conversation with this examiner and only says a few words. Constitutional Constitutional: Denies anorexia, change in weight, fever(s), night sweats or weakness Eyes Eyes: Denies blurry vision, change in vision, discharge from eye(s) or eye pain Cardiovascular Cardiovascular: Reports dyspnea on exertion; Denies chest pain, claudication, edema or palpitations Respiratory/Chest Respiratory/Chest: Reports dyspnea, shortness of breath at rest and shortness of breath with exertion; Denies cough or hemoptysis Gastrointestinal Gastrointestinal: Denies abdominal pain, constipation, diarrhea, hematemesis, hematochezia, melena, nausea or vomiting Genitourinary Genitourinary: Denies difficulty urinating, dysuria, hematuria, nocturia, urinary frequency, urinary hesitancy, urinary incontinence or urinary urgency Musculoskeletal Musculoskeletal: Denies back pain, joint pain, joint stiffness, joint swelling, myalgias or neck pain Neurologic Neurologic: Denies abnormal gait, abnormal speech, dizziness, focal weakness, headache(s), loss of vision, numbness, other visual disturbances, paresthesias, syncope or tingling Psychiatric Psychiatric: Denies anxiety, cognitive impairment, depression, irritability, mood swings or suicidal ideation Endocrine Endocrinology: Denies change in body appearance, cold intolerance, excessive sweating, heat intolerance, polydipsia or polyuria Hematologic/Lymphatic Hematologic/Lymphatic: Denies none, anemia, easy bleeding, easy bruising or lymphadenopathy Allergic/Immunologic Allergic/Immunologic: Denies rhinitis, urticaria, eczemia or asthma Vital Signs Vital Signs Vital Signs: 08/22/22 08:57 08/22/22 09:00 08/22/22 09:41 Temperature 96.7 F L Temperature Source Temporal Pulse Rate 65 Respiratory Rate 19 H Respiratory Effort Short of Breath Respiratory Depth Blood Pressure 190/59 H Blood Pressure Mean 102 Blood Pressure Source Blood Pressure Position Blood Pressure Location Pulse Ox 92 Oxygen Delivery Method Room Air Room Air Room Air Oxygen Flow Rate (L/min) 08/22/22 10:20 08/22/22 10:20 08/22/22 10:36 Temperature Temperature Source Pulse Rate 68 74 Respiratory Rate 20 H 20 H Respiratory Effort Respiratory Depth Blood Pressure 195/95 H Blood Pressure Mean 128 Blood Pressure Source Blood Pressure Position Blood Pressure Location Pulse Ox 93 94 Oxygen Delivery Method Nasal Cannula Nasal Cannula Oxygen Flow Rate (L/min) 2 2 08/22/22 10:20 08/22/22 11:14 08/22/22 11:15 Temperature Temperature Source Pulse Rate Respiratory Rate Respiratory Effort Respiratory Depth Blood Pressure Blood Pressure Mean Blood Pressure Source Blood Pressure Position Blood Pressure Location Pulse Ox 93 90 91 Oxygen Delivery Method Nasal Cannula Nasal Cannula Nasal Cannula Oxygen Flow Rate (L/min) 2 3 4 08/22/22 11:16 08/22/22 12:32 08/22/22 12:32 Temperature Temperature Source Pulse Rate 69 Respiratory Rate 21 H Respiratory Effort Respiratory Depth Blood Pressure 201/60 H Blood Pressure Mean 107 Blood Pressure Source Blood Pressure Position Blood Pressure Location Pulse Ox 92 Oxygen Delivery Method Nasal Cannula Oxygen Flow Rate (L/min) 4 08/22/22 12:35 08/22/22 12:58 08/22/22 13:00 Temperature 97.8 F Temperature Source Temporal Pulse Rate 72 73 Respiratory Rate 21 H 14 15 Respiratory Effort Short of Breath Respiratory Depth Shallow Blood Pressure 174/56 H 156/54 H Blood Pressure Mean 95 88 Blood Pressure Source Blood Pressure Position Blood Pressure Location Pulse Ox 92 94 95 Oxygen Delivery Method Nasal Cannula Nasal Cannula Nasal Cannula Oxygen Flow Rate (L/min) 4 4 4 08/22/22 14:57 Temperature 97.7 F L Temperature Source Oral Pulse Rate 70 Respiratory Rate 18 Respiratory Effort Respiratory Depth Blood Pressure 160/56 H Blood Pressure Mean 90 Blood Pressure Source Monitor Blood Pressure Position Semi-Fowlers Blood Pressure Location Left Arm Pulse Ox 94 Oxygen Delivery Method Nasal Cannula Oxygen Flow Rate (L/min) 4 Weight Weight: 68.7 kg Body Mass Index (BMI) 29.5 Physical Exam Const alert, oriented x3, no apparent distress and healthy appearing General Appearance: cooperative, well kempt and well developed Orientation / Consciousness: awake, oriented to person, oriented to place and oriented to time HEENT normocephalic and moist oral mucous membranes Eyes PERRL, EOMs intact bilaterally and conjunctivae normal Neck supple, no JVD, thyroid normal and no carotid bruits General: trachea midline Resp normal respiratory effort, no retractions and no use of accessory muscles Resp Narrative: Inspiratory rales are noted over the lower lung acharya bilaterally Auscultation: rales; Negative for rhonchi or wheezes Cardio regular rate, regular rhythm, S1 normal heart sound, S2 normal heart sound, no murmurs, no rub and no gallops Cardio Narrative: Occasional extrasystolic beats are noted GI normal to inspection, nondistended, normoactive bowel sounds, soft to palpation, non-tender and non-distended Extremity normal to inspection and no clubbing, cyanosis or edema Skin no rashes or lesions noted General Skin Exam: no breakdown Neuro oriented x3, CN's II-XII intact bilaterally, moves all extremities, no focal motor deficits and no sensory deficits noted Sensorium / Orientation: awake and alert Speech: speech normal Psych Psych Narrative: Patient had a flat affect Results Lab / Micro Data Result Diagrams: 08/22/22 09:10 08/22/22 09:10 Labs: Laboratory Results - last 24 hr 08/22/22 09:10: WBC 9.8, RBC 3.37 L, Hgb 10.8 L, Hct 32.3 L, MCV 95.8, MCH 32.0, MCHC 33.4, RDW Std Deviation 43.5, RDW Coeff of [place] 12.4, Plt Count 403, MPV 10.2, Immature Gran % (Auto) 1.000 H, Neut % (Auto) 70.7 H, Lymph % (Auto) 18.4 L, [place] % (Auto) 7.2, Eos % (Auto) 2.1, Baso % (Auto) 0.6, Absolute Neuts (auto) 6.9, Absolute Lymphs (auto) 1.79, Nucleated RBC % 0 08/22/22 09:10: PT 17.2 H, INR 1.4, APTT 41.0 H, D-Dimer Quant (PE/DVT) 1.67 H* 08/22/22 09:10: Sodium 128 L, Potassium 4.1, Chloride 94 L, Carbon Dioxide 24.0, Anion Gap 10, BUN 48 H, Creatinine 2.04 H, Estim Creat Clear Calc 14.22, Est GFR (MDRD) Af Amer 30 L, Est GFR (MDRD) Non-Af 25 L, BUN/Creatinine Ratio 23.5 H, Glucose 143 H, Calcium 9.2, Total Bilirubin 0.70, AST 28, ALT 23, Alkaline Phosphatase 92, Troponin I High Sens 165 H*, Total Protein 7.5, Albumin 3.5, Globulin 4.0, Albumin/Globulin Ratio 0.9 08/22/22 09:55: Urine Color Yellow, Urine Clarity Clear, Urine pH 7.0, Ur Specific [place] 1.005, Urine Protein Negative, Urine Glucose (UA) Normal, Urine Ketones Negative, Urine Occult Blood Negative, Urine Nitrite Positive H, Urine Bilirubin Negative, Urine Urobilinogen Normal, Ur Leukocyte Esterase 500 H, Urine RBC 0 SEEN, Urine WBC 0-5 SEEN, Ur Squamous Epith Cells 0 SEEN, Urine Bacteria 2+, Urine Mucus 0 SEEN 08/22/22 12:55: Troponin I High Sens 174 H* Micro: Microbiology 08/22/22 09:55 Nasal Secretion SARS-CoV-2 & FLU Antigen (Rapid) - Final Radiology Impression Chest X-Ray 08/22/22 09:34 IMPRESSION: 1. Patchy infiltrates in the right upper and right lower lung zones. 2. Cardiomegaly. Electronically Signed: Yariel Daly MD at 10:27 EST , Chest CTA 08/22/22 10:40 IMPRESSION: 1. No evidence of pulmonary embolism or aortic dissection. 2. Improved bilateral infiltrates/edema. 3. Persistent right pleural effusion. Electronically Signed: Yariel Daly MD at 11:38 EST , Assessment & Plan Assessment/Plan (1) Congestive heart failure (CHF): PLAN: Plan 1. Acute on chronic diastolic congestive heart failure-patient will be admitted to PCU, she will be placed on a Lasix drip, labs will be monitored. #2 acute hypoxia secondary to #1-patient's pulse ox will be monitored, she is currently on nasal cannula oxygen #3 essential hypertension-patient will be kept on her home medications #4 urinalysis with positive nitrites and +2 bacteria-patient received IV Levaquin in the emergency room, I will place her on oral antibiotics for a suspe cted cystitis starting in the morning. #5 pulmonary hypertension-patient's last echocardiogram showed moderate pulmonary hypertension, again patient will be on IV Lasix drip #6 anxiety-patient's daughter states that the patient has been anxious at home at times-this may be secondary to hypoxia, I told her I would place her on a small amount of a benzodiazepine as needed for anxiety-daughter was okay with this #7 elevated troponin-I do not think the patient has had a non-STEMI, I will order a third troponin tonight. #8 coronary artery disease-this appears stable at this time, patient's EKG showed normal sinus rhythm with a first-degree AV block #9 hyponatremia-patient's sodium will be rechecked tomorrow, patient's sodiums appear to all be low-they were low during her last hospitalization. Charges/Coding Visit Charges Inpatient E&M: 50103 Init Hosp L3
[2022-08-22] MEDS: Furosemide 500 MG in Empty Viaflex 50 mL 1 EACH CONT INF (16:34)
[2022-08-22] MEDS: 0.9% Saline Lock 10 ML Syringe IV ×2 (16:34→20:46)
[2022-08-22] MEDS: Cephalexin 250 MG Capsule PO (17:24)
[2022-08-22] MEDS: Ferrous Sulfate 325 MG Tablet PO (17:24)
[2022-08-22] MEDS: hydrALAZINE 50 MG Tablet 100 MG PO (17:24)
[2022-08-22] MEDS: Potassium Chloride Oral Tablet 20 MEQ PO (17:24)
[2022-08-22] MEDS: HYDROcodone Bitartrate/Apap 5/325 Tablet PO (18:35)
[2022-08-22] MEDS: LORazepam 0.5 MG Tablet 0.25 MG PO (20:24)
[2022-08-22] MEDS: Acetaminophen 325 MG Tablet 650 MG PO (20:40)
[2022-08-22] MEDS: cloNIDine HCl 0.1 MG Tablet PO (22:07)
[2022-08-22] MEDS: APIXABAN 2.5 MG TABLET (WCH) PO (22:07)
[2022-08-22] MEDS: Lactulose 20 GM/30 ML UDC 30 GM PO (22:07)
[2022-08-22] MEDS: Metoprolol(XL)Succ 100 MG Tablet PO (22:08)
[2022-08-22] MEDS: Losartan Potassium 50 MG Tablet PO (22:08)
[2022-08-22] MEDS: Atorvastatin Calcium 10 MG Tablet 5 MG PO (22:08)
[2022-08-22] MEDS: Isosorbide DN 30 MG Tablet PO (22:09)
--- NOTE | 2022-08-22 23:36 | EKG12_ITS ---
Test Reason : CP Blood Pressure : / mmHG Vent. Rate : 073 BPM Atrial Rate : 073 BPM P-R Int : 202 ms QRS Dur : 090 ms QT Int : 550 ms P-R-T Axes : 086 -21 043 degrees QTc Int : 605 ms Normal sinus rhythm Minimal voltage criteria for LVH, may be normal variant ( R in aVL ) Prolonged QT Abnormal ECG Confirmed by JORGE SALAZAR, GUILLERMO ([id number]), clinical editor BARTOLO STAPLES ([id number]) on 08/27/2022 9:53:00 AM Referred By: DR COBB Confirmed By:GUILLERMO PATEL MD
[2022-08-23] VITALS (17 sets, daily range): BP systolic 121–181; BP diastolic 46–77; PULSE 68–86; RESP 16–20; TEMP 36.5–36.9; O2SAT 94–98
[2022-08-23] MEDS: traMADol 50 MG Tablet 25 MG PO (01:18)
[2022-08-23 06:30] LABS: Anion Gap 10 (5-15); BUN 41 mg/dL (7-18); BUN/Creat Ratio 21.6 RATIO (10-20); Calcium,Total 8.8 mg/dL (8.5-10.1); Chloride 94 mmol/L (98-107); EST Glomerular Filtration Rate 27 mL/min (>60); Est Glom Filt Rate - Afr Amer 32 mL/min (>60); Estimated Creatinine Clearance 15.27 ml/min; Glucose 126 mg/dL (74-106); Potassium 3.6 mmol/L (3.5-5.1); Sodium Level 131 mmol/L (136-145)
[2022-08-23] MEDS: hydrALAZINE 50 MG Tablet 100 MG PO ×3 (06:42→22:21)
[2022-08-23] MEDS: Cephalexin 250 MG Capsule PO ×3 (06:42→22:21)
[2022-08-23] MEDS: cloNIDine HCl 0.1 MG Tablet PO (06:43)
[2022-08-23] MEDS: Ipratropium/Albuterol Sulfate 3 ML AMPUL.NEB INHALATION ×3 (07:50→19:28)
[2022-08-23] MEDS: Potassium Chloride Oral Tablet 20 MEQ PO ×2 (09:00→17:45)
[2022-08-23] MEDS: APIXABAN 2.5 MG TABLET (WCH) PO ×2 (09:02→22:21)
[2022-08-23] MEDS: Pantoprazole Sodium 20 MG Tablet PO (09:02)
[2022-08-23] MEDS: Clopidogrel Bisulfate 75 MG Tablet PO (09:02)
[2022-08-23] MEDS: Ferrous Sulfate 325 MG Tablet PO ×2 (09:02→17:44)
[2022-08-23] MEDS: Losartan Potassium 50 MG Tablet PO ×2 (11:42→22:21)
[2022-08-23] MEDS: 0.9% Saline Lock 10 ML Syringe IV ×3 (12:24→21:18)
[2022-08-23] MEDS: Acetaminophen 325 MG Tablet 650 MG PO (14:48)
[2022-08-23] MEDS: Furosemide 20 MG/2 ML VIAL IV ×2 (14:49→21:17)
--- NOTE | 2022-08-23 17:21 | PN.HOSP_ITS ---
Subjective Subjective Patient was seen and examined today, she states she does not feel well today but did not elaborate on this. Patient has had several episodes of long pauses (approximately 4 to 5 seconds) on her telemetry strip. I talked informally with cardiology about this-this patient is Dr. Mora's patient-he agreed with a djusting the patient's rate limiting medication and observing the patient. I did not ask for a formal consult for this patient however, I do not think is necessary at this time. I made a decision to change her from IV continuous Lasix to intermittent IV Lasix. Patient is currently on low-flow nasal cannula oxygen. Creatinine is improved today at 1.9. Objective Data Objective Data Vital Signs: Vital Signs Temp Pulse Resp BP Pulse Ox O2 Del Method O2 Flow Rate 97.7 F L 82 17 127/56 H 97 Nasal Cannula 2 08/23/22 14:38 08/23/22 15:00 08/23/22 14:38 08/23/22 14:38 08/23/22 14:38 08/23/22 14:38 08/23/22 14:38 Oxygen Flow Rate (L/min) 2 Oxygen Delivery Method Nasal Cannula Weight: 63.4 kg Body Mass Index (BMI) 27.3 Intake & Output: Intake and Output for Last 24 Hours 08/21/22 08/22/22 08/23/22 23:59 23:59 23:59 Intake Total 1390 / 1390 469.83 / 469.83 Output Total 800 / 2300 2100 / 2100 Balance 590 / -910 -1630.17 / -1630.17 Lab / Micro Data Result Diagrams: 08/22/22 09:10 08/23/22 05:40 Labs: Laboratory Results - last 24 hr 08/23/22 05:40: Sodium 131 L, Potassium 3.6, Chloride 94 L, Carbon Dioxide 27.0, Anion Gap 10, BUN 41 H, Creatinine 1.90 H, Estim Creat Clear Calc 15.27, Est GFR (MDRD) Af Amer 32 L, Est GFR (MDRD) Non-Af 27 L, BUN/Creatinine Ratio 21.6 H, Glucose 126 H, Calcium 8.8 Micro: Microbiology 08/22/22 09:55 Urine, Catheterized Urine Culture - Preliminary Gram negative lulu 08/22/22 09:55 Nasal Secretion SARS-CoV-2 & FLU Antigen (Rapid) - Final Physical Exam Narrative alert, oriented x3, no apparent distress and healthy appearing General Appearance: cooperative, well kempt and well developed Orientation / Consciousness: awake, oriented to person, oriented to place and oriented to time HEENT normocephalic and moist oral mucous membranes Eyes PERRL, EOMs intact bilaterally and conjunctivae normal Neck supple, no JVD, thyroid normal and no carotid bruits General: trachea midline Resp normal respiratory effort, no retractions and no use of accessory muscles Resp Narrative: Inspiratory rales are noted over the lower lung acharya bilaterally Auscultation: rales; Negative for rhonchi or wheezes Cardio regular rate, regular rhythm, S1 normal heart sound, S2 normal heart sound, no murmurs, no rub and no gallops Cardio Narrative: Occasional extrasystolic beats are noted GI normal to inspection, nondistended, normoactive bowel sounds, soft to palpation, non-tender and non-distended Extremity normal to inspection and no clubbing, cyanosis or edema Skin no rashes or lesions noted General Skin Exam: no breakdown Neuro oriented x3, CN's II-XII intact bilaterally, moves all extremities, no focal motor deficits and no sensory deficits noted Sensorium / Orientation: awake and alert Speech: speech normal Psych Psych Narrative: Patient had a flat affect Assessment & Plan Assessment/Plan (1) Congestive heart failure (CHF): PLAN: Plan 1. Acute on chronic diastolic congestive heart failure-patient remains on IV Lasix #2 acute hypoxia secondary to #1-patient's pulse ox will be monitored, she is currently on nasal cannula oxygen #3 essential hypertension-patient will be kept on her home medications #4 urinalysis with positive nitrites and +2 bacteria-patient received IV Levaquin in the emergency room, patient is on oral antibiotic now #5 pulmonary hypertension-patient's last echocardiogram showed moderate pulmonary hypertension, again patient will be on IV Lasix #6 anxiety-patient's daughter states that the patient has been anxious at home at times-this may be secondary to hypoxia, I told her I would place her on a small amount of a benzodiazepine as needed for anxiety-daughter was okay with this #7 elevated troponin-I do not think the patient has had a non-STEMI #8 coronary artery disease-this appears stable at this time, patient's EKG showed normal sinus rhythm with a first-degree AV block #9 hyponatremia-patient's sodium was improved today, recheck BMP in the morning #10 generalized debility-patient will be seen by PT and OT #11 periods of asystole-possibly secondary to rate limiting medications, patient's clonidine and metoprolol was adjusted downward, she will be monitored on telemetry, patient is asymptomatic with these periods of asystole. Charges/Coding Visit Charges Inpatient E&M: 99781 Subs Hosp L2
[2022-08-23] MEDS: HYDROcodone Bitartrate/Apap 5/325 Tablet PO ×2 (17:44→22:25)
[2022-08-23] MEDS: LORazepam 0.5 MG Tablet 0.25 MG PO (21:15)
[2022-08-23] MEDS: Atorvastatin Calcium 10 MG Tablet 5 MG PO (22:21)
[2022-08-23] MEDS: Isosorbide DN 30 MG Tablet PO (22:21)
[2022-08-24] VITALS (20 sets, daily range): BP systolic 144–173; BP diastolic 51–59; PULSE 70–91; RESP 16–18; TEMP 36.5–36.9; O2SAT 89–98
[2022-08-24] MEDS: Ipratropium/Albuterol Sulfate 3 ML AMPUL.NEB INHALATION ×4 (01:03→20:14)
[2022-08-24] MEDS: hydrALAZINE 50 MG Tablet 100 MG PO ×3 (06:05→22:30)
[2022-08-24] MEDS: Furosemide 20 MG/2 ML VIAL IV ×2 (06:05→15:01)
[2022-08-24] MEDS: 0.9% Saline Lock 10 ML Syringe IV ×2 (06:05→15:01)
[2022-08-24] MEDS: Cephalexin 250 MG Capsule PO ×3 (06:05→22:30)
[2022-08-24] MEDS: Metoprolol(XL)Succ 100 MG Tablet PO (08:46)
[2022-08-24] MEDS: HYDROcodone Bitartrate/Apap 5/325 Tablet PO ×2 (08:46→22:30)
[2022-08-24] MEDS: Ferrous Sulfate 325 MG Tablet PO ×2 (08:47→17:14)
[2022-08-24] MEDS: Losartan Potassium 50 MG Tablet PO ×2 (08:47→22:30)
[2022-08-24] MEDS: Potassium Chloride Oral Tablet 20 MEQ PO ×2 (08:47→17:14)
[2022-08-24] MEDS: Pantoprazole Sodium 20 MG Tablet PO (08:48)
[2022-08-24] MEDS: amLODIPine 10 MG Tablet PO (08:48)
[2022-08-24] MEDS: APIXABAN 2.5 MG TABLET (WCH) PO ×2 (08:48→22:30)
[2022-08-24] MEDS: Clopidogrel Bisulfate 75 MG Tablet PO (08:48)
[2022-08-24] MEDS: Isosorbide DN 30 MG Tablet PO ×2 (08:48→22:30)
[2022-08-24] MEDS: cloNIDine HCl 0.1 MG Tablet PO (08:48)
[2022-08-24 09:12] LABS: Anion Gap 11 (5-15); BUN 45 mg/dL (7-18); BUN/Creat Ratio 19.3 RATIO (10-20); Calcium,Total 9.2 mg/dL (8.5-10.1); Chloride 92 mmol/L (98-107); Creatinine, Serum 2.33 mg/dL (0.55-1.02); EST Glomerular Filtration Rate 21 mL/min (>60); Est Glom Filt Rate - Afr Amer 25 mL/min (>60); Estimated Creatinine Clearance 12.45 ml/min; Glucose 153 mg/dL (74-106); Potassium 3.4 mmol/L (3.5-5.1); Sodium Level 129 mmol/L (136-145)
[2022-08-24] MEDS: Potassium Chloride Oral Tablet 20 MEQ 40 MEQ PO (12:55)
--- NOTE | 2022-08-24 17:29 | PCM.PN.HOSP ---
Subjective Subjective Patient was seen and examined today, she wanted to know if she could go home today, I told her I would reevaluate her in the morning. At the time of this dictation, patient is currently on room air. Objective Data Objective Data Vital Signs: Vital Signs Temp Pulse Resp BP Pulse Ox O2 Del Method O2 Flow Rate 97.8 F 77 17 146/53 H 93 Room Air 2 08/24/22 14:57 08/24/22 15:01 08/24/22 14:57 08/24/22 14:57 08/24/22 14:57 08/24/22 15:10 08/24/22 14:02 Oxygen Flow Rate (L/min) [ 0 AMBULATING on Room Air] Oxygen Flow Rate (L/min) [At 0 REST on Room Air] Oxygen Flow Rate (L/min) [At 2 REST with Oxygen] Oxygen Flow Rate (L/min) 2 Oxygen Delivery Method Room Air Weight: 63.4 kg Body Mass Index (BMI) 27.3 Intake & Output: Intake and Output for Last 24 Hours 08/22/22 08/23/22 08/24/22 23:59 23:59 23:59 Intake Total 1390 / 1390 1449.83 / 1449.83 940 / 940 Output Total 800 / 2300 2350 / 2350 1100 / 1100 Balance 590 / -910 -900.17 / -900.17 -160 / -160 Lab / Micro Data Result Diagrams: 08/22/22 09:10 08/24/22 07:47 Labs: Laboratory Results - last 24 hr 08/24/22 07:47: Sodium 129 L, Potassium 3.4 L, Chloride 92 L, Carbon Dioxide 26.0, Anion Gap 11, BUN 45 H, Creatinine 2.33 H, Estim Creat Clear Calc 12.45, Est GFR (MDRD) Af Amer 25 L, Est GFR (MDRD) Non-Af 21 L, BUN/Creatinine Ratio 19.3, Glucose 153 H, Calcium 9.2 Micro: Microbiology 08/22/22 11:30 Blood Culture (Wb) - Left Hand Blood Culture - Preliminary No growth in 48 hours. 08/22/22 11:40 Blood Culture (Wb) - Anticubital Right Blood Culture - Preliminary No growth in 48 hours. 08/22/22 09:55 Urine, Catheterized Urine Culture - Final Escherichia coli 08/22/22 09:55 Nasal Secretion SARS-CoV-2 & FLU Antigen (Rapid) - Final Physical Exam Narrative alert, oriented x3, no apparent distress and healthy appearing General Appearance: cooperative, well kempt and well developed Orientation / Consciousness: awake, oriented to person, oriented to place and oriented to time HEENT normocephalic and moist oral mucous membranes Eyes PERRL, EOMs intact bilaterally and conjunctivae normal Neck supple, no JVD, thyroid normal and no carotid bruits General: trachea midline Resp normal respiratory effort, no retractions and no use of accessory muscles Resp Narrative: Inspiratory rales are noted over the lower lung acharya bilaterally Auscultation: rales; Negative for rhonchi or wheezes Cardio regular rate, regular rhythm, S1 normal heart sound, S2 normal heart sound, no murmurs, no rub and no gallops Cardio Narrative: Occasional extrasystolic beats are noted GI normal to inspection, nondistended, normoactive bowel sounds, soft to palpation, non-tender and non-distended Extremity normal to inspection and no clubbing, cyanosis or edema Skin no rashes or lesions noted General Skin Exam: no breakdown Neuro oriented x3, CN's II-XII intact bilaterally, moves all extremities, no focal motor deficits and no sensory deficits noted Sensorium / Orientation: awake and alert Speech: speech normal Psych Psych Narrative: Patient had a flat affect Assessment & Plan Assessment/Plan (1) Congestive heart failure (CHF): PLAN: Plan 1. Acute on chronic diastolic congestive heart failure-patient remains on IV Lasix, I have chosen to reduce the dose to 20 mg twice daily #2 acute hypoxia secondary to #1-patient currently is on room air, she will be reevaluated tomorrow #3 essential hypertension-patient will be kept on her home medications #4 acute cystitis with E. coli-patient is currently on Keflex #5 pulmonary hypertension-patient's last echocardiogram showed moderate pulmonary hypertension, again patient will be on IV Lasix #6 anxiety-patient's daughter states that the patient has been anxious at home at times-this may be secondary to hypoxia, I told her I would place her on a small amount of a benzodiazepine as needed for anxiety-daughter was okay with this #7 elevated troponin-I do not think the patient has had a non-STEMI #8 coronary artery disease-this appears stable at this time, patient's EKG showed normal sinus rhythm with a first-degree AV block #9 hyponatremia-patient's sodium was improved today, recheck BMP in the morning #10 generalized debility-patient will be seen by PT and OT #11 periods of asystole-possibly secondary to rate limiting medications, patient's clonidine and metoprolol was adjusted downward, she will be monitored on telemetry, patient is asymptomatic with these periods of asystole. These episodes have seemed to resolved at the present time. Total clinical time spent by myself addressing the patient's medical issues, reviewing all the data, and collaborating with patient's care team: 36-minute Charges/Coding Visit Charges Inpatient E&M: 32342 Subs Hosp L2
[2022-08-24] MEDS: Lactulose 20 GM/30 ML UDC 30 GM PO (22:30)
[2022-08-24] MEDS: Atorvastatin Calcium 10 MG Tablet 5 MG PO (22:30)
[2022-08-25] VITALS (12 sets, daily range): BP systolic 128–175; BP diastolic 51–77; PULSE 71–82; RESP 12–18; TEMP 36.7–37.3; O2SAT 93–97
[2022-08-25] MEDS: Cephalexin 250 MG Capsule PO ×2 (06:17→13:38)
[2022-08-25] MEDS: hydrALAZINE 50 MG Tablet 100 MG PO ×2 (06:17→13:38)
[2022-08-25 06:37] LABS: Anion Gap 12 (5-15); BUN 47 mg/dL (7-18); Calcium,Total 9.1 mg/dL (8.5-10.1); Chloride 100 mmol/L (98-107); Creatinine, Serum 2.61 mg/dL (0.55-1.02); EST Glomerular Filtration Rate 18 mL/min (>60); Est Glom Filt Rate - Afr Amer 22 mL/min (>60); Estimated Creatinine Clearance 11.11 ml/min; Glucose 123 mg/dL (74-106); Potassium 4.7 mmol/L (3.5-5.1); Sodium Level 135 mmol/L (136-145)
[2022-08-25] MEDS: Ipratropium/Albuterol Sulfate 3 ML AMPUL.NEB INHALATION (07:40)
[2022-08-25] MEDS: Potassium Chloride Oral Tablet 20 MEQ PO (09:50)
[2022-08-25] MEDS: Ferrous Sulfate 325 MG Tablet PO (09:50)
[2022-08-25] MEDS: Losartan Potassium 50 MG Tablet PO (09:51)
[2022-08-25] MEDS: APIXABAN 2.5 MG TABLET (WCH) PO (09:51)
[2022-08-25] MEDS: Isosorbide DN 30 MG Tablet PO (09:51)
[2022-08-25] MEDS: cloNIDine HCl 0.1 MG Tablet PO (09:51)
[2022-08-25] MEDS: Pantoprazole Sodium 20 MG Tablet PO (09:52)
[2022-08-25] MEDS: Metoprolol(XL)Succ 100 MG Tablet PO (09:52)
[2022-08-25] MEDS: HYDROcodone Bitartrate/Apap 5/325 Tablet PO (09:52)
[2022-08-25] MEDS: amLODIPine 10 MG Tablet PO (09:52)
[2022-08-25] MEDS: Clopidogrel Bisulfate 75 MG Tablet PO (09:52)
[2022-08-25] MEDS: Furosemide 20 MG/2 ML VIAL IV (09:52)
--- NOTE | 2022-08-25 11:40 | CASEMGMT ---
Addendum entered by Nurys Paulino 08/25/22 13:36: DUNG REDDING received call back from [facility] and they are planning on seeing the patient 08/26/22. DUNG REDDING updated the patient and hospitalist Original Note: DUNG REDDING chart review: Patient was admitted 08/10-08/17 for hypertensive emergency. Patient was discharged to home with [facility]. Patient did not qualify for home oxygen. Patient returned to [facility] ED on 08/22/22 for SOB and admitted for acute on chronic CHF. DUNG REDDING in to see patient. Patient is currently active with [facility] for SN, PT, OT. Patient states she feels like she needs oxygen at discharge, will monitor to see if patient qualifies. Patient wishes to discharge home with resumption of HHC. DUNG REDDING spoke with Arminda at [facility] regarding resumption of HHC with request to add SW. MILADIS will continue to follow this patient and plan for a safe discharge.
--- NOTE | 2022-08-25 11:55 | NURSING ---
Dr. Jones notified of pt. having four missed heart beats during the 1100 hour. NNO at this time.
--- NOTE | 2022-08-25 14:27 | DCINST_ITS ---
Discharge Instructions Diet Discharge Diet: No restrictions Activity Discharge Activity: Return to Normal Activity Weight Bearing Status: Full weight bearing Follow Up Care Test Results: Test results from this visit will be discussed in further detail at your follow- up appointment, if applicable. Discharge Plan Admission Admit Date/Time: 08/22/22 12:45 Primary Reason for Your Visit: congestive heart failure Attending Provider: Sam Larson Primary Care Provider: James Garcia Instructions Additional Instructions / Restrictions: Recommend you follow up with Dr. Haney this month and get a 24 hr Holter monitor placed Discharge Orders/Prescriptions Prescriptions: New clonidine HCl 0.1 mg Tablet 0.1 mg PO DAILY Qty: 0 0RF cephalexin 250 mg Capsule 250 mg PO BID Qty: 10 0RF lorazepam 0.5 mg Tablet 0.25 mg PO Q8H PRN PRN (Reason: Anxiety/Agitation) Qty: 20 0RF Rx Instructions: 1/2 three times a day if needed for anxiety furosemide [Lasix] 40 mg tablet 40 mg PO DAILY Qty: 30 0RF Rx Instructions: start 08/26/22 Continued montelukast 10 mg tablet 10 mg PO QDAY simvastatin 10 mg tablet 10 mg PO QDAY omeprazole 20 mg capsule,delayed release(DR/EC) 20 mg PO DAILY potassium chloride 20 mEq tablet extended release 20 meq PO QDAY albuterol sulfate 2.5 mg /3 mL (0.083 %) solution for nebulization 2.5 mg INHALATION Q4H PRN (Reason: Shortness Of Breath) ipratropium bromide 0.02 % solution 2.5 ml INHALATION Q4H PRN (Reason: Shortness Of Breath) nitroglycerin 0.4 mg tablet, sublingual 0.4 mg sublingual Q5-15M PRN (Reason: chest pain) fluticasone propionate 1 SPRAY spray,suspension 1 spray NASAL DAILY lactulose 10 gram/15 mL solution 30 g PO Q OTHER DAY ferrous sulfate 325 mg (65 mg iron) Tablet 325 mg PO BID ascorbic acid (vitamin C) [Vitamin C] 500 mg Tablet 500 mg PO DAILY hydrocodone-acetaminophen 5-325 mg tablet 1 tab PO BID clopidogrel 75 mg Tablet 75 mg PO DAILY 30 Days Qty: 30 0RF amlodipine 10 mg Tablet 10 mg PO DAILY 30 Days Qty: 30 0RF hydralazine 50 mg Tablet 100 mg PO TID 30 Days Qty: 180 0RF Eliquis 5 mg Tablet 2.5 mg PO BID 30 Days Qty: 30 0RF isosorbide dinitrate 30 mg tablet 30 mg PO BID losartan 50 mg tablet 50 mg PO BID Qty: 180 3RF Changed metoprolol succinate 100 mg tablet extended release 24 hr 100 mg PO DAILY Qty: 1 0RF Discontinued clonidine HCl 0.2 mg tablet 0.1 mg PO TID hydrochlorothiazide 25 mg tablet 25 mg PO DAILY Referrals / Follow Up: Duke August MD [Med Staff - Active Staff] - See Referral Note (as scheduled) James Garcia DO [Primary Care Provider] - See Referral Note (within 2-3 weeks) Disposition Disposition (needs filled in before D/C Order can be placed): Home, Self Care
--- NOTE | 2022-08-25 15:03 | DS.PCM_ITS ---
Providers Date of Admission: 08/22/22 Date of Discharge: 08/25/22 Primary Care Physician: Dr. James Garcia DO Reason For Visit: ACUTE ON CHRONIC CHF Diagnosis Discharge Diagnosis (1) Congestive heart failure (CHF): Status: Acute Code(s): I50.9 - Heart failure, unspecified Plan 1. Acute on chronic diastolic congestive heart failure-patient remains on IV Lasix, I have chosen to reduce the dose to 20 mg twice daily #2 acute hypoxia secondary to #1-patient currently is on room air, she will be reevaluated tomorrow #3 essential hypertension-patient will be kept on her home medications #4 acute cystitis with E. coli-patient is currently on Keflex #5 pulmonary hypertension-patient's last echocardiogram showed moderate pulmonary hypertension, again patient will be on IV Lasix #6 anxiety-patient's daughter states that the patient has been anxious at home at times-this may be secondary to hypoxia, I told her I would place her on a small amount of a benzodiazepine as needed for anxiety-daughter was okay with this #7 elevated marafaax-qqm-JPCAB was ruled out #8 coronary artery disease-this appears stable at this time, patient's EKG showed normal sinus rhythm with a first-degree AV block #9 hyponatremia-patient's sodium was improved today, recheck BMP in the morning #10 generalized debility-patient will be seen by PT and OT #11 periods of asystole-possibly secondary to rate limiting medications, patient's clonidine and metoprolol was adjusted downward, she will be monitored on telemetry, patient is asymptomatic with these periods of asystole. These episodes have seemed to resolved at the present time Medications at Discharge Home Medications montelukast 10 mg tablet 10 mg PO QDAY allergies 09/08/17 omeprazole 20 mg capsule,delayed release 20 mg PO DAILY reflux 09/08/17 simvastatin 10 mg tablet 10 mg PO QDAY cholesterol 09/08/17 potassium chloride 20 mEq tablet,extended release 20 meq PO QDAY supplement 09/13/17 albuterol sulfate 2.5 mg/3 mL (0.083 %) solution for nebulization 2.5 mg inhalation Q4H PRN Shortness Of Breath 06/13/18 ipratropium bromide 0.02 % solution for inhalation 2.5 ml inhalation Q4H PRN Shortness Of Breath 06/13/18 nitroglycerin 0.4 mg sublingual tablet 0.4 mg sublingual Q5-15M PRN chest pain 06/13/18 isosorbide dinitrate 30 mg tablet 30 mg PO BID heart 12/14/19 losartan 50 mg tablet 50 mg PO BID #180 tabs 01/30/20 fluticasone propionate 50 mcg/actuation nasal spray,suspension 1 spray NASAL DAILY allergies 11/28/20 ascorbic acid (vitamin C) 500 mg tablet (Vitamin C) 500 mg PO DAILY supplement 03/09/22 ferrous sulfate 325 mg (65 mg iron) tablet 325 mg PO BID supplement 03/09/22 lactulose 10 gram/15 mL oral solution 30 g PO Q OTHER DAY ammonia 05/12/22 hydrocodone-acetaminophen 5-325mg 5mg-325mg 1 tab PO BID pain 08/10/22 amlodipine 10 mg tablet 10 mg PO DAILY 30 days #30 tabs 08/15/22 apixaban 5 mg tablet (Eliquis) 2.5 mg PO BID 30 days #30 tabs 08/15/22 clopidogrel 75 mg tablet 75 mg PO DAILY 30 days #30 tabs 08/15/22 hydralazine 50 mg tablet 100 mg PO TID 30 days #180 tabs 08/15/22 cephalexin 250 mg capsule 250 mg PO BID #10 caps 08/25/22 clonidine HCl 0.1 mg tablet 0.1 mg PO DAILY #0 tabs 08/25/22 furosemide 40 mg tablet (Lasix) 40 mg PO DAILY #30 tabs 08/25/22 lorazepam 0.5 mg tablet 0.25 mg PO Q8H PRN PRN Anxiety/Agitation #20 tabs 08/25/22 metoprolol succinate 100 mg tablet,extended release 24 hr 100 mg PO DAILY blood pressure #1 TAB 08/25/22 Hospital Course Operations None Procedures None Summary of Care Provided Minutes Spent on Discharge: 31 Hospital Course: This 87-year-old white female was seen in the emergency room at [facility] with chief complaint of shortness of breath x2 to 3 days. Patient had just been discharged from the hospital here a few days before after being treated for uncontrolled hypertension and congestive heart failure with preserved EF. Labs were performed in the ER, white blood cell count was normal, hemoglobin was low at 10.8, patient required 4 L of oxygen to maintain her pulse ox above 90%. Patient's creatinine was elevated to 2.04, BUN was 48, D-dimer was elevated and the patient underwent a CTA of her chest which showed no evidence of pulmonary embolism, there is bilateral infiltrates noted on the CTA of the chest. Patient's troponin was elevated 165. Patient was admitted to PCU for acute on chronic diastolic congestive heart failure, she was given IV Lasix, and her oxygen was weaned. She was not felt to have had a non-STEMI. Patient was treated for urinary tract infection with oral antibiotics. Patient improved, on 08/25/2022, patient was seen and examined: On examination she appeared in good health and spirits, she does not appear to be in any distress. Vital signs as documented. Skin warm and dry and without overt rashes. Neck without JVD, thyroid appears normal, trachea is midline, neck is supple. Lungs clear, normal air movement was noted. Heart exam notable for regular rhythm, normal sounds and absence of murmurs, rubs or gallops. Abdomen unremarkable and without evidence of organomegaly, masses, or abdominal aortic enlargement, bowel sounds are present in all 4 quadrants, no abdominal tenderness was noted. Extremities nonedematous, no cyanosis was noted, no clubbing was noted. Neuro: Cranial nerves II through XII are grossly intact, no focal motor deficits were n oted, sensation to light touch and pinprick is intact, motor exam 5/5 throughout. Psych: Patient is alert and oriented x3, she does not appear anxious or depressed, she does not appear agitated. Patient did not require oxygen at the time of discharge from the hospital, patient did have episodic pauses on telemetry during her hospital stay, her rate limiting medications were decreased and I talked with the daughter and advised the daughter to follow-up with cardiology for a 24-hour Holter application. Patient was discharged home in stable condition on 08/25/2022. Weight / BMI Weight Weight: 63.4 kg Body Mass Index (BMI) 27.3 ABG / Lab / Microbiology Data Result Diagrams: 08/22/22 09:10 08/25/22 05:40 Laboratory: Laboratory Results - last 24 hr 08/25/22 05:40: Sodium 135 L, Potassium 4.7, Chloride 100, Carbon Dioxide 23.0, Anion Gap 12, BUN 47 H, Creatinine 2.61 H, Estim Creat Clear Calc 11.11, Est GFR (MDRD) Af Amer 22 L, Est GFR (MDRD) Non-Af 18 L, BUN/Creatinine Ratio 18.0, Glucose 123 H, Calcium 9.1 Microbiology: Microbiology 08/22/22 11:30 Blood Culture (Wb) - Left Hand Blood Culture - Preliminary No growth in 48 hours. 08/22/22 11:40 Blood Culture (Wb) - Anticubital Right Blood Culture - Preliminary No growth in 48 hours. 08/22/22 09:55 Urine, Catheterized Urine Culture - Final Escherichia coli 08/22/22 09:55 Nasal Secretion SARS-CoV-2 & FLU Antigen (Rapid) - Final D/C Instructions Discharge Diet: No restrictions Weight Bearing Status: Full weight bearing Meaningful Use Info Meaningful Use Diagnoses (Choose all that apply): CHF CHF HARMAN/ARB ordered at discharge?: Yes Documented LVEF (%): 65 Discharge Plan Admission Admit Date/Time: 08/22/22 12:45 Primary Reason for Your Visit: congestive heart failure Attending Provider: Sam Larson Primary Care Provider: James Garcia Instructions Additional Instructions / Restrictions: Recommend you follow up with Dr. Haney this month and get a 24 hr Holter monitor placed Discharge Orders/Prescriptions Prescriptions: New clonidine HCl 0.1 mg Tablet 0.1 mg PO DAILY Qty: 0 0RF cephalexin 250 mg Capsule 250 mg PO BID Qty: 10 0RF lorazepam 0.5 mg Tablet 0.25 mg PO Q8H PRN PRN (Reason: Anxiety/Agitation) Qty: 20 0RF Rx Instructions: 1/2 three times a day if needed for anxiety furosemide [Lasix] 40 mg tablet 40 mg PO DAILY Qty: 30 0RF Rx Instructions: start 08/26/22 Continued montelukast 10 mg tablet 10 mg PO QDAY simvastatin 10 mg tablet 10 mg PO QDAY omeprazole 20 mg capsule,delayed release(DR/EC) 20 mg PO DAILY potassium chloride 20 mEq tablet extended release 20 meq PO QDAY albuterol sulfate 2.5 mg /3 mL (0.083 %) solution for nebulization 2.5 mg INHALATION Q4H PRN (Reason: Shortness Of Breath) ipratropium bromide 0.02 % solution 2.5 ml INHALATION Q4H PRN (Reason: Shortness Of Breath) nitroglycerin 0.4 mg tablet, sublingual 0.4 mg sublingual Q5-15M PRN (Reason: chest pain) fluticasone propionate 1 SPRAY spray,suspension 1 spray NASAL DAILY lactulose 10 gram/15 mL solution 30 g PO Q OTHER DAY ferrous sulfate 325 mg (65 mg iron) Tablet 325 mg PO BID ascorbic acid (vitamin C) [Vitamin C] 500 mg Tablet 500 mg PO DAILY hydrocodone-acetaminophen 5-325 mg tablet 1 tab PO BID clopidogrel 75 mg Tablet 75 mg PO DAILY 30 Days Qty: 30 0RF amlodipine 10 mg Tablet 10 mg PO DAILY 30 Days Qty: 30 0RF hydralazine 50 mg Tablet 100 mg PO TID 30 Days Qty: 180 0RF Eliquis 5 mg Tablet 2.5 mg PO BID 30 Days Qty: 30 0RF isosorbide dinitrate 30 mg tablet 30 mg PO BID losartan 50 mg tablet 50 mg PO BID Qty: 180 3RF Changed metoprolol succinate 100 mg tablet extended release 24 hr 100 mg PO DAILY Qty: 1 0RF Discontinued clonidine HCl 0.2 mg tablet 0.1 mg PO TID hydrochlorothiazide 25 mg tablet 25 mg PO DAILY Referrals / Follow Up: Duke August MD [Med Staff - Active Staff] - See Referral Note (as scheduled) James Garcia DO [Primary Care Provider] - See Referral Note (Please call the office to schedule an appt within 2-3 weeks) Eliu Hui NP, [employer]PARTMENT MANAGER-C [Med Staff - Adv Practice Prof] - 09/30/22 1:30 pm Disposition Disposition (needs filled in before D/C Order can be placed): Home, Self Care Charges/Coding Visit Charges Inpatient E&M: 29439 Disch Hosp >30min
--- NOTE | 2022-08-25 15:09 | CHAPLAIN ---
Type of Pastoral Visit _x__ Initial Visit ___ Follow-up Visit ___ On-call Visit ___ General Patient Visit ___ Spiritual Assessment ___ Family Conference ___ Bereavement ___ Rapid Response ___ Code Blue ___ Other (describe below) Pastoral Care Referral From _x__ Patient ___ Family ___ Nurse ___ Physician ___ Instructional Designer ___ Plant Changer ___ Other (describe below) Sacrament/Intervention _x__ Active listening ___ Anointing ___ Sikh ___ Bereavement ___ Communion ___ [place] exploration ___ _x__ Life review _x__ Prayer ___ Reconciliation ___ Sacrament of Sick ___ Supportive presence ___ Wedding ___ Other (describe below) Pastoral Comments patient was seen recently in prior admission; 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
== END 2022-08-25 17:04 | disposition home health service (06) | DRG 291 ==
LOC: ED 10:00 → PCU 13:01
PROVIDERS: Admitting Provider Internal Medicine; Emergency Provider Emergency Medicine; PCP Family Medicine; Visit Provider Internal Medicine
DX: I13.0 Hypertensive heart and chronic kidney disease with heart failure and stage 1 through stage 4 chronic kidney disease, or unspecified chronic kidney disease (principal); I50.33 Acute on chronic diastolic (congestive) heart failure; E87.1 Hypo-osmolality and hyponatremia; N30.00 Acute cystitis without hematuria; I27.20 Pulmonary hypertension, unspecified; Z79.01 Long term (current) use of anticoagulants; N18.32 Chronic kidney disease, stage 3b; I48.0 Paroxysmal atrial fibrillation; I25.10 Atherosclerotic heart disease of native coronary artery without angina pectoris; I44.0 Atrioventricular block, first degree; E78.00 Pure hypercholesterolemia, unspecified; F41.9 Anxiety disorder, unspecified; B96.20 Unspecified Escherichia coli [E. coli] as the cause of diseases classified elsewhere; R09.02 Hypoxemia; Z79.899 Other long term (current) drug therapy; Z79.02 Long term (current) use of antithrombotics/antiplatelets
CPT/HCPCS: 36415; 71046; 71275; 80048; 80053; 81001; 84484; 85025; 85379; 85610; 85730; 87040; 87077; 87086; 87088; 87186; 87428; 93005; 94640; 99251; 99285; J7030; P9612; Q9967; A4216; G0463; J1940; J2405

== ENCOUNTER 2022-08-31 11:34 | Emergency (ER) | payer MEDICARE, SELFPAY ==
[2022-08-31] VITALS (8 sets, daily range): BP systolic 106–174; BP diastolic 54–84; PULSE 72–83; RESP 14–18; TEMP 36.7; O2SAT 93–99; BMI 29.0
--- NOTE | 2022-08-31 12:02 | EKG12_ITS ---
Test Reason : CP/SOB Blood Pressure : / mmHG Vent. Rate : 081 BPM Atrial Rate : 081 BPM P-R Int : 206 ms QRS Dur : 086 ms QT Int : 404 ms P-R-T Axes : 086 -23 067 degrees QTc Int : 469 ms Normal sinus rhythm Septal infarct , age undetermined Abnormal ECG Confirmed by JORGE SALAZAR, GUILLERMO ([id number]), editor school photograph [employer] ([id number]) on 09/02/2022 10:42:45 AM Referred By: GERARDO Confirmed By:GUILLERMO PATEL MD
--- NOTE | 2022-08-31 12:10 | EDS_ITS ---
HPI History of Present Illness Chief Complaint: Chest Pain Informant: patient Onset/Context/Timing Onset: - (Unknown due to presumed dementia) Activity at onset: - (Unknown) Timing: - (Unknown) Quality: Positive for - (Unable to quantitate her qualitate the discomfort) Location: Left Chest (Makes a circular motion over the left chest area) Current Severity: 09/01 (She believes she is not certain.) Maximum Severity: Again unable to quantitate her qualitate Worsened By: - (Unknown) Relieved By: Nothing Associated Symptoms: Negative for Nausea, Vomiting, Diaphoresis, Dyspnea, Fever, Lightheadedness, Acid Reflux or Palpitations Narrative Narrative: Patient is a 87-year-old woman with history hypertension, hyperlipidemia and atherosclerotic heart disease with multiple stents. Prior records were reviewed since patient is unable to give a adequate history. Of note she is on anticoagulant. She is also on loop diuretic. 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 Cardiac murmur Edema Essential hypertension Hypertensive emergency Nausea Paroxysmal atrial fibrillation Presence of stent in coronary artery (~11/05/09) Pure hypercholesterolemia Stage 3b chronic kidney disease (CKD) Home Medications montelukast 10 mg tablet 10 mg PO QDAY allergies 09/08/17 [History Last Taken 03/08/22] omeprazole 20 mg capsule,delayed release 20 mg PO DAILY reflux 09/08/17 [History Last Taken 03/09/22] simvastatin 10 mg tablet 10 mg PO QDAY cholesterol 09/08/17 [History Last Taken 03/08/22] potassium chloride 20 mEq tablet,extended release 20 meq PO QDAY supplement 09/13/17 [History Last Taken 03/09/22] albuterol sulfate 2.5 mg/3 mL (0.083 %) solution for nebulization 2.5 mg inhalation Q4H PRN Shortness Of Breath 06/13/18 [History Last Taken 03/09/22] ipratropium bromide 0.02 % solution for inhalation 2.5 ml inhalation Q4H PRN Shortness Of Breath 06/13/18 [History Last Taken 03/09/22] nitroglycerin 0.4 mg sublingual tablet 0.4 mg sublingual Q5-15M PRN chest pain 06/13/18 [History Last Taken Unknown] isosorbide dinitrate 30 mg tablet 30 mg PO BID heart 12/14/19 [History Last Taken 03/09/22] losartan 50 mg tablet 50 mg PO BID #180 tabs 01/30/20 [Rx Last Taken 03/09/22] fluticasone propionate 50 mcg/actuation nasal spray,suspension 1 spray NASAL DA AMILCAR allergies 11/28/20 [History Last Taken 03/09/22] ascorbic acid (vitamin C) 500 mg tablet (Vitamin C) 500 mg PO DAILY supplement 03/09/22 [History Last Taken 03/09/22] ferrous sulfate 325 mg (65 mg iron) tablet 325 mg PO BID supplement 03/09/22 [History Last Taken 03/09/22] lactulose 10 gram/15 mL oral solution 30 g PO Q OTHER DAY ammonia 05/12/22 [History Last Taken Unknown] hydrocodone-acetaminophen 5-325mg 5mg-325mg 1 tab PO BID pain 08/10/22 [History Last Taken Unknown] amlodipine 10 mg tablet 10 mg PO DAILY 30 days #30 tabs 08/15/22 [Rx Last Taken Unknown] apixaban 5 mg tablet (Eliquis) 2.5 mg PO BID 30 days #30 tabs 08/15/22 [Rx Last Taken Unknown] clopidogrel 75 mg tablet 75 mg PO DAILY 30 days #30 tabs 08/15/22 [Rx Last Taken Unknown] hydralazine 50 mg tablet 100 mg PO TID 30 days #180 tabs 08/15/22 [Rx Last Taken Unknown] cephalexin 250 mg capsule 250 mg PO BID #10 caps 08/25/22 [Rx Last Taken Unknown] clonidine HCl 0.1 mg tablet 0.1 mg PO DAILY #0 tabs 08/25/22 [Rx Last Taken Unknown] furosemide 40 mg tablet (Lasix) 40 mg PO DAILY #30 tabs 08/25/22 [Rx Last Taken Unknown] lorazepam 0.5 mg tablet 0.25 mg PO Q8H PRN PRN Anxiety/Agitation #20 tabs 08/25/22 [Rx Last Taken Unknown] metoprolol succinate 100 mg tablet,extended release 24 hr 100 mg PO DAILY blood pressure #1 TAB 08/25/22 [Rx Last Taken 03/09/22] Allergy/AdvReac Type Severity Reaction Status Date / Time aspirin AdvReac Severe Swelling Verified 08/10/22 02:27 clarithromycin [From Biaxin] AdvReac Unknown Verified 08/10/22 02:27 codeine AdvReac Unknown Verified 08/10/22 02:27 morphine AdvReac Unknown Verified 08/10/22 02:27 Penicillins AdvReac Unknown Verified 08/10/22 02:27 Sulfa (Sulfonamide AdvReac Unknown Verified 08/10/22 02:27 Antibiotics) Family History Mother Myocardial infarction CVA (cerebral vascular accident) CAD (coronary artery disease) Father Myocardial infarction CAD (coronary artery disease) Brother History of PTCA Hx of CABG Sister Hx of CABG Surgical History H/O arthroscopy of left knee H/O oophorectomy History of appendectomy History of coronary artery stent placement (11/05/09) History of hernia repair History of partial hysterectomy History of right inguinal hernia repair Presence of coronary angioplasty implant and graft (~11/05/09) Social History (Updated 08/31/22 @ 12:[address] Ean Fernandez MD) household members: spouse Smoking Status: Never smoker alcohol intake: never substance use type: does not use caffeine: Yes Type: carbonated beverages what type of physical activity do you participate in: none seatbelt use: always do you feel safe at home: Yes ROS ROS ED Review of Systems ROS Unobtainable: due to mental status Cardiovascular Cardiovascular: Reports as per HPI EXAM Physical Exam Const Vital Signs: 08/31/22 11:35 08/31/22 12:02 08/31/22 12:40 Temperature 98.0 F Temperature Source Oral Pulse Rate 83 82 Respiratory Rate 14 16 Blood Pressure 173/66 H 106/84 H Blood Pressure Mean 101 91 Pulse Ox 93 98 98 Oxygen Delivery Method Room Air Nasal Cannula Nasal Cannula Oxygen Flow Rate (L/min) 2 2 08/31/22 13:09 08/31/22 14:00 08/31/22 15:22 Temperature Temperature Source Pulse Rate 72 73 78 Respiratory Rate 18 16 14 Blood Pressure 156/71 H 151/54 H 174/59 H Blood Pressure Mean 99 86 97 Pulse Ox 99 97 99 Oxygen Delivery Method Nasal Cannula Room Air Oxygen Flow Rate (L/min) 2 Positive well nourished and well developed Constitutional Narrative: Patient appears in no distress. She responded to questions appropriately. She also stated several times that she does not know. General Appearance ED: well developed and NAD HEENT Reports TM's clear and moist mucous membranes HEENT Narrative: Ears normal. Nares patent. No drainage. normocephalic and atraumatic Tympanic Membrane ED: Yes TM's clear Eyes PERRL and EOMs intact bilaterally General Eye ED: Negative for pale conjunctiva or scleral icterus Neck no lymphadenopathy, supple and no JVD Neck Narrative: Trach is midline. Chest Wall inspection of chest normal and palpation of chest normal Resp normal respiratory effort and clear to auscultation bilaterally Cardio regular rate, regular rhythm, S1 normal heart sound, S2 normal heart sound and no murmurs GI normal to inspection, nondistended, normoactive bowel sounds, soft to palpation, non-tender, non-distended and no masses; Negative for hepatosplenomegaly Back/Spine no CVA tenderness and no thoracic nor lumbar tenderness Extremity Extremity Narrative: Patient has pitting edema of the lower extremities. There is no neurovascular, demise. General Extremety ED: Yes edema General Extremity: edema Neuro No oriented x3, CN's II-XII intact bilaterally and no sensory deficits noted Sensorium / Orientation: awake and oriented to person; Negative for alert or oriented to time Psych Psych Narrative: Affect is flat. Mood & Affect: Negative for anxious or tearful Skin no rashes or lesions noted and no wounds General Skin Exam: Negative for jaundice MDM MDM MDM Narrative Medical decision making narrative: Patient presents with chest pain. Differential would include cardiac versus noncardiac in need to evaluate for pulmonary versus GI as well. Because she has a history of cardiac disease and multiple risk factors EKG and serial troponins were obtained. CBC was obtained to assess white count and differential in the event this is an infectious process and rule out anemia. Basic metabolic panel to assess renal function which may alter troponin level. First and second troponin are elevated to 46 and 248 respectively. Of note. Patient presented because she had chest pain prior to arrival. 1 would not expect her troponin to be elevated with a pain for 1 to 2 hours with a unchanged EKG. Reviewing prior records reveals that patient always has an elevated troponin and none of the times was the elevated troponin related to angina or unstable angina. This is probably due to her renal disease and other causes. Patient was informed because she has a chronic elevated troponin she is at risk for something happening. She understands this. Patient was informed that she would be discharged to home. Lab Data Attestation: I reviewed the patient's lab results. Lab results narrative: CBC reveals anemia, which is chronic. Basic metabolic panel reveals mild hypokalemia, 3.2. BUN and creatinine are 27 and 1.62 with a GFR of 32. This is approximate baseline for patient. Troponins elevated. All of her prior troponins have been elevated. We will need to review records if this is due to ischemia or other reasons. Labs: Laboratory Results - last 24 hr 08/31/22 08/31/22 08/31/22 12:10 12:10 14:07 WBC 6.6 RBC 3.12 L Hgb 9.8 L Hct 30.0 L MCV 96.2 MCH 31.4 MCHC 32.7 RDW Std Deviation 44.7 H RDW Coeff of Deidra 12.7 Plt Count 418 MPV 9.5 Immature Gran % (Auto) 2.400 H Neut % (Auto) 68.8 Lymph % (Auto) 13.7 L Burnet % (Auto) 11.3 H Eos % (Auto) 2.1 Baso % (Auto) 1.7 H Absolute Neuts (auto) 4.5 Absolute Lymphs (auto) 0.90 Nucleated RBC % 0 Sodium 136 Potassium 3.2 L Chloride 100 Carbon Dioxide 25.0 Anion Gap 11 BUN 27 H Creatinine 1.62 H Estim Creat Clear Calc 17.91 Est GFR (MDRD) Af Amer 39 L Est GFR (MDRD) Non-Af 32 L BUN/Creatinine Ratio 16.7 Glucose 167 H Calcium 9.1 Troponin I High Sens 246 H* 248 H* Radiography Chest X-Ray - ED: 1 View and Read by ED Physician (Single view portable chest x- ray reveals cardiomegaly. Cardiac silhouette is unremarkable. Perihilar regions unremarkable. Lung parenchyma reveals mild chronic changes. There is no acute study structures abnormalities. This was independent reviewed interpreted by me at 1223.) Diagnostic Testing: Clinical Impression(s) from Imaging Studies Chest X-Ray 08/31/22 12:11 IMPRESSION: Mild cardiomegaly. No acute abnormality is seen. Electronically Signed: Reymundo Mejia MD at 12:31 EST , EKG Initial EKG: Attestation: I personally reviewed and interpreted this EKG as follows: Interpretation: Sinus Rhythm (Sinus rhythm with a ventricular rate of 81. There is decreased anterior force. This is unchanged from prior. OR interval is 206 ms. QT durations 82 ms. QT duration is 404 ms. Orland is normal.) Prior: Unchanged Discharge Plan Triage Chief Complaint: Chest Pain ED Provider: Ean Fernandez Dx/Rx/DC Orders Clinical Impression: Acute left-sided thoracic back pain, Pure hypercholesterolemia, Renal artery stenosis, Elevated troponin level not due myocardial infarction, Hypertension, Chronic kidney disease (CKD) stage G1/A3, glomerular filtration rate (GFR) equal to or greater than 90 mL/min/1.73 square meter and albuminuria creatinine ratio greater than 300 mg/g Instructions: ED Chronic Kidney Disease (CKD), ED Chest Pain, Uncertain Cause, ED Hypertension, To Be Confirmed Prescriptions: No Action montelukast 10 mg tablet 10 mg PO QDAY simvastatin 10 mg tablet 10 mg PO QDAY omeprazole 20 mg capsule,delayed release(DR/EC) 20 mg PO DAILY potassium chloride 20 mEq tablet extended release 20 meq PO QDAY albuterol sulfate 2.5 mg /3 mL (0.083 %) solution for nebulization 2.5 mg INHALATION Q4H PRN (Reason: Shortness Of Breath) ipratropium bromide 0.02 % solution 2.5 ml INHALATION Q4H PRN (Reason: Shortness Of Breath) nitroglycerin 0.4 mg tablet, sublingual 0.4 mg sublingual Q5-15M PRN (Reason: chest pain) fluticasone propionate 1 SPRAY spray,suspension 1 spray NASAL DAILY lactulose 10 gram/15 mL solution 30 g PO Q OTHER DAY ferrous sulfate 325 mg (65 mg iron) Tablet 325 mg PO BID ascorbic acid (vitamin C) [Vitamin C] 500 mg Tablet 500 mg PO DAILY hydrocodone-acetaminophen 5-325 mg tablet 1 tab PO BID clopidogrel 75 mg Tablet 75 mg PO DAILY 30 Days Qty: 30 0RF amlodipine 10 mg Tablet 10 mg PO DAILY 30 Days Qty: 30 0RF hydralazine 50 mg Tablet 100 mg PO TID 30 Days Qty: 180 0RF Eliquis 5 mg Tablet 2.5 mg PO BID 30 Days Qty: 30 0RF clonidine HCl 0.1 mg Tablet 0.1 mg PO DAILY Qty: 0 0RF cephalexin 250 mg Capsule 250 mg PO BID Qty: 10 0RF lorazepam 0.5 mg Tablet 0.25 mg PO Q8H PRN PRN (Reason: Anxiety/Agitation) Qty: 20 0RF Rx Instructions: 1/2 three times a day if needed for anxiety furosemide [Lasix] 40 mg tablet 40 mg PO DAILY Qty: 30 0RF Rx Instructions: start 08/26/22 metoprolol succinate 100 mg tablet extended release 24 hr 100 mg PO DAILY Qty: 1 0RF isosorbide dinitrate 30 mg tablet 30 mg PO BID losartan 50 mg tablet 50 mg PO BID Qty: 180 3RF Primary Care Provider: James Garcia Referrals: James Garcia DO [Primary Care Provider] - 3-5 Days Disposition Disposition: Home, Self Care
--- NOTE | 2022-08-31 12:11 | RAD_ITS ---
STUDY: X-RAY CHEST REASON FOR EXAM: Female, 87 years old. Chest pain TECHNIQUE: Single AP portable view of the chest. COMPARISON: Comparison is made with prior study dated 08/22/2022. FINDINGS: EKG electrodes are seen. Hyperinflation. No acute abnormality is seen. There is no demonstrated pleural abnormality. There is mild cardiac enlargement. Calcified subcarinal lymph nodes. Normal visualized pulmonary arteries. There is atherosclerotic calcification of the aortic arch with tortuosity. There are diffuse degenerative changes of the visualized thoracic spine. Dextroscoliosis. Normal visualized ribs, clavicles, and shoulders. There is no demonstrated abnormality of the visualized soft tissue structures of the upper abdomen. RAD/Chest 1 View (Portable) IMPRESSION: Mild cardiomegaly. No acute abnormality is seen. Electronically Signed: Reymundo Mejia MD at 12:31 EST ,
[2022-08-31 12:21] LABS: Absolute Neutrophil Count 4.5 X10^3/uL (2.0-7.7); Basophil# 0.11 X10^3/uL; Basophil% 1.7 % (0-1); Eosinophil# 0.14 X10^3/uL; Eosinophils% 2.1 % (0-5); Hemoglobin 9.8 g/dL (12.0-15.0); Lymphocyte % 13.7 % (19-41); Mean Corp Hgb Conc 32.7 g/dL (32-36); Mean Corpuscular Hgb 31.4 pg (27.0-32.0); Mean Corpuscular Volume 96.2 fL (81-99); Mean Platelet Vol. 9.5 fl (6.2-12.0); Monocyte# 0.74 X10^3/uL; Monocyte% 11.3 % (0-10); NRBC Flagged by Analyzer 0 % (0-5); Neutrophil # 4.51 X10^3/uL (2.7-7.7); Neutrophil % 68.8 % (47-70); Platelet Count 418 K/mm3 (150-450); RBC Distribution Width CV 12.7 % (11.6-14.6); RBC Distribution Width SD 44.7 fl (35.1-43.9); Red Blood Count 3.12 M/mm3 (4.2-5.4); White Blood Count 6.6 K/mm3 (4.4-11.0)
[2022-08-31 12:48] LABS: Anion Gap 11 (5-15); BUN 27 mg/dL (7-18); BUN/Creat Ratio 16.7 RATIO (10-20); Calcium,Total 9.1 mg/dL (8.5-10.1); Chloride 100 mmol/L (98-107); Creatinine, Serum 1.62 mg/dL (0.55-1.02); EST Glomerular Filtration Rate 32 mL/min (>60); Est Glom Filt Rate - Afr Amer 39 mL/min (>60); Estimated Creatinine Clearance 17.91 ml/min; Glucose 167 mg/dL (74-106); Potassium 3.2 mmol/L (3.5-5.1); Sodium Level 136 mmol/L (136-145); Troponin-I HS (w/2H Reflex) 246 pg/mL (3.0-54.0)
--- NOTE | 2022-08-31 13:48 | ED.RN ---
family yomi sorto [phone] reports that pt is having difficulty caring for herself at home. pt open to the idea of going to a home. social work evjamar marcial.
[2022-08-31 14:14] LABS: Reflex Troponin-HS? (from REC) Y
[2022-08-31 15:55] LABS: Troponin-I HS 248 pg/mL (3.0-54.0)
--- NOTE | 2022-08-31 17:35 | CM.ED ---
ANGELA Note SW was advised that patient is being discharged. SW called patient's husbands listed phone number and it went to voice mail. ANGELA called patient's sister, Jessica [phone]. Jessica stated that this morning patient indicated she would go to a SNF. SW asked Jessica about patient's concerns and Jessica said she has been in and out of the hospital 3x lately. Jessica said that patient's is at the point that he can't take care of her in the home. Jessica advised this contract technical writer to call patient's , Dioni. ANGELA noted that this contract technical writer had not spoken to patient as she appeared to be confused and Jessica said that this is patient's baseline. ANGELA called Dioni again. ANGELA noted that patient had reported a desire to go to SNF. Dioni said I am older than she is. Dioni said she won't listen to me and that patient refused to do the exercises so he feels she needs to go somewhere to get back into shape'. ANGELA explained that there was no medical reason to admit patient. ANGELA noted that patient has home health through [facility]. ANGELA educated Dioni on [facility] and the services they provide. Dioni said I don't know how to do this. ANGELA asked if patient had been to any SNF's in the past and Dioni said no. ANGELA advised that the family should pick 3 SNF's and contact them about bed availability and to see if they take her insurance. ANGELA explained that the admission staff at [facility] can assist with paperwork (ie. PASSR) and also that with her insurance she will need precertification completed. ANGELA asked Dioni if he is the HCPOA and he said no .. I am just her .. we waited to long. Doini said that patient is hyper at the house. ANGELA advised that this contract technical writer will send email to Uzma at [facility] updating her about this conversation and also include information regarding [facility] with patient. Dioni said that patient's sister, Jessica, can help as she is familiar with SNF. Dioni said she can call the nursing homes? and referenced Jessica. Dioni asked about recommendations regarding SNF and ANGELA explained that this contract technical writer could not make a recommendation regarding SNF. Dioni said that he would not come and curing pickling packer patient however, his sister in law, Jessica or someone will pick patient up. ANGELA asked Dioni if there was any additional information he needed and he indicated no. ANGELA updated DUNG Flores. ANGELA sent email to [facility] at [facility] regarding patient. Plan: Resources provided, Direction about getting patient to SNF from community by contacting facility [facility]
== END 2022-08-31 18:14 | disposition home or self-care (01) ==
PROVIDERS: Emergency Provider Emergency Medicine; PCP Family Medicine; Visit Provider Emergency Medicine
DX: I70.1 Atherosclerosis of renal artery (principal); I48.0 Paroxysmal atrial fibrillation; N18.32 Chronic kidney disease, stage 3b; M54.6 Pain in thoracic spine; R77.8 Other specified abnormalities of plasma proteins; E78.00 Pure hypercholesterolemia, unspecified; I25.10 Atherosclerotic heart disease of native coronary artery without angina pectoris; I12.9 Hypertensive chronic kidney disease with stage 1 through stage 4 chronic kidney disease, or unspecified chronic kidney disease; Z95.5 Presence of coronary angioplasty implant and graft; Z79.02 Long term (current) use of antithrombotics/antiplatelets; Z79.899 Other long term (current) drug therapy
CPT/HCPCS: 71045; 80048; 84484; 85025; 93005; 99285; A4216

== ENCOUNTER 2022-09-02 16:06 | Observation (INO) | payer MEDICARE, SELFPAY ==
[2022-08-19 07:21] VITALS: BMI 25.7
[2022-09-02] VITALS (9 sets, daily range): BP systolic 138–176; BP diastolic 54–82; PULSE 65–93; RESP 16–18; TEMP 36.8–37.7; O2SAT 92–99
[2022-09-02] MEDS: Ferrous Sulfate 325 MG Tablet PO (17:03)
[2022-09-02] MEDS: 0.9% Normal Saline 1,000 ML 50 ML IV (17:03)
[2022-09-02] MEDS: HYDROcodone Bitartrate/Apap 5/325 Tablet PO (17:11)
--- NOTE | 2022-09-02 18:04 | PCM.OPRPT ---
Report of Operation Date of Procedure: 09/02/22 Pre-Operative Diagnosis: bilateral renal artery stenosis Post-Operative Diagnosis: right renal occlusion, left renal 77% stenosis Surgery/Procedure Performed:: aortogram, left renal artery IVUS angioplasty/stent left renal artery Description of Surgical Findings:: right renal artery occlusion at origin left renal 77% stenosis, resolved after intervention Surgeon: Duke August Type of Anesthesia: Local and Sedation,Conscious Estimated Blood Loss (mL): 5 Description of Procedure: HPI: Patient is an 87-year-old female with history of poorly controlled hypertension which has worsened over recent several weeks. She had prior renal artery duplex which revealed high-grade stenosis of bilateral renal arteries. She is taken now for aortogram with possible invention. Description of procedure: Upon obtaining informed consent and verification correct patient procedure site the patient was taken to the Anesthesia Attending where she was positioned prepped and draped in usual sterile fashion. Time was then performed and conscious sedation administered with intermittent doses of Versed and fentanyl. Skin over the right common femoral artery was anesthetized 1% lidocaine and under ultrasound guidance the vessel was accessed in retrograde fashion using micropuncture needle and wire. This was then exchanged for micropuncture catheter through which hand-injection femoral angiogram was performed revealed satisfactory placement no extravasation or dissection. This a [employer] wire is advanced abdominal aorta micropuncture sheath exchanged out for a short 5 Stateless sheath. Omni Flush catheter was advanced abdominal aorta and digital subtraction aortogram performed which confirmed the location of the renal vessels. The left renal artery was patent with high-grade stenosis beyond its origin and the right renal artery was totally occluded just beyond its origin. Crum that no efforts should be undertaken to treat the right renal artery however the left renal artery appeared appropriate for endovascular therapy. Patient was in heparinized allowed to circulate for 3 minutes and the 5 Stateless sheath was then exchanged out for a 7 Stateless steerable sheath which was advanced in the position adjacent to the renal ostium. Using the sheath and a 014 wire were able to successfully cannulate the renal artery and seat the sheath and the ostia. Next a 6 Stateless intravascular sound probe was advanced over the wire and digital recorded pullback of the renal artery was performed with measurement confirmed stenosis of 77%. There is felt to be appropriate for intervention so the ultrasound probe was removed and a angio sculpt scoring balloon 6 mm x 2 was advanced the position and then inflated nominal for 2 minutes then deflated withdrawn. Repeat angiography via the sheath confirmed satisfactory response to the lesion no extravasation or dissection. Next a [place] [employer] VBX balloon expandable covered stent 7 x 19 was brought on the field and prep for computer systems manager instructions. This then advanced and the position was satisfactory centering over the lesion and then inflated nominal and then deflated withdrawn. Completion angiography confirmed satisfactory stent placement no residual or stenosis and no extravasation or dissection renal pelvis continued to fill in satisfactory fashion. Further no further intervention was required so the 7 Stateless sheath was withdrawn and manual pressure held followed by satisfactory stasis. Patient was awakened from sedation taken to the progressive care unit for observation.
[2022-09-02] MEDS: Isosorbide DN 30 MG Tablet PO (23:21)
[2022-09-02] MEDS: Cephalexin 250 MG Capsule PO (23:22)
[2022-09-02] MEDS: Atorvastatin Calcium 10 MG Tablet 5 MG PO (23:24)
[2022-09-02] MEDS: LORazepam 0.5 MG Tablet 0.25 MG PO (23:25)
[2022-09-02] MEDS: Losartan Potassium 50 MG Tablet PO (23:31)
[2022-09-03 03:00] VITALS: PULSE 85
[2022-09-03 04:00] VITALS: BP 167/59; PULSE 85; RESP 18; TEMP 37.4; O2SAT 94
[2022-09-03 06:53] LABS: Absolute Lymphocyte Count 1.49 X10^3/uL (0.83-4.51); Absolute Neutrophil Count 3.6 X10^3/uL (2.0-7.7); Basophil# 0.08 X10^3/uL; Basophil% 1.3 % (0-1); Eosinophil# 0.15 X10^3/uL; Eosinophils% 2.4 % (0-5); Hematocrit 30.5 % (37-47); Hemoglobin 9.9 g/dL (12.0-15.0); Lymphocyte # 1.49 X10^3/ul (0.83-4.51); Mean Corp Hgb Conc 32.5 g/dL (32-36); Mean Corpuscular Hgb 30.9 pg (27.0-32.0); Mean Corpuscular Volume 95.3 fL (81-99); Mean Platelet Vol. 9.9 fl (6.2-12.0); Monocyte# 0.87 X10^3/uL; NRBC Flagged by Analyzer 0 % (0-5); Neutrophil # 3.59 X10^3/uL (2.7-7.7); Platelet Count 365 K/mm3 (150-450); RBC Distribution Width CV 12.9 % (11.6-14.6); RBC Distribution Width SD 44.7 fl (35.1-43.9); White Blood Count 6.2 K/mm3 (4.4-11.0)
[2022-09-03 07:21] LABS: Anion Gap 7 (5-15); BUN 22 mg/dL (7-18); BUN/Creat Ratio 18.8 RATIO (10-20); Chloride 100 mmol/L (98-107); Creatinine, Serum 1.17 mg/dL (0.55-1.02); EST Glomerular Filtration Rate 47 mL/min (>60); Est Glom Filt Rate - Afr Amer 56 mL/min (>60); Estimated Creatinine Clearance 24.79 ml/min; Glucose 113 mg/dL (74-106); Potassium 2.9 mmol/L (3.5-5.1); Sodium Level 136 mmol/L (136-145)
[2022-09-03 08:04] VITALS: O2SAT 96
--- NOTE | 2022-09-03 09:32 | NURSING ---
Emergency Documentation per charge hand.
[2022-09-03 09:39] VITALS: BP 174/70; PULSE 85; RESP 16; TEMP 36.9; O2SAT 93
[2022-09-03] MEDS: Potassium Chloride Oral Tablet 20 MEQ 60 MEQ PO (09:50)
[2022-09-03] MEDS: HYDROcodone Bitartrate/Apap 5/325 Tablet PO (09:50)
[2022-09-03 09:51] VITALS: BP 174/70; PULSE 85
[2022-09-03] MEDS: Losartan Potassium 50 MG Tablet PO (09:51)
[2022-09-03] MEDS: Furosemide 40 MG Tablet PO (09:51)
[2022-09-03] MEDS: Metoprolol(XL)Succ 100 MG Tablet PO (09:51)
[2022-09-03] MEDS: cloNIDine HCl 0.1 MG Tablet PO (09:51)
[2022-09-03] MEDS: Isosorbide DN 30 MG Tablet PO (09:51)
[2022-09-03] MEDS: Montelukast 10 MG Tablet PO (09:51)
[2022-09-03] MEDS: Potassium Chloride Oral Tablet 20 MEQ PO ×2 (09:51)
[2022-09-03] MEDS: 0.9% Saline Lock 10 ML Syringe IV (09:51)
[2022-09-03] MEDS: Cephalexin 250 MG Capsule PO (09:51)
[2022-09-03] MEDS: Pantoprazole Sodium 20 MG Tablet PO (09:51)
[2022-09-03] MEDS: Ferrous Sulfate 325 MG Tablet PO (09:51)
[2022-09-03] MEDS: Clopidogrel Bisulfate 75 MG Tablet PO (09:51)
[2022-09-03] MEDS: Lactulose 20 GM/30 ML UDC 30 GM PO (12:15)
[2022-09-03] MEDS: Fluticasone 0.05% 1 SPRAY NASAL.SRY NASAL (12:16)
--- NOTE | 2022-09-03 12:40 | PCM.DC.SUM ---
Providers Date of Admission: 09/02/22 Date of Discharge: 09/03/22 Primary Care Physician: Dr. James Gracia DO Reason For Visit: Aortogram, left renal artery angioplasty/stent Diagnosis Discharge Diagnosis (1) Renal artery stenosis: Status: Acute Code(s): I70.1 - Atherosclerosis of renal artery Medications at Discharge Home Medications montelukast 10 mg tablet 10 mg PO QDAY allergies 09/08/17 omeprazole 20 mg capsule,delayed release 20 mg PO DAILY reflux 09/08/17 simvastatin 10 mg tablet 10 mg PO QDAY cholesterol 09/08/17 potassium chloride 20 mEq tablet,extended release 20 meq PO QDAY supplement 09/13/17 albuterol sulfate 2.5 mg/3 mL (0.083 %) solution for nebulization 2.5 mg inhalation Q4H PRN Shortness Of Breath 06/13/18 ipratropium bromide 0.02 % solution for inhalation 2.5 ml inhalation Q4H PRN Shortness Of Breath 06/13/18 nitroglycerin 0.4 mg sublingual tablet 0.4 mg sublingual Q5-15M PRN chest pain 06/13/18 isosorbide dinitrate 30 mg tablet 30 mg PO BID heart 12/14/19 losartan 50 mg tablet 50 mg PO BID #180 tabs 01/30/20 fluticasone propionate 50 mcg/actuation nasal spray,suspension 1 spray NASAL DAILY allergies 11/28/20 ascorbic acid (vitamin C) 500 mg tablet (Vitamin C) 500 mg PO DAILY supplement 03/09/22 ferrous sulfate 325 mg (65 mg iron) tablet 325 mg PO BID supplement 03/09/22 lactulose 10 gram/15 mL oral solution 30 g PO Q OTHER DAY ammonia 05/12/22 hydrocodone-acetaminophen 5-325mg 5mg-325mg 1 tab PO BID pain 08/10/22 amlodipine 10 mg tablet 10 mg PO DAILY 30 days #30 tabs 08/15/22 clopidogrel 75 mg tablet 75 mg PO DAILY 30 days #30 tabs 08/15/22 hydralazine 50 mg tablet 100 mg PO TID 30 days #180 tabs 08/15/22 cephalexin 250 mg capsule 250 mg PO BID #10 caps 08/25/22 clonidine HCl 0.1 mg tablet 0.1 mg PO DAILY #0 tabs 08/25/22 furosemide 40 mg tablet (Lasix) 40 mg PO DAILY #30 tabs 08/25/22 lorazepam 0.5 mg tablet 0.25 mg PO Q8H PRN PRN Anxiety/Agitation #20 tabs 08/25/22 metoprolol succinate 100 mg tablet,extended release 24 hr 100 mg PO DAILY blood pressure #1 TAB 08/25/22 apixaban 5 mg tablet (Eliquis) 2.5 mg PO BID 30 days #30 tabs 09/03/22 Hospital Course Operations - (aortogram, left renal artery IVUS/angioplasty/stent) Summary of Care Provided Hospital Course: Patient was routinely admitted following aortogram with left renal artery angioplasty/stenting for hemodynamic monitoring. The procedure went as planned without complication and she tolerated it well. She was found to have an occluded right renal artery and left renal artery with 77% stenosis. The left renal artery was stented and the stenosis was resolved after intervention. It is POD#1 and she has remained hemodynamically stable. Her creatinine has improved from pre-procedure labs. She has tolerated full diet and producing urine. Her blood pressures remain elevated to the 160s/170s systolic, will not remove any blood pressure agents at this time. She will follow-up in our office in 2 weeks, any monitoring labs or imaging will be ordered at that time. Recommend she follow-up with her PCP soon. Advise she monitor blood pressures at home over the next few weeks, especially if she should feel any signs/symptoms of low or high BP. She was discharged in medically stable condition. Physical Exam Const oriented x3 and no apparent distress HEENT normocephalic, head/scalp atraumatic, hearing grossly normal bilaterally, external ears normal and external nose normal Eyes EOMs intact bilaterally General Eye: normal appearance of both eyes Neck full ROM General: normal visual inspection and trachea midline Resp normal respiratory effort and clear to auscultation bilaterally Effort and Inspection: able to speak in complete sentences and symmetric chest movement; Negative for respiratory distress, labored, stridor, uses accessory muscles or audible wheezes Cardio regular rate and regular rhythm Peripheral Pulses: brachial pulses present and radial pulses present GI normal to inspection, nondistended, normoactive bowel sounds Palpation: soft; Negative for tender Extremity normal to inspection and no calf tenderness Skin no rashes or lesions noted Trauma: no lacerations or abrasions Wound Narrative: Right groin access site with no swelling, hematoma, bleeding, erythema, warmth, drainage. Neuro oriented x3, CN's II-XII intact bilaterally, moves all extremities, no focal motor deficits and no sensory deficits noted Psych mental status grossly normal, cooperative, affect normal, speech normal and activity/motor behavior normal Weight / BMI Weight Weight: 132 lb Body Mass Index (BMI) 25.7 ABG / Lab / Microbiology Data Result Diagrams: 09/03/22 06:20 09/03/22 06:20 Laboratory: Laboratory Results - last 24 hr 09/03/22 06:20: WBC 6.2, RBC 3.20 L, Hgb 9.9 L, Hct 30.5 L, MCV 95.3, MCH 30.9, MCHC 32.5, RDW Std Deviation 44.7 H, RDW Coeff of [place] 12.9, Plt Count 365, MPV 9.9, Immature Gran % (Auto) 0.300, Neut % (Auto) 58.0, Lymph % (Auto) 24.0, [place] % (Auto) 14.0 H, Eos % (Auto) 2.4, Baso % (Auto) 1.3 H, Absolute Neuts (auto) 3.6, Absolute Lymphs (auto) 1.49, Nucleated RBC % 0 09/03/22 06:20: Sodium 136, Potassium 2.9 L, Chloride 100, Carbon Dioxide 29.0, Anion Gap 7, BUN 22 H, Creatinine 1.17 H, Estim Creat Clear Calc 24.79, Est GFR (MDRD) Af Amer 56 L, Est GFR (MDRD) Non-Af 47 L, BUN/Creatinine Ratio 18.8, Glucose 113 H, Calcium 9.0 D/C Instructions Discharge Diet: No restrictions May shower in (days): 1 Weight Bearing Status: Weight bearing as tolerated Lifting Restricted to (Lbs): 20 Lifting Restrictions: Do not lifet greater than 20 pounds for 3 weeks Call your doctor if your incision/area has: Sudden Increased Bleeding, Increased Pain/ Swelling, Increased Redness and Foul Smelling Discharge Call your doctor if you observe: Fever of 101 or Higher Remove Dressing in: 1 day Additional Dressing/Incision Instructions: You may remove the dressing tomorrow. Keep the area clean and dry. May rinse with soap and water but do not submerge in water for 3 weeks. Additional Instructions: May resume Eliquis on Saturday (09/05/22) morning. May shower tomorrow. Do not take a bath for 3 weeks. Keep site clean and dry, do not submerge in water. Do not lift greater than 20 pounds for 3 weeks. Continue to take current blood pressure medications. Follow-up in vascular surgery office on 09/17/22. Follow-up with your PCP. Monitor your blood pressures at home. Please Follow Up With: Duke August MD When: 09/17/2022 Meaningful Use Info Meaningful Use Diagnoses (Choose all that apply): None applicable Discharge Plan Admission Admit Date/Time: 09/02/22 16:06 Primary Reason for Your Visit: Left renal artery stenting Attending Provider: Duke August Primary Care Provider: James Garcia Instructions Additional Instructions / Restrictions: Do not take next dose of Eliquis until Wednesday morning (09/05/22). Discharge Orders/Prescriptions Prescriptions: Continued montelukast 10 mg tablet 10 mg PO QDAY simvastatin 10 mg tablet 10 mg PO QDAY omeprazole 20 mg capsule,delayed release(DR/EC) 20 mg PO DAILY potassium chloride 20 mEq tablet extended release 20 meq PO QDAY albuterol sulfate 2.5 mg /3 mL (0.083 %) solution for nebulization 2.5 mg INHALATION Q4H PRN (Reason: Shortness Of Breath) ipratropium bromide 0.02 % solution 2.5 ml INHALATION Q4H PRN (Reason: Shortness Of Breath) nitroglycerin 0.4 mg tablet, sublingual 0.4 mg sublingual Q5-15M PRN (Reason: chest pain) fluticasone propionate 1 SPRAY spray,suspension 1 spray NASAL DAILY lactulose 10 gram/15 mL solution 30 g PO Q OTHER DAY ferrous sulfate 325 mg (65 mg iron) Tablet 325 mg PO BID ascorbic acid (vitamin C) [Vitamin C] 500 mg Tablet 500 mg PO DAILY hydrocodone-acetaminophen 5-325 mg tablet 1 tab PO BID clopidogrel 75 mg Tablet 75 mg PO DAILY 30 Days Qty: 30 0RF amlodipine 10 mg Tablet 10 mg PO DAILY 30 Days Qty: 30 0RF hydralazine 50 mg Tablet 100 mg PO TID 30 Days Qty: 180 0RF Eliquis 5 mg Tablet 2.5 mg PO BID 30 Days Qty: 30 0RF clonidine HCl 0.1 mg Tablet 0.1 mg PO DAILY Qty: 0 0RF cephalexin 250 mg Capsule 250 mg PO BID Qty: 10 0RF lorazepam 0.5 mg Tablet 0.25 mg PO Q8H PRN PRN (Reason: Anxiety/Agitation) Qty: 20 0RF Rx Instructions: 1/2 three times a day if needed for anxiety furosemide [Lasix] 40 mg tablet 40 mg PO DAILY Qty: 30 0RF Rx Instructions: start 08/26/22 metoprolol succinate 100 mg tablet extended release 24 hr 100 mg PO DAILY Qty: 1 0RF isosorbide dinitrate 30 mg tablet 30 mg PO BID losartan 50 mg tablet 50 mg PO BID Qty: 180 3RF Referrals / Follow Up: James Garcia DO [Primary Care Provider] - Disposition Disposition (needs filled in before D/C Order can be placed): Home, Self Care Charges/Coding Visit Charges Inpatient E&M: 53342 Disch Hosp
--- NOTE | 2022-09-03 15:36 | CHAPLAIN ---
Type of Pastoral Visit _x__ Initial Visit ___ Follow-up Visit ___ On-call Visit ___ General Patient Visit ___ Spiritual Assessment ___ Family Conference ___ Bereavement ___ Rapid Response ___ Code Blue ___ Other (describe below) Pastoral Care Referral From _x__ Patient ___ Family ___ Nurse ___ Physician ___ Video Editor ___ Gift Consultant ___ Other (describe below) Sacrament/Intervention _x__ Active listening ___ Anointing ___ Latter-Day ___ Bereavement ___ Communion ___ Dee [place] exploration ___ ___ Life review _x__ Prayer ___ Reconciliation ___ Sacrament of Sick _x__ Supportive presence ___ Wedding ___ Other (describe below) Pastoral Comments patient has been seen several times in recent weeks at this hospital; pt had a procedure that she was expecting and hoping to happen; pt states being relieved that it is done and hopes to go home today; pt desires presence and prayer for support; no other needs
== END 2022-09-03 13:16 | disposition home or self-care (01) ==
LOC: CLSP 16:20 → PCU 09-03 06:31
PROVIDERS: Admitting Provider Surgery Trauma Surgery; PCP Family Medicine; Visit Provider Surgery Trauma Surgery
DX: I70.1 Atherosclerosis of renal artery (principal); N28.0 Ischemia and infarction of kidney; I77.1 Stricture of artery; I48.0 Paroxysmal atrial fibrillation; N18.32 Chronic kidney disease, stage 3b; I25.2 Old myocardial infarction; Z79.899 Other long term (current) drug therapy; I25.10 Atherosclerotic heart disease of native coronary artery without angina pectoris; R60.0 Localized edema; Z95.5 Presence of coronary angioplasty implant and graft; I12.9 Hypertensive chronic kidney disease with stage 1 through stage 4 chronic kidney disease, or unspecified chronic kidney disease; Z79.01 Long term (current) use of anticoagulants; Z79.02 Long term (current) use of antithrombotics/antiplatelets; R06.00 Dyspnea, unspecified; M25.561 Pain in right knee; R11.0 Nausea; R01.1 Cardiac murmur, unspecified; Z82.49 Family history of ischemic heart disease and other diseases of the circulatory system
CPT/HCPCS: 36251; 36415; 37236; 37253; 76937; 80048; 85025; 99152; 99153; 99221; C1725; C1753; C1769; C1874; C1887; J7030; J7040; Q9967; A4216; C1894; G0378

== ENCOUNTER → 2022-09-25 | Outpatient (CLI) | payer MEDICARE, SELFPAY ==
--- NOTE | 2022-09-25 09:08 | RDU_ITS ---
Reason For Study: LRA Stent / RRA Occlusion Right Renal Artery Left Renal Artery Unable to visualize Left renal artery ostium 107.8/9.3 Prior occlusion. PSV/EDV. Right Renal Parenchyma Left renal artery proximal PSV/EDV Unable to visualize. 123.4/14.5 . Right Renal Hilar Left renal artery mid 118.1/11.9 Unable to visualize. PSV/EDV . Right Renal Dimensions Left renal artery distal 193.3/32.6 Right kidney size 7.65 cm . PSV/EDV. Right cortical dimension 0.72 cm . Unable to calculate accurate RAR due to elevated AO velocities. Stent noted at Proximal/Mid LRA. Left Renal Parenchyma Left upper pole medulla 31.7/4.1 PSV/EDV . Left upper pole medulla EDR 0.10 . Left upper pole medulla R.I. 0.87 . UP Cortex 18.2/4.7 PSV/EDV. Left upper pole cortex EDR 0.30 . Left upper pole cortex R.I. 0.74 . Left lower Pole medulla 27.4/4.7 PSV/EDV . Left lower pole medulla EDR 0.20 . Left lower pole medulla R.I. 0.83 . Lower Pole Cortx 23.7/5.3 PSV/EDV. Left lower pole cortex EDR 0.20 . Left lower pole cortex R.I. 0.78 . Left Renal Hilar LT Hilar avg 50.0/8.2 PSV/EDV . Left hilar acceleration time 50 m/sec. Left Renal Dimensions Left kidney size 10.46 cm . Left cortical dimension 1.44 cm . Aorta Proximal abdominal aorta 1.44 x 1.45 cm . Proximal abdominal aorta peak systolic velocity is 331.9 cm/sec . Distal abdominal aorta 1.25 x 1.29 cm . Distal abdominal aorta peak systolic velocity is 155.4 cm/sec . Patient Safety Preliminary Values reported to [facility]. VL/Renal Artery Duplex Ultrasound Interpretation Summary Left renal artery patent with mildly elevated velocities distal to stent. Unabl e to calculate renal- aortic ratio due to significantly elevated aortic velocity. Known right renal artery occlusion. Left renal vein patent. Left kidney normal in size. Right kidney small in size. Ordering Physician: Duke August Referring Physician: James Garcia Performed By: Titi Molina RVT
== END | disposition home or self-care (01) ==
PROVIDERS: PCP Family Medicine; Visit Provider Surgery Trauma Surgery
DX: I70.1 Atherosclerosis of renal artery (principal)
CPT/HCPCS: 93975

== ENCOUNTER 2023-01-12 19:53 | Emergency (ER) | payer MEDICARE, SELFPAY ==
[2023-01-12 19:54] VITALS: BP 136/74; PULSE 73; RESP 18; TEMP 36.1; O2SAT 97; BMI 27.2
--- NOTE | 2023-01-12 20:51 | CT_ITS ---
STUDY: CT BRAIN WITHOUT CONTRAST REASON FOR EXAM: Female, 87 years old. Trauma RADIATION DOSAGE (If Supplied By Facility): CTDIvol = ( 44.99 ) mGy, DLP = ( 745.49 ) mGycm TECHNIQUE: Transaxial CT imaging of the brain was performed without administration of intravenous contrast material. Individualized dose optimization techniques were used for this CT. COMPARISON: March 15, 2022 FINDINGS: Normal soft tissue structures. Normal calvarium. Calcification of cavernous carotids. Mild atrophy and advanced periventricular white matter ischemic changes.. Normal basal ganglia and thalami. Normal brainstem. Normal cerebellum. There is no intracranial hemorrhage. There are no findings of an acute ischemic infarction. Minor mucosal thickening of the right anterior ethmoid and frontal sinuses. Postsurgical changes of the orbits. CT/Brain/Head without Contrast IMPRESSION: Mild atrophy and advanced periventricular white matter ischemic change. No evidence for acute intracranial hemorrhage. Electronically Signed: Martínez Garza MD at 21:39 EDT ,
--- NOTE | 2023-01-12 20:51 | CT_ITS ---
STUDY: CT CERVICAL SPINE WITHOUT CONTRAST REASON FOR EXAM: Female, 87 years old. Trauma RADIATION DOSAGE (If Supplied By Facility): CTDIvol = ( 12.38 ) mGy, DLP = ( 226.49 ) mGycm TECHNIQUE: High resolution transaxial imaging was performed without contrast material. Sagittal and coronal images were reconstructed. Individualized dose optimization techniques were used for this CT. COMPARISON: None FINDINGS: Normal craniovertebral junction. Normal anterior atlantoaxial articulation. Normal odontoid process. Normal cervical lordosis. Normal vertebral bodies and posterior osseous elements. C2-3: Normal endplates. Normal disc height and morphology. Normal central canal and intervertebral neuroforamina. C3-4: Grade 1 spondylolisthesis Normal endplates. Narrowed disc space and minor bulging disc osteophyte complex Normal central canal and intervertebral neuroforamina. C4-5: Narrowed disc space and mild endplate spurring.. Normal central canal. Moderate right neural foraminal stenosis secondary to bony hypertrophy. C5-6: Grade 1 retrolisthesis. Narrowed disc space and minor bulging disc osteophyte complex. Normal central canal. Moderate bilateral neural foraminal stenosis secondary to bony hypertrophy. C6-7: Grade 1 spondylolisthesis. Normal endplates. Narrowed disc space and minor bulging disc osteophyte complex. Normal central canal and intervertebral neuroforamina. C7-T1: Normal endplates. Normal disc height and morphology. Normal central canal and intervertebral neuroforamina. Normal visualized soft tissue structures. CT/Spine Cervical without Contras IMPRESSION: Moderate spondylosis. No acute fracture or other significant abnormality Electronically Signed: Martínez Garza MD at 21:46 EDT ,
--- NOTE | 2023-01-12 21:28 | EDS_ITS ---
HPI HPI - Fall History of Present Illness Chief Complaint: Fall Informant: patient Narrative Narrative: Patient presents after a fall. Patient knows she fell but is not sure exactly the details. She was sent in by hospice. She evidently fell. She was given morphine. There are no hospice representatives in. There is no family members with her. We are trying to reach somebody to get more details. We do note that she is on hospice care and she knows this but we do not know why and neither does she. She complains of pain mostly in her left hand or wrist area. After extensive questioning and exam I find out that she has pain in her hips she thinks and it seems to be on the left. She also complained of left ankle pain. She denied headache or neck pain once but then admitted to at another time. I do note that on her med list she is on Eliquis. She knows she is on a blood thinner but not sure why. We are at a significant loss in evaluation as there is nobody here can tell us the story of what happened and she is not sure what happened and she is not a good informant for even the symptoms that she is having. [facility] Medical History Atherosclerotic heart disease of [place] coronary artery without angina pectoris Cardiac murmur Edema Essential hypertension Hypertensive emergency Nausea Paroxysmal atrial fibrillation Presence of stent in coronary artery (~11/05/09) Pure hypercholesterolemia Stage 3b chronic kidney disease (CKD) Home Medications montelukast 10 mg tablet 10 mg PO QDAY allergies 09/08/17 [History Last Taken 03/08/22] omeprazole 20 mg capsule,delayed release 20 mg PO DAILY reflux 09/08/17 [History Last Taken 09/02/22] simvastatin 10 mg tablet 10 mg PO QDAY cholesterol 09/08/17 [History Last Taken 09/02/22] potassium chloride 20 mEq tablet,extended release 20 meq PO QDAY supplement 09/13/17 [History Last Taken 03/09/22] albuterol sulfate 2.5 mg/3 mL (0.083 %) solution for nebulization 2.5 mg inhalation Q4H PRN Shortness Of Breath 06/13/18 [History Last Taken 03/09/22] ipratropium bromide 0.02 % solution for inhalation 2.5 ml inhalation Q4H PRN Shortness Of Breath 06/13/18 [History Last Taken 03/09/22] nitroglycerin 0.4 mg sublingual tablet 0.4 mg sublingual Q5-15M PRN chest pain 06/13/18 [History Last Taken Unknown] isosorbide dinitrate 30 mg tablet 30 mg PO BID heart 12/14/19 [History Last Taken 09/02/22] losartan 50 mg tablet 50 mg PO BID #180 tabs 01/30/20 [Rx Last Taken 09/02/22] fluticasone propionate 50 mcg/actuation nasal spray,suspension 1 spray NASAL DAILY allergies 11/28/20 [History Last Taken 03/09/22] ascorbic acid (vitamin C) 500 mg tablet (Vitamin C) 500 mg PO DAILY supplement 0 03/09/22 [History Last Taken 03/09/22] ferrous sulfate 325 mg (65 mg iron) tablet 325 mg PO BID supplement 03/09/22 [History Last Taken 03/09/22] lactulose 10 gram/15 mL oral solution 30 g PO Q OTHER DAY ammonia 05/12/22 [History Last Taken Unknown] hydrocodone-acetaminophen 5-325mg 5mg-325mg 1 tab PO BID pain 08/10/22 [History Last Taken Unknown] amlodipine 10 mg tablet 10 mg PO DAILY 30 days #30 tabs 08/15/22 [Rx Last Taken 09/02/22] clopidogrel 75 mg tablet 75 mg PO DAILY 30 days #30 tabs 08/15/22 [Rx Last Taken 09/01/22] furosemide 40 mg tablet (Lasix) 40 mg PO DAILY #30 tabs 08/25/22 [Rx Last Taken 09/02/22] lorazepam 0.5 mg tablet 0.25 mg PO Q8H PRN PRN Anxiety/Agitation #20 tabs 08/25/22 [Rx Last Taken Unknown] metoprolol succinate 100 mg tablet,extended release 24 hr 100 mg PO DAILY blood pressure #1 TAB 08/25/22 [Rx Last Taken 09/02/22] apixaban 5 mg tablet (Eliquis) 2.5 mg PO BID 30 days #30 tabs 09/03/22 [Rx Last Taken Unknown] hydralazine 100 mg tablet 100 mg PO TID 90 days #270 tabs 09/30/22 [Rx Last Taken Unknown] spironolactone 25 mg tablet 25 mg PO DAILY #90 tabs 09/30/22 [Rx Last Taken Unknown] Allergy/AdvReac Type Severity Reaction Status Date / Time aspirin AdvReac Severe Swelling Verified 01/12/23 19:58 clarithromycin [From Biaxin] AdvReac Unknown Verified 01/12/23 19:58 codeine AdvReac Unknown Verified 01/12/23 19:58 morphine AdvReac Unknown Verified 01/12/23 19:58 Penicillins AdvReac Unknown Verified 01/12/23 19:58 Sulfa (Sulfonamide AdvReac Unknown Verified 01/12/23 19:58 Antibiotics) Family History Mother Myocardial infarction CVA (cerebral vascular accident) CAD (coronary artery disease) Father Myocardial infarction CAD (coronary artery disease) Brother History of PTCA Hx of CABG Sister Hx of CABG Surgical History H/O arthroscopy of left knee H/O oophorectomy History of appendectomy History of coronary artery stent placement (11/05/09) History of hernia repair History of partial hysterectomy History of right inguinal hernia repair Presence of coronary angioplasty implant and graft (~11/05/09) Social History household members: spouse Smoking Status: Never smoker alcohol intake: never substance use type: does not use caffeine: Yes Type: carbonated beverages what type of physical activity do you participate in: none seatbelt use: always do you feel safe at home: Yes ROS ROS ED ROS Narrative Patient admits to headache and some joint pain. There is no other consistent review of systems point that she admits to. She does state that she does not feel well. But it sounds like she does not feel well because she hurts. But due to her alertness/confusion review of systems is significantly. Difficult to obtain accurate Cardiovascular Cardiovascular: Denies chest pain Respiratory/Chest Respiratory/Chest: Denies dyspnea Musculoskeletal Musculoskeletal: Reports arthralgias Neurologic Neurologic: Reports headache(s) Hematologic/Lymphatic Hematologic/Lymphatic: Reports easy bleeding and easy bruising EXAM Physical Exam Narrative Exam Narrative: Patient is awake and alert. No acute distress. HEENT shows no sign of external trauma that I see. There is no tenderness. Mucous membranes seem moist. Neck is supple. There is no tenderness but she intermittently complains that it is sore. Chest is nontender. Lungs are clear no pain with a deep breath. Saturations are normal at 97% on room air showing no hypoxia Heart is regular. Abdomen is soft nontender. I do not get any thoracic or lumbar tenderness. No iliac crest or suprapubic or pubic symphysis tenderness. I do not get any tenderness of the hips. When I rotate her hips she does seem to say that the left hurts somewhat but its not consistent. She does have tenderness that is consistent in the left wrist and proximal hand and may even have a small amount of swelling there. This is on the left side. She has a bit of tenderness nonfocally around the left ankle although I see no deformity. All other areas seem to be nontender. Neurologically she is awake she is alert there is no sign of focal weakness. Const Vital Signs: 01/12/23 19:54 01/12/23 20:01 Temperature 97 F L Temperature Source Temporal Pulse Rate 73 Respiratory Rate 18 Respiratory Effort Normal Non-Labored Blood Pressure 136/74 H Blood Pressure Mean 94 Pulse Ox 97 Oxygen Delivery Method Room Air MDM MDM MDM Narrative Medical decision making narrative: My independent interpretation the patient's three-view left wrist does show radial ulnar fracture but overall relatively good position considering osteopenia. Final reading is similar. My independent interpretation of three-view x-ray of her left hand shows no hand fracture but does show the wrist fracture as above with final reading similar. My independent interpretation of three-view x-ray of the left ankle shows no sign of acute fracture and final reading is similar. They do mention some mild malleolar swelling medially but I cannot get focal tenderness there. My independent interpretation of her three-view x-ray of the left hip and pelvis shows no acute fracture with final reading similar. CT scan of her C-spine and head showed no acute processes. We attempted to call her but the phone numbers are not connected and we are not able to reach him. We were able to get hold of her hospice nurse to Nery notify her of the results. They evidently do have morphine as needed for pain even though that is listed as an allergy. She also has hydrocodone listed. I do not think she needs to be admitted. She is on hospice care. We did s plint the wrist. She should follow-up with Ortho as this may need to be converted to a splint. Procedure: Upper extremity splint: We did AP splints on her left wrist using fiberglass cut down to appropriate size. This was placed with gentle wrap of Sancho wrap to avoid tightening. I created a space for her thumb so it would not be irritated. We used slight volar tilt to prevent this fracture falling off posteriorly. We held this until it was firm. She tolerated this quite well. We checked the splint afterwards and it did not appear to be tight. She had good capillary refill sensation and can wiggle her fingers. Radiography Diagnostic Testing: Clinical Impression(s) from Imaging Studies Brain CT 01/12/23 20:51 IMPRESSION: Mild atrophy and advanced periventricular white matter ischemic change. No evidence for acute intracranial hemorrhage. Electronically Signed: Martínez Garza MD at 21:39 EDT , Cervical Spine CT 01/12/23 20:51 IMPRESSION: Moderate spondylosis. No acute fracture or other significant abnormality Electronically Signed: Martínez Garza MD at 21:46 EDT , Ankle X-Ray 01/12/23 21:30 IMPRESSION: Mild medial malleolus sprain. No acute fracture or dislocation Electronically Signed: Martínez Garza MD at 21:59 EDT , Hand X-Ray 01/12/23 21:30 IMPRESSION: Diffuse soft tissue swelling of the distal forearm with acute impacted fracture of the radius. Degenerative changes of the hand. No acute fracture or dislocation. Question mild subluxation of the metacarpal phalangeal joint of the thumb likely due to positioning artifac No evidence for acute fracture or dislocation. Electronically Signed: Martínez Garza MD at 21:58 EDT , Hip/Pelvis X-Ray 01/12/23 21:30 IMPRESSION: Normal x-ray examination of the pelvis and hip. Electronically Signed: Martínez Garza MD at 22:00 EDT , Wrist X-Ray 01/12/23 21:30 IMPRESSION: Acute fractures of the distal radius and ulna styloid Electronically Signed: Martínez Garza MD at 22:01 EDT , Procedures Upper Extremity Splints Upper Extremity Splint: Orthoglass Splint Fabrication: Fabricated Location: Left (See MDM) Discharge Plan Triage Chief Complaint: Fall ED Provider: Jose Bustillos Dx/Rx/DC Orders Clinical Impression: Fall, Colles' fracture of left radius, Hospice care Instructions: ED Colles Fracture No Reduction ... Prescriptions: No Action montelukast 10 mg tablet 10 mg PO QDAY simvastatin 10 mg tablet 10 mg PO QDAY omeprazole 20 mg capsule,delayed release(DR/EC) 20 mg PO DAILY potassium chloride 20 mEq tablet extended release 20 meq PO QDAY albuterol sulfate 2.5 mg /3 mL (0.083 %) solution for nebulization 2.5 mg INHALATION Q4H PRN (Reason: Shortness Of Breath) ipratropium bromide 0.02 % solution 2.5 ml INHALATION Q4H PRN (Reason: Shortness Of Breath) nitroglycerin 0.4 mg tablet, sublingual 0.4 mg sublingual Q5-15M PRN (Reason: chest pain) hydralazine 100 mg tablet 100 mg PO TID 90 Days Qty: 270 3RF spironolactone 25 mg tablet 25 mg PO DAILY Qty: 90 3RF fluticasone propionate 1 SPRAY spray,suspension 1 spray NASAL DAILY lactulose 10 gram/15 mL solution 30 g PO Q OTHER DAY ferrous sulfate 325 mg (65 mg iron) Tablet 325 mg PO BID ascorbic acid (vitamin C) [Vitamin C] 500 mg Tablet 500 mg PO DAILY hydrocodone-acetaminophen 5-325 mg tablet 1 tab PO BID clopidogrel 75 mg Tablet 75 mg PO DAILY 30 Days Qty: 30 0RF amlodipine 10 mg Tablet 10 mg PO DAILY 30 Days Qty: 30 0RF Eliquis 5 mg Tablet 2.5 mg PO BID 30 Days Qty: 30 0RF lorazepam 0.5 mg Tablet 0.25 mg PO Q8H PRN PRN (Reason: Anxiety/Agitation) Qty: 20 0RF Rx Instructions: 1/2 three times a day if needed for anxiety furosemide [Lasix] 40 mg tablet 40 mg PO DAILY Qty: 30 0RF Rx Instructions: start 08/26/22 metoprolol succinate 100 mg tablet extended release 24 hr 100 mg PO DAILY Qty: 1 0RF isosorbide dinitrate 30 mg tablet 30 mg PO BID losartan 50 mg tablet 50 mg PO BID Qty: 180 3RF Primary Care Provider: Gui Martinez Referrals: Gui Martinez DO [Primary Care Provider] - As Needed Ace Peterson DO [Med Staff - Active Staff] - 1 Week Disposition Disposition: Home, Self Care
--- NOTE | 2023-01-12 21:30 | RAD_ITS ---
STUDY: X-RAY - PELVIS AND LEFT HIP REASON FOR EXAM: Female, 87 years old. Trauma TECHNIQUE: 3 views of the pelvis and hip. COMPARISON: None. FINDINGS: There is a non-specific bowel gas pattern. Normal visualized soft tissue structures. Normal bilateral iliac wings, sacroiliac joints and visualized sacrum. Normal bilateral superior and inferior pubic rami. Normal pubic symphysis. Normal bilateral ischial tuberosities. Normal visualized femoral head. Normal acetabulum. Normal hip joint. RAD/HIP, UNI W/ Pelvis 2-3 Views IMPRESSION: Normal x-ray examination of the pelvis and hip. Electronically Signed: Martínez Garza MD at 22:00 EDT ,
--- NOTE | 2023-01-12 21:30 | RAD_ITS ---
STUDY: X-RAY - LEFT ANKLE REASON FOR EXAM: Female, 87 years old. Trauma TECHNIQUE: 3 view(s) of the ankle. COMPARISON: None. FINDINGS: Normal visualized distal tibia and fibula. Normal medial and lateral malleoli. Normal tibiotalar articulation and ankle mortise. Normal visualized talus and calcaneus. The visualized subtalar, talonavicular, calcaneocuboid and tarsal articulations are normal. Mild soft tissue swelling overlying the medial malleolus. RAD/Ankle min 3 Views IMPRESSION: Mild medial malleolus sprain. No acute fracture or dislocation Electronically Signed: Martínez Garza MD at 21:59 EDT ,
--- NOTE | 2023-01-12 21:30 | RAD_ITS ---
STUDY: X-RAY - LEFT HAND REASON FOR EXAM: Female, 87 years old. Trauma TECHNIQUE: 3 view(s) of the hand. COMPARISON: None. FINDINGS: Acute impacted distal radial fracture. Normal radiocarpal articulation. Normal distal radioulnar joint. Normal visualized carpal bones. Normal carpal articulations Arthritic changes of the carpometacarpal articulation of the thumb. Normal second through fifth carpometacarpal joints. Normal metacarpi. Possibly mildly subluxed metacarpophalangeal joint of the thumb likely due to positioning artifact.. Normal interphalangeal joint of the thumb. Normal proximal and distal phalanges of the thumb. Normal metacarpophalangeal joints of the second through fifth fingers. Normal proximal interphalangeal joints of the second through fifth fingers. The yolk changes of the DIP joints. Normal phalanges of the second through fifth fingers. Diffuse soft tissue swelling of the distal forearm and wrist. RAD/Hand Min 3 Views IMPRESSION: Diffuse soft tissue swelling of the distal forearm with acute impacted fracture of the radius. Degenerative changes of the hand. No acute fracture or dislocation. Question mild subluxation of the metacarpal phalangeal joint of the thumb likely due to positioning artifac No evidence for acute fracture or dislocation. Electronically Signed: Martínez Garza MD at 21:58 EDT Reading Location ID and State: [facility] / [place] , Service support ,
--- NOTE | 2023-01-12 21:30 | RAD_ITS ---
STUDY: X-RAY - LEFT WRIST REASON FOR EXAM: Female, 87 years old. Trauma TECHNIQUE: 3 view(s) of the wrist were obtained. COMPARISON: None. FINDINGS: Acute impacted distal radial fracture with mild overlapping of fracture fragments. There is also a transversely oriented fracture through the ulnar styloid with mild separation of fracture fragments. Normal radiocarpal articulation. Normal distal radioulnar articulation. Normal carpal bones. Normal carpal articulations. Normal carpometacarpal articulation of the thumb. Normal second through fifth carpometacarpal articulations. Normal visualized metacarpal bones. Diffuse soft tissue swelling of the distal forearm. RAD/Wrist min 3 Views IMPRESSION: Acute fractures of the distal radius and ulna styloid Electronically Signed: Martínez Garza MD at 22:01 EDT ,
[2023-01-12 22:00] VITALS: PULSE 78; RESP 24; O2SAT 96
--- NOTE | 2023-01-12 22:23 | ED.RN ---
Spoke with [facility] nurse. Patient dx w/ CHF; CKD. Patient was seen here at [facility] 12/01/22 and that is when Hospice service began. Patient husbands Gene phone number is [phone]. [facility] hospice nurse phone number [phone] main line [phone].
[2023-01-12 23:29] VITALS: PULSE 78; RESP 24; O2SAT 98
--- NOTE | 2023-01-13 | ED.RN ---
Update given to Hospice and Gene.
== END 2023-01-13 01:15 | disposition home or self-care (01) ==
PROVIDERS: Emergency Provider Emergency Medicine; PCP Family Medicine; Visit Provider Emergency Medicine
DX: S52.532A Colles' fracture of left radius, initial encounter for closed fracture (principal); I48.0 Paroxysmal atrial fibrillation; N18.32 Chronic kidney disease, stage 3b; I25.10 Atherosclerotic heart disease of native coronary artery without angina pectoris; I12.9 Hypertensive chronic kidney disease with stage 1 through stage 4 chronic kidney disease, or unspecified chronic kidney disease; W19.XXXA Unspecified fall, initial encounter; E78.00 Pure hypercholesterolemia, unspecified; Z79.01 Long term (current) use of anticoagulants; S52.202A Unspecified fracture of shaft of left ulna, initial encounter for closed fracture; Z95.5 Presence of coronary angioplasty implant and graft; Z79.899 Other long term (current) drug therapy; Z79.52 Long term (current) use of systemic steroids; Z79.02 Long term (current) use of antithrombotics/antiplatelets; R60.9 Edema, unspecified; Z90.49 Acquired absence of other specified parts of digestive tract; Z90.710 Acquired absence of both cervix and uterus
CPT/HCPCS: 29125; 70450; 72125; 73110; 73130; 73502; 73610; 99284